=== PATIENT | male | born 1965 | race Caucasian/White ===

== ENCOUNTER 2023-09-17 09:13 | Outpatient (OUT) | payer OTHER, SELFPAY ==
--- NOTE | 2023-09-17 09:20 | XR_ITS ---
The [address] [address] Patient Name: DMITRI MANCILLA MRN: [id number] date: 1965 Sex: M Assigned Patient Location: RAD Current Patient Location: [facility] Accession/Order Number: [id number] Exam Date: 09/17/2023 09:25 Report Date: 09/17/2023 12:27 At the request of: MEENAKSHI GALLEGOS Procedure: XR shoulder LT min 2V PROCEDURE: XR shoulder LT min 2V COMPARISON: None. HISTORY: Internal Derangement Of Left Shoulder M24.812 FINDINGS: BONES:No acute fracture or dislocation. Mild acromioclavicular joint osteoarthritis. Moderate to severe glenohumeral joint osteoarthritis with marginal osteophyte formation and joint space narrowing and subchondral sclerosis SOFT TISSUES:Negative. No visible soft tissue swelling. EFFUSION:None visible. OTHER: Negative. XR/XR shoulder LT min 2V IMPRESSION: Moderate glenohumeral joint osteoarthritis Electronically authenticated by: KENNA PEACOCK Date: 09/17/2023 12:27
== END 2023-09-17 09:14 | disposition home or self-care (01) ==
LOC: RAD 09:15
PROVIDERS: PCP Family Medicine; Visit Provider Family Medicine
DX: M24.812 Other specific joint derangements of left shoulder, not elsewhere classified (principal); M19.012 Primary osteoarthritis, left shoulder
CPT/HCPCS: 73030

== ENCOUNTER 2024-03-15 07:12 | Outpatient (OUT) | payer OTHER, SELFPAY ==
--- OUTSIDE RECORDS SUMMARY | 2024-03-15 07:17 | XMS_ITS | CCD ---
Author Organization [facility] Care Team Providers Care Preassembler [employer] Name Role Phone REANNA, ADORE Unavailable Unavailable WILLOW, JESE S Unavailable Unavailable REANNA, ADORE Unavailable Unavailable WILLOW, JESE S Unavailable Unavailable VIRY ORELLANA Unavailable Unavailable WILLOW, JESE S Unavailable Unavailable Marc Whitaker Attending Provider Unavailable Sean Miranda Primary Care Provider UnavailJOHNATHON Adame Primary Care Physician MD Rishi Xie Attending Provider MD Johnathon Gallegos Primary Care Provider Rishi Xie Attending Unavailable NadererJohnathon Primary Care Unavailable Rishi Xie P Admitting Unavailable Paco, Rishi Herrera Admitting Unavailable NadererJohnathon Primary Care Unavailable Rishi Xie Attending Unavailable Rishi Xie Attending Unavailable NadereJohnathon mckeon Primary Care Unavailable Rishi Xie Admitting Unavailable Rishi Xie P Admitting Unavailable NadererJohnathon Primary Care Unavailable Rishi Xie Attending Unavailable NADEREDeonte, DR JOHNATHON Hunt Primary Care Unavailable NADERER, DR JOHNATHON Hunt Admitting Unavailable NADERER, DR JOHNATHON Hunt Attending Unavailable NADERER, DR JOHNATHON Hunt Consulting Unavailable NADERER, DR JOHNATHON Hunt Primary Care Unavailable LEA MARQUEZ Attending Unavailable ALMA, LEA Consulting Unavailable LEA MARQUEZ Admitting Unavailable NADERERJOHNATHON Primary Care Unavailable Jm Wilson Attending Unavailable NADERER, JOHNATHON Hunt Primary Care Unavailable WilsonJm murdock P Admitting Unavailable WilsonJm murdock P Consulting Unavailable Alex Ron Admitting Unavailable Alex Ron Attending Unavailable JOHNATHON GALLEGOS Primary Care Unavailable Rishi XIE Attending Unavailable COOK, Rishi P Attending Unavailable COOKRishi P Attending Unavailable COOK, Rishi P Attending Unavailable COOK, Rishi P Admitting Unavailable Rishi XIE Attending Unavailable MD Sean Miranda Attending Unavailable JOHNATHON GALLEGOS Attending Unavailable TRISTEN COLMENARES Attending Unavailable JOHNATHON GALLEGOS Referring Unavailable JR. GUERRERO GEORGE C Attending Unavaila TRISTEN Montoya Attending Unavailable Unavailable Unavailable Unavailable Allergies Allergy Classification Reported Allergen(s) Allergy Type Date of Onset Reaction(s) Facility (1 source) No Known Medication Allergies; Translations: [No Known Medication Allergies] Propensity to adverse reactions to drug (disorder) [facility] Repository Medications Current Medications Medication Drug Class(es) Dates Sig (Normalized) Sig (Original) cetirizine hydrochloride 10 mg oral tablet (4 sources) Histamine-1 Receptor Antagonist Start: 9 take 10 mg by mouth once daily Cetirizine Active 10 MG PO Daily September 14, 2019 1:00am hydroCHLOROthiazide 12.5 mg oral capsule (3 sources) Thiazide Diuretic Start: 2 take 1 mg by mouth once daily hydrochlorothiazide 12.5 mg Cap mg cap(s), Oral, Daily, Refills(s) 0 Start Date: 08/21/22 Status: Ordered Losartan (9 sources) Angiotensin 2 Receptor Ifeanyi Start: 2 losartan Oral, Daily Start Date: 02/25/22 Status: Ordered Start: 09-12-2019 take 50 mg by mouth once daily Losartan Active 50 MG PO Daily September 12, 2019 1:00am niacin 250 mg oral tablet (9 sources) Nicotinic Acid Start: 09-14-2019 tamsulosin hydrochloride 0.4 mg oral capsule (4 sources) alpha-Adrenergic Ifeanyi Start: 06-24-2023 take 1 capsule by mouth once daily tamsulosin 0.4 mg Cap 0.4 mg = 1 cap(s), Oral, Daily, # 30 cap(s), Refills(s) 11, [facility]: [id number], 178, cm, 02/23/23 8:34:00 EDT, Height/Length Dosing, 87, kg, 02/23/23 8:34:00 EDT, Weight Dosing Start Date: 06/24/23 Status: Ordered Start: 06-19-2022 take 1 capsule by [facility] once daily tamsulosin 0.4 mg Cap 0.4 mg = 1 cap(s), Oral, Daily, # 30 cap(s), Refills(s) 11, Pharmacy: [facility] #[id number], 178, cm, 06/19/22 10:33:00 EDT, Height/Length Dosing, 87, kg, 06/19/22 10:33:00 EDT, Weight Dosing Start Date: 06/19/22 Status: Ordered Verapamil (9 sources) Calcium Channel Ifeanyi Start: 02-25-2022 verapa mil 240 mg Start Date: 02/25/22 Status: Ordered Start: 09-12-2019 take 240 mg by mouth once amanda y Verapamil Active 240 MG PO Daily September 12, 2019 1:00am Vitamin B Complex oral capsu le (5 sources) Start: 02-25-2022 Vitamin B Comp bismark oral capsule Oral, Daily Start Date: 02/25/22 Status: Ordered Problems Active Problems Problem Classification Problem Date Documented Da te Episodic/Chronic Administrative/social admission (3 sources) Encounter for pre-employment examination; Translations: [Encounter for pre-employment examination] Onset: 02-25-2018 Episodic Essential hypertension (5 sources) Hypertensive disorder 02-25-2022 Chronic Genitourinary symptoms and ill-defined conditions (2 sources) Urge incontinence; Translations: [Urge incontinence of urine] Onset: 09-06-2023 Chronic Genitourinary symptoms and ill-defined conditions (4 sources) Dysuria 04-27-2022 Episodic Hyperplasia of prostate (9 sources) Benign prostatic hypertrophy with outflow obstruction; Translations: [Benign prostatic hyperplasia with lower urinary tract symptoms] Onset: 02-25-2022 Chronic Osteoarthritis (5 sources) Arthritis 02-25-2022 Chronic Other diseases of kidney and ureters (2 sources) Urinary tract obstruction; Translations: [Other obstructive and reflux uropathy] Onset: 02-25-2022 Episodic Other gastrointestinal disorders (4 sources) Dysphagia; Translations: [Dysphagia, unspecified] 09-14-2019 Episodic Other gastrointestinal disorders (1 source) Dysphagia, unspecified; Translations: [Swallowing painful] Episodic Other gastrointestinal disorders (5 sources) Pharyngeal dysphagia 02-25-2022 Episodic Other nutritional; endocrine; and metabolic disorders (1 source) Overweight in adulthood with body mass index of 25 or more but less than 30; Translations: [Body mass index (BMI) 27.0-27.9, adult] Onset: 02-25-2022 Episodic Other nutritional; endocrine; and metabolic disorders (5 sources) Body mass index 25-29 - overweight 02-25-2022 Episodic Other screening for suspected conditions (not mental disorders or infectious disease) (13 sources) Encounter for screening for malignant neoplasm of colon; Translations: [Raised prostate specific antigen] Onset: 02-25-2022 Episodic Paralysis (5 sources) Cerebral palsy 02-25-2022 Chronic Residual codes; unclassified (4 sources) Family history of cancer; Translations: [Family history of malignant neoplasm of prostate] Onset: 02-25-2022 Episodic Residual codes; unclassified (5 sources) Family history of prostate cancer 02-25-2022 Episodic Unclassified (1 source) Pure hypercholesterolemi a, unspecified; Translations: [Pure hypercholesterolemi a, unspecified] Onset: 04-27-2017 Unclassified (1 source) Patient encounter status; Translations: [Encounter for screening for malignant neoplasm of colon] Unclassified (1 source) Encounter for preprocedural laboratory examination; Translations: [Encounter for preprocedural laboratory examination] Onset: 05-26-2022 Unclassified (1 source) R97.20 - Elevated prostate specific antigen [PSA]; Translations: [R97.20 - Elevated prostate specific antigen [PSA]] Onset: 03-25-2022 Past or Other Problems Problem Classification Problem Date Documented Da te Episodic/Chronic Medical examination/evaluation (1 source) Encounter for general adult medical examination without abnormal findings; Translations: [Encounter for general adult medical examination without abnormal findings] Onset: 04-27-2017 Episodic Residual codes; unclassified (4 sources) Contact with and (suspected) exposure to potentially hazardous body fluids; Translations: [CONTACT AND EXPOS POTENTL HAZ BDY FLUID] Onset: 06-24-2022 Episodic Results Test Name Value Interpretation Reference Range Facility MR SHOULDER LEFT WO IV CONTR Porfirio 01-12-2024 MR SHOULDER LEFT WO IV CONTRAST EXAMINATION: MR SHOULDER LEFT WO IV CONTRAST HISTORY: Diffuse shoulder pain with limited range of motion for 1 year, worsening TECHNIQUE: Routine non-contrast MRI of the shoulder, left side COMPARISON: None RESULT: Rotator Cuff Tendons: Mild tendinosis involving supraspinatus, infraspinatus, and subscapularis, without evidence for tear. Teres minor appears intact. Long Head Biceps Tendon: Appears intact with appropriate location. Increased fluid in the tendon sheath likely relates to joint continuity, versus tenosynovitis. Muscle: Muscle bulk and signal intensity are within normal limits. Labrum: Diffuse tearing Bones and Marrow: No evidence of fracture or bone marrow replacing process. Extensive degenerative subchondral edema about the glenohumeral joint and to a lesser extent the acromioclavicular joint. Glenohumeral Joint: Diffuse full-thickness chondral loss with extensive subchondral edema and cystic change, bony remodeling, osteophytes, with multiple joint bodies including fluid extending into the subscapularis recess with multiple joint bodies in the subscapularis recess and also within the axillary pouch region. One of the larger joint bodies measures around 7 mm. Acromioclavicular Joint: Mild degenerative changes with undersurface osteophytes. Other: No other significant abnormality. IMPRESSION: Advanced glenohumeral osteoarthritis with multiple joint bodies as discussed. Rotator cuff tendinosis without tear. ELECTRONICALLY SIGNED BY: Peter Coates MD Normal Not Available Lab Reportson 09-08-2023 Lab Reports [id number] Normal [facility] Screenson 09-08-2023 Screens [id number] Normal [facility] Ambulatory Visit Summaryon 1 11-08-2022 Ambulatory Visit Summary DMITRI ARTHUR :1965 Visit Date:09/07/2023 Ambulatory Visit Instructions Your Diagnosis Elevated PSA BPH with urinary obstruction Urge incontinence Family history of prostate cancer in father Tests Performed Urnls Dip Stick Auto w/o Microscopy POC 81056 Your Care Team Attending Physician - PACO VARGAS, Rishi Herrera Primary Care Physician - JOHNATHON GALLEGOS MD This Is Your Medications List tamsulosin (tamsulosin 0.4 mg Cap) Contact prescribing physician if questions or concerns hydrochlorothiazide (hydrochlorothiazide 12.5 mg Cap) losartan multivitamin (Vitamin B Complex oral capsule) niacin (niacin 250 mg oral tablet) verapamil Procedures Performed MR/US fusion guided prostate biopsy (05/28/2022), Testicular torsion (1989), Tonsillectomy and adenoidectomy (1975). Discharge Vitals Heart Rate (Peripheral) 100 Blood Pressure 138/81 Height 178 cm Height 70 in Weight 87 kg Weight 191.4 lb BMI 27.46 What to do next Scheduled Follow-Up Appointments Wednesday 8:00 AM EDT With: Rishi XIE MD Where: [facility] Patient Educationon 09-07-20 Patient Education Urology Benign Prostatic Hyperplasia Benign prostatic hyperplasia (BPH) is an enlarged prostate gland that is caused by the normal aging process. The prostate may get bigger as a man gets older. The condition is not caused by cancer. The prostate is a walnut-sized gland that is involved in the production of semen. It is located in front of the rectum and below the bladder. The bladder stores urine. The urethra carries stored urine out of the body. An enlarged prostate can press on the urethra. This can make it harder to pass urine. The buildup of urine in the bladder can cause infection. Back pressure and infection may progress to bladder damage and kidney (renal) failure. What are the causes? This condition is part of the normal aging process. However, not all men develop problems from this condition. If the prostate enlarges away from the urethra, urine flow will not be blocked. If it enlarges toward the urethra and compresses it, there will be problems passing urine. What increases the risk? This condition is more likely to develop in men older than 50 years. What are the signs or symptoms? Symptoms of this condition include: ? Getting up often during the night to urinate. ? Needing to urinate frequently during the day. ? Difficulty starting urine flow. ? Decrease in size and strength of your urine stream. ? Leaking (dribbling) after urinating. ? Inability to pass urine. This needs immediate treatment. ? Inability to completely empty your bladder. ? Pain when you pass urine. This is more common if there is also an infection. ? Urinary tract infection (UTI). How is this diagnosed? This condition is diagnosed based on your medical history, a physical exam, and your symptoms. Tests will also be done, such as: ? A post-void bladder scan. This measures any amount of urine that may remain in your bladder after you finish urinating. ? A digital rectal exam. In a rectal exam, your health care provider checks your prostate by putting a lubricated, gloved finger into your rectum to feel the back of your prostate gland. This exam detects the size of your gland and any abnormal lumps or growths. ? An exam of your urine (urinalysis). ? A prostate specific antigen (PSA) screening. This is a blood test used to screen for prostate cancer. ? An ultrasound. This test uses sound waves to electronically produce a picture of your prostate gland. Your health care provider may refer you to a specialist in kidney and prostate diseases (urologist). How is this treated? Once symptoms begin, your health care provider will monitor your condition (active surveillance or watchful waiting). Treatment for this condition will depend on the severity of your condition. Treatment may include: ? Observation and yearly exams. This may be the only treatment needed if your condition and symptoms are mild. ? Medicines to relieve your symptoms, including: ? Medicines to shrink the prostate. ? Medicines to relax the muscle of the prostate. ? Surgery in severe cases. Surgery may include: ? Prostatectomy. In this procedure, the prostate tissue is removed completely through an open incision or with a laparoscope or robotics. ? Transurethral resection of the prostate (TURP). In this procedure, a tool is inserted through the opening at the tip of the penis (urethra). It is used to cut away tissue of the inner core of the prostate. The pieces are removed through the same opening of the penis. This removes the blockage. ? Transurethral incision (TUIP). In this procedure, small cuts are made in the prostate. This lessens the prostate's pressure on the urethra. ? Transurethral microwave thermotherapy (TUMT). This procedure uses microwaves to create heat. The heat destroys and removes a small amount of prostate tissue. ? Transurethral needle ablation (TUNA). This procedure uses radio frequencies to destroy and remove a small amount of prostate tissue. ? Interstitial laser coagulation (ILC). This procedure uses a laser to destroy and remove a small amount of prostate tissue. ? Transurethral electrovaporization (TUVP). This procedure uses electrodes to destroy and remove a small amount of prostate tissue. ? Prostatic urethral lift. This procedure inserts an implant to push the lobes of the prostate away from the urethra. Follow these instructions at home: ? Take oeuk-bzs-pukykzd and prescription medicines only as told by your health care provider. ? Monitor your symptoms for any changes. Contact your health care provider with any changes. ? Avoid drinking large amounts of liquid before going to bed or out in public. ? Avoid or reduce how much caffeine or alcohol you drink. ? Give yourself time when you urinate. ? Keep all follow-up visits. This is important. Contact a health care provider if: ? You have unexplained back pain. ? Your symptoms do not get better with treatment. ? You develop side effects from the medicine (more content not included)... Normal [facility] Reminderson 09-07-2023 Reminders - From: Dennise Swanson To: JEANETTE Xie; Sent: 09/07/2023 09:55:39 EST Show up: 01/07/2024 10:55:00 EDT Subject: PSA Due Date/Time: 03/08/2024 10:55:00 EDT Pt is to get PSA done prior to appt. Normal [facility] Urology Office/Clinic Noteon 09-07-2023 Urology Office/Clinic Note Chief Complaint 6 month follow up w/ PSA HPI Staff 6 month follow up w/PSA. Current PSA 1.95 done 07/28/23, previous PSA 2.49 done 02/15/23. Previous DX: BPH w/ urinary obstruction, dysuria, elevated PSA, family history of prostate cancer. S/P MRI fusion bx done 05/28/22. Pt needs refill of Fl[facility]. IPSS SCORE 19. PVR today 143ml. Dysuria: denies pain and burning Incomplete bladder emptying: denies Hematuria: denies visible blood Frequency: 6-7x a day due to coffee intake Urgency: sometimes Nocturia: once a night Stream: denies hesitancy, weak to moderate stream Leaking: yes Post void dripping: sometimes Wearing pads/ Depends: denies Urge incontinence: denies Stress incontinence: sometimes when going from seated position to standing Incontinence without Sensory Awareness: denies Abdominal pain: denies Flank pain: denies Sexual complaints: _ History of Present Illness Tests reviewed: reviewed UA and PSA. I have reviewed the previous health record information and history for this patient from . I have reviewed and verified the staff HPI to be accurate for this encounter. There have been no associated fever, chills, flank pain, or blood in the urine. Denies any urinary infections since last encounter. Review of Systems PHQ Score Initial Depression Screen Score: 0 SCORE ROS - Provider Constitutional: denies weight loss, denies hot flashes. Eyes: denies eye problems. Gastrointestinal: denies nausea, denies vomiting. Cardiovascular: denies chest pain or angina. Integumentary: no dryness Musculoskeletal: denies musculoskeletal symptoms. ENMT: denies otolaryngeal symptoms. Respiratory: no shortness of breath. Heme/Lymph: denies easy bleeding tendency, denies easy bruising tendency. Psychiatric: no confusion, no anxiety. Genitourinary: See HPI. Physical Exam Vitals & Measurements HR: 100(Peripheral) BP: 138/81 HT: 70 in HT: 178 cm WT: 87 kg WT: 191.4 lb BMI: 27.46 General Appearance: alert, no distress, well nourished, well developed male. Assessment/Plan 1. Elevated PSA (R97.20: Elevated prostate specific antigen [PSA]) PSA: 08/20/22 - 2.71 10/12/22 - 3.50 02/15/23 - 2.49 07/28/23 - 1.95 MRI of prostate 03/25/22 - A focal area of T2 hypointensity which is identified involving the posterolateral aspect of the left peripheral zone at the level of the mid gland measuring 6 x 5 mm with associated restricted diffusion and low ADC value. PI-RADS 4. Prostate volume 28 cc. MRI fusion bx 05/28/22 - Path neg. Chronic inflammation and atrophy. Discussed PSA level with pt, decreased from previous, trending down currently. Will continue to monitor. Advised pt that we do not need to have a bx done, but it would be recommended to continue with the close monitoring. Pt agrees with this plan. Follow up in 6 mos w/PSA. All questions/concerns were discussed. Pt to call the office if he encounters any issues prior. Pt acknowledges understanding. -Will order PSA. 2. BPH with urinary obstruction (N40.1: Benign prostatic hyperplasia with lower urinary tract symptoms) UA today negative for blood and infection. IPSS 19(12). Taking Flomax 0.4 mg qd. Pt states that he feels like there are not changes in his urinary sxs, still experiencing urge incontinence, still getting up 2x/night. Pt states that he had tried taking the Tamsulosin BID, had lightheadedness from the max dose of Tamsulosin. Denies any other SE's from Tamsulosin. Advised pt to continue with the Tamsulosin and the next step would to get a cysto done. Pt states that he does not feel this is needed at this time. -Continue Tamsulosin as above. -Continue sxs monitoring. 3. Urge incontinence (N39.41: Urge incontinence) -See #2. 4. Family history of prostate cancer in father (Z80.42: Family history of malignant neoplasm of prostate) PSA has decreased since last visit but seems to continue to fluctuate, consistent with a chronic prostatitis type picture noted on biopsy. Regarding his urinary symptoms, Flomax continues to help but he was unable to tolerate the twice daily dosing as noted above. Will stay on the current dosing at 0.4 mg daily and follow-up in 6 months with a repeat free and total PSA Follow-up With When Contact Information Rishi XIE MD, URL In 6 months [facility] [address] [place] [address]- Additional Instructions: w/PSA Patient Education Benign Prostatic Hyperplasia I, Dennise Swanson, personally scribed for Dr. Xie on 09/07/2023 09:44:50. . Documentation recorded by the scribe, Dennise Swanson, accurately reflects the services(s) I performed and decisions made by me. Authenticated by Dr. Xie on 09/07/2023 09:45:55. Portions of this record may have been created with voice recognition artificial intelligence software, specifically Fontself, iSSimple and or Issue (more content not included)... [facility] Comment on above: Result Comment: Elec tronically Signed By: Rishi XIE MD\.br\Date and Time Signed: 09/07/23 09:49 EST\.br\Electronically Co-Signed By: Dennise Swanson\.br\Date and Time Co-Signed: 09/07/23 09:45 EST Consent Formson 08-03-2023 Consent Forms [id number] Normal [facility] CMP Standardon 07-28-2023 eGFR Non AA >60 Invalid Interpretation Code [facility] Comment on above: Performed By: #### 2 [id number], [id number], 7859728, 0785050, [id number], 7627366, [id number], [id number] ####[facility] (DEFAULT)[address] [place] [address] 39278 eGFR AA >60 Invalid Interpretation Code [facility] Comment on above: Performed By: #### 2 [id number], 2256383, 5471129, 0345574, [id number], 7513634, [id number], 6991071 ####[facility] (DEFAULT)[address] [place] [address] 47810 Albumin [Mass/Vol] 4.2 g/dL Normal 3.5-5.0 [facility] Comment on above: Performed By: #### 2 585121, 4187026, 6835025, 6981655, [id number], 1634334, [id number], [id number] ####[facility] (DEFAULT)[address] [place] [address] 29009 Albumin/Globulin [Mass ratio] 1.3 {ratio} Low 1.4-2.6 [facility] Comment on above: Performed By: #### 2 790753, 8646001, 6810535, 3636734, [id number], 4664291, [id number], 4050539 ####[facility] (DEFAULT)[address] [place] [address] 04748 Alk Phos 56 IU/L Normal 32-91 [facility] Comment on above: Performed By: #### 2 948149, 6005199, 0173685, 1534238, [id number], 7267048, [id number], 5913984 ####[facility] (DEFAULT)[address] [place] [address] 81633 ALT [Catalytic activity/Vol] 18.0 U/L Normal 17.0-63.0 [facility] Comment on above: Performed By: #### 2 308334, 6112632, 1023453, 8906267, [id number], 9574609, [id number], 5904229 ####[facility] (DEFAULT)[address] [place] [address] 12580 Anion gap [Moles/Vol] 11.2 mmol/L Normal 5.0-19.0 [facility] Comment on above: Performed By: #### 2 897517, 7110932, 0231267, 7158047, [id number], 7668377, [id number], 3945008 ####[facility] (DEFAULT)[address] [place] [address] AST [Catalytic activity/Vol] 21 U/L Normal 15-41 [facility] Comment on above: Performed By: #### 2 517126, 9664915, 4564944, 3245418, [id number], 4147751, [id number], 1836569 ####[facility] (DEFAULT)[address] [place] [address] 25062 Bili Total 0.4 mg/dL Normal 0.3-1.2 [facility] Comment on above: Performed By: #### 2 356722, 3283701, 2725114, 2619540, [id number], 2327534, [id number], 6630894 ####[facility] (DEFAULT)[address] [place] [address] 88335 Calcium [Mass/Vol] 9.3 mg/dL Normal 8.9-10.3 [facility] Comment on above: Performed By: #### 2 865414, 2793323, 2684655, 5413279, [id number], 5382399, [id number], 0501654 ####[facility] (DEFAULT)[address] [place] [address] 59124 Chloride [Moles/Vol] 100 mmol/L Low 101-111 [facility] Comment on above: Performed By: #### 2 278738, 8658240, 0733469, 6198846, [id number], 3062719, [id number], [id number] ####[facility] (DEFAULT)[address] [place] [address] 01692 CO2 [Moles/Vol] 29 mmol/L Normal 21-32 [facility] Comment on above: Performed By: #### 2 199525, 2516270, 7572314, 7321346, [id number], 7125883, [id number], 1291021 ####[facility] (DEFAULT)[address] [place] [address] 70409 Creatinine [Mass/Vol] 0.82 mg/dL Low 0.90-1.30 [facility] Comment on above: Performed By: #### 2 121963, 2035124, 9865063, 4407223, 6388455611, 9781509, [id number], 3413017 ####[facility] (DEFAULT)[address] [place] [address] 87387 Globulin (S) [Mass/Vol] 3.1 g/dL Normal 1.5-4.3 [facility] Comment on above: Performed By: #### 2 093037, 7022285, 9392572, 2039175, [id number], 2132000, 3418303470, 8156654 ####[facility] (DEFAULT)[address] [place] [address] 62298 Glucose [Mass/Vol] 94.0 mg/dL Normal 74.0-118.0 [facility] Comment on above: Performed By: #### 2 062253, 2125237, 6154372, 1545324, [id number], 2766144, [id number], 8135717 ####[facility] (DEFAULT)[address] [place] [address] 22590 Osmolality 277 mOsm/L Invalid Interpretation Code [facility] Comment on above: Performed By: #### 2 952001, 6562132, 3557019, 9562128, [id number], 6452620, 4710034024, 5981366 ####[facility] (DEFAULT)[address] [place] [address] 76093 Potassium [Moles/Vol] 3.2 mmol/L Low 3.6-5.1 [facility] Comment on above: Performed By: #### 2 133704, 9739116, 8197693, 6411158, 8107295449, 5564215, 7342447750, 9183033 ####[facility] (DEFAULT)[address] [place] [address] 48213 Protein [Mass/Vol] 7.3 g/dL Normal 6.5-8.1 [facility] Comment on above: Performed By: #### 2 039362, 0162942, 2040776, 8868310, 5558152690, 0149127, 2856932818, 2420904 ####[facility] (DEFAULT)[address] [place] [address] 61878 Sodium [Moles/Vol] 137.0 mmol/L Normal 136.0-144.0 [facility] Comment on above: Performed By: #### 2 260560, 1113187, 9201901, 0371914, [id number], 2802196, 5945157540, 5655900 ####[facility] (DEFAULT)[address] [place] [address] 93699 Urea nitrogen [Mass/Vol] 22 mg/dL Normal 8-26 [facility] Comment on above: Performed By: #### 2 438557, 7175969, 6125183, 6558171, 7781023794, 4434081, 6116004097, 6642068 ####[facility] (DEFAULT)[address] [place] [address] 68875 Urea nitrogen/Creatinine [Mass ratio] 26.8 mg/mg High 4.6-16.2 [facility] Comment on above: Performed By: #### 2 606562, 4091361, 2114995, 4845546, 7270332900, 8161170, 9087506503, 2045714 ####[facility] (DEFAULT)[address] [place] [address] 32662 GGTon 07-28-2023 Gamma glutamyl transferase [Catalytic activity/Vol] 23.0 U/L Normal 7.0-50.0 [facility] Comment on above: Performed By: #### 2 936981, 8864713, 9524649, 3991704, 9771645426, 0654619, 2375071988, 6331883 ####[facility] (DEFAULT)[address] [place] [address] 34858 Iron Levelon 07-28-2023 Iron [Mass/Vol] 88.0 ug/dL Normal 45.0-182.0 [facility] Comment on above: Performed By: #### 2 728502, 0912417, 8826087, 3533515, 7636039888, 5320122, 2894915010, 3745184 ####[facility] (DEFAULT)[address] [place] [address] 97579 LDHon 07-28-2023 LDH 156.0 IU/L Normal 98.0-192.0 [facility] Comment on above: Performed By: #### 2 697073, 2332252, 6791696, 2503963, 7938004894, 9291062, 5185389571, 6875997 ####[facility] (DEFAULT)[address] [place] [address] 77969 Lipid Panel Standardon 07-28 Cholesterol [Mass/Vol] 247.0 mg/dL High 66.0-200.0 [facility] Comment on above: Performed By: #### 2 159479, 4536876, 9676873, 6878390, 3121019652, 1568662, 7454579200, 9170076 ####[facility] (DEFAULT)[address] [place] [address] 33791 Cholesterol in HDL [Mass/Vol] 53 mg/dL Normal 40-71 [facility] Comment on above: Performed By: #### 2 822723, 0641851, 9456030, 3139751, 7465173934, 5836633, 7331634227, 6942974 ####[facility] (DEFAULT)[address] [place] [address] 23524 Cholesterol in LDL [Mass/Vol] 162 mg/dL High 1-100 [facility] Comment on above: Performed By: #### 2 487166, 7896070, 6270460, 4793398, 8808130580, 6405782, 4578077895, 0849941 ####[facility] (DEFAULT)[address] [place] [address] 04416 Cholesterol.total/Cho lesterol in HDL [Mass ratio] 4.6 {ratio} High 0.0-4.5 [facility] Comment on above: Performed By: #### 2 012817, 7916993, 6305359, 7639841, 5663734579, 6121963, 4572742984, 0822263 ####[facility] (DEFAULT)[address] [place] [address] 47777 Triglyceride [Mass/Vol] 159.0 mg/dL High 0.0-150.0 [facility] Comment on above: Performed By: #### 2 535124, 2986746, 7237607, 0547706, 7165175664, 5931940, 5253345801, 1236182 ####[facility] (DEFAULT)[address] [place] [address] 94592 VLDL. 32 mg/dL Normal 5-40 [facility] Comment on above: Performed By: #### 2 706877, 0976794, 1552695, 4515635, 5600901049, 0036199, 4408243586, 8299501 ####[facility] (DEFAULT)[address] [place] [address] 10386 PSA Screenon 07-28-2023 PSA Screen 1.95 ng/mL Normal 0.00-4.00 [facility] Comment on above: Result Comment: [employer] Access Clinical System (Chemiluminescence) Values obtained with different assay methods or kits cannot be used interchangeably. Results cannot be interpreted as absolute evidence of the presence or absence of malignant disease. Performed By: #### 2 900531, 5465477, 7594301, 4366176, 7926753563, 5860569, 6043569291, 9222079 ####[facility] (DEFAULT)[address] [place] [address] 90177 Phoson 07-28-2023 Phosphate [Mass/Vol] 2.7 mg/dL Normal 2.5-4.6 [facility] Comment on above: Performed By: #### 2 112588, 7987881, 9477954, 8919565, 4795869425, 0712302, 7197776159, 1649722 ####[facility] (DEFAULT)[address] [place] [address] 97192 Uric Acidon 07-28-2023 Urate [Mass/Vol] 6.1 mg/dL Normal 4.8-8.7 [facility] Comment on above: Performed By: #### 2 775671, 6156108, 1812353, 3594111, 0698578095, 1197971, 0828738213, 5088668 ####[facility] (DEFAULT)[address] [place] [address] 78747 Triage Industrialon 05-21-20 Drug Screen Complete Collected Normal [facility] Comment on above: Performed By: #### 1 [id number] #### [facility] (DEFAULT) [address] [place] [address]1933 Lab Reportson 02-24-2023 Lab Reports [id number]:127 Normal [facility] Screenson 02-24-2023 Screens [id number]:127 Normal [facility] Patient Educationon 02-24-20 23 Patient Education Urology Transurethral Resection of the Prostate Transurethral resection of the prostate (TURP) is the removal, or resection, of part of the prostate tissue. This procedure is done to treat an enlarged prostate gland (benign prostatic hyperplasia). The goal of TURP is to remove enough prostate tissue to allow for a normal flow of urine. The procedure will allow you to empty your bladder more completely when you urinate so that you can urinate less often. In a transurethral resection, a thin telescope with a light, a camera, and an electric cutting edge (resectoscope) is passed through the urethra and into the prostate. The opening of the urethra is at the end of the penis. Tell a health care provider about: ? Any allergies you have. ? All medicines you are taking, including vitamins, herbs, eye drops, creams, and flvr-gku-cvgesjz medicines. ? Any problems you or family members have had with anesthetic medicines. ? Any bleeding problems you have. ? Any surgeries you have had. ? Any medical conditions you have. ? Any prostate infections you have had. What are the risks? Generally, this is a safe procedure. However, problems may occur, including: ? Infection. ? Bleeding. ? Allergic reactions to medicines. ? Blood in the urine (hematuria). ? Damage to nearby structures or organs. Other problems may occur, but they are rare. They include: ? Dry ejaculation, or having no semen come out during orgasm. ? Erectile dysfunction, or being unable to have or keep an erection. ? Scarring that leads to narrowing of the urethra. This narrowing may block the flow of urine. ? Inability to control when you urinate (incontinence). ? Deep vein thrombosis. This is a blood clot that can develop in your leg. ? TURP syndrome. This can happen when you lose too much sodium during or after the procedure. Some signs and symptoms of this condition include: ? Weakness. ? Headaches. ? Nausea or vomiting. ? Muscle cramping. What happens before the procedure? When to stop eating and drinking Follow instructions from your health care provider about what you may eat and drink before your procedure. These may include: ? 8 hours before your procedure ? Stop eating most foods. Do not eat meat, fried foods, or fatty foods. ? Eat only light foods, such as toast or crackers. ? All liquids are okay except energy drinks and alcohol. ? 6 hours before your procedure ? Stop eating. ? Drink only clear liquids, such as water, clear fruit juice, black coffee, plain tea, and sports drinks. ? Do not drink energy drinks or alcohol. ? 2 hours before your procedure ? Stop drinking all liquids. ? You may be allowed to take medicines with small sips of water. If you do not follow your health care provider's instructions, your procedure may be delayed or canceled. Medicines Ask your health care provider about: ? Changing or stopping your regular medicines. This is especially important if you are taking diabetes medicines or blood thinners. ? Taking medicines such as aspirin and ibuprofen. These medicines can thin your blood. Do not take these medicines unless your health care provider tells you to take them. ? Taking esji-wey-dowcjqm medicines, vitamins, herbs, and supplements. Surgery safety Ask your health care provider what steps will be taken to help prevent infection. These steps may include: ? Removing hair at the surgery site. ? Washing skin with a germ-killing soap. ? Taking antibiotic medicine. General instructions ? Do not use any products that contain nicotine or tobacco for at least 4 weeks before the procedure. These products include cigarettes, chewing tobacco, and vaping devices, such as e-cigarettes. If you need help quitting, ask your health care provider. ? If you will be going home right after the procedure, plan to have a responsible adult: ? Take you home from the hospital or clinic. You will not be allowed to drive. ? Care for you for the time you are told. What happens during the procedure? ? An IV will be inserted into one of your veins. ? You will be given one or more of the following: ? A medicine to help you relax (sedative). ? A medicine to make you fall asleep (general anesthetic). ? A medicine that is injected into your spine to numb the area below and slightly above the injection site (spinal anesthetic). ? Your legs will be placed in foot rests (stirrups) so that your legs are apart and your knees are bent. ? The resectoscope will be passed through your urethra to your prostate. ? Parts of your prostate will be resected using the cutting edge of the resectoscope. ? Fluid will be passed to rinse out the cut tissues (irrigation). ? The resectoscope will be removed. ? A small, thin tube (catheter) will be passed through your urethra and into your bladder. The catheter will drain urine into a bag outside of your body. The procedure may vary among health care (more content not included)... [facility] Urology Office/Clinic Noteon 02-23-2023 Urology Office/Clinic Note Chief Complaint pt here today for 4 month f/u with PSA f/t. [facility] Staff Dmitri is a 58 y/o male here for a 4 month f/u w/PSA. PSA done 10/12/2022 was 3.5 MRI fusion BX done 05/28/2022 was negative. Previous Dx: BPH w/ urinary obstruction, dysuria, elevated PSA, family history of prostate cancer. PSA 02/15/23 - 2.49 Dysuria: denies Incomplete bladder emptying: denies Hematuria: denies Frequency: denies Urgency: yes Nocturia: 1x Stream: stream varies but usually storng and steady Leaking: some with urge Post void dripping: denies Wearing pads/ Depends: denies Urge incontinence: yes, pt states this is getting a little worse Stress incontinence: denies Incontinence without Sensory Awareness: denies Abdominal pain: denies Flank pain: denies Sexual complaints: _ History of Present Illness Tests reviewed: reviewed UA, PSA. I have reviewed the previous health record information and history for this patient from Dr. Xie. I have reviewed and verified the staff HPI to be accurate for this encounter. There have been no associated fever, chills, flank pain, or blood in the urine. Denies any urinary infections since last encounter. Review of Systems PHQ Score Initial Depression Screen Score: 0 ROS - Provider Constitutional: denies weight loss, denies hot flashes. Eyes: denies eye problems. Gastrointestinal: denies nausea, denies vomiting. Cardiovascular: denies chest pain or angina. Integumentary: no dryness Musculoskeletal: denies musculoskeletal symptoms. ENMT: denies otolaryngeal symptoms. Respiratory: no shortness of breath. Heme/Lymph: denies easy bleeding tendency, denies easy bruising tendency. Psychiatric: no confusion, no anxiety. Genitourinary: See HPI. Physical Exam Vitals & Measurements HR: 82(Peripheral) BP: 140/92 HT: 70 in HT: 178 cm WT: 87 kg WT: 191.4 lb BMI: 27.46 General Appearance: alert, no distress, well nourished, well developed male. Genitourinary: normal scrotum, normal testes, normal urethra, normal epididymis, normal vas deferens/spermatic cord. Flank Pain: none. Bladder: nonpalpable. Prostate: normal prostate, estimated weight 40 gms, no hard nodule observed. Assessment/Plan 1. Elevated PSA (R97.20: Elevated prostate specific antigen [PSA]) PSA: 08/20/22 - 2.71 10/12/22 - 3.50 02/15/23 - 2.49 MRI of prostate 03/25/22 - A focal area of T2 hypointensity which is identified involving the posterolateral aspect of the left peripheral zone at the level of the mid gland measuring 6 x 5 mm with associated restricted diffusion and low ADC value. PI-RADS 4. Prostate volume 28 cc. MRI fusion bx 05/28/22 - Path neg. Chronic inflammation and atrophy. PSA decreased from prior. Will continue to monitor. Explained PSA fluctuation can be caused by chronic prostate inflammation but both inflammation and prostate ca can be present. MAGALY today 40 gm, no nodules. Follow up 6 mos with PSA FT or sooner if needed. Pt understands and agrees with plan. 2. BPH with urinary obstruction (N40.1: Benign prostatic hyperplasia with lower urinary tract symptoms) UA today negative for blood and infection. IPSS 12 (20). Taking Flomax 0.4 mg qd. No need for dosing changes. 3. Urge incontinence (N39.41: Urge incontinence) See #2. Occasional mild leakage with urge. Educated pt this is caused by BPH. Explained different treatment options for bladder outlet obstruction including oral medications, operative interventions such as TURP, versus less invasive options such as Rezum or Urolift, depending on prostate size and shape. Educational pamphlets provided. Cysto would be required prior to eval candidacy for outlet obstruction procedure. 4. Family history of prostate cancer in father (Z80.42: Family history of malignant neoplasm of prostate) Overall the patient is happy to hear about his drop in the PSA level. He had seen an online. Informed him that although there is no guarantee prostate cancer is not present, his PSA certainly has decreased nicely. He could have different entities ongoing including prostate cancer and an inflammatory etiology. He does favor however my recommendation for a 6-month follow-up with a repeat free and total PSA level. We then had extensive discussion about BPH treatments including medical management, more aggressive surgical management in the form of TURP versus minimally invasive prostate procedures. Literature given. He will think about all these and does not know that a cystoscopy will be the next step to see if he is a candidate for any or all of the above-noted options. We will see him in 6 months Follow-up With When Contact Information PACO VARGAS, Rishi Herrera, URL [address] [address]- Additional Instructions: 6 mos PSA FT Patient Education Transurethral Resection of the Prostate Benign Prostatic Hyperplasia I, Fanny Garcia, personally scribed for Dr. Xie on 02/23/2023 08:57:00. Electronically (more content not included)... [facility] Comment on above: Result Comment: Elec tronically Signed By: Rishi XIE MD\.br\Date and Time Signed: 02/23/23 09:01 EDT\.br\Electronically Co-Signed By: Fanny Garcia\.br\Date and Time Co-Signed: 02/23/23 08:57 EDT Lab Reportson 02-19-2023 Lab Reports [id number]:127 Normal [facility] Lab Reports [id number]:127 Normal [facility] CBC AUTO DIFFon 02-15-2023 BASO # 0.1 103/ul Normal 0.0-0.1 [facility] Comment on above: Performed By: #### P SASC #### [facility] [address] [address] [address] Davon Gutierrez Basophils/100 WBC (Bld) 1.1 % Normal 0.2-2.0 [facility] Comment on above: Performed By: #### P SASC #### [facility] [address] [place] [address] Dr. Davon Gutierrez EO # 0.5 103/ul Normal 0.0-0.7 [facility] Comment on above: Performed By: #### P SASC #### [facility] [address] [address] [address] Davon Gutierrez Eosinophils/100 WBC (Bld) 6.4 % Normal 0.9-7.0 [facility] Comment on above: Performed By: #### P SASC #### [facility] [address] [address] [address] Davon Gutierrez Erythrocyte distribution width (RBC) [Ratio] 12.2 % Normal 11.0-15.0 [facility] Comment on above: Performed By: #### P SASC #### [facility] [address] [address] [address] Davon Gutierrez Hematocrit (Bld) [Volume fraction] 42.2 % Normal 42.0-54.0 [facility] Comment on above: Performed By: #### P SASC #### [facility] [address] [place] [address] Dr. Davon Gutierrez Hemoglobin (Bld) [Mass/Vol] 14.4 g/dL Normal 14.0-18.0 [facility] Comment on above: Performed By: #### P SASC #### [facility] [address] [place] [address] Dr. Davon Gutierrez IG # 0.02 10e3/ul Normal 0.00-0.03 [facility] Comment on above: Performed By: #### P SASC #### [facility] [address] [place] [address] Dr. Davon Gutierrez IG % 0.3 % Normal 0.0-0.5 [facility] Comment on above: Performed By: #### P SASC #### [facility] [address] [place] [address] Dr. Davon Gutierrez LYMPH # 2.7 103/ul Normal 1.2-3.8 [facility] Comment on above: Performed By: #### P SASC #### [facility] [address] [place] [address] Dr. Davon Gutierrez Lymphocytes/100 WBC (Bld) 35.6 % Normal 20.5-60.0 [facility] Comment on above: Performed By: #### P SASC #### [facility] [address] [place] [address] Dr. Davon Gutierrez MANUAL DIFF REQ NO Normal [facility] Comment on above: Performed By: #### P SASC #### [facility] [address] [place] [address] Dr. Davon Gutierrez MCH (RBC) [Entitic mass] 31.3 pg Normal 25.9-34.0 [facility] Comment on above: Performed By: #### P SASC #### [facility] [address] [place] [address] Dr. Davon Gutierrez MCHC (RBC) [Mass/Vol] 34.1 g/dL Normal 29.9-35.2 [facility] Comment on above: Performed By: #### P SASC #### [facility] [address] [address] [address] Davon Gutierrez MCV (RBC) [Entitic vol] 91.7 fL Normal 80.0-94.0 [facility] Comment on above: Performed By: #### P SASC #### [facility] [address] [address] [address] Davon Gutierrez MONO # 0.7 103/ul Normal 0.3-0.8 [facility] Comment on above: Performed By: #### P SASC #### [facility] [address] [place] [address] Dr. Davon Gutierrez Monocytes/100 WBC (Bld) 8.9 % Normal 1.7-12.0 [facility] Comment on above: Performed By: #### P SASC #### [facility] [address] [place] [address] Dr. Davon Gutierrez NEUT # 3.6 103/ul Normal 1.4-6.5 [facility] Comment on above: Performed By: #### P SASC #### [facility] [address] [place] [address] Dr. Davon Gutierrez Neutrophils/100 WBC (Bld) 47.7 % Normal 43.0-75.0 [facility] Comment on above: Performed By: #### P SASC #### [facility] [address] [place] [address] Dr. Davon Gutierrez Platelet mean volume (Bld) [Entitic vol] 9.4 fL Critically low 9.5-13.5 [facility] Comment on above: Performed By: #### P SASC #### [facility] [address] [place] [address] Dr. Davon Gutierrez PLT 246 103/ul Normal 150-450 [facility] Comment on above: Performed By: #### P SASC #### [facility] [address] [place] [address] Dr. Davon Gutierrez RBC 4.60 106/ul Critically low 4.70-6.10 [facility] Comment on above: Performed By: #### P SASC #### [facility] [address] [place] [address] Dr. Davon Gutierrez WBC 7.5 103/ul Normal 4.0-11.0 [facility] Comment on above: Performed By: #### P SASC #### [facility] [address] [place] [address] Dr. Davon Gutierrez GLYCOHEMOGLOBIN A1Con 2022 ADA RECOMMENDATION SEE BELOW Normal [facility] Comment on above: Result Comment: ADA RECOMMENDED LIMIT 4.0 - 6.0 ADA THERAPEUTIC TARGET < 7.0 ACTION SUGGESTED > 7.0 Performed By: #### A 1C #### [facility] [address] [place] [address] Dr. Davon Gutierrez Glucose [Mass/Vol] 105 mg/dL Normal [facility] Comment on above: Performed By: #### A 1C #### [facility] [address] [place] [address] Dr. Davon Gutierrez HbA1c (Bld) [Mass fraction] 5.3 % Normal 4.5-6.2 [facility] Comment on above: Performed By: #### A 1C #### [facility] [address] [place] [address] Dr. Davon Gutierrez LIPID PROFILEon 02-15-2023 CHOL-HDL RATIO NORM SEE BELOW Normal [facility] Comment on above: Result Comment: 3.3 - 4.4 LOW RISK 4.4 - 7.1 AVERAGE RISK 7.1 - 11.0 MODERATE RISK >11.0 HIGH RISK Performed By: #### L IPID, LIVER, TSH, BMP #### [facility] [address] [place] [address] Dr. Davon Gutierrez Cholesterol [Mass/Vol] 227 mg/dL Critically high <=200 [facility] Comment on above: Performed By: #### L IPID, LIVER, TSH, BMP #### [facility] [address] [place] [address] Dr. Davon Gutierrez Cholesterol in HDL [Mass/Vol] 59 mg/dL Normal 40-60 [facility] Comment on above: Performed By: #### L IPID, LIVER, TSH, BMP #### [facility] [address] [address] [address] Davon Gutierrez Cholesterol in LDL [Mass/Vol] 152.4 mg/dL Normal [facility] Comment on above: Performed By: #### L IPID, LIVER, TSH, BMP #### [facility] [address] [address] [address] Davon Gutierrez Cholesterol.total/Cho lesterol in HDL [Mass ratio] 3.8 {ratio} Normal [facility] Comment on above: Performed By: #### L IPID, LIVER, TSH, BMP #### [facility] [address] [place] [address] Dr. Davon Gutierrez HDL NORMAL > or = 60 mg/dl - LO W CARDIOVASCULAR RISK <40 mg/dl - HIGH CARDIOVASCULAR RISK Normal [facility] Comment on above: Performed By: #### L IPID, LIVER, TSH, BMP #### [facility] [address] [place] [address] Dr. Davon Gutierrez LDL CALC NORMAL SEE BELOW Normal [facility] Comment on above: Result Comment: <100 mg/dl OPTIMAL 100 - 129 mg/dl NEAR OR ABOVE OPTIMAL 130 - 159 mg/dl BORDERLINE HIGH 160 - 189 mg/dl HIGH >190 mg/dl VERY HIGH Performed By: #### L IPID, LIVER, TSH, BMP #### [facility] [address] [address] [address] Davon Gutierrez Triglyceride [Mass/Vol] 78 mg/dL Normal <=150 [facility] Comment on above: Performed By: #### L IPID, LIVER, TSH, BMP #### [facility] [address] [place] [address] Dr. Davon Gutierrez VLDL CALC 15.6 mg/dL Normal [facility] Comment on above: Performed By: #### L IPID, LIVER, TSH, BMP #### [facility] [address] [address] [address] Davon Gutierrez LIVER PROFILEon 02-15-2023 Albumin [Mass/Vol] 3.5 g/dL Normal 3.4-5.0 [facility] Comment on above: Performed By: #### L IPID, LIVER, TSH, BMP #### [facility] [address] [place] [address] Dr. Davon Gutierrez Albumin/Globulin [Mass ratio] 0.9 {ratio} Normal [facility] Comment on above: Performed By: #### L IPID, LIVER, TSH, BMP #### [facility] [address] [place] [address] Dr. Davon Gutierrez ALP [Catalytic activity/Vol] 64 U/L Normal 46-116 [facility] Comment on above: Performed By: #### L IPID, LIVER, TSH, BMP #### [facility] [address] [place] [address] Dr. Davon Gutierrez ALT [Catalytic activity/Vol] 30 U/L Normal 16-63 [facility] Comment on above: Performed By: #### L IPID, LIVER, TSH, BMP #### [facility] [address] [place] [address] Dr. Davon Gutierrez AST [Catalytic activity/Vol] 21 U/L Normal 15-37 [facility] Comment on above: Performed By: #### L IPID, LIVER, TSH, BMP #### [facility] [address] [place] [address] Dr. Davon Gutierrez BILI, CONJUGATED 0.1 mg/dL Normal 0.0-0.2 [facility] Comment on above: Performed By: #### L IPID, LIVER, TSH, BMP #### [facility] [address] [place] [address] Dr. Davon Gutierrez Bilirubin [Mass/Vol] 0.4 mg/dL Normal 0.2-1.0 [facility] Comment on above: Performed By: #### L IPID, LIVER, TSH, BMP #### [facility] [address] [place] [address] Dr. Davon Gutierrez Globulin (S) [Mass/Vol] 3.7 g/dL Normal [facility] Comment on above: Performed By: #### L IPID, LIVER, TSH, BMP #### [facility] [address] [place] [address] Dr. Davon Gutierrez Protein [Mass/Vol] 7.2 g/dL Normal 6.4-8.2 [facility] Comment on above: Performed By: #### L IPID, LIVER, TSH, BMP #### [facility] [address] [place] [address] Dr. Davon Gutierrez PROF CHEM 8 (BAS METB)on Anion gap [Moles/Vol] 11.4 mmol/L Normal Th [facility] Comment on above: Performed By: #### L IPID, LIVER, TSH, BMP #### [facility] [address] [place] [address] Dr. Davon Gutierrez Calcium [Mass/Vol] 9.2 mg/dL Normal 8.5-10.1 [facility] Comment on above: Performed By: #### L IPID, LIVER, TSH, BMP #### [facility] [address] [place] [address] Dr. Davon Gutierrez Chloride [Moles/Vol] 102 mmol/L Normal 98-107 [facility] Comment on above: Performed By: #### L IPID, LIVER, TSH, BMP #### [facility] [address] [place] [address] Dr. Davon Gutierrez CO2 [Moles/Vol] 31.0 mmol/L Normal 21.0-32.0 [facility] Comment on above: Performed By: #### L IPID, LIVER, TSH, BMP #### [facility] [address] [place] [address] Dr. Davon Gutierrez Creatinine [Mass/Vol] 0.90 mg/dL Normal 0.70-1.30 [facility] Comment on above: Performed By: #### L IPID, LIVER, TSH, BMP #### [facility] [address] [place] [address] Dr. Davon Gutierrez EGFR-AF BARBADIAN >60 Normal >=60 [facility] Comment on above: Performed By: #### L IPID, LIVER, TSH, BMP #### [facility] [address] [address] [address] Davon Gutierrez EGFR-NON AF [place]IAN >60 Normal >=60 [facility] Comment on above: Performed By: #### L IPID, LIVER, TSH, BMP #### [facility] [address] [address] [address] Davon Gutierrez Glucose [Mass/Vol] 104 mg/dL Normal 74-106 [facility] Comment on above: Performed By: #### L IPID, LIVER, TSH, BMP #### [facility] [address] [address] [address] Davon Gutierrez Potassium [Moles/Vol] 3.4 mmol/L Critically low 3.5-5.1 [facility] Comment on above: Performed By: #### L IPID, LIVER, TSH, BMP #### [facility] [address] [place] [address] Dr. Davon Gutierrez Sodium [Moles/Vol] 141 mmol/L Normal 136-145 [facility] Comment on above: Performed By: #### L IPID, LIVER, TSH, BMP #### [facility] [address] [address] [address] Davon Gutierrez Urea nitrogen [Mass/Vol] 23.0 mg/dL Critically high 7.0-18.0 [facility] Comment on above: Performed By: #### L IPID, LIVER, TSH, BMP #### [facility] [address] [address] [address] Davon Gutierrez Urea nitrogen/Creatinine [Mass ratio] 25.6 mg/mg Normal [facility] Comment on above: Performed By: #### L IPID, LIVER, TSH, BMP #### [facility] [address] [address] [address] Davon Gutierrez TSHon 02-15-2023 TSH 1.208 uIU/mL Normal 0.358-3.740 [facility] Comment on above: Performed By: #### L IPID, LIVER, TSH, BMP #### [facility] [address] [address] [address] Davon Gutierrez Provider Orderson 02-01-2023 Provider Orders [id number] XR Chest 2 Views EXAMINATION: XR Ches t 2 Views, 01/29/2023 4:56 PM EDT HISTORY: NONSPECIFIC REACTION TO TUBERCULIN SKIN TEST WITHOUT ACTIVE TUBERCULOSIS COMPARISON: None. TECHNIQUE: Chest x-ray: Two views. FINDINGS: No focal consolidations or pleural effusions. Cardiomediastinal silhouette is unremarkable. Visualized osseous structures are unremarkable. IMPRESSION: No acute disease. Final Dictated by: Navid Maloney MD Dictated DT/TM: 01/29/23 6:39 Signed (Electronic Signature): Navid Maloney MD 01/29/23 6:40 pm Technologist: KEILY [facility] Consent Formson 12-09-2022 Consent Forms [id number] Resultson 0 12-09-2022 Lab - Toxicology Results [id number]#1.[facility] Clinical Summaryon 2022 ED Clinical Summary [facility] ? Urgent Care [address] [place], [place] [id number] Clinical Summary PERSON INFORMATION Name: DMITRI ARTHUR Age: 57 Years Sex: MALE : 1965 MRN: Acct#: Visit Reason: Medical screening exam; [place] [facility] Arrival: 12/08/2022 14:38:42 Discharge: 12/08/2022 15:28:00 LOS: 000 00:50 Check In: 12/08/2022 14:38:42 Checkout: 12/08/2022 15:28:00 Address: [address] [place] [id number] PCP: JOHNATHON GALLEGOS PROVIDER INFORMATION Provider Role Assigned Unassigned Alex Ron PA-C ED PA 12/08/2022 14:43:03 Genesis Valladares INSULATION WORKER Nurse 12/08/2022 14:44:23 VITALS INFORMATION Vital Sign Triage Latest Temperature Tympanic Temperature Temporal Artery Pulse Rate O2 Sat 95 % 95 % Respiratory Rate Blood Pressure /78 mmHg /78 mmHg MEDICAL INFORMATION Medications Given: Allergy Information: No Known Medication Allergies PHYSICIAN DOCUMENTATION DISCHARGE INFORMATION: Discharge Disposition: Home Discharge Location: Home PATIENT EDUCATION INFORMATION Instructions: Follow-Up: DIAGNOSIS: Patient Understands: Yes - Patient/family/caregiver verbalizes understanding of instructions given Comment: Normal [facility] ED Patient Summaryon 023 ED Patient Summary [facility] ? Urgent Care [address] [place] [address] PATIENT DISCHARGE INSTRUCTIONS Patient Information Name: DMITRI ARTHUR Age: 57 Years Date of : 1965 Reason For Visit: Medical screening exam; [place] [facility] Arrival Time: 12/08/2022 14:38:42 Primary Care Physician: JOHNATHON GALLEGOS Attending Physician: Alex Ron PA-C Comment: Patient Education Medication Information: The exam and treatment you received today in the [facility] Emergency Department were for an urgent problem and are not intended as complete care. It is important for you to follow up with a doctor, nurse practitioner, or physician?s head start assistant teacher for ongoing care. If your symptoms become worse or you do not improve as expected and you are unable to reach your usual health care provider, you should return to the Emergency Department, we are available 24 hours a day. For those patients who have received Radiology results, the interpretation of your X-ray as given to you by our Emergency Department physician is only a preliminary report. The Radiologist will review your films and if there is a change in the diagnosis you will be notified by phone. Please make sure you have provided a working phone number so we can reach you if necessary. In the event that you had a lab culture while you were a patient in the Emergency Department, you will be notified by phone if there is a need to change your antibiotic. Please make sure you have provided a working phone number so we can reach you if necessary. [facility] Emergency Department has provided you with a complete list of medications post discharge. Please inform your roll line operator/provider of your visit and for further instruction on these medications. Any specific questions regarding your chronic medications and dosages should be discussed with your primary care physician(s) and/or pharmacist. Medications to Continue That Have Not Changed Other Medications hydrochlorothiazide-losart an (hydrochlorothiazide-losar [place] 12.5 mg-50 mg oral tablet) 1 tab(s) Oral every day. take 1 tablet by mouth once daily. tamsulosin (tamsulosin 0.4 mg oral capsule) 1 cap(s) Oral every day. take 1 capsule by mouth once daily. verapamil (verapamil 240 mg/24 hours oral capsule, extended release) 1 cap(s) Oral every day. take 1 capsule by mouth once daily. Visit Information Visit Diagnosis: Diagnoses This Visit Medical screening exam ([id number]) If you received any narcotics, sedation, or any other medication that causes drowsiness for the next 24 hours, unless otherwise directed: ? Do not drive a car. ? Do not operate machinery such as power tools, lawn mowers, drills, sewing machines, or stoves ? Avoid alcoholic beverages and drugs for allergies, nerves, or sleep ? Do not make important personal or business decisions or sign any legal documents Reason for Visit: Al[facility] ramon [facility] physical Allergies: Substance Reaction Symptoms Type Comments No Known Medication Allergies Drug Vital Signs: Vitals and Measurements this Visit (last charted value for your 12/08/2022 visit) Vital Signs This Visit Peripheral Pulse Rate: 103 bpm Respiratory Rate: 16 br/min Systolic Blood Pressure: 110 mmHg Diastolic Blood Pressure: 78 mmHg SpO2: 95 % Oxygen Therapy: Room air Blood Pressure Method: Manual Measurements This Visit Height/Length Measured: 179.07 cm Weight Measured: 83.91 kg Body Mass Index: 26.17 kg/m2 BSA Measured: 2.04 m2 Problems List: Problem Onset Comments Hypertension Major Tests and Procedures: The following procedures and tests were performed during your ED visit. Laboratory Radiology Cardiology Viruses or Bacteria What?s got you sick? Antibiotics only treat bacterial infections. Viral illnesses cannot be treated with antibiotics. When an antibiotic is not prescribed, ask your healthcare professional for tips on how to relieve symptoms and feel better. Usual Cause Illness Viruses Bacteria Antibiotic Needed Cold/Runny Nose NO Bronchitis/Chest Cold (in otherwise healthy children and adults) NO Whooping Cough Yes Flu NO Strep Throat Yes Sore Throat (except strep) NO Fluid in the middle ear (otitis media with effusion) NO Urinary Tract Infection Yes Antibiotics Aren?t Always the Answer www.cdc.gov/getsmart GET SMART Know When Antibiotics Work U.S. Department of Health and Human Services Centers for Disease Control and Prevention June 2014 Normal [facility] Urgent Care Note- Provideron 12-08-2022 Urgent Care Note- Provider Patient: DMITRI ARTHUR Age: 57 years Sex: MALE : 1965 Associated Diagnoses: None Author: Alex Ron PA-C History of Present Illness Patient presents for a pre-employment physical. He is cleared for work. Exam is normal. See scanned document. GENERAL: Awake, alert and oriented to person, place and situation. Well nourished, well developed, non toxic, NAD. Moves around the department freely. EYES: Pupils equal, round and react to light. EOMI. ENMT: Ears: TM's and external canals with normal inspection bilaterally. Nose: normal inspection. Mouth: oral mucosa is pink and still moist. Throat: normal inspection. NECK: No bony TTP, normal range of motion, no meningismus, trachea is midline. No anterior or posterior lymphadenopathy. CARDIOVASCULAR: Regular rate and rhythm. +S1 +S2. No murmurs or rubs. RESPIRATORY: Clear to auscultation bilaterally without rales, rhonchi or wheeze. ABDOMEN: Soft, completely non tender, abdomen is non distended, without rebound tenderness, guarding or peritoneal signs. Bowel sounds present times 4 quadrants and normoactive. No bruits. No masses. No CVA TTP. BACK: There is no bony TTP, no scoliosis, full ROM without difficulty. EXTREMITIES: No cyanosis, clubbing or edema. Good muscle tone, moves all extremities fully. Squat normal. SKIN: Normal inspection, no visualized rash. NEUROLOGIC: Light touch sensation in tact, strength 5/5 in bilateral upper and lower extremities. Normal reflexes. Steady gait. Normal mentation. No focal neurological deficits appreciated. PSYCHIATRIC: Mood and affect appropriate. Health Status Allergies: Allergic Reactions (Selected) No Known Medication Allergies. Medications: (Selected) Prescriptions Prescribed PriLOSEC 40 mg oral delayed release capsule: 40 mg, 1 cap(s), PO, Daily, 30 cap(s), 0 Refill(s) Documented Medications Documented hydroCHLOROthiazide: PO, Daily, 0 Refill(s) verapamil: 0 Refill(s). Past Medical/ Family/ Social History Medical history: No active or resolved past medical history items have been selected or recorded.. Surgical history: No active procedure history items have been selected or recorded.. Family history: No family history items have been selected or recorded.. Social history: Social & Psychosocial Habits No Data Available . Problem list: Active Problems (1) Hypertension . [Electronically Signed on: 12/08/2022 15:19 EST] Alex Ron PA-C [Verified on: 12/08/2022 15:19 EST] Alex Ron PA-C Normal [facility] [place] 023 Urgent Care Record [facility] ? Urgent Care [address] [place] [address] PATIENT DISCHARGE INSTRUCTIONS Patient Information Name: DMITRI ARTHUR Age: 57 Years Date of : 1965 Reason For Visit: Medical screening exam; [place] [facility] Arrival Time: 12/08/2022 14:38:42 Primary Care Physician: JOHNATHON GALLEGOS Attending Physician: Alex Ron PA-C Comment: Visit Diagnosis: Diagnoses This Visit Medical screening exam ([id number]) If you received any narcotics, sedation, or any other medication that causes drowsiness for the next 24 hours, unless otherwise directed: ? Do not drive a car. ? Do not operate machinery such as power tools, lawn mowers, drills, sewing machines, or stoves ? Avoid alcoholic beverages and drugs for allergies, nerves, or sleep ? Do not make important personal or business decisions or sign any legal documents Medication Information: The exam and treatment you received today in the [facility] were for an urgent problem and are not intended as complete care. It is important for you to follow up with a doctor, nurse practitioner, or physician?s head start assistant teacher for ongoing care. If your symptoms become worse or you do not improve as expected and you are unable to reach your usual health care provider, you should return to the Emergency Department, we are available 24 hours a day. For those patients who have received Radiology results, the interpretation of your X-ray as given to you by our Urgent Care physician is only a preliminary report. The Radiologist will review your films and if there is a change in the diagnosis you will be notified by phone. Please make sure you have provided a working phone number so we can reach you if necessary. In the event that you had a lab culture while you were a patient in the Urgent Care, you will be notified by phone if there is a need to change your antibiotic. Please make sure you have provided a working phone number so we can reach you if necessary. [facility] has provided you with a complete list of medications post discharge. Please inform your roll line operator/provider of your visit and for further instruction on these medications. Any specific questions regarding your chronic medications and dosages should be discussed with your primary care physician(s) and/or pharmacist. Medications to Continue That Have Not Changed Other Medications hydrochlorothiazide-losart an (hydrochlorothiazide-losar [place] 12.5 mg-50 mg oral tablet) 1 tab(s) Oral every day. take 1 tablet by mouth once daily. tamsulosin (tamsulosin 0.4 mg oral capsule) 1 cap(s) Oral every day. take 1 capsule by mouth once daily. verapamil (verapamil 240 mg/24 hours oral capsule, extended release) 1 cap(s) Oral every day. take 1 capsule by mouth once daily. Visit Information Allergies: Substance Reaction Symptoms Type Comments No Known Medication Allergies Drug Vital Signs: Vitals and Measurements this Visit (last charted value for your 12/08/2022 visit) Vital Signs This Visit Peripheral Pulse Rate: 103 bpm Respiratory Rate: 16 br/min Systolic Blood Pressure: 110 mmHg Diastolic Blood Pressure: 78 mmHg SpO2: 95 % Oxygen Therapy: Room air Blood Pressure Method: Manual Measurements This Visit Height/Length Measured: 179.07 cm Weight Measured: 83.91 kg Body Mass Index: 26.17 kg/m2 BSA Measured: 2.04 m2 Problems List: Problem Onset Comments Hypertension Patient Education Viruses or Bacteria What?s got you sick? Antibiotics only treat bacterial infections. Viral illnesses cannot be treated with antibiotics. When an antibiotic is not prescribed, ask your healthcare professional for tips on how to relieve symptoms and feel better. Usual Cause Illness Viruses Bacteria Antibiotic Needed Cold/Runny Nose NO Bronchitis/Chest Cold (in otherwise healthy children and adults) NO Whooping Cough Yes Flu NO Strep Throat Yes Sore Throat (except strep) NO Fluid in the middle ear (otitis media with effusion) NO Urinary Tract Infection Yes Antibiotics Aren?t Always the Answer www.cdc.gov/getsmart GET SMART Know When Antibiotics Work U.S. Department of Health and Human Services Centers for Disease Control and Prevention June 2014 [facility] Screenson 10-21-2022 Screens [id number]:127 [facility] Ambulatory Visit Summaryon 0 10-20-2022 Ambulatory Visit Summary DMITRI ARTHUR :1965 Visit Date:10/20/2022 Ambulatory Visit Instructions Your Diagnosis Elevated PSA BPH with urinary obstruction Family history of prostate cancer Tests Performed Urnls Dip Stick Auto w/o Microscopy POC [id number] Your Care Team Attending Physician - Rishi XIE MD Primary Care Physician - JOHNATHON GALLEGOS MD This Is Your Medications List tamsulosin (tamsulosin 0.4 mg Cap) Contact prescribing physician if questions or concerns hydrochlorothiazide (hydrochlorothiazide 12.5 mg Cap) losartan multivitamin (Vitamin B Complex oral capsule) niacin (niacin 250 mg oral tablet) verapamil Procedures Performed MR/US fusion guided prostate biopsy (05/28/2022), Testicular torsion (1989), Tonsillectomy and adenoidectomy (1975). Discharge Vitals Heart Rate (Peripheral) 92 Blood Pressure 135/87 Height 178 cm Height 70 in Weight 87 kg Weight 191.4 lb BMI 27.46 What to do next Scheduled Follow-Up Appointments Wednesday 8:30 AM EDT With: Rishi XIE MD Where: [facility] Patient Educationon 01-17-20 23 Patient Education Oncology Prostate Cancer Screening The prostate is a walnut-sized gland that is located below the bladder and in front of the rectum in males. The function of the prostate (prostate gland) is to add fluid to semen during ejaculation. Prostate cancer is the second most common type of cancer in men. A screening test for cancer is a test that is done before cancer symptoms start. Screening can help to identify cancer at an early stage, when the cancer can be treated more easily. The recommended prostate cancer screening test is a blood test called the prostate-specific antigen (PSA) test. PSA is a protein that is made in the prostate. As you age, your prostate naturally produces more PSA. Abnormally high PSA levels may be caused by: ? Prostate cancer. ? An enlarged prostate that is not caused by cancer (benign prostatic hyperplasia, BPH). This condition is very common in older men. ? A prostate gland infection (prostatitis). ? Medicines to assist with hair growth, such as finasteride. Depending on the PSA results, you may need more tests, such as: ? A physical exam to check the size of your prostate gland. ? Blood and imaging tests. ? A procedure to remove tissue samples from your prostate gland for testing (biopsy). Who should have screening? Screening recommendations vary based on age. ? If you are younger than age 40, screening is not recommended. ? If you are age 40?54 and you have no risk factors, screening is not recommended. ? If you are younger than age 55, ask your health care provider if you need screening if you have one of these risk factors: ? Being of -[place] descent. ? Having a family history of prostate cancer. ? If you are age 55?69, talk with your health care provider about your need for screening and how often screening should be done. ? If you are older than age 70, screening is not recommended. This is because the risks that screening can cause are greater than the benefits that it may provide (risks outweigh the benefits). If you are at high risk for prostate cancer, your health care provider may recommend that you have screenings more often or start screening at a younger age. You may be at high risk if you: ? Are older than age 55. ? Are -[place]ong[place]ian. ? Have a father, brother, or uncle who has been diagnosed with prostate cancer. The risk may be higher if your family member's cancer occurred at an early age. What are the benefits of screening? There is a small chance that screening may lower your risk of dying from prostate cancer. The chance is small because prostate cancer is typically a slow-growing cancer, and most men with prostate cancer from a different cause. What are the risks of screening? The main risk of prostate cancer screening is diagnosing and treating prostate cancer that would never have caused any symptoms or problems (overdiagnosis and overtreatment). PSA screening cannot tell you if your PSA is high due to cancer or a different cause. A prostate biopsy is the only procedure to diagnose prostate cancer. Even the results of a biopsy may not tell you if your cancer needs to be treated. Slow-growing prostate cancer may not need any treatment other than monitoring, so diagnosing and treating it may cause unnecessary stress or other side effects. A prostate biopsy may also cause: ? Infection or fever. ? A false negative. This is a result that shows that you do not have prostate cancer when you actually do have prostate cancer. Questions to ask your health care provider ? When should I start prostate cancer screening? ? What is my risk for prostate cancer? ? How often do I need screening? ? What type of screening tests do I need? ? How do I get my test results? ? What do my results mean? ? Do I need treatment? Contact a health care provider if: ? You have difficulty urinating. ? You have pain when you urinate or ejaculate. ? You have blood in your urine or semen. ? You have pain in your back or in the area of your prostate. ? You have trouble getting or maintaining an erection (erectile dysfunction, ED). Summary ? Prostate cancer is a common type of cancer in men. The prostate (prostate gland) is located below the bladder and in front of the rectum. This gland adds fluid to semen during ejaculation. ? Prostate cancer screening may identify cancer at an early stage, when the cancer can be treated more easily. ? The prostate-specific antigen (PSA) test is the recommended screening test for prostate cancer. ? Discuss the risks and benefits of prostate cancer screening with your health care provider. If you are age 70 or older, screening is likely to lead to more risks than benefits (risks outweigh the benefits). This information is not intended to replace advice given to you by your health care provider. Make sure you discuss any questions you have with your health care provider. Document Released: 07/01/2018 Document R (more content not included)... Normal [facility] Urology Office/Clinic Noteon 10-20-2022 Urology Office/Clinic Note Chief Complaint 4 month f/u w/PSA HPI Staff Dmitri is a 57 y/o male here for a 4 month f/u w/PSA. PSA done 10/12/2022 was 3.5. Pt had PSA done 08/20/2022 was 2.71. MRI fusion BX done 05/28/2022 was negative. Dysuria: _denies Incomplete bladder emptying: _denies Hematuria: _denies Frequency: _denies Urgency: _rare Nocturia: _1x Stream: _weak-moderate Leaking: _denies Post void dripping: _rare Wearing pads/ Depends: denies_ Urge incontinence: _denies Stress incontinence: _denies Incontinence without Sensory Awareness: _denies Abdominal pain: _denies Flank pain: _denies Sexual complaints: _ History of Present Illness Tests Reviewed: Reviewed UA. I have reviewed and verified the staff HPI to be accurate for this encounter. I have reviewed the previous health record information and history for this patient from Dr. Xie There have been no associated fever, chills, flank pain, or blood in the urine. Denies any urinary infections since last encounter. Review of Systems ROS - Provider Constitutional: denies weight loss, denies hot flashes. Eyes: denies eye problems. Gastrointestinal: denies nausea, denies vomiting. Cardiovascular: denies chest pain or angina. Integumentary: no dryness Musculoskeletal: denies musculoskeletal symptoms. ENMT: denies otolaryngeal symptoms. Respiratory: no shortness of breath. Heme/Lymph: denies easy bleeding tendency, denies easy bruising tendency. Psychiatric: no confusion, no anxiety. Genitourinary: denies dysuria, denies hematuria, denies discharge, denies urinary frequency, denies urinary hesitancy, denies nocturia, denies incontinence, denies genital sores, denies decreased libido, and denies erectile dysfunction. Physical Exam Vitals & Measurements HR: 92(Peripheral) BP: 135/87 HT: 70 in HT: 178 cm WT: 87 kg WT: 191.4 lb BMI: 27.46 General Appearance: alert, no distress, well nourished, well developed male. Assessment/Plan 1. Elevated PSA (R97.20: Elevated prostate specific antigen [PSA]) MRI of prostate done 03/25/22 shows a 28cc prostate volume. A focal area of T2 hypointensity which is identified involving the posterolateral aspect of the left peripheral zone at the level of the mid gland measuring 6 x 5 mm with associated restricted diffusion and low ADC value. PI-RADS 4 S/p MRI fusion BX done 05/28/2022 was negative and showed chronic inflammation and atrophy PSA 10/12/22- 3.5 08/20/22- 2.71 PT PSA has a hx of fluctuating. PT PSA however did increase within 2 months. PT had a high PSA of 5.46. Pt had a negative bx 05/08/22 and a MRI that showed suspicion which prompted the bx. PT is aware that there may be a need of another bx done in the future if his PSA continues to rise. At this time we will continue to closely monitor his PSA every four months. PT agrees with this plan. 2. BPH with urinary obstruction (N40.1: Benign prostatic hyperplasia with lower urinary tract symptoms) IPSS(20) QoL(2) UA today is clear/neg for any blood or infections. PT is currently taking Flomax 0.4mg qd therapy. This therapy is working well for him. At this time pt is doing well and have no bothersome urinary sx. 3. Family history of prostate cancer (Z80.42: Family history of malignant neoplasm of prostate) Father Overall the patient has the PSA which is increased a bit from 2.7-3.5. Discussed that we have to take into account his prior PSA of over 5 with a low percent free which prompted the fusion biopsy once the MRI came back abnormal with a 6 mm area. This region of interest was also negative for cancer. I do not feel the current PSA increase to 3.5 warrants additional biopsies currently but I do recommend continued strong follow-up every 4 months. He agrees with that plan, given his strong family history of prostate cancer. He will stay on the current tamsulosin dosage even though we had previously offered increasing to twice daily secondary to ongoing symptoms. Persistent elevation of his IPSS score does exist as noted being 20 currently. We will see him back in 4 months Follow-up With When Contact Information PACO VARGAS, Rishi Herrera, URL Within [address] [address]- Additional Instructions: PSA F/T Patient Education Prostate Cancer Screening I, Tania Ocampo, personally scribed for Dr. Xie on 10/20/2022 09:05:50. . Documentation recorded by the scribe, Tania Ocampo, accurately reflects the services(s) I performed and decisions made by me. Authenticated by Dr. Xie on 10/20/2022 09:06:18. Problem List/Past Medical History Ongoing Arthritis BMI 27.0-27.9,adult BPH with urinary obstruction Cerebral palsy Dysphagia, pharyngeal Dysuria Elevated PSA Family history of prostate cancer Hypertension Historical No qualifying data Procedure/Surgical History MR/US fusion guided prostate biopsy (05/28/2022), Testic (more content not included)... Normal [facility] Comment on above: Result Comment: Elec tronically Signed By: Rishi XIE MD\.br\Date and Time Signed: 10/20/22 09:07 EST\.br\Electronically Co-Signed By: Tania Ocampo\.br\Date and Time Co-Signed: 10/20/22 09:06 EST Coding Summary.on 10-14-2022 Coding Summary. [id number] Gh0bWw +PGhlYWQ+QX5DRVToF92zlCTrb I3IJ6hVLZ8WZXBIPBAUJF3TQW9 vpIX1HGygA3CezoZs EuifdNJjWH07EMq1NXX6aTwcTP ebbK8aqSEmL3k7TkSpPR95lJ75 EBzzPWPjNhY9UtRkwauubGWs T1noYlOsaHPaKqp+PHRhYmxlIH gtYEZoHOnsINCjIuVumOqtMJ9u Yy2zINSvAKFfoNlbjAXrFpUk v8sqZRSkLJzlKC4sxBrgV6JfeR S5YQJvr8g2Xt43sIR+PHRkIHN0 nGjwTKohs139CfRkq9kiIBP3 iATqCIpdMEH3J12dh1R1LBVdLA VsVXP9fDO7hX1enEyjzkmeV5Hm pEPeEdX4CHX2qFBnlE7zgIhr mtoarO7kSlc+W32YXM6EQWTHUL 5CDwv4Z0YpDvnhgYS+YN89ADOb IB66kQOjqOZqv2nfbKd1XoVk NGGzZOY1vToqQXjxb2ZbEFHrM1 2ziUIpg1X3TCXsuSlmoSJkLzPr vHT7uE6oICuqshcdl3yrfkct Idzco7bojp90gV81K81eKOutDP HfBWP7OEMnLNTqlQflfu4ukY0i Ii8+YFlhz9lut5zreQy1YqCg PPSltsFivMttQPW7k0KeYf48K6 GaqLqdy5KgBuh8rt82sEOcb7H4 hAI6HPghGQVfnB2pVEpzOsL9 NESpLpYyeI04oJGwRGhpQa8lnU nhtYnbMI9dVXBccbswOSZzzZ7n BVPvvAFsnVmcEB6hXRZewghs k940IyOaSMY3MQAjqWRnX4UwbW 0uHcIwKNKaWUFnL5NmdVIfYGah D774OUydOxF7EBMaqbTcR2Qd PXKryRycAgQ6k0V6Ot1Ri4Wauy ipWML6PFckOHSoJvIdGtGtYeL2 E5VdFpz4AJErjGarIG0qT1Ss SIJocbdlbatxeZN0BWYhJPNxiF 14oFTjTLlvGj2lp7L1z702QDVa WMDrtY06Tt2koMniAGQnyEQQ xM4algrup4wovvrtQwZjRYFmFB z3KCu5DIXdlUpfBrIkHDX8WvT4 CRJ9mDGftX7gyUbbculvjC1w Oyc+H98bwQ3hKXZ1TSC0obbiDT CgluGbIP73FM84O7YqHmnrvZQt bGU+BHWjogYwoKjxXW2zIkVj o9els7DjRSvpS1VoUARjAMghRn s6VZXePGX1yCP4qG7bJWTtLQte o7D0iLJ2B9RshxDgid7yq3lo NSGjXMylS04rwZFag9C7EDAyrX S3UYWimRvnKsWxhA41Wof+PGNv vKntg8JkYuwsi2yom3bnfGg3 NsLaISJfnsDjnZtvGKI9s8FuSw 00X14vROhfODJlFELkSQVnYRQw nTilga9ypS8mBk0+PGNvbCB3 dTT0wI0jUZUcWxT6RDzvR281Dc PypXDfIozxv8lxd6xsfAt1QlUj BWXbxwWtnKddADN9x1JrUm49 R23pDNroXAFnNKGlECHhWCOcmG kclb1rrT2gCe0+BU2mh3djbj77 kN55yAP+MSPgIEO4cHbqKZey RSVbeB8lTDzwIvQ1NVEpBkZovM 32hKQeRCqoWl5yqRcpiYlvWM3w ZUXgxjpfz646FhUlm4inBXMi zLAyKXtxTML2T70ln2R8WJKqMT XhLVX1lRB7cH0tvKdzsyhlsKOy sKwalxMuvZueLDgtQIabY079 IHRvcDsnPlBhdGllbnQgTmFtZT h3J0IfOpb8ZKXwhCmbBF1zoWOo ATjsUv4qxZhtvWjiVH7uUKQa horga726JxPqw1efNPKuhKGxCG npSRU4Z19dk2G4HGOuSUSuOYZ9 cNH0xW4szTgkydlbpLGbwGbw zhElpQxnBWapOXhzP216TWIabV xgIpUblkItAUNuzJK3QK11IY56 xEQji3A9uRQ9C2IrCXUcwsuf efrdfZE1KDRwKGFstT36Cc7xaM zrTn1zYBClUXB6OSYluJKvV9Mp cD1jQbYjIXGhKFTvV0FnuKGj BEreS087EEkxNtK4SFUrnwQiV0 IpAZJtrIitBqU1q7T1Us6FX7L2 JD11XZ55yBUow6T4rBV8Z9Bm ISXssygvewnueQT6CQCvYGWvlD 59Yo8pvKaqBz6kZQQgLDC7UYEw gLJxE6LhuE6iAsGkBJNcNMKx P1GzvYWhBIetC881ADneEfD4QF FrqqXmN1PgPBRvoIwkJsS7q7M4 Kq7PPJv1RO95CO25lVMat9F2 mCC3S2MyGHQvthfclpukfPK1WY FqCMNrkV90Dl7llWwjPd0nACRr YYM0VKQclZMgR1RorF8aWjAq QXEvNEGmJ1PszKVfIWdcO191AV bcRlD0NVRgehPeJ8JdYMSjcHkf WfV6c3F0Hk8ZSRXjOF65TPZ8 vQV4NP29JA01B0CyFownqVVtjU U+PHRhYmxlIHdpZHRoPScxMDAl GqQfcMmsVD9oNn8cDJVfFJQy zJbxjSFmMaCeb4ajLXNrXIikRU 9knBpkN6FxrOZ9RDSce0o6Cq22 Q18eS1TwqHO+GQVkhTS7lBN9 wM3aLgFeKuZ7NJfnS322LxQkvX QgDwqql0pjt2pcqSr0CaR9CHDp ifBzzVubMDR3e0MtUo78K75w IHdpZHRoPSIxNSUiIHZhbGlnbj 3lyV2hJy7+NQTlnPG3xMT5eV8l JpBnNdL6MLmtP791DaIamOYy Vluaj7ekq4uzePt0ItJdENDeip GdtMntVIU6g6NyXs42K0YzlHjf a9OdOdm6ou18bJHjc0O3bPF1 I7NcSRRhzbgyrVSsmIqvTE0iBV YnhkteLLIxeY8oAOXcL8v2VsMi QjI6NLwdY4DxhsE1BZJpgKAk DVveWXW1R58bn1X0EWEqGRKbBE J3yEM3yL6hnDzwzpwwpKIztPeb eoMpvVqcJIalGXxdT268AJEu aPlfWHNbyY0rJOBubGTfwPxeHF 5nCSEwkwlbJgAFUSAODY8iRG1O C3hUKHwhWUbbjYH+PHRkIHN0 cSstVZfzXMQtqX0jESXpP9g0Zs SwYpD9RGktD3FwRZLjfquuJf79 wK6bSrMhBqV8NZfrH6JhtpW6 GCAmcAOcNRxfNJQ4P77zf9X3LI DgHFNhSDX0mKT5yE6qxDghxefj bGVmdDsgdmVydGljYWwtYWxp C473ZCVhlUcmEsS6WcNuGtK9Nn K7S9JtPii2VGGzhGhxJS4myIZr QOcfQj7qcBkokLevCU7iVISo kelpKQBqgT9bAVBpoUTnkIdhIH 0iEZYdphdnk380GdUyLEW7IIKe sCSgB4XqwK6dCfUlPMDkRUVe H0NxbLAlOHpbL201TOdiKvK5ID FeczCuA6OnHRKjhVfbNmQ5v0R6 Bf12UvXNLAUpwlrhsXK+PHRk LDQ9rQkvNWguSYDtlO8bGXFfX2 f0QoReFiZ5FIisG7XmEVXuzfhv Aq21pH6gDdExPwM1CNdhT6Ux ceK1XMQhqMZpJUksNLX6Y46vq3 C8QLWhDDEyQVG1uZH1bJ4ijUhe bjogbGVmdDsgdmVydGljYWwt HRwlK369RHUqkYhbNw6mbNB8S5 XlReq0IAUpvWheSY4fhWIpJYqp Uc8zhGerrFplZK7qUYWmlddu PEEknY5xBLLslEQpmTckDR3kAY Sctgjpq027XaWkSBL3JAPmmNGc T4VuuS8zJaMiUMTuSOTaS0Bq eWLvPXslA921GJqnJoS1KWVwno TkO4OjQMMwkVarNvN9l3G2Hr3E kWGkKMDmCM34LD71JH98J3Ng PjwvdGFibGU+PHRhYmxlIHdpZH LzXWmmIXAbNvUbfLgcCA8jIx5r OYEoGMSixMurrGTzKdOal1hm ZGNgLGegRZ1tnLtyK9PeeBP2QB Cfa2j7Yd74X76rK6WjuUI+PGNv sZF8sGD7kD5sPvScPlL7LBta Z284HlFvxLBcOnncw7azy2lrpL n7WpRsPKPcnzVfpFomEJL9u0Eo Bq72F57oBCtyHTYkOFIsFJDy VFMoqWhddo1baR5tPl7+PGNvbC I7tLZ0zN0qDmGoZaO1SCwfL043 AxDyhQMyMfaeF71kP6JlfYE+ QKWhRqh1FSVhySdtHX4pnZVhTZ ybWo5oISH0MwSaEgLfTTqeL5Jb LCEotgtymjwecWS2TWZtKOKm kP80Xi0guXxpKk5mQWCkTTA7FF YnoEKiF9SonM6pNuPdWHVgOPIa P1ForBSgPDqqI566UKrkWtI7 UQSrebHqO9GzOPDubHghHqT8z5 B7Lq0MnJfcjUOmPJ4jEwJsVCm9 E3WlAof3MKPxvBxdKG4wyNGu JJqtBx1csPgacZlvSO6mKVIwld wgi792YxKnt9lwPDCbcRYqOIxy GXN8S26ru2W3HRVyROIzLBX6 uWX2sF3wgJncvszfnUTzlPekbc PvwDolLEcdLAwiO490ZYIoiTpy EjXFQfd4K8HaNiq8GPLqqKnk KV8xkVCvAStiQq8eeBefiOzbOI 5oHGVognvzi365FiNhs9riRAEe fZAbKMthIPB7Y34il8R9SHNy LGWyVMG6lYT5aT9knDpmlbjcpF FzbItrcbEcsVpvSNgbJBqnS101 FKCbbNdeOk7HFaa5T9BbQvk1 IESnhCfvLF8vhGVdVRgaYl2vbW howMgtGL8lWVLfwahqs539RiJb t1ylCHEkyQBjUSnnFFZ6V83o l9H1QSCgFTPaHYK5tWQ4wU5zbL lnbjogbGVmdDsgdmVydGljYWwt IOgpY833MUPalBvkNgMywTHg OjwvdGQ+WV15fv60B5SmUtsnPy y3VAIeOYJ3yEL4wY2nNYOsDJml a5Y1xAV3B1MdtkWkvs4np4so YXBz (more content not included)... Normal [facility] CHEMISTRYOrdered By: SYSTEM SYSTEM on 10-12-2022 Free PSA [Mass/Vol] 0.6 ng/mL Invalid Interpretation Code [facility] Remisol Free PSA/Total PSA [Mass fraction] 16.0 % Low >=25.0% [facility]isol Prostate specific Ag [Mass/Vol] 3.5 ng/mL Normal 0.1 - 3.5 ng/mL [facility] Remisol Consent for Treatmenton Consent for Treatment [id number]:127 Normal [facility] PSA Free & Totalon 3 Free PSA [Mass/Vol] 0.6 ng/mL Invalid Interpretation Code [facility] Comment on above: Result Comment: The concentration of free PSA and total PSA determined with assays from different manufacturers can vary due to differences in assay methods and specificity. Values obtained with different risk investigator's assays cannot be used interchangeably. The methodology used to obtain this result was chemiluminescence using [employer]'s Access Hybritech PSA reagent and Access PayPlugbritech free PSA reagent. Performed By: #### 1 [id number] ####[id number] [place] [address] Free PSA/Total PSA [Mass fraction] 16.0 % Low >=25.0 [facility] Comment on above: Result Comment: The percentage of free PSA is lower in serum samples from patients with prostate cancer than in serum samples from patients with normal prostate or benign disease. Low percentages of free PSA are established as indicators of prostate cancer. The 25% free PSA cutoff detected 95% of cancers while avoiding 20% of Unnecessary biopsies. AYDE, 1998; 279:1542-7 Performed By: #### 1 [id number] ####[facility] [address] [place] [address] Prostate specific Ag [Mass/Vol] 3.5 ng/mL Normal 0.1-3.5 [facility] Comment on above: Result Comment: The concentration of PSA determined by different manufacturers can vary due to differences in assay methods and reagent specificity. Values obtained from different assay methods cannot be used interchangeably. The methodology used for this result was chemiluminescence using [employer]'s Access Hybritech PSA reagent. Performed By: #### 1 [id number] ####[facility] [address] [place] [address] Physician Orderon 10-12-2022 Physician Order [id number]:127 Normal [facility] HEP B SURFACE ANTIGEN SCREEN on 06-27-2022 HBsAg Screen Negative Normal Negative [facility] Comment on above: Performed By: #### H BSANS #### [facility] [address] [address] [address] Davon Gutierrez HEPATITIS C ANTIBODYon 06-27 Hep C Virus Ab <0.1 Normal 0.0-0.9 [facility] Comment on above: Result Comment: Nega tive: < 0.8 Indeterminate: 0.8 - 0.9 Positive: > 0.9 . HCV antibody alone does not differentiate between previous resolved infection and active infection. The CDC and current clinical guidelines recommend that a positive HCV antibody result be followed up with an HCV RNA test to support the diagnosis of acute HCV infection. [facility] offers Hepatitis C Virus (HCV) RNA, Diagnosis, JUAN CARLOS (157410) and Hepatitis C Virus (HCV) Antibody with reflex to Quantitative Real-time PCR ([id number]). Performed By: #### H CV #### [facility] [address] [place] [address] Dr. Davon Gutierrez RPR QUANTon 06-27-2022 Rapid Plasma Reagin, Quant Non-Reactive Normal NonRea<1:1 [facility] Comment on above: Result Comment: Plea se Note: This test does not meet current guidelines for screening and diagnosis of syphilis. This test is intended for following treatment response in patients being treated for syphilis infection. To screen for syphilis infection, a reflex cascade that includes both RPR and a treponema-specific assay should be utilized, such as Treponema pallidum (Syphilis) Screening Silva (515364) or Rapid Plasma Reagin (RPR) Test With Reflex to Quantitative RPR and Confirmatory Treponema pallidum Antibodies (486072). Performed By: #### R PRQ #### [facility] [address] [place] [address] Dr. Davon Gutierrez HIV 1/2 RAPID (EXPOSURE ONLY )on 06-25-2022 HIV AB Non-Reactive Normal NON-REACTIV E [facility] Comment on above: Performed By: #### R PDHIV #### [facility] [address] [address] [address] Davon Gutierrez HIV AG Non-Reactive Normal NON-REACTIV E [facility] Comment on above: Performed By: #### R PDHIV #### [facility] [address] [address] [address] Davon Gutierrez INTERNAL CONTROLS Within Normal Limits Normal Wi thin Normal Limits [facility] Comment on above: Performed By: #### R PDHIV #### [facility] [address] [address] [address] Davon Gutierrez RAPID HIV INFO SEE BELOW Normal [facility] Comment on above: Result Comment: This test is used for the initial screening of the exposure source. Confirmation of all reactive results will be obtained through reference lab testing. Performed By: #### R PDHIV #### [facility] [address] [address] [address] Davon Huggins 05-28-2022 L ------ Specimen: [id number] Received: 05/28/22 Status: RYANN Mathew Num: [id number] Spec Type: Surgical Subm Dr: Rishi Xie MD Tissues: A Prostate - Needle Biopsy (LT BASE LATERAL) B Prostate - Needle Biopsy (LT BASE MEDIAL) C Prostate - Needle Biopsy (LT MID LATERAL/HARI) D Prostate - Needle Biopsy (LT MID MEDIAL) E Prostate - Needle Biopsy (LT APEX LATERAL) F Prostate - Needle Biopsy (LT APEX MEDIAL) G Prostate - Needle Biopsy (RT BASE LATERAL) H Prostate - Needle Biopsy (RT BASE MEDIAL) I Prostate - Needle Biopsy (RT MID LATERAL) J Prostate - Needle Biopsy (RT MID MEDIAL) K Prostate - Needle Biopsy (RT APEX LATERAL) L Prostate - Needle Biopsy (RT APEX MEDIAL) Procedures: HE Stain/24, Gross/Micro Age/ Patient Sex Location Account Attending Physician Dmitri Arthur 57/M [place] [id number] Rishi Xie MD SPEC NUM: [id number] RECD: 05/28/22 STATUS: RYANN MATHEW NUM: [id number] GRACE: 05/28/22- [facility] DR: Rishi Xie MD ENTERED: 05/28/[address]: YUAN TYPE: Surgical DEPT: S ORDERED: HE Stain/24, Gross/Micro L4/12 ORDERED: HE Stain/, Gross/Micro L4/12, Unstained Slide Pathological Diagnosis A. Prostate, left base lateral, core biopsy: -Benign prostatic tissue. B. Prostate, left base medial, core biopsy: - Benign prostatic tissue with focal chronic inflammation. C. Prostate, left mid lateral, region of interest, core biopsy: - Benign prostatic tissue with focal atrophy. - See Note. D. Prostate, left mid medial, core biopsy: - Benign prostatic tissue with focal atrophy, chronic inflammation and basal cell hyperplasia. - See Note. Specimen: [id number] Received: 05/28/22 Status: RYANN Mathew Num: [id number] Spec Type: Surgical Subm Dr: Rishi Xie MD Tissues: A Prostate - Needle Biopsy (LT BASE LATERAL) B Prostate - Needle Biopsy (LT BASE MEDIAL) C Prostate - Needle Biopsy (LT MID LATERAL/HARI) D Prostate - Needle Biopsy (LT MID MEDIAL) E Prostate - Needle Biopsy (LT APEX LATERAL) F Prostate - Needle Biopsy (LT APEX MEDIAL) G Prostate - Needle Biopsy (RT BASE LATERAL) H Prostate - Needle Biopsy (RT BASE MEDIAL) I Prostate - Needle Biopsy (RT MID LATERAL) J Prostate - Needle Biopsy (RT MID MEDIAL) K Prostate - Needle Biopsy (RT APEX LATERAL) L Prostate - Needle Biopsy (RT APEX MEDIAL) Procedures: HE Stain/, Gross/Micro /12 Patient: Dmitri Arthur [id number] (Continued) Specimen: [id number] Received: 05/28/22 (Continued) Pathological Diagnosis (Continued) Signed (signature on file) Glenn Ovalles MD 06/01/22 1414 Specimen: [id number] Received: 05/28/22 Status: RYANN Mathew Num: [id number] Spec Type: Surgical Subm Dr: Rishi Xie MD Tissues: A Prostate - Needle Biopsy (LT BASE LATERAL) B Prostate - Needle Biopsy (LT BASE MEDIAL) C Prostate - Needle Biopsy (LT MID LATERAL/HARI) D Prostate - Needle Biopsy (LT MID MEDIAL) E Prostate - Needle Biopsy (LT APEX LATERAL) F Prostate - Needle Biopsy (LT APEX MEDIAL) G Prostate - Needle Biopsy (RT BASE LATERAL) H Prostate - Needle Biopsy (RT BASE MEDIAL) I Prostate - Needle Biopsy (RT MID LATERAL) J Prostate - Needle Biopsy (RT MID MEDIAL) K Prostate - Needle Biopsy (RT APEX LATERAL) L Prostate - Needle Biopsy (RT APEX MEDIAL) Procedures: HE Stain/24, Gross/Micro L4/12 Patient: Dmitri Arthur [id number] (Continued) Specimen: [id number] Received: 05/28/22 (Continued) Pathological Diagnosis (Continued) E. Prostate, left apex lateral, core biopsy: - Benign prostatic tissue with chronic inflammation and atrophy. F. Prostate, left apex medial, core biopsy: - Benign prostatic tissue with chronic inflammation and atrophy. G. Prostate, right base lateral, core biopsy: - Benign prostatic tissue with atrophy. H. Prostate, right base medial, core biopsy: - Benign prostatic tissue with atrophy. - Portion of seminal vesicle. I. Prostate, right mid la (more content not included)... Normal [facility] SARS-CoV-2 (COVID-19) RNA JUAN CARLOS+probe Ql (Unsp spec) Negative Normal Negative [facility] Comment on above: Order Comment: Healt hcare Worker?: N Result Comment: Testing for SARS-CoV-2 by RT-PCR This test was developed and its performance characteristics determined by [facility] and validated at the [facility]. This test has not been FDA cleared or approved. This test has been authorized by FDA under an Emergency Use Authorization (EUA). This test has been validated in accordance with the FDA's Guidance Document (Policy for Diagnostics Testing in Laboratories Certified to Perform High Complexity Testing under CLIA prior to Emergency Use Authorization for Coronavirus Disease-2019 during the Public Health Emergency) issued on January 04, 2020. This test is only authorized for the duration of time the declaration that circumstances exist justifying the authorization of the emergency use of in vitro diagnostic tests for detection of SARS-CoV-2 virus and/or diagnosis of COVID-19 infection under section 564(b)(1) of the Act, 21 U.S.C. 360bbb-3(b)(1), unless the authorization is terminated or revoked sooner. PERFORMED BY: [place] [address] PATHOLOGIST [employer] ANNIE MASCORRO M.D. Performed By: #### C [facility]ID [facility] [place] #### [address] COVID-19 Positive/NegativeOr dered By: Rishi Xie on 05-26-2022 SARS-CoV-2 (COVID-19) N gene JUAN CARLOS+probe Ql (Resp) Negative Negative [facility] Comment on above: Testing for SARS-CoV -2 by RT-PCR This test was developed and its performance characteristics determined by [employer] ([place] and validated at the [facility]. This test has not been FDA cleared or approved. This test has been authorized by FDA under an Emergency Use Authorization (EUA). This test has been validated in accordance with the FDA's Guidance Document (Policy for Diagnostics Testing in Laboratories Certified to Perform High Complexity Testing under CLIA prior to Emergency Use Authorization for Coronavirus Disease-2019 during the Public Health Emergency) issued on January 04, 2020. This test is only authorized for the duration of time the declaration that circumstances exist justifying the authorization of the emergency use of in vitro diagnostic tests for detection of SARS-CoV-2 virus and/or diagnosis of COVID-19 infection under section 564(b)(1) of the Act, 21 U.S.C. 360bbb-3(b)(1), unless the authorization is terminated or revoked sooner. Activated partial thrombopla stin time (aPTT) in platelet poor plasma by coagulation aOrdered By: Rishi Xie on 05-14-2022 aPTT Coag (PPP) [Time] 32.0 s 25.1-36.5 [facility] Basic Metabolic Panelon 05-04 Calcium [Mass/Vol] 10.0 mg/dL Normal 8.2-10.2 [facility] Comment on above: Result Comment: PERF ORMED BY: [place] [address] PATHOLOGIST FASHION BUYER ANNIE MASCORRO M.D. Performed By: #### C BC, PT, PTT, BMP #### [facility] [address] [place] [id number] [place] Chloride [Moles/Vol] 96 mmol/L Normal 95-114 [facility] Comment on above: Performed By: #### C BC, PT, PTT, BMP #### [facility] [address] [id number] [place] CO2 [Moles/Vol] 29.4 mmol/L Normal 22.0-30.0 [facility] Comment on above: Performed By: #### C BC, PT, PTT, BMP #### [facility] [address] [place] [address] [place] Creatinine [Mass/Vol] 0.85 mg/dL Normal 0.64-1.27 [facility] Comment on above: Performed By: #### C BC, PT, PTT, BMP #### [facility] [address] [place] [address] [place] Estimated GFR ( Gita > 60 Normal [facility] Comment on above: Result Comment: GFR estimated reference range: According to KDOQI guidelines, <60 ml/min/1.73m2 is sufficient to diagnose a patient with chronic kidney disease. Performed By: #### C BC, PT, PTT, BMP #### [facility] [address] [place] [address] [place] Estimated GFR (Non- Am > 60 Normal [facility] Comment on above: Performed By: #### C BC, PT, PTT, BMP #### [facility] [address] Glucose [Mass/Vol] 81 mg/dL Normal 70-100 [facility] Comment on above: Result Comment: Williams Glucose Reference Range is dependent on time and content of last meal. Glucose of more than 200 mg/dL in a nonstressed, ambulatory subject supports the diagnosis of Diabetes Mellitus. ADA recommended reference range Performed By: #### C BC, PT, PTT, BMP #### [facility] [address] Potassium [Moles/Vol] 3.7 mmol/L Normal 3.5-5.1 [facility] Comment on above: Performed By: #### C BC, PT, PTT, BMP #### [facility] [address] [place] [address] [place] Sodium [Moles/Vol] 138 mmol/L Normal 136-146 [facility] Comment on above: Performed By: #### C BC, PT, PTT, BMP #### [facility] [address] [place] [address] [place] Urea nitrogen [Mass/Vol] 21 mg/dL Normal 9-23 [facility] Comment on above: Performed By: #### C BC, PT, PTT, BMP #### [facility] [address] [place] [address] [place] Basophils Auto (Bld) [#/Vol] Ordered By: Rishi Xie on 05-14-2022 Basophils (Bld) [#/Vol] 0.1 10*3/uL 0.0-0.2 [facility] Basophils/100 WBC Auto (Bld) Ordered By: Rishi Xie on 05-14-2022 Basophils/100 WBC (Bld) 0.9 % . [facility] Blood hemoglobin measurement (mass/volume)Ordered By: Rishi Xie on 05-14-2022 Hemoglobin (Bld) [Mass/Vol] 14.3 g/dL 13.0-17.0 [facility] Blood leukocytes automated c ount (number/volume)Ordered By: Rishi Xie on 05-14-2022 WBC (Bld) [#/Vol] 6.8 10*3/uL 4.5-11.0 [facility] Complete Blood Count Auto Di ffon 05-14-2022 Basophils (Bld) [#/Vol] 0.1 10*3/uL Normal 0.0-0.2 [facility] Comment on above: Result Comment: PERF ORMED BY: [facility] [address] [place] [address] PATHOLOGIST FASHION BUYER ANNIE MASCORRO M.D. Performed By: #### C BC, PT, PTT, BMP #### [facility] [address] [place] [address] [place] Basophils/100 WBC (Bld) 0.9 % Normal . [facility] Comment on above: Performed By: #### C BC, PT, PTT, BMP #### [facility] [address] [place] [address] [place] Eosinophils (Bld) [#/Vol] 0.1 10*3/uL Normal 0.0-0.45 [facility] Comment on above: Performed By: #### C BC, PT, PTT, BMP #### [facility] [address] [place] [address] [place] Eosinophils/100 WBC (Bld) 1.7 % Normal . [facility] Comment on above: Performed By: #### C BC, PT, PTT, BMP #### [address] Erythrocyte distribution width (RBC) [Ratio] 13.0 % Normal 12.0-14.8 [facility] Comment on above: Performed By: #### C BC, PT, PTT, BMP #### [address] Hematocrit (Bld) [Volume fraction] 42.9 % Normal 38.8-50.0 [facility] Comment on above: Performed By: #### C BC, PT, PTT, BMP #### [address] Hemoglobin (Bld) [Mass/Vol] 14.3 g/dL Normal 13.0-17.0 [facility] Comment on above: Performed By: #### C BC, PT, PTT, BMP #### [address] Lymphocytes (Bld) [#/Vol] 2.1 10*3/uL Normal 1.00-4.8 [facility] Comment on above: Performed By: #### C BC, PT, PTT, BMP #### [address] Lymphocytes/100 WBC (Bld) 31.6 % Normal . [facility] Comment on above: Performed By: #### C BC, PT, PTT, BMP #### [address] MCH (RBC) [Entitic mass] 31.3 pg Normal 27.5-35.2 [facility] Comment on above: Performed By: #### C BC, PT, PTT, BMP #### [address] MCV (RBC) [Entitic vol] 94.0 fL Normal 83.5-101 [facility] Comment on above: Performed By: #### C BC, PT, PTT, BMP #### [address] Mean Corpuscular HGB Conc 33.3 g/dL Normal 32.5-35.6 [facility] Comment on above: Performed By: #### C BC, PT, PTT, BMP #### [facility] [address] Monocytes (Bld) [#/Vol] 0.5 10*3/uL Normal 0.0-0.8 [facility] Comment on above: Performed By: #### C BC, PT, PTT, BMP #### [address] Monocytes/100 WBC (Bld) 8.1 % Normal . [facility] Comment on above: Performed By: #### C BC, PT, PTT, BMP #### [address] Neutrophils (Bld) [#/Vol] 3.9 10*3/uL Normal 1.8-7.7 [facility] Comment on above: Performed By: #### C BC, PT, PTT, BMP #### [address] Neutrophils/100 WBC (Bld) 57.7 % Normal . [facility] Comment on above: Performed By: #### C BC, PT, PTT, BMP #### [place] [address] [place] Nucleated RBC/100 WBC (Bld) [Ratio] 0.1 % Normal 0-0.5 [facility] Comment on above: Performed By: #### C BC, PT, PTT, BMP #### [facility] [address] [place] [address] [place] Platelet mean volume (Bld) [Entitic vol] 7.7 fL Normal 6.6-10.1 [facility] Comment on above: Performed By: #### C BC, PT, PTT, BMP #### [facility] [address] [place] [address] [place] Platelets (Bld) [#/Vol] 303 10*3/uL Normal 150-450 [facility] Comment on above: Performed By: #### C BC, PT, PTT, BMP #### [facility] [address] RBC (Bld) [#/Vol] 4.56 10*6/uL Normal 3.90-5.60 [facility] Comment on above: Performed By: #### C BC, PT, PTT, BMP #### [facility] [address] WBC (Bld) [#/Vol] 6.8 10*3/uL Normal 4.5-11.0 [facility] Comment on above: Performed By: #### C BC, PT, PTT, BMP #### [facility] [address] Creatinine and Glomerular fi ltration rate.predicted panel (S/P/Bld)Ordered By: Rishi Xie on 05-14-2022 Creatinine [Mass/Vol] 0.85 mg/dL 0.64-1.27 [facility] ECG 12 lead ECGon 05-14-2022 ECG 12 lead ECG [facility] [address] [place] [address] [place] [address] Electrocardiograph Report Signed Patient: Dmitri Arthur MR#: [id number] : 1965 Acct:[id number] Age/Sex: 57 / M ADM Date: 05/14/22 Loc: Room: Type: [facility] Attending Dr: Rishi Xie MD Ordering Provider: Rishi Xie MD Date of Service: 05/14/2208/25/1336 ECG/ECG 12 lead ECG: pst Copies to: Test Reason : Blood Pressure : / mmHG Vent. Rate : 084 BPM Atrial Rate : 084 BPM P-R Int : 190 ms QRS Dur : 112 ms QT Int : 366 ms P-R-T Axes : 060 038 052 degrees QTc Int : 432 ms Normal sinus rhythm Normal ECG No previous ECGs available Confirmed by LYNDON VARGAS FACC, SURYA ([id number]) on 05/14/2022 4:47:03 PM Referred By: PACO Electronically Signed By:SURYA LUIS MD FACC Transcribed By: DOROTHY Signed By Surya Luis MD, FACC 05/14/22 1647 Normal [facility] Eosinophils Auto (Bld) [#/Vo l]Ordered By: Rishi Xie on 05-14-2022 Eosinophils (Bld) [#/Vol] 0.1 10*3/uL 0.0-0.45 [facility] Eosinophils/100 WBC Auto (Bl d)Ordered By: Rishi Xie on 05-14-2022 Eosinophils/100 WBC (Bld) 1.7 % . [facility] Erythrocyte distribution wid th Auto (RBC) [Ratio]Ordered By: Rishi Xie on 05-14-2022 Erythrocyte distribution width (RBC) [Ratio] 13.0 % 12.0-14.8 [facility] Estimated glomerular filtrat ion rate (GFR) non- AmericanOrdered By: Rishi Xie on 05-14-2022 GFR/1.73 sq M.predicted among non-blacks MDRD (S/P/Bld) [Vol rate/Area] > 60 mL/Min [facility] Hematocrit Auto (Bld) [Volum e fraction]Ordered By: Rishi Xie on 05-14-2022 Hematocrit (Bld) [Volume fraction] 42.9 % 38.8-50.0 [facility] Laboratory - CoagulationOrde red By: Rishi Xie on 05-14-2022 PT Coag (PPP) [Time] 12.2 s 9.0-12.9 [facility] - Hematology and Cell countsOrdered By: Rishi Xie on 05-14-2022 Nucleated RBC/100 WBC (Bld) [Ratio] 0.1 % 0-0.5 [facility] Lymphocytes Auto (Bld) [#/Vo l]Ordered By: Rishi Xie on 05-14-2022 Lymphocytes (Bld) [#/Vol] 2.1 10*3/uL 1.00-4.8 [facility] Lymphocytes/100 WBC Auto (Bl d)Ordered By: Rishi Xie on 05-14-2022 Lymphocytes/100 WBC (Bld) 31.6 % . [facility] MCH Auto (RBC) [Entitic mass ]Ordered By: Rishi Xie on 05-14-2022 MCH (RBC) [Entitic mass] 31.3 pg 27.5-35.2 [facility] MCHC Auto (RBC) [Mass/Vol]Or dered By: Rishi Xie on 05-14-2022 MCHC (RBC) [Mass/Vol] 33.3 g/dL 32.5-35.6 [facility] MCV Auto (RBC) [Entitic vol] Ordered By: Rishi Xie on 05-14-2022 MCV (RBC) [Entitic vol] 94.0 fL 83.5-101 [facility] Monocytes Auto (Bld) [#/Vol] Ordered By: Rishi Xie on 05-14-2022 Monocytes (Bld) [#/Vol] 0.5 10*3/uL 0.0-0.8 [facility] Monocytes/100 WBC Auto (Bld) Ordered By: Rishi Xie on 05-14-2022 Monocytes/100 WBC (Bld) 8.1 % . [facility] Neutrophils Auto (Bld) [#/Vo l]Ordered By: Rishi Xie on 05-14-2022 Neutrophils (Bld) [#/Vol] 3.9 10*3/uL 1.8-7.7 [facility] Neutrophils/100 WBC Auto (Bl d)Ordered By: Rishi Xie on 05-14-2022 Neutrophils/100 WBC (Bld) 57.7 % . [facility] No Panel InformationOrdered By: Rishi Xei on 05-14-2022 Estimated GFR () > 60 mL/Min [facility] Comment on above: GFR estimated refere nce range: According to KDOQI guidelines, <60 ml/min/1.73m2 is sufficient to diagnose a patient with chronic kidney disease. Pharmacy Creatinine Clearance (Chem N/A [facility] Partial Thromboplastin Timeo n 05-14-2022 aPTT Coag (Bld) [Time] 32.0 s Normal 25.1-36.5 [facility] Comment on above: Result Comment: PERF ORMED BY: [facility] [address] [facility] [place] [address] PATHOLOGIST FASHION BUYER ANNIE MASCORRO M.D. Performed By: #### C BC, PT, PTT, BMP #### [facility] [address] Platelet mean volume Auto (B ld) [Entitic vol]Ordered By: Rishi Xie on 05-14-2022 Platelet mean volume (Bld) [Entitic vol] 7.7 fL 6.6-10.1 [facility] Platelet poor plasma interna tional normalized ratio (INR) by coagulation assay (relatOrdered By: Rishi Xie on 05-14-2022 INR Coag (PPP) [Relative time] 1.1 {INR} [facility] Comment on above: INR Therapeutic Rang e A) Pre- and Peroperative OAT started two weeks before surgery. NOT HIP SURGERY: 1.5 - 2.5 HIP SURGERY: 2 - 3 B) Primary and secondary prevention of venous THROMBOSIS: 2 - 3 C) Active venous thrombosis, pulmonary embolism and prevention of recurrent venous thrombosis: 2 - 3 D) Prevention of arterial thromboembolism including patients with mechanical heart valves: 3 - 4.5 Platelets Auto (Bld) [#/Vol] Ordered By: Rishi Xie on 05-14-2022 Platelets (Bld) [#/Vol] 303 10*3/uL 150-450 [facility] Prothrombin Time INRon 05-14 INR Coag (PPP) [Relative time] 1.1 {INR} Normal [facility] Comment on above: Result Comment: INR Therapeutic Range A) Pre- and Peroperative OAT started two weeks before surgery. NOT HIP SURGERY: 1.5 - 2.5 HIP SURGERY: 2 - 3 B) Primary and secondary prevention of venous THROMBOSIS: 2 - 3 C) Active venous thrombosis, pulmonary embolism and prevention of recurrent venous thrombosis: 2 - 3 D) Prevention of arterial thromboembolism including patients with mechanical heart valves: 3 - 4.5 Performed By: #### C BC, PT, PTT, BMP #### [facility] [address] PT Coag (PPP) [Time] 12.2 s Normal 9.0-12.9 [facility] Comment on above: Performed By: #### C BC, PT, PTT, BMP #### [facility] [address] RBC Auto (Bld) [#/Vol]Ordere d By: Rishi Xie on 05-14-2022 RBC (Bld) [#/Vol] 4.56 10*6/uL 3.90-5.60 [facility] Serum or plasma calcium neville urement (mass/volume)Ordered By: Rishi Xie on 05-14-2022 Calcium [Mass/Vol] 10.0 mg/dL 8.2-10.2 [facility] Serum or plasma chloride anand surement (moles/volume)Ordered By: Rishi Xie on 05-14-2022 Chloride [Moles/Vol] 96 mmol/L 95-114 [facility] Serum or plasma glucose neville urement (mass/volume)Ordered By: Rishi Xie on 05-14-2022 Glucose [Mass/Vol] 81 mg/dL 70-100 [facility] Comment on above: ADA recommended refe rence range Random Glucose Reference Range is dependent on time and content of last meal. Glucose of more than 200 mg/dL in a nonstressed, ambulatory subject supports the diagnosis of Diabetes Mellitus. Serum or plasma potassium me asurement (moles/volume)Ordered By: Rishi Xie on 05-14-2022 Potassium [Moles/Vol] 3.7 mmol/L 3.5-5.1 [facility] Serum or plasma sodium measu rement (moles/volume)Ordered By: Rishi Xie on 05-14-2022 Sodium [Moles/Vol] 138 mmol/L 136-146 [facility] Serum or plasma total carbon dioxide measurement (moles/volume)Ordered By: Rishi Xie on 05-14-2022 CO2 [Moles/Vol] 29.4 mmol/L 22.0-30.0 [facility] Serum or plasma urea nitroge n measurement (mass/volume)Ordered By: Rishi Xie on 05-14-2022 Urea nitrogen [Mass/Vol] 21 mg/dL - [facility] XR chest 2V*on 05-14-2022 XR chest 2V* [facility] Main [address] [address] XRay Report Signed Patient: Dmitri Arthur MR#: [id number] : 1965 Acct:[id number] Age/Sex: 57 / M ADM Date: 05/14/22 Loc: [facility]: Rishi Xie MD Copies to: Rishi Xie MD Ordering Provider: Rishi Xie MD Date of Service: 05/14/22 XR/XR chest 2V*: pst XR chest 2V* 05/14/2022 1:37 PM SIGNS AND SYMPTOMS: pst , elevated PSA PROTOCOL: Frontal and lateral radiograph of the chest COMPARISON: None FINDINGS: The trachea is midline. The heart and mediastinal structures are within normal limits. The lung parenchyma is clear. The bony thorax is intact. With degenerative changes are noted in the shoulders. XR/XR chest 2V* IMPRESSION: No acute cardiopulmonary pathology. Impression dictated by: Donald Ordonez M.D.05/14/2022 4:42 PM Dictation Location: [place] [address] Transcribed By: [facility] 05/14/221641 Dictated By: Donald Ordonez II, MD 05/14/221640 Signed By: 05/14/221641 [facility] MR prostate wo/w conon 03-26 MR prostate wo/w con [facility] [address] [place] [address] [place] [address] MRI Report Signed Patient: Dmitri Arthur MR#: [id number] : 1965 Acct:[id number] Age/Sex: 57 / M ADM Date: 03/25/22 Loc: Room: Type: [facility] Attending Dr: Rishi Xie MD Copies to: Rishi Xie MD Ordering Provider: Rishi Xie MD Date of Service: 03/25/22 MR/MR prostate wo/w con: R97.20 EXAMINATION: MR prostate wo/w con HISTORY: Elevated PSA. COMPARISON: NONE TECHNIQUE: Multiparametric imaging of the prostate gland was performed with IV contrast. FINDINGS: Prostate Dimensions: 4.3 x 3.4 x 3.7 cm. Prostate Volume: 28mL Peripheral Zone: Heterogenous inT2 signal suggestive of prior prostatitis. A focal area of T2 hypointensity is identified involving the posterolateral aspect the left peripheral zone at the level of the mid gland measuring 6 x 5 mm with associated restricted diffusion and low ADC value. Please see series 9 image 20, series 850 image 20 and series 800 image 20. There is also abnormal enhancement of this area. Central/Transitional Zone: BPH changes. Seminal Vesicles: Unremarkable Neurovascular bundles: Unremarkable. Lymphadenopathy: No evidence of lymphadenopathy. Bladder: No focal lesion. Bowel: The visualized bowel is without acute abnormality. Peritoneal Cavity: No free fluid. Bones: No suspicious bony lesion. MR/MR prostate wo/w con IMPRESSION: A focal area of T2 hypointensity is identified involving the posterolateral aspect the left peripheral zone at the level of the mid gland measuring 6 x 5 mm with associated restricted diffusion and low ADC value. Please see series 9 image 20, series 850 image 20 and series 800 image 20. PI-RADS 4. Targeting on biopsy is recommended. Impression dictated by: Josr Bobo Jr., D.ODat03/26/2022 8:35 AM Dictation Location: [place] [address] Transcribed By: [facility] 03/26/22 0835 Dictated By: Josr Bobo Jr, DO 03/26/22 0826 Signed By: 03/26/22 0835 [facility] XR CHEST (2 VW)on 02-25-2018 XR CHEST (2 VW) EXAMINATION:TWO VIEW S OF THE CHEST02/25/2018 7:58 amCOMPARISON:August 2015HISTORY:ORDERING SYSTEM PROVIDED HISTORY: Pre-employment examinationTECHNOLOGIST PROVIDED HISTORY:Ordering Physician Provided Reason for Exam: positive skin test for TBAcuity: AcuteType of Exam: InitialAdditional signs and symptoms: possible exposre 2014FINDINGS:Heart size is stable. Hilar shadows are stable there is no lungconsolidation. Ill definition of the left hemidiaphragm is noted there is noeffusion or pneumothoraxIMPRESSION: Ill definition of the left hemidiaphragm on the frontal view. This is likelytechnical. Developing basilar airspace disease not excludedNo acute abnormality otherwiseInterpreted by:JADE Toscanoigned by:Josias Voss MD02/25/18inal result Normal [facility] Progress Noteon 02-10-2018 HIM IP Note OR Fisher Trammel Net Normal [facility] CBCon 04-27-2017 Erythrocyte distribution width Auto Ratio (RBC) 13.5 % Normal 12.5-15.4 [facility] Comment on above: Performed By: #### C BC, CP, LIPR ####[address] [address] Erythrocytes (RBC) 5.03 10*6/uL Normal 4.5-5.9 [facility] Comment on above: Performed By: #### C BC, CP, LIPR ####[address] [address] Hematocrit (HCT) 46.5 % Normal 41-53 [facility] Comment on above: Performed By: #### C BC, CP, LIPR ####[address] [address] Hemoglobin mass conc (Bld) 15.7 g/dL Normal 13.5-17.5 [facility] Comment on above: Performed By: #### C BC, CP, LIPR ####[address] [address] MCH 31.1 pg Normal 26-34 [facility] Comment on above: Performed By: #### C BC, CP, LIPR ####[address] [address] MCHC mass conc (RBC) 33.7 g/dL Normal 31-37 [facility] Comment on above: Performed By: #### C BC, CP, LIPR ####[address] [address] MCV 92.4 fL Normal 80-100 [facility] Comment on above: Performed By: #### C BC, CP, LIPR ####[address] [address] Platelet mean volume (PMV) 8.5 fL Normal 6.0-12.0 [facility] Comment on above: Result Comment: [facility] [employer] [address] [place] [address] Performed By: #### C ALYCIA CHERRY, LIPR ####[facility] [place] [address] Platelets 284 10*3/uL Normal 140-450 [facility] Comment on above: Performed By: #### Bogdan CHERRY CP, LIPR ####[facility] [address] [place] [address] WBC (Leukocytes) 8.5 10*3/uL Normal 3.5-11.0 [facility] Comment on above: Performed By: #### Bogdan CHERRY CP, LIPR ####[facility] [address] [place] [address] Comp Metabolic Profon 2016 (cont.) Normal [facility] Comment on above: Result Comment: Aver age GFR for 50-59 years old: 93 mL/min/1.73sq mChronic Kidney Disease: <60 mL/min/1.73sq mKidney failure: <15 mL/min/1.73sq meGFR calculated using average adult body mass. Additional eGFR calculator available at:http://www.[employer]/multiple_crcl_2012.htmK[address] [place] [address] Performed By: #### C ALYCIA CHERRY, LIPR ####[facility] [address] [place] [address] Alanine aminotransferase (ALT) 22 U/L Normal 5-41 [facility] Comment on above: Performed By: #### Bogdan CHERRY CP, LIPR ####[facility] [address] [place] [address] Albumin 4.4 g/dL Normal 3.5-5.2 [facility] Comment on above: Performed By: #### Bogdan CHERRY CP, LIPR ####[facility] [address] [place] [address] Albumin/Globulin Ratio 1.5 {ratio} Normal 1.0-2.5 [facility] Comment on above: Performed By: #### C BC, CP, LIPR ####[facility] [address] [place] [address] Alkaline Phos 70 U/L Normal 40-129 [facility] Comment on above: Performed By: #### C BC, CP, LIPR ####[facility] [address] [place] [address] Anion gap 15 mmol/L Normal 9-17 [facility] Comment on above: Performed By: #### C BC, CP, LIPR ####[facility] [address] [place] [address] Aspartate aminotransferase (AST) 33 U/L Normal <40 [facility] Comment on above: Performed By: #### C BC, CP, LIPR ####[facility] [address] [place] [address] Bilirubin Ql (U) 0.50 mg/dL Normal 0.3-1.2 [facility] Comment on above: Performed By: #### C BC, CP, LIPR ####[facility] [address] [place] [address] Calcium 9.5 mg/dL Normal 8.6-10.4 [facility] Comment on above: Performed By: #### C BC, CP, LIPR ####[facility] [address] [place] [address] Chloride 97 mmol/L Low 98-107 [facility] Comment on above: Performed By: #### C BC, CP, LIPR ####[facility] [address] [place] [address] CO2 27 mmol/L Normal 20-31 [facility] Comment on above: Performed By: #### C BC, CP, LIPR ####[facility] [address] [place] [address] Creatinine 0.75 mg/dL Normal 0.70-1.20 [facility] Comment on above: Performed By: #### C BC, CP, LIPR ####[facility] [address] [place] [address] eGFR (non-black) mL/min/{1.73_m2} Normal >60 [facility] Comment on above: Performed By: #### C BC, CP, LIPR ####[address] [address] Glucose mass conc 89 mg/dL Normal 70-99 [facility] Comment on above: Performed By: #### C BC, CP, LIPR ####[facility] [place] [address] Potassium molar conc 3.8 mmol/L Normal 3.7-5.3 [facility] Comment on above: Performed By: #### C BC, CP, LIPR ####[place] [address] [place] [address] Protein 7.4 g/dL Normal 6.4-8.3 [facility] Comment on above: Performed By: #### C BC, CP, LIPR ####[facility] [address] [place] [address] Sodium 139 mmol/L Normal 135-144 [facility] Comment on above: Performed By: #### C BC, CP, LIPR ####[facility] [address] [place] [address] Urea nitrogen 21 mg/dL High 6-20 [facility] Comment on above: Performed By: #### C BC, CP, LIPR ####[place] [address] [place] [address] BUN/CRE Ratio NOT REPORTED Normal 9-20 [facility] Comment on above: Performed By: #### C BC, CP, LIPR ####[id number] [place] [address] Staging: NOT REPORTED Normal [facility] Comment on above: Performed By: #### C BC, CP, LIPR ####[address] [address] Lipid Profileon 04-27-2017 Cholesterol 247 mg/dL High <200 [facility] Comment on above: Result Comment: Chol esterol Guidelines: <200 Desirable 200-240 Borderline >240 Undesirable Performed By: #### C BC, CP, LIPR ####[address] [address] Cholesterol to HDL Ratio 4.1 {ratio} Normal <5 [facility] Comment on above: Performed By: #### C BC, CP, LIPR ####[address] [address] HDL Cholesterol 60 mg/dL Normal >40 [facility] Comment on above: Result Comment: HDL Guidelines: <40 Undesirable 40-59 Borderline >59 Desirable Performed By: #### C BC, CP, LIPR ####[address] [address] LDL Cholesterol 158 mg/dL High 0-130 [facility] Comment on above: Result Comment: LDL Guidelines: <100 Desirable 100-129 Near to/above Desirable 130-159 Borderline >159 UndesirableDirect (measured) LDL and calculated LDL are not interchangeable tests. Performed By: #### C BC, CP, LIPR ####[facility] [place] [address] Triglyceride 145 mg/dL Normal <150 [facility] Comment on above: Result Comment: Trig lyceride Guidelines: <150 Desirable 150- 199 Borderline 200-499 High >499 Very high Based on AHA Guidelines for fasting triglyceride, July 2012.[employer] [address] [place] [address] Performed By: #### C BC, CP, LIPR ####[id number] [place] [address] Cholesterol in VLDL mass conc NOT REPORTED Normal 11-02 [facility] Comment on above: Performed By: #### C BC, CP, LIPR ####[employer] [place] [address] Vital Signs Date Time Vital Sign Value Performing Clinician Roger gee 09-07-2023 09:11-0500 Blood Pressure Location [facility] 09-07-2023 09:11-0500 Diastolic blood pressure 81 mm[Hg] [facility] 09-07-2023 09:11-0500 Heart rate 100 /min [facility] 09-07-2023 09:11-0500 Systolic blood pressure 138 mm[Hg] [facility] 08-21-2022 08:18-0500 Blood Pressure Location [facility] 08-21-2022 08:18-0500 Diastolic blood pressure 92 mm[Hg] [facility] 08-21-2022 08:18-0500 Heart rate 75 /min [facility] 08-21-2022 08:18-0500 Systolic blood pressure 139 mm[Hg] Rishi XIE [facility] [place] 05-28-2022 09:25-0400 Diastolic blood pressure 62 mm[Hg] MD Rishi Xie Work Phone: [facility] 05-28-2022 09:25-0400 Heart rate 70 /min MD Rishi Xie Work Phone: [facility] 05-28-2022 09:25-0400 Respiratory rate 16 /min MD Rishi Xie Work Phone: [facility] 05-28-2022 09:25-0400 SaO2% (BldA) [Mass fraction] 95 % MD Rishi Xie Work Phone: [facility] 05-28-2022 09:25-0400 Systolic blood pressure 128 mm[Hg] MD Rishi Xie Work Phone: [facility] 05-28-2022 08:55-0400 Inhaled oxygen flow rate 6 L/min MD Rishi Xie Work Phone: [facility] 05-28-2022 07:59-0400 Body height 179.07 cm MD Rishi Xie Work Phone: [facility] 05-28-2022 07:59-0400 Body mass index (BMI) [Ratio] 27 kg/m2 MD Rishi Xie Work Phone: [facility] 05-28-2022 07:59-0400 Body weight 86.63 kg MD Rishi Xie Work Phone: [facility] 05-28-2022 06:23-0400 Body temperature 97.8 [degF] MD Rishi Xie Work Phone: [facility] 02-25-2022 10:08-0400 Blood Pressure Kelvin XIE [facility] [place] 02-25-2022 10:08-0400 Diastolic blood pressure 89 mm[Hg] Rishi XIE [facility] 02-25-2022 10:08-0400 Heart rate 84 /min Rishi XIE [facility] 02-25-2022 10:08-0400 Respiratory rate 16 /min Rishi XIE [facility] 02-25-2022 10:08-0400 Systolic blood pressure 149 mm[Hg] Rishi XIE [facility] 09-14-2019 11:05-0500 BP Diastolic 80 mm[Hg] [facility] 09-14-2019 11:05-0500 BP Systolic 114 mm[Hg] [facility] 09-14-2019 11:05-0500 Pulse (Heart Rate) 74 /min [facility] 09-14-2019 11:05-0500 Pulse Oximetry 99 % [facility] 09-14-2019 11:05-0500 Respiratory Rate 18 /min [facility] 09-14-2019 08:15-0500 BMI (Body Mass Index) 27.1 kg/m2 [facility] 09-14-2019 08:15-0500 Body Temperature 97.9 [degF] [facility] 09-14-2019 08:15-0500 Body weight 87.08 kg [facility] 09-14-2019 08:15-0500 Height 179.07 cm [facility] Encounters Encounter Date Encounter Type Care Provider Facility Start: 03-21-2024 ambulatory Rishi XIE Facility :[facility] Start: 03-07-2024 End: 03-07-2024 ambulatory TRISTEN COLMENARES Not Available Start: 02-14-2024 End: 02-14-2024 ambulatory JR. THADDEUS Bogdan GUERRERO Not Available Start: 01-12-2024 End: 01-12-2024 ambulatory JOHNATHON GALLEGOS Not Available Start: 01-06-2024 End: 01-06-2024 ambulatory TRISTEN Ranjit COLMENARES Not Available Start: 12-29-2023 End: 12-29-2023 ambulatory JOHNATHON GALLEGOS Not Available Start: 09-23-2023 ambulatory MD Sean Thomas ity:[facility] [place] Start: 09-08-2023 ambulatory Rishi XIE Facility:[facility] Start: 09-07-2023 End: 09-08-2023 ambulatory Rishi XIE Facility:[facility] Start: 09-07-2023 End: 09-07-2023 Patient encounter procedure Rishi XIE [facility] Start: 07-28-2023 End: 07-29-2023 ambulatory JOHNATHON GALLEGOS Facility:[facility] Start: 02-23-2023 End: 02-24-2023 ambulatory Rishi XIE Facility:[facility] Start: 02-15-2023 End: 02-16-[address] JOHNATHON GALLEGOS Facility: Start: 01-29-2023 End: 01-30-2023 ambulatory Jm Wilson Facility:[facility] Start: 12-08-2022 End: 12-08-2022 ambulatory Alex Ron Facility:[facility] Start: 10-20-2022 End: 10-21-2022 ambulatory Rishi XIE Facility:[facility] Start: 10-12-2022 End: 10-13-2022 ambulatory Rishi XIE Facility:[facility] Start: 10-12-2022 End: 10-12-2022 Patient encounter procedure Rishi XIE [facility] Start: 08-21-2022 End: 08-21-2022 Patient encounter procedure Rishi XIE [facility] Start: 06-24-2022 End: 06-25-[address] JOHNATHON GALLEGOS Facility: Start: 06-19-2022 End: 06-19-2022 Patient encounter procedure Rishi XIE [facility] Start: 05-28-2022 End: 05-28-2022 ambulatory Rishi Xie Facility:[facility] Start: 05-28-2022 End: 05-28-2022 Admission to same day surgery center MD Rishi Xie Work Phone: [facility] [place] Start: 05-26-2022 End: 05-26-2022 ambulatory Rishi Xie Facility:[facility] Start: 05-26-2022 End: 05-26-2022 Patient encounter procedure MD Rishi Xie Work Phone: [facility] Start: 05-14-2022 End: 05-14-2022 ambulatory Rishi Xie Facility:[facility] Start: 05-14-2022 End: 05-14-2022 Patient encounter procedure MD Rishi Xie Work Phone: [facility] Gdt-Pcl-Zcujbdvz Testing Start: 03-25-2022 End: 03-25-2022 ambulatory Rishi Xie Facility:[facility] Start: 03-25-2022 End: 03-25-2022 Patient encounter procedure MD Rishi Xie Work Phone: [facility] [place] Start: 02-25-2022 End: 02-25-2022 Patient encounter procedure Rishi XIE [facility] [place] Start: 09-14-2019 End: 09-14-2019 Admission to day surgery [facility] Start: 02-25-2018 End: 02-28-2018 Ambulatory ADORE FORTE [facility] Start: 04-27-2017 End: 04-28-2017 Ambulatory VIRY ORELLANA [facility] Procedures Date Procedure Procedure Detail Performing Clinician Start: 02-15-[address] JOHNATHON GALLEGOS Comment on above: Performed By: #### PSASC #### [facility] [address] [place] [address] Dr. Davon Gutierrez Start: 05-28-2022 US scan and biopsy of prostate MD Sarbjit Xie Work Phone: Start: 05-28-2022 MRI-US fusion guided prostate biopsy Rishi XIE Start: 05-14-2022 Plain chest X-ray MD Rishi Xie Work Phone: Start: 03-25-2022 MR prostate wo/w con MD Rishi Xie Work Phone: Start: 09-14-2019 Esophagogastroduodenoscopy Marc hernandez Start: 02-25-2018 Radiologic exam chest 2 views ADORE CHO PRA Start: 04-27-2017 CBC VIRY ORELLANA Start: 04-27-2017 COMPREHENSIVE METABOLIC PANEL VIRY ROBERTS Start: 04-27-2017 Lipid panel VIRY ORELLANA Start: 10-04-1989 Torsion of testis (disorder) Rishi Landrum Start: 10-04-1975 Tonsillectomy and adenoidectomy Rishi XIE Plan of Treatment Date Care Activity Detail Author Start: 05-28-2022 US scan and biopsy o f prostate OR (TRUS) Prostate Biopsy w/Ultrasound (Not Applicable) [facility] Start: 05-28-2022 End: 05-28-2022 [facility] Work Phone: Start: 05-28-2022 End: 05-28-2022 Admission to same day surgery center Departed Surgical Day Care [facility] [place] Start: 05-26-2022 End: 05-26-2022 Patient encounter procedure Departed Clinical [facility] Zmx-Vga-Qdthuble Testing Patient Education [facility] C[facility] Patient referral [facility] Work Phone: Immunizations Immunization Date Immunization Notes Care Provider Braden strattonkimberly 12-18-2021 COVID-19 mRNAJeredirnatsin (Pfizer) MD Rishi Xie Work Phone: [facility] 12-18-2021 SARS-CoV-2 mRNA (sfmiefmvlcf-bsau-dmfrs se) vaccine Rishi XIE [facility] 03-19-2021 COVID-19 mRNALowell (Pfizer) MD Rishi Xie Work Phone: [facility] 12-02-2020 influenza virus vaccine, unspecified formulation Rishi XIE [facility] 10-07-2020 COVID-19 mRNA Comselena (Pfizer) MD Rishi Xie Work Phone: [facility] Comment on above: Result Comment: 2021: [id number] Payers Date Payer Category Payer Unknown [id number] 2023 Private Health Insurance [id number] 2023 Unknown [id number] 2022 Unknown [id number] 2017 Private Health Insurance [id number] 2016 Private Health Insurance [id number] 1966 Unknown [id number] 2.16.84 [id number] 1966 Unknown [id number] 2.16.8 40.1.045915.3.579.2.727 1966 Unknown [id number] 2.16.8 40.1.851052.3.579.2.727 1966 Unknown [id number] 2.16.8 40.1.138146.3.579.2.727 1966 Unknown [id number] 2.16.8 40.1.247923.3.579.2.727 1966 Unknown [id number] .16.8 40.1.269210.3.579.2.727 1966 Unknown [id number] 2.16.8 40.1.873288.3.579.2.727 1966 Unknown [id number] 2.16.84 0.1.539865.3.579.2.125 1966 Unknown [id number] 2.16.84 0.1.555807.3.579.2.1258 1966 Unknown [id number] 2.16.84 0.1.135101.3.579.2.1258 1966 Unknown [id number] 2.16.84 0.1.831610.3.579.2.1258 1966 Unknown [id number] 2.16.84 0.1.201163.3.579.2.1259 1959 Private Health Insurance [id number] 1959 Self-pay [id number] Unknown [id number] Unknown [id number] 2.16.8 40.1.211303.3.579.2.531 Unknown [id number] 2.16.8 40.1.612477.3.579.2.531 Unknown [id number] 2.16.8 40.1.643176.3.579.2.531 Unknown [id number] 2.16.8 40.1.223979.3.579.2.531 Unknown [id number] 2.16.84 0.1.309443.3.579.2.593 Social History Date Type Detail Facility Tobacco smoking stat [facility] Unknown if ever smoked [facility] Start: 1965 Sex Assigned At Male [facility] Start: 02-25-2022 End: 09-07-2023 Tobacco smoking status Never smoked tobacco (finding) [facility] Sex Assigned At Male [facility] Tobacco smoking status Never [facility] Goals Date Patient Goal Desired Activity /State Functional Status Date Assessment Result Facility 09-07-2023 Functional Status N/A [facility] 08-21-2022 Functional Status N/A [facility] 06-19-2022 Functional Status N/A [facility] Clinical Notes 02-25-2022 to 09-07-2023 Note Date & Type Note Facility 09-07-2023 Hospital Discharge instructions Patient Education 09/07/2023 09:43:38 Benign Prostatic Hyperplasia Benign Prostatic Hyperplasia Benign prostatic hyperplasia (BPH) is an enlarged prostate gland that is caused by the normal aging process. The prostate may get bigger as a man gets older. The condition is not caused by cancer. The prostate is a walnut-sized gland that is involved in the production of semen. It is located in front of the rectum and below the bladder. The bladder stores urine. The urethra carries stored urine out of the body. An enlarged prostate can press on the urethra. This can make it harder to pass urine. The buildup of urine in the bladder can cause infection. Back pressure and infection may progress to bladder damage and kidney (renal) failure. What are the causes? This condition is part of the normal aging process. However, not all men develop problems from this condition. If the prostate enlarges away from the urethra, urine flow will not be blocked. If it enlarges toward the urethra and compresses it, there will be problems passing urine. What increases the risk? This condition is more likely to develop in men older than 50 years. What are the signs or symptoms? Symptoms of this condition include: Getting up often during the night to urinate. Needing to urinate frequently during the day. Difficulty starting urine flow. Decrease in size and strength of your urine stream. Leaking (dribbling) after urinating. Inability to pass urine. This needs immediate treatment. Inability to completely empty your bladder. Pain when you pass urine. This is more common if there is also an infection. Urinary tract infection (UTI). How is this diagnosed? This condition is diagnosed based on your medical history, a physical exam, and your symptoms. Tests will also be done, such as: A post-void bladder scan. This measures any amount of urine that may remain in your bladder after you finish urinating. A digital rectal exam. In a rectal exam, your health care provider checks your prostate by putting a lubricated, gloved finger into your rectum to feel the back of your prostate gland. This exam detects the size of your gland and any abnormal lumps or growths. An exam of your urine (urinalysis). A prostate specific antigen (PSA) screening. This is a blood test used to screen for prostate cancer. An ultrasound. This test uses sound waves to electronically produce a picture of your prostate gland. Your health care provider may refer you to a specialist in kidney and prostate diseases (urologist). How is this treated? Once symptoms begin, your health care provider will monitor your condition (active surveillance or watchful waiting). Treatment for this condition will depend on the severity of your condition. Treatment may include: Observation and yearly exams. This may be the only treatment needed if your condition and symptoms are mild. Medicines to relieve your symptoms, including: ?Medicines to shrink the prostate. ?Medicines to relax the muscle of the prostate. Surgery in severe cases. Surgery may include: ?Prostatectomy. In this procedure, the prostate tissue is removed completely through an open incision or with a laparoscope or robotics. ?Transurethral resection of the prostate (TURP). In this procedure, a tool is inserted through the opening at the tip of the penis (urethra). It is used to cut away tissue of the inner core of the prostate. The pieces are removed through the same opening of the penis. This removes the blockage. ?Transurethral incision (TUIP). In this procedure, small cuts are made in the prostate. This lessens the prostate's pressure on the urethra. ?Transurethral microwave thermotherapy (TUMT). This procedure uses microwaves to create heat. The heat destroys and removes a small amount of prostate tissue. ?Transurethral needle ablation (TUNA). This procedure uses radio frequencies to destroy and remove a small amount of prostate tissue. ?Interstitial laser coagulation (ILC). This procedure uses a laser to destroy and remove a small amount of prostate tissue. ?Transurethral electrovaporization (TUVP). This procedure uses electrodes to destroy and remove a small amount of prostate tissue. ?Prostatic urethral lift. This procedure inserts an implant to push the lobes of the prostate away from the urethra. Follow these instructions at home: Take sjbj-mfl-hqhbrzw and prescription medicines only as told by your health care provider. Monitor your symptoms for any changes. Contact your health care provider with any changes. Avoid drinking large amounts of liquid before going to bed or out in public. Avoid or reduce how much caffeine or alcohol you drink. Give yourself time when you urinate. Keep all follow-up visits. This is important. Contact a health care provider if: You have unexplained back pain. Your symptoms do not get better with treatment. You develop side effects from the medicine you are taking. Your urine becomes very dark or has a bad smell. Your lower abdomen becomes distended and you have trouble passing urine. Get help right away if: You have a fever or chills. You suddenly cannot urinate. You feel light-headed or very dizzy, or you faint. There are large amounts of blood or clots in your urine. Your urinary problems become hard to manage. You develop moderate to severe low back or flank pain. The flank is the side of your body between the ribs and the hip. These symptoms may be an emergency. Get help right away. Call 911. Do not wait to see if the symptoms will go away. Do not drive yourself to the hospital. Summary Benign prostatic hyperplasia (BPH) is an enlarged prostate that is caused by the normal aging process. It is not caused by cancer. An enlarged prostate can press on the urethra. This can make it hard to pass urine. This condition is more likely to develop in men older than 50 years. Get help right away if you suddenly cannot urinate. This information is not intended to replace advice given to you by your health care provider. Make sure you discuss any questions you have with your health care provider. Document Revised: 04/08/2022 Document Reviewed: 04/08/2022 Elsevier Patient Education 2022 [employer]. Follow Up Care 02/23/2023 08:58:30 With:PACO VARGAS, Rishi Herrera, URL Address: Andreas [address] [place] [address]- When:Within 6 Month(s) Comments:w/PSA [facility] 12-09-2022 Note [phone] [id number] [facility] 12-08-2022 Note Patient Education Ma terials Follows: [facility] 08-21-2022 Hospital Discharge instructions Patient Education 08/21/2022 08:32:07 Prostate Cancer Screening Prostate Cancer Screening The prostate is a walnut-sized gland that is located below the bladder and in front of the rectum in males. The function of the prostate (prostate gland) is to add fluid to semen during ejaculation. Prostate cancer is the second most common type of cancer in men. A screening test for cancer is a test that is done before cancer symptoms start. Screening can help to identify cancer at an early stage, when the cancer can be treated more easily. The recommended prostate cancer screening test is a blood test called the prostate-specific antigen (PSA) test. PSA is a protein that is made in the prostate. As you age, your prostate naturally produces more PSA. Abnormally high PSA levels may be caused by: Prostate cancer. An enlarged prostate that is not caused by cancer (benign prostatic hyperplasia, BPH). This condition is very common in older men. A prostate gland infection (prostatitis). Medicines to assist with hair growth, such as finasteride. Depending on the PSA results, you may need more tests, such as: A physical exam to check the size of your prostate gland. Blood and imaging tests. A procedure to remove tissue samples from your prostate gland for testing (biopsy). Who should have screening? Screening recommendations vary based on age. If you are younger than age 40, screening is not recommended. If you are age 40 54 and you have no risk factors, screening is not recommended. If you are younger than age 55, ask your health care provider if you need screening if you have one of these risk factors: ?Being of -[place] descent. ?Having a family history of prostate cancer. If you are age 55 69, talk with your health care provider about your need for screening and how often screening should be done. If you are older than age 70, screening is not recommended. This is because the risks that screening can cause are greater than the benefits that it may provide (risks outweigh the benefits). If you are at high risk for prostate cancer, your health care provider may recommend that you have screenings more often or start screening at a younger age. You may be at high risk if you: Are older than age 55. Are -Mongolian. Have a father, brother, or uncle who has been diagnosed with prostate cancer. The risk may be higher if your family member's cancer occurred at an early age. What are the benefits of screening? There is a small chance that screening may lower your risk of dying from prostate cancer. The chance is small because prostate cancer is typically a slow-growing cancer, and most men with prostate cancer from a different cause. What are the risks of screening? The main risk of prostate cancer screening is diagnosing and treating prostate cancer that would never have caused any symptoms or problems (overdiagnosis and overtreatment). PSA screening cannot tell you if your PSA is high due to cancer or a different cause. A prostate biopsy is the only procedure to diagnose prostate cancer. Even the results of a biopsy may not tell you if your cancer needs to be treated. Slow-growing prostate cancer may not need any treatment other than monitoring, so diagnosing and treating it may cause unnecessary stress or other side effects. A prostate biopsy may also cause: Infection or fever. A false negative. This is a result that shows that you do not have prostate cancer when you actually do have prostate cancer. Questions to ask your health care provider When should I start prostate cancer screening? What is my risk for prostate cancer? How often do I need screening? What type of screening tests do I need? How do I get my test results? What do my results mean? Do I need treatment? Contact a health care provider if: You have difficulty urinating. You have pain when you urinate or ejaculate. You have blood in your urine or semen. You have pain in your back or in the area of your prostate. You have trouble getting or maintaining an erection (erectile dysfunction, ED). Summary Prostate cancer is a common type of cancer in men. The prostate (prostate gland) is located below the bladder and in front of the rectum. This gland adds fluid to semen during ejaculation. Prostate cancer screening may identify cancer at an early stage, when the cancer can be treated more easily. The prostate-specific antigen (PSA) test is the recommended screening test for prostate cancer. Discuss the risks and benefits of prostate cancer screening with your health care provider. If you are age 70 or older, screening is likely to lead to more risks than benefits (risks outweigh the benefits). This information is not intended to replace advice given to you by your health care provider. Make sure you discuss any questions you have with your health care provider. Document Released: 07/01/2018 Document Revised: 09/02/2018 Document Reviewed: 07/01/2018 [employer] Patient Education [employer]. Follow Up Care 06/19/2022 11:23:29 With:Rishi XIE MD, URL Address: [facility] [address] [place] [id number]- When: Unknown [facility] 05-28-2022 Hospital Discharge instructions Follow Up Care 05/28/2022 13:08:39 With:Rishi XIE MD, URL Address: [id number] [place] [id number]- When:1 month [facility] 02-25-2022 Hospital Discharge instructions Patient Education 02/25/2022 10:56:24 Prostate-Specific Antigen Test Prostate-Specific Antigen Test Why am I having this test? The prostate-specific antigen (PSA) test is a screening test for prostate cancer. It can identify early signs of prostate cancer, which may allow for more effective treatment. Your health care provider may recommend that you have a PSA test starting at age 40 or that you have one earlier or later, depending on your risk factors for prostate cancer. You may also have a PSA test: To monitor treatment of prostate cancer. To check whether prostate cancer has returned after treatment. If you have signs of other conditions that can affect PSA levels, such as: ?An enlarged prostate that is not caused by cancer (benign prostatic hyperplasia, BPH). This condition is very common in older men. ?A prostate infection. What is being tested? This test measures the amount of PSA in your blood. PSA is a protein that is made in the prostate. The prostate naturally produces more PSA as you age, but very high levels may be a sign of a medical condition. What kind of sample is taken? A blood sample is required for this test. It is usually collected by inserting a needle into a blood vessel or by sticking a finger with a small needle. Blood for this test should be drawn before having an exam of the prostate. How do I prepare for this test? Do not ejaculate starting 24 hours before your test, or as long as told by your health care provider. Tell a health care provider about: Any allergies you have. All medicines you are taking, including vitamins, herbs, eye drops, creams, and gbns-yvy-uvlqzag medicines. This also includes: ?Medicines to assist with hair growth, such as finasteride. ?Any recent exposure to a medicine called diethylstilbestrol. Any blood disorders you have. Any recent procedures you have had, especially any procedures involving the prostate or rectum. Any medical conditions you have. Any recent urinary tract infections (UTIs) you have had. How are the results reported? Your test results will be reported as a value that indicates how much PSA is in your blood. This will be given as nanograms of PSA per milliliter of blood (ng/mL). Your health care provider will compare your results to normal ranges that were established after testing a large group of people (reference ranges). Reference ranges may vary among labs and hospitals. PSA levels vary from person to person and generally increase with age. Because of this variation, there is no single PSA value that is considered normal for everyone. Instead, PSA reference ranges are used to describe whether your PSA levels are considered low or high (elevated). Common reference ranges are: Low: 0 2.5 ng/mL. Slightly to moderately elevated: 2.6 10.0 ng/mL. Moderately elevated: 10.0 19.9 ng/mL. Significantly elevated: 20 ng/mL or greater. Sometimes, the test results may report that a condition is present when it is not present (false-positive result). What do the results mean? A test result that is higher than 4 ng/mL may mean that you are at an increased risk for prostate cancer. However, a PSA test by itself is not enough to diagnose prostate cancer. High PSA levels may also be caused by the natural aging process, prostate infection, or BPH. PSA screening cannot tell you if your PSA is high due to cancer or a different cause. A prostate biopsy is the only way to diagnose prostate cancer. A risk of having the PSA test is diagnosing and treating prostate cancer that would never have caused any symptoms or problems (overdiagnosis and overtreatment). Talk with your health care provider about what your results mean. Questions to ask your health care provider Ask your health care provider, or the department that is doing the test: When will my results be ready? How will I get my results? What are my treatment options? What other tests do I need? What are my next steps? Summary The prostate-specific antigen (PSA) test is a screening test for prostate cancer. Your health care provider may recommend that you have a PSA test starting at age 40 or that you have one earlier or later, depending on your risk factors for prostate cancer. A test result that is higher than 4 ng/mL may mean that you are at an increased risk for prostate cancer. However, elevated levels can be caused by a number of conditions other than prostate cancer. Talk with your health care provider about what your results mean. This information is not intended to replace advice given to you by your health care provider. Make sure you discuss any questions you have with your health care provider. Document Released: 10/23/2005 Document Revised: 09/02/2018 Document Reviewed: 06/27/2018 [employer] Patient Education 2020 [employer]. 02/25/2022 10:56:19 Calorie Counting for Weight Loss Calorie Counting for Weight Loss Calories are units of energy. Your body needs a certain amount of calories from food to keep you going throughout the day. When you eat more calories than your body needs, your body stores the extra calories as fat. When you eat fewer calories than your body needs, your body candelario fat to get the energy it needs. Calorie counting means keeping track of how many calories you eat and drink each day. Calorie counting can be helpful if you need to lose weight. If you make sure to eat fewer calories than your body needs, you should lose weight. Ask your health care provider what a healthy weight is for you. For calorie counting to work, you will need to eat the right number of calories in a day in order to lose a healthy amount of weight per week. A dietitian can help you determine how many calories you need in a day and will give you suggestions on how to reach your calorie goal. A healthy amount of weight to lose per week is usually 1 2 lb (0.5 0.9 kg). This usually means that your daily calorie intake should be reduced by 500 750 calories. Eating 1,200 1,500 calories per day can help most women lose weight. Eating 1,500 1,800 calories per day can help most men lose weight. What is my plan? My goal is to have calories per day. If I have this many calories per day, I should lose around pounds per week. What do I need to know about calorie counting? In order to meet your daily calorie goal, you will need to: Find out how many calories are in each food you would like to eat. Try to do this before you eat. Decide how much of the food you plan to eat. Write down what you ate and how many calories it had. Doing this is called keeping a food log. To successfully lose weight, it is important to balance calorie counting with a healthy lifestyle that includes regular activity. Aim for 150 minutes of moderate exercise (such as walking) or 75 minutes of vigorous exercise (such as running) each week. Where do I find calorie information? The number of calories in a food can be found on a Nutrition Facts label. If a food does not have a Nutrition Facts label, try to look up the calories online or ask your dietitian for help. Remember that calories are listed per serving. If you choose to have more than one serving of a food, you will have to multiply the calories per serving by the amount of servings you plan to eat. For example, the label on a package of bread might say that a serving size is 1 slice and that there are 90 calories in a serving. If you eat 1 slice, you will have eaten 90 calories. If you eat 2 slices, you will have eaten 180 calories. How do I keep a food log? Immediately after each meal, record the following information in your food log: What you ate. Don't forget to include toppings, sauces, and other extras on the food. How much you ate. This can be measured in cups, ounces, or number of items. How many calories each food and drink had. The total number of calories in the meal. Keep your food log near you, such as in a small notebook in your pocket, or use a mobile oanh or website. Some programs will calculate calories for you and show you how many calories you have left for the day to meet your goal. What are some calorie counting tips? Use your calories on foods and drinks that will fill you up and not leave you hungry: ?Some examples of foods that fill you up are nuts and nut butters, vegetables, lean proteins, and high-fiber foods like whole grains. High-fiber foods are foods with more than 5 g fiber per serving. ?Drinks such as sodas, specialty coffee drinks, alcohol, and juices have a lot of calories, yet do not fill you up. Eat nutritious foods and avoid empty calories. Empty calories are calories you get from foods or beverages that do not have many vitamins or protein, such as candy, sweets, and soda. It is better to have a nutritious high-calorie food (such as an avocado) than a food with few nutrients (such as a bag of chips). Know how many calories are in the foods you eat most often. This will help you calculate calorie counts faster. Pay attention to calories in drinks. Low-calorie drinks include water and unsweetened drinks. Pay attention to nutrition labels for low fat or fat free foods. These foods sometimes have the same amount of calories or more calories than the full fat versions. They also often have added sugar, starch, or salt, to make up for flavor that was removed with the fat. Find a way of tracking calories that works for you. Get creative. Try different apps or programs if writing down calories does not work for you. What are some portion control tips? Know how many calories are in a serving. This will help you know how many servings of a certain food you can have. Use a measuring cup to measure serving sizes. You could also try weighing out portions on a kitchen scale. With time, you will be able to estimate serving sizes for some foods. Take some time to put servings of different foods on your favorite plates, bowls, and cups so you know what a serving looks like. Try not to eat straight from a bag or box. Doing this can lead to overeating. Put the amount you would like to eat in a cup or on a plate to make sure you are eating the right portion. Use smaller plates, glasses, and bowls to prevent overeating. Try not to multitask (for example, watch TV or use your computer) while eating. If it is time to eat, sit down at a table and enjoy your food. This will help you to know when you are full. It will also help you to be aware of what you are eating and how much you are eating. What are tips for following this plan? Reading food labels Check the calorie count compared to the serving size. The serving size may be smaller than what you are used to eating. Check the source of the calories. Make sure the food you are eating is high in vitamins and protein and low in saturated and trans fats. Shopping Read nutrition labels while you shop. This will help you make healthy decisions before you decide to purchase your food. Make a grocery list and stick to it. Cooking Try to cook your favorite foods in a healthier way. For example, try baking instead of frying. Use low-fat dairy products. Meal planning Use more fruits and vegetables. Half of your plate should be fruits and vegetables. Include lean proteins like poultry and fish. How do I count calories when eating out? Ask for smaller portion sizes. Consider sharing an entree and sides instead of getting your own entree. If you get your own entree, eat only half. Ask for a box at the beginning of your meal and put the rest of your entree in it so you are not tempted to eat it. If calories are listed on the menu, choose the lower calorie options. Choose dishes that include vegetables, fruits, whole grains, low-fat dairy products, and lean protein. Choose items that are boiled, broiled, grilled, or steamed. Stay away from items that are buttered, battered, fried, or served with cream sauce. Items labeled crispy are usually fried, unless stated otherwise. Choose water, low-fat milk, unsweetened iced tea, or other drinks without added sugar. If you want an alcoholic beverage, choose a lower calorie option such as a glass of wine or light beer. Ask for dressings, sauces, and syrups on the side. These are usually high in calories, so you should limit the amount you eat. If you want a salad, choose a garden salad and ask for grilled meats. Avoid extra toppings like cedeno, cheese, or fried items. Ask for the dressing on the side, or ask for olive oil and vinegar or lemon to use as dressing. Estimate how many servings of a food you are given. For example, a serving of cooked rice is cup or about the size of half a baseball. Knowing serving sizes will help you be aware of how much food you are eating at restaurants. The list below tells you how big or small some common portion sizes are based on everyday objects: ?1 oz 4 stacked dice. ?3 oz 1 deck of cards. ?1 tsp 1 . ?1 Tbsp a ping-pong ball. ?2 Tbsp 1 ping-pong ball. ? cup baseball. ?1 cup 1 baseball. Summary Calorie counting means keeping track of how many calories you eat and drink each day. If you eat fewer calories than your body needs, you should lose weight. A healthy amount of weight to lose per week is usually 1 2 lb (0.5 0.9 kg). This usually means reducing your daily calorie intake by 500 750 calories. The number of calories in a food can be found on a Nutrition Facts label. If a food does not have a Nutrition Facts label, try to look up the calories online or ask your dietitian for help. Use your calories on foods and drinks that will fill you up, and not on foods and drinks that will leave you hungry. Use smaller plates, glasses, and bowls to prevent overeating. This information is not intended to replace advice given to you by your health care provider. Make sure you discuss any questions you have with your health care provider. Document Released: 09/20/2006 Document Revised: 06/09/2019 Document Reviewed: 08/20/2017 [employer] Patient Education 2020 [employer] Follow Up Care 01/15/2022 09:35:57 With:PACO VARGAS, Rishi Herrera, URL Address: When: Unknown [facility] Evaluation + Plan note No data available for this section [facility] Evaluation + Plan note Future Appointments Appointment Date:08/21/2022 08:15:00 AM Scheduled Provider:Rishi XIE MD Location:[facility] [place] Appointment Type:URO Office Visit Appointment Date:10/20/2022 08:30:00 AM Scheduled Provider:Rishi XIE MD Location:[facility] [place] Appointment Type:URO Office Visit Diagnostic Tests PendingPSA Free & Total 06/19/22 [facility] Evaluation + Plan note Future Appointments Appointment Date:10/20/2022 08:30:00 AM Scheduled Provider:Rishi XIE MD [facility] Appointment Type:URO Office Visit Diagnostic Tests PendingPSA Free & Total 08/21/22 [facility] Evaluation + Plan note Future Appointments Appointment Date:10/20/2022 08:30:00 AM Scheduled Provider:Rishi XIE MD [facility] Appointment Type:URO Office Visit [facility] Evaluation + Plan note Future Appointments Appointment Date:03/21/2024 08:00:00 AM Scheduled Provider:Rishi XIE MD Location:[facility] Appointment Type:URO Office Visit Diagnostic Tests PendingPSA Total 09/07/23 [facility] Evaluation note No assessment inform ation available [facility] Work Phone: Hospital Discharge instructions No data available for this section [facility] Progress note No data available for this section [facility] Summary Purpose Family History No Family History Records Found Relationship Condition Age at Onset Recorded Date/T doris father Malignant neoplasm of prostate Unknown Relationship Condition Age at Onset Recorded Date/T doris father Malignant neoplasm of prostate Unknown Hypertension Unknown Not Specified Fibromyalgia Unknown Advance Directives No Advanced Directives Records Found Advance Directive Response Recorded Date/ Time Advance Directives No September 9:39am Advance Directive Response Recorded Date/ Time Advance Directives No September 10:39am Chief Complaint and Reason for Visit Chief Complaint Dysphagia, Screening Reason for Visit Dysphagia Screen for colon cancer Chief Complaint R97.20 Elevated PSA Elevated PSA Elevated PSA Assessments Diagnosis Onset Date Resolution Status Dysphagia acute Screen for colon cancer acut e Discharge Instructions Additional Instructions DISCHARGE INSTRUCTIONS FOR ENDOSCOPY FOR COLONOSCOPY: -Expect a gassy or full feeling after a colonoscopy. Report any NEW abdominal pain or vomiting. -Watch for rectal bleeding. You may have oozing, but notify the doctor if you pass clots. FOR HART/EGD/ERCP/PEG: -Your throat may feel sore today from the scope that the doctor passed through your throat to visualize your stomach. Take a throat lozenge or suck on ice to ease the discomfort. -Do NOT smoke. -You may notice some streaks of blood in your sputum if the doctor has taken a biopsy. Notify the doctor if you cough up large amounts of blood. -Expect a gassy or full feeling after esophagoscopy. Report any persistent pain or vomiting. -Take it easy today. You need not stay in bed, but avoid strenuous activities such as jogging. FOR SEDATION FOR 24 HOURS: -NO driving -Do NOT operate machinery such as power tools, lawn mowers, snow blowers, sewing machines, etc. -Avoid alcoholic beverages and drugs for allergies, nerves, or sleep. -Do NOT stay alone. Do NOT leave your child unattended. -Do NOT make important personal or business decisions or sign any legal documents. -Eat solid foods and drink liquids in smaller amounts than usual until normal appetite returns. If you should experience an upset stomach, liquids high in sugar content (soda, Guille-aid, non-acid juices) are recommended. -You can resume normal activities tomorrow. FOLLOW UP Please call the office and make a follow up appointment to see me in [2] weeks. -Notify the doctor if you have any problems. -Office number [phone] Additional Source Comments (unrecognized sect ion and content) No Status Records FoundNo Status Records FoundNo Status Records FoundNo Status Records FoundNo Status Records FoundNo Status Records FoundNo Status Records Found INFORMATION SOURCE (unrecogn ized section and content) DATE CREATED AUTHOR 03/23/[address] [facility] DATE CREATED AUTHOR SPIKE ATKINSON 03/23/2018 [facility] DATE CREATED AUTHOR AUTHOR'S ORGANIZ ATION 11/07/2022 [facility] DATE CREATED AUTHOR AUTHOR'S ORGANIZ ATION 02/16/2023 [facility] DATE CREATED AUTHOR AUTHOR'S ORGANIZ ATION 08/04/2023 [facility] DATE CREATED AUTHOR AUTHOR'S ORGANIZ ATION 09/09/2023 [facility] DATE CREATED AUTHOR AUTHOR'S ORGANIZ ATION 03/08/2024 [facility] Care Teams (unrecognized sec tion and content) Team Status: Inactive Member Role Status Dates Johnathon Gallegos MD Primary Care Provider Active Rishi Xie MD Attending Provider Active Team Status: Inactive Member Role Status Dates Rishi Xie MD Attending Provider Active Johnathon Gallegos MD Primary Care Provider Active Team Status: Active Member Role Status Dates Johnathon Gallegos MD Primary Care Provider Active FOR RECORDS PERTAINING TO PATIENTS WHO ARE OR HAVE BEEN ENROLLED IN A CHEMICAL DEPENDENCY/SUBSTANCEABUSE PROGRAM, SOME INFORMATION MAY BE OMITTED. This clinical summary was aggregated from multiple sources. Caution should be exercised in using it in the provision of clinical care. This summary normalizes information from multiple sources, and as a consequence, information in this document may materially change the coding, format and clinical context of patient data. In addition, data may be omitted in some cases. CLINICAL DECISIONS SHOULD BE BASED ON THE PRIMARY CLINICAL RECORDS. [employer] provides no warranty or guarantee of the accuracy or completeness of information in this document.
[2024-03-15 09:06] LABS: Prostate Specific Antigen Dx 8.97 ng/mL (<=4.00)
== END 2024-03-15 07:13 | disposition home or self-care (01) ==
LOC: LAB 07:14
PROVIDERS: PCP Family Medicine; Visit Provider Urology
DX: R97.20 Elevated prostate specific antigen [PSA] (principal)
CPT/HCPCS: 36415; 84153

== ENCOUNTER 2024-06-01 06:45 | Outpatient (OUT) | payer OTHER, SELFPAY ==
--- OUTSIDE RECORDS SUMMARY | 2024-06-01 06:49 | XMS_ITS | CCD ---
Author Organization [facility] Inform ion Partnership [facility] Care Team Providers Care Manager Global Communications Name Role Phone REANNA, ADORE Unavailable Unavailable WILLOW, JESE S Unavailable Unavailable REANNA, ADORE Unavailable Unavailable WILLOW, JESE S Unavailable Unavailable VIRY ORELLANA Unavailable Unavailable WILLOW, JESE S Unavailable Unavailable Marc Whitaker Attending Provider Unavailable Sean Miranda Primary Care Provider UnavailJOHNATHON Adame Primary Care Physician [phone] MD Rishi Xie Attending Provider [phone] MD Johnathon Gallegos Primary Care Provider [phone] Rishi Xie Attending Unavailable Johnathon Gallegos Primary Care Unavailable Rishi Xie Admitting Unavailable Rishi Xie Admitting Unavailable Johnathon Gallegos Primary Care Unavailable Rishi Xie Attending Unavailable Rishi Xie Attending Unavailable Johnathon Gallegos Primary Care Unavailable Rishi Xie Admitting Unavailable Rishi Xie Admitting Unavailable Johnathon Gallegos Primary Care Unavailable Rishi Xie Attending Unavailable EL, DR JOHNATHON Hunt Primary Care Unavailable NADEREDeonte, DR JOHNATHON Hunt Admitting Unavailable NADEREDeonte, DR JOHNATHON Hunt Attending Unavailable CLAUDIAEREDeonte, DR JOHNATHON Hunt Consulting Unavailable EL, DR JOHNATHON Hunt Primary Care Unavailable LEA MARQUEZ Attending Unavailable LEA MARQUEZ Consulting Unavailable LEA MARQUEZ Admitting Unavailable JOHNATHON GALLEGOS Primary Care Unavailable Jm Wilson Attending Unavailable JOHNATHON GALLEGOS Primary Care Unavailable WilsonJm murdock Admitting Unavailable WilsonJm murdock P Consulting Unavailable Alex Ron Admitting Unavailable Alex Ron Attending Unavailable JOHNATHON GALLEGOS Primary Care Unavailable JOHNATHON GALLEGOS Attending Unavailable TRISTEN COLMENARES Attending Unavailable NADSOLIS, JOHNATHON Referring Unavailable JR. GUERRERO GEORGE C Attending UnavailTRISTEN Mirza Attending Unavailable JOHNATHON GALLEGOS Attending Unavailable Rishi XIE Attending Unavailable Rishi XIE Attending Unavailable Sean Miranda Attending Unavailable Rishi XIE Attending Unavailable Unavailable Unavailable Unavailable Allergies Allergy Classification Reported Allergen(s) Allergy Type Date of Onset Reaction(s) Facility (1 source) No Known Medication Allergies; Translations: [No Known Medication Allergies] Propensity to adverse reactions to drug (disorder) [facility] Repository Medications Current Medications Medication Drug Class(es) Dates Sig (Normalized) Sig (Original) cetirizine hydrochloride 10 mg oral tablet (4 sources) Histamine-1 Receptor Antagonist Start: 9 take 10 mg by mouth once daily Cetirizine Active 10 MG PO Daily September 14, 2019 1:00am hydroCHLOROthiazide 12.5 mg oral capsule (4 sources) Thiazide Diuretic Start: 2 take 1 mg by mouth once daily hydrochlorothiazide 12.5 mg Cap mg cap(s), Oral, Daily, Refills(s) 0 Start Date: 08/21/22 Status: Ordered Losartan (10 sources) Angiotensin 2 Receptor Ifeanyi Start: 2 losartan Oral, Daily Start Date: 02/25/22 Status: Ordered Start: 09-12-2019 take 50 mg by mouth once daily Losartan Active 50 MG PO Daily September 12, 2019 1:00am niacin 250 mg oral tablet (10 sources) Nicotinic Acid Start: 09-14-2019 tamsulosin hydrochloride 0.4 mg oral capsule (5 sources) alpha-Adrenergic Ifeanyi Start: 06-24-2023 take 1 capsule by mouth once daily tamsulosin 0.4 mg Cap 0.4 mg = 1 cap(s), Oral, Daily, # 30 cap(s), Refills(s) 11, Pharmacy: [id number], 178, cm, 02/23/23 8:34:00 EDT, Height/Length Dosing, 87, kg, 02/23/23 8:34:00 EDT, Weight Dosing Start Date: 06/24/23 Status: Ordered Start: 06-19-2022 take 1 capsule by [facility] once daily tamsulosin 0.4 mg Cap 0.4 mg = 1 cap(s), Oral, Daily, # 30 cap(s), Refills(s) 11, Pharmacy: [facility] #[id number], 178, cm, 06/19/22 10:33:00 EDT, Height/Length Dosing, 87, kg, 06/19/22 10:33:00 EDT, Weight Dosing Start Date: 06/19/22 Status: Ordered Verapamil (10 sources) Calcium Channel Ifeanyi Start: 02-25-2022 verapa mil 240 mg Start Date: 02/25/22 Status: Ordered Start: 09-12-2019 take 240 mg by mouth once amanda y Verapamil Active 240 MG PO Daily September 12, 2019 1:00am Vitamin B Complex oral capsu le (6 sources) Start: 02-25-2022 Vitamin B Comp bismark oral capsule Oral, Daily Start Date: 02/25/22 Status: Ordered Problems Active Problems Problem Classification Problem Date Documented Da te Episodic/Chronic Administrative/social admission (3 sources) Encounter for pre-employment examination; Translations: [Encounter for pre-employment examination] Onset: 02-25-2018 Episodic Essential hypertension (6 sources) Hypertensive disorder 02-25-2022 Chronic Genitourinary symptoms and ill-defined conditions (4 sources) Urge incontinence; Translations: [Urge incontinence of urine] Onset: 09-06-2023 Chronic Genitourinary symptoms and ill-defined conditions (5 sources) Dysuria 04-27-2022 Episodic Hyperplasia of prostate (11 sources) Benign prostatic hypertrophy with outflow obstruction; Translations: [Benign prostatic hyperplasia with lower urinary tract symptoms] Onset: 02-25-2022 Chronic Osteoarthritis (6 sources) Arthritis 02-25-2022 Chronic Other diseases of kidney and ureters (2 sources) Urinary tract obstruction; Translations: [Other obstructive and reflux uropathy] Onset: 02-25-2022 Episodic Other gastrointestinal disorders (4 sources) Dysphagia; Translations: [Dysphagia, unspecified] 09-14-2019 Episodic Other gastrointestinal disorders (1 source) Dysphagia, unspecified; Translations: [Swallowing painful] Episodic Other gastrointestinal disorders (6 sources) Pharyngeal dysphagia 02-25-2022 Episodic Other nutritional; endocrine; and metabolic disorders (1 source) Overweight in adulthood with body mass index of 25 or more but less than 30; Translations: [Body mass index (BMI) 27.0-27.9, adult] Onset: 02-25-2022 Episodic Other nutritional; endocrine; and metabolic disorders (6 sources) Body mass index 25-29 - overweight 02-25-2022 Episodic Other screening for suspected conditions (not mental disorders or infectious disease) (15 sources) Encounter for screening for malignant neoplasm of colon; Translations: [Raised prostate specific antigen] Onset: 02-25-2022 Episodic Paralysis (6 sources) Cerebral palsy 02-25-2022 Chronic Residual codes; unclassified (5 sources) Family history of cancer; Translations: [Family history of malignant neoplasm of prostate] Onset: 02-25-2022 Episodic Residual codes; unclassified (6 sources) Family history of prostate cancer 02-25-2022 [...] Test Name Value Interpretation Reference Range Facility [facility] 03-22-2024 Screens [id number] Normal [facility] Ambulatory Visit Summaryon 0 03-21-2024 Ambulatory Visit Summary DMITRI ARTHUR :1965 Visit Date:03/21/2024 Ambulatory Visit Instructions Your Diagnosis Elevated PSA BPH with urinary obstruction Urge incontinence Family history of prostate cancer in father Your Care Team Attending Physician - Rishi [...] adenoidectomy (1975). Discharge Vitals Heart Rate (Peripheral) 78 Respiratory Rate 16 Blood Pressure 134/90 Height 70 in Height 178 cm Weight 202.4 lb Weight 92.0 kg BMI 29.04 What to do next Scheduled Follow-Up Appointments Wednesday 10:45 AM EDT With: Rishi XIE MD Where: [facility] Patient Educationon 03-21-20 Patient Education Oncology Prostate Cancer Screening Prostate cancer screening is testing that is done to check for the presence of prostate cancer in men. The prostate gland is a walnut-sized gland that is located below the bladder and in front of the rectum in males. The function of the prostate is to add fluid to semen during ejaculation. Prostate cancer is one of the most common types of cancer in men. Who should have prostate cancer screening? Screening recommendations vary based on age and other risk factors, as well as between the professional organizations who make the recommendations. In general, screening is recommended if: ? You are age 50 to 70 and have an average risk for prostate cancer. You should talk with your health care provider about your need for screening and how often screening should be done. Because most prostate cancers are slow growing and will not cause , screening in this age group is generally reserved for men who have a 10- to 15-year life expectancy. ? You are younger than age 50, and you have these risk factors: ? Having a father, brother, or uncle who has been diagnosed with prostate cancer. The risk is higher if your family member's cancer occurred at an early age or if you have multiple family members with prostate cancer at an early age. ? Being a male who is Black or is of [place] or sub-Saharan descent. In general, screening is not recommended if: ? You are younger than age 40. ? You are between the ages of 40 and 49 and you have no risk factors. ? You are 70 years of age or older. At this age, the risks that screening can cause are greater than the benefits that it may provide. If you are at high risk for prostate cancer, your health care provider may recommend that you have screenings more often or that you start screening at a younger age. How is screening for prostate cancer done? The recommended prostate cancer screening test is a blood test called the prostate-specific antigen (PSA) test. PSA is a protein that is made in the prostate. As you age, your prostate naturally produces more PSA. Abnormally high PSA levels may be caused by: ? Prostate cancer. ? An enlarged prostate that is not caused by cancer (benign prostatic hyperplasia, or BPH). This condition is very common in older men. ? A prostate gland infection (prostatitis) or urinary tract infection. ? Certain medicines such as male hormones (like testosterone) or other medicines that raise testosterone levels. A rectal exam may be done as part of prostate cancer screening to help provide information about the size of your prostate gland. When a rectal exam is performed, it should be done after the PSA level is drawn to avoid any effect on the results. Depending on the PSA results, you may need more tests, such as: ? A physical exam to check the size of your prostate gland, if not done as part of screening. ? Blood and imaging tests. ? A procedure to remove tissue samples from your prostate gland for testing (biopsy). This is the only way to know for certain if you have prostate cancer. What are the benefits of prostate cancer screening? ? Screening can help to identify cancer at an early stage, before symptoms start and when the cancer can be treated more easily. ? There is a small chance that screening may lower your risk of dying from prostate cancer. The chance is small because prostate cancer is a slow-growing cancer, and most men with prostate cancer from a different cause. What are the risks of prostate cancer screening? The main risk of prostate cancer screening is diagnosing and treating prostate cancer that would never have caused any symptoms or problems. This is called overdiagnosisand overtreatment. PSA screening cannot tell you if your [...] cause unnecessary stress or other side effects. Questions to ask your health care provider ? When should I start prostate cancer screening? ? What is my risk for prostate cancer? ? How often do I need screening? ? What type of screening tests do I need? ? How do I get my test results? ? What do my results mean? ? Do I need treatment? Where to find more information ? The [place] [employer]: www.cancer.org ? [employer]: www.auanet.org Contact a health care provider if: ? You have difficulty urinating. ? You have pain when you urinate or ejaculate. ? You have blood in your urine or semen. ? You have pain in your back or in the area of your prostate. Summary ? Prostate cancer is a common type of cancer in men. The prostate gland is located below the bladder and in front of the rectum. This gland adds flu (more content not included)... Normal [facility] Urology Office/Clinic Noteon 03-21-2024 Urology Office/Clinic Note Chief Complaint 6 month follow up HPI Staff 6 month follow up w/PSA. IPPS 21. PVR 0ml Previous DX: BPH w/ urinary obstruction, dysuria, elevated PSA, family history of prostate cancer. S/P MRI fusion bx done 05/28/22 *Flomax 0.4 mg qd. PVR 143ml 09/07/23 PSA: 08/20/22 - 2.71 10/12/22 - 3.50 02/15/23 - 2.49 07/28/23 - 1.95 03/15/24 - 8.97 Dysuria: denies pain or burning Incomplete bladder emptying: denies Hematuria: denies visible blood Frequency: sometimes Urgency: sometimes Nocturia: 1x a night Stream: yes hesitancy, yes weak stream Leaking: yes Post void dripping: yes Wearing pads/ Depends: denies Urge incontinence: yes Stress incontinence: denies Incontinence without Sensory Awareness: denies Abdominal pain: denies Flank pain: denies Sexual complaints: denies History of Present Illness Tests reviewed: reviewed UA, PSA I have reviewed the previous health record [...] HPI. Physical Exam Vitals & Measurements HR: 78(Peripheral) RR: 16 BP: 134/90 HT: 70 in HT: 178 cm WT: 92.0 kg WT: 202.4 lb BMI: 29.04 General Appearance: alert, no distress, well nourished, well developed male. Genitourinary: normal scrotum, normal testes, normal urethra, normal epididymis, normal vas deferens/spermatic cord. Flank Pain: none. Bladder: nonpalpable. Assessment/Plan 1. Elevated PSA (R97.20: Elevated prostate specific antigen [PSA]) PSA: 08/20/22 - 2.71 10/12/22 - 3.50 02/15/23 - 2.49 07/28/23 - 1.95 03/15/24 - 8.97 MRI of prostate 03/25/22 - A focal area involving the posterolateral aspect of the left peripheral zone at the level of the mid gland measuring 6 x 5 mm. PI-RADS 4. Prostate volume 28 cc. MRI fusion bx 05/28/22 - Path neg. Chronic inflammation and atrophy. MAGALY 02/23/23 40 gm, no nodules. PSA has increased, discussed repeating level before going straight to a bx to confirm if it is a true rise. Shares he has had two steroid shots in his shoulder. Educated pt this likely would not affect PSA, if anything it could lower it. Explained that it would be unusual for his PSA level to rise this quickly even if he had prostate ca. He did have inflammation noted on his bx which could be causing the elevation. Follow up 2 mos with PSA F&T or sooner if needed. Pt understands and agrees with plan. -Avoid any prostate manipulation/irritation prior to next draw. 2. BPH with urinary obstruction (N40.1: Benign prostatic hyperplasia with lower urinary tract symptoms) UA today negative for blood and infection. Taking Flomax 0.4 mg qd. IPSS 21 (19). Discussed if sx cont/worsen, a cysto would be warranted to help with urination. 3. Urge incontinence (N39.41: Urge incontinence) PVR (cc): 09/07/23 - 143 03/21/24 - 0 Ongoing UUI. 4. Family history of prostate cancer in father (Z80.42: Family history of malignant neoplasm of prostate) Increased risk, cont screening above (see #1). Overall the patient is quite surprised to see his a sudden increase in the PSA level. We did look back in his prior pathology demonstrating some chronic inflammation and this certainly is in the differential diagnosis. Adenocarcinoma prostate is also in that differential diagnosis as well. At this point I favor very close follow-up with a repeat free and total PSA. Will see him back in a couple months. He is scoring a 21 on his IPSS score sheet having failed the increase of Flomax to twice daily. May consider cystoscopic evaluation at some point. At this point we will stay on the same dosing and follow his symptoms. He agrees with the plan Follow-up With When Contact Information Rishi XIE MD, URL [address] [place] [address] [place], [place] [id number]- Additional Instructions: 2 mos with PSA F&T Patient Education Prostate Cancer Screening IFanny, personally scribed for Dr. Xie on 03/21/2024 08:26:53. . Documentation recorded by the scribeFanny, accurately reflects the services(s) I performed and decisions made by me. Authenticated by Dr. Xie on 03/21/2024 08:31:23. Portions of this record m (more content not included)... Normal [facility] Comment on above: Result Comment: Elec tronically Signed By: Rishi XIE MD\.br\Date and Time Signed: 03/21/24 08:32 EDT\.br\Electronically Co-Signed By: Fanny Garcia\.br\Date and Time Co-Signed: 03/21/24 08:27 EDT [facility] Report[facility] 03-16-2024 Lab Reports [id number] Normal [facility] MR SHOULDER LEFT WO IV CONTR Porfirio [...] Not Available [facility] 09-08-2023 Lab Reports [id number] Normal [facility] Screenson 09-08-2023 Screens [id number] Normal [facility] Ambulatory Visit Summaryon 1 11-08-2022 Ambulatory Visit Summary DMITRI ARTHUR :1965 Visit Date:09/07/2023 Ambulatory Visit Instructions Your Diagnosis Elevated PSA BPH with urinary obstruction Urge incontinence Family history of prostate cancer in father Tests Performed Urnls Dip Stick Auto w/o Microscopy POC 10530 Your Care Team Attending Physician - Rishi [...] What to do next Scheduled Follow-Up Appointments Wednesday. 2023 8:00 AM EDT With: Rishi XIE MD Where: [facility] Patient Educationon 09-07-20 Patient Education Urology Benign [...] Follow these instructions at home: ? Take lsdu-vws-zyneyer and prescription medicines only as told by [...] the medicine (more content not included)... Normal [facility] Reminderson 09-07-2023 Reminders - From: eDnnise Swanson To: JEANETTE Xie; Sent: 09/07/2023 09:55:39 EST Show up: 01/07/2024 10:55:00 EDT Subject: PSA Due Date/Time: 03/08/2024 10:55:00 EDT Pt is to get PSA done prior to appt. Normal [facility] Urology Office/Clinic Noteon 09-07-2023 Urology Office/Clinic [...] total PSA Follow-up With When Contact Information ANNE-MARIE VARGAS, Rishi Herrera, URL In [address] [address]- Additional Instructions: w/PSA Patient Education Benign Prostatic Hyperplasia I, Dennise Swanson, personally scribed for Dr. Xie on 09/07/2023 09:44:50. . Documentation recorded by the elizabethibciera, Dennise Swanson, accurately reflects the services(s) I performed and decisions made by me. Authenticated by Dr. Xie on 09/07/2023 09:45:55. Portions of this record may have been created with voice recognition artificial intelligence software, specifically [employer], [employer] and or [employer] (more content not included)... Normal [facility] Comment on above: Result Comment: Elec tronically Signed By: ANNE-MARIE VARGAS, Rishi Herrera\.br\Date and Time Signed: 09/07/23 09:49 EST\.br\Electronically Co-Signed By: Dennise Swanson\.br\Date and Time Co-Signed: 09/07/23 09:45 EST Consent Formson 08-03-2023 Consent Forms [id number] Normal [facility] CMP Standardon 07-28-2023 eGFR Non AA >60 Invalid Interpretation Code [facility] Comment on above: Performed By: #### 2 [id number], 2926184, 8362244, 5626298, [id number], 9834520, [id number], 8386945 ####[facility] (DEFAULT)[address] [place] [address] eGFR AA >60 Invalid Interpretation Code [facility] Comment on above: Performed By: #### 2 760240, 1636342, 0181808, 7757971, [id number], 7067162, [id number], 4580920 ####[facility] (DEFAULT)[address] [place] [address] Albumin [Mass/Vol] 4.2 g/dL Normal 3.5-5.0 [facility] Comment on above: Performed By: #### 2 106427, 0747487, 2734511, 6949892, [id number], 9258987, [id number], 9904985 ####[facility] (DEFAULT)[address] [place] [address] Albumin/Globulin [Mass ratio] 1.3 {ratio} Low 1.4-2.6 [facility] Comment on above: Performed By: #### 2 663433, 9065477, 9663904, 8638611, 1951949130, 0995791, 6075709469, 3852274 ####[facility] (DEFAULT)[address] [place] [address] Alk Phos 56 IU/L Normal 32-91 [facility] Comment on above: Performed By: #### 2 963639, 6519175, 7679372, 4219376, 6773724115, 0627259, 9060570112, 1725428 ####[facility] (DEFAULT)[address] [place] [address] ALT [Catalytic activity/Vol] 18.0 U/L Normal 17.0-63.0 [facility] Comment on above: Performed By: #### 2 346481, 9881272, 9752881, 2951245, [id number], 7653222, 1536267519, 3670776 ####[facility] (DEFAULT)[address] [place] [address] Anion gap [Moles/Vol] 11.2 mmol/L Normal 5.0-19.0 [facility] Comment on above: Performed By: #### 2 355463, 6769769, 0549767, 7668284, [id number], 5337759, 8074320148, 5062288 ####[facility] (DEFAULT)[address] [place] [address] AST [Catalytic activity/Vol] 21 U/L Normal 15-41 [facility] Comment on above: Performed By: #### 2 417741, 9356994, 8073085, 3273251, 2106253070, 3768019, 5910309686, 4257525 ####[facility] (DEFAULT)[address] [place] [address] Bili Total 0.4 mg/dL Normal 0.3-1.2 [facility] Comment on above: Performed By: #### 2 921944, 4211455, 5503223, 0346315, 4275882739, 1995072, 7117332824, 9788505 ####[facility] (DEFAULT)[address] [place] [address] Calcium [Mass/Vol] 9.3 mg/dL Normal 8.9-10.3 [facility] Comment on above: Performed By: #### 2 649067, 0260523, 3870435, 8476519, 5669850597, 7191000, 9595632186, 2728101 ####[facility] (DEFAULT)[address] [place] [address] Chloride [Moles/Vol] 100 mmol/L Low 101-[address] [facility] Comment on above: Performed By: #### 2 665549, 0998972, 7281242, 4798692, 2589360789, 6453205, 4458060154, 7660789 ####[facility] (DEFAULT)[address] [place] [address] CO2 [Moles/Vol] 29 mmol/L Normal 21-32 [facility] Comment on above: Performed By: #### 2 775919, 5954001, 2553752, 2798143, 8499001449, 2911746, 1602037705, 0766619 ####[facility] (DEFAULT)[address] [place] [address]185 Creatinine [Mass/Vol] 0.82 mg/dL Low 0.90-1.30 [facility] Comment on above: Performed By: #### 2 670635, 3661805, 1186912, 2605134, 4147132581, 8791536, 2371805107, 1946637 ####[facility] (DEFAULT)[address] [place] [address] Globulin (S) [Mass/Vol] 3.1 g/dL Normal 1.5-4.3 [facility] Comment on above: Performed By: #### 2 885807, 1219913, 9180336, 1510055, 7808812321, 3524347, 1886188655, 2289848 ####[facility] (DEFAULT)[address] [place] [address] Glucose [Mass/Vol] 94.0 mg/dL Normal 74.0-118.0 [facility] Comment on above: Performed By: #### 2 652967, 9847840, 8577328, 1585240, 2942019688, 0637886, 5819913733, 8734770 ####[facility] (DEFAULT)[address] [place] [address] Osmolality 277 mOsm/L Invalid Interpretation Code [facility] Comment on above: Performed By: #### 2 270008, 7138249, 9521034, 4330424, 5538716450, 7086649, 2994376795, 0298643 ####[facility] (DEFAULT)[address] [place] [address] 11398 Potassium [Moles/Vol] 3.2 mmol/L Low 3.6-5.1 [facility] Comment on above: Performed By: #### 2 049651, 6513818, 8321223, 9189791, 9069015214, 7504556, 0115334950, 4277845 ####[facility] (DEFAULT)[address] [place] [address] Protein [Mass/Vol] 7.3 g/dL Normal 6.5-8.1 [facility] Comment on above: Performed By: #### 2 533532, 9647902, 8227579, 6770962, 0990756601, 6804727, 5265815280, 2316419 ####[facility] (DEFAULT)[address] [place] [address] Sodium [Moles/Vol] 137.0 mmol/L Normal 136.0-144.0 [facility] Comment on above: Performed By: #### 2 000225, 9452185, 6740957, 0086760, [id number], 8031113, [id number], [id number] ####[facility] (DEFAULT)[address] [place] [address] 21895 Urea nitrogen [Mass/Vol] 22 mg/dL Normal 8-26 [facility] Comment on above: Performed By: #### 2 062927, 6565887, 4753289, 7320647, [id number], 4988667, [id number], 6594845 ####[facility] (DEFAULT)[address] [place] [address] 21650 Urea nitrogen/Creatinine [Mass ratio] 26.8 mg/mg High 4.6-16.2 [facility] Comment on above: Performed By: #### 2 153570, 6258690, 9560541, 0874740, 1517535367, 4112767, [id number], 6117941 ####[facility] (DEFAULT)[address] [place] [address] 26426 GGTon 07-28-2023 Gamma glutamyl transferase [Catalytic activity/Vol] 23.0 U/L Normal 7.0-50.0 [facility] Comment on above: Performed By: #### 2 675635, 0681312, 5128980, 0903000, [id number], 8076876, [id number], 5861615 ####[facility] (DEFAULT)[address] [place] [address] 79620 Iron Levelon 07-28-2023 Iron [Mass/Vol] 88.0 ug/dL Normal 45.0-182.0 [facility] Comment on above: Performed By: #### 2 289804, 8435681, 9818961, 1132507, 6077875230, 7132779, 0526613556, 3157665 ####[facility] (DEFAULT)[address] [place] [address] 52987 LDHon 07-28-2023 LDH 156.0 IU/L Normal 98.0-192.0 [facility] Comment on above: Performed By: #### 2 226797, 4245437, 4650123, 6196706, [id number], 5165776, [id number], 4636010 ####[facility] (DEFAULT)[address] [place] [address] 97713 Lipid Panel Standardon 07-28 Cholesterol [Mass/Vol] 247.0 mg/dL High 66.0-200.0 [facility] Comment on above: Performed By: #### 2 466287, 9792528, 0615735, 1695275, [id number], 7346709, 8218029250, 4160629 ####[facility] (DEFAULT)[address] [place] [address] 48245 Cholesterol in HDL [Mass/Vol] 53 mg/dL Normal 40-71 [facility] Comment on above: Performed By: #### 2 036930, 7963451, 9729226, 3094427, [id number], 1256490, 0295141487, 8015016 ####[facility] (DEFAULT)[address] [place] [address] 12825 Cholesterol in LDL [Mass/Vol] 162 mg/dL High 1-100 [facility] Comment on above: Performed By: #### 2 290022, 8018448, 3584979, 2186744, 1140469076, 8172382, 1832818971, 4963399 ####[facility] (DEFAULT)[address] [place] [address] 83538 Cholesterol.total/Cho lesterol in HDL [Mass ratio] 4.6 {ratio} High 0.0-4.5 [facility] Comment on above: Performed By: #### 2 262696, 0469524, 8851282, 8692695, 2573874661, 2206866, 7481158432, 6148385 ####[facility] (DEFAULT)[address] [place] [address] 24230 Triglyceride [Mass/Vol] 159.0 mg/dL High 0.0-150.0 [facility] Comment on above: Performed By: #### 2 982837, 5138850, 5271970, 3828770, 3908705016, 9379341, 0432473293, 7984137 ####[facility] (DEFAULT)[address] [place] [address] 74416 VLDL. 32 mg/dL Normal 5-40 [facility] Comment on above: Performed By: #### 2 622978, 9585331, 7515262, 7711227, 1510810156, 4598529, [id number], 1778624 ####[facility] (DEFAULT)[address] [place] [address] 54005 PSA Screenon 07-28-2023 PSA Screen 1.95 ng/mL Normal 0.00-4.00 [facility] Comment on above: Result Comment: [facility] DxI Chideo Clinical System (Chemiluminescence) Values obtained with different assay methods or kits cannot be used interchangeably. Results cannot be interpreted as absolute evidence of the presence or absence of malignant disease. Performed By: #### 2 053819, 1076983, 7024517, 6482458, 0162576139, 9770211, 4279119395, 4567420 ####[facility] (DEFAULT)[address] [place] [address] Phoson 07-28-2023 Phosphate [Mass/Vol] 2.7 mg/dL Normal 2.5-4.[address] [facility] Comment on above: Performed By: #### 2 042309, 1300279, 7926007, 7250789, [id number], 8794380, 2467056560, 5532655 ####[facility] (DEFAULT)[address] [place] [address] 49005 Uric Acidon 07-28-2023 Urate [Mass/Vol] 6.1 mg/dL Normal 4.8-8.7 [facility] Comment on above: Performed By: #### 2 992979, 8513871, 9887550, 3296470, 3930792773, 6404701, 9011194080, 7621951 ####[facility] (DEFAULT)[address] [place] [address] 97611 Triage Industrialon 05-21-20 23 Drug Screen Complete Collected Normal [facility] Comment on above: Performed By: #### 1 [id number] #### [facility] (DEFAULT) [address] [place], [place] [id number] CBC AUTO DIFFon 02-15-2023 BASO # 0.1 103/ul Normal 0.0-0.1 [facility] Comment on above: Performed By: #### P SAS #### [facility] [address] [place] [address] Dr. Davon Gutierrez Basophils/100 WBC (Bld) 1.1 % Normal 0.2-2.0 [facility] Comment on above: Performed By: #### P SASC #### [facility] [address] [place] [address] Dr. Davon Gutierrez EO # 0.5 103/ul Normal 0.0-0.7 [facility] Comment on above: Performed By: #### P SASC #### [facility] [address] [place] [address] Dr. Davon Gutierrez Eosinophils/100 WBC (Bld) 6.4 % Normal 0.9-7.0 [facility] Comment on above: Performed By: #### P SASC #### [facility] [address] [place] [address] Dr. Davon Gutierrez Erythrocyte distribution width (RBC) [Ratio] 12.2 % Normal 11.0-15.0 [facility] Comment on above: Performed By: #### P SASC #### [facility] [address] [place] [address] Dr. aDvon Gutierrez Hematocrit (Bld) [Volume fraction] 42.2 % Normal 42.0-54.0 [facility] Comment on above: Performed By: #### P SASC #### [facility] [address] [place] [address] Dr. Davon Gutierrez Hemoglobin (Bld) [Mass/Vol] 14.4 g/dL Normal 14.0-18.0 [facility] Comment on above: Performed By: #### P SASC #### [facility] [address] [place] [address] Dr. Davon Gutierrez IG # 0.02 10e3/ul Normal 0.00-0.03 [facility] Comment on above: Performed By: #### P SASC #### [facility] [address] [place] [address] Dr. Davon Gutierrez IG % 0.3 % Normal 0.0-0.5 [facility] Comment on above: Performed By: #### P SASC #### [facility] [address] [address] [address] Davon Gutierrez LYMPH # 2.7 103/ul Normal 1.2-3.8 [facility] Comment on above: Performed By: #### P SASC #### [facility] [address] [place] [address] Dr. Davon Gutierrez Lymphocytes/100 WBC (Bld) 35.6 % Normal 20.5-60.0 [facility] Comment on above: Performed By: #### P SASC #### [facility] [address] [place] [address] Dr. Davon Gutierrez MANUAL DIFF REQ NO Normal [facility] Comment on above: Performed By: #### P SASC #### [facility] [address] [place] [address] Dr. Davon Gutierrez MCH (RBC) [Entitic mass] 31.3 pg Normal 25.9-34.0 [facility] Comment on above: Performed By: #### P SASC #### [facility] [address] [place] [address] Dr. Davon Gutierrez MCHC (RBC) [Mass/Vol] 34.1 g/dL Normal 29.9-35.2 [facility] Comment on above: Performed By: #### P SASC #### [facility] [address] [place] [address] Dr. Davon Gutierrez MCV (RBC) [Entitic vol] 91.7 fL Normal 80.0-94.0 [facility] Comment on above: Performed By: #### P SASC #### [facility] [address] [place] [address] Dr. Davon Gutierrez MONO # 0.7 103/ul Normal 0.3-0.8 [facility] Comment on above: Performed By: #### P SASC #### [facility] [address] [place] [address] Dr. Davon Gutierrez Monocytes/100 WBC (Bld) 8.9 % Normal 1.7-12.0 [facility] Comment on above: Performed By: #### P SASC #### [facility] [address] [address] [address] Davon Gutierrez NEUT # 3.6 103/ul Normal 1.4-6.5 [facility] Comment on above: Performed By: #### P SASC #### [facility] [address] [address] [address] Davon Gutierrez Neutrophils/100 WBC (Bld) 47.7 % Normal 43.0-75.0 [facility] Comment on above: Performed By: #### P SASC #### [facility] [address] [place] [address] Dr. Davon Gutierrez Platelet mean volume (Bld) [Entitic vol] 9.4 fL Critically low 9.5-13.5 [facility] Comment on above: Performed By: #### P SASC #### [facility] [address] [address] [address] Davon Gutierrez PLT 246 103/ul Normal 150-450 [facility] Comment on above: Performed By: #### P SASC #### [facility] [address] [place] [address] Dr. Davon Gutierrez RBC 4.60 106/ul Critically low 4.70-6.10 [facility] Comment on above: Performed By: #### P SASC #### [facility] [address] [place] [address] Dr. Davon Gutierrez WBC 7.5 103/ul Normal 4.0-11.0 [facility] Comment on above: Performed By: #### P SASC #### [facility] [address] [place] [address] Dr. Davon Gutierrez GLYCOHEMOGLOBIN A1Con 2022 ADA RECOMMENDATION SEE BELOW Normal [facility] Comment on above: Result Comment: ADA RECOMMENDED LIMIT 4.0 - 6.0 ADA THERAPEUTIC TARGET < 7.0 ACTION SUGGESTED > 7.0 Performed By: #### A 1C #### [facility] [address] [place] [address] Dr. Davon Gutierrez Glucose [Mass/Vol] 105 mg/dL Normal [facility] Comment on above: Performed By: #### A 1C #### [facility] [address] [address] [address] Davon Gutierrez HbA1c (Bld) [Mass fraction] 5.3 % Normal 4.5-6.2 [facility] Comment on above: Performed By: #### A 1C #### [facility] [address] [address] [address] Davon Gutierrez LIPID PROFILEon 02-15-2023 CHOL-HDL RATIO NORM SEE BELOW Normal [facility] Comment on above: Result Comment: 3.3 - 4.4 LOW RISK 4.4 - 7.1 AVERAGE RISK 7.1 - 11.0 MODERATE RISK >11.0 HIGH RISK Performed By: #### L IPID, LIVER, TSH, BMP #### [facility] [address] [place] [address] Dr. Davon Gutierrez Cholesterol [Mass/Vol] 227 mg/dL Critically high <=200 [facility] Comment on above: Performed By: #### L IPID, LIVER, TSH, BMP #### [facility] [address] [address] [address] Davon Gutierrez Cholesterol in HDL [Mass/Vol] 59 mg/dL Normal 40-60 [facility] Comment on above: Performed By: #### L IPID, LIVER, TSH, BMP #### [facility] [address] [place] [address] Dr. Davon Gutierrez Cholesterol in LDL [Mass/Vol] 152.4 mg/dL Normal [facility] Comment on above: Performed By: #### L IPID, LIVER, TSH, BMP #### [facility] [address] [place] [address] Dr. Davon Gutierrez Cholesterol.total/Cho lesterol in HDL [Mass ratio] 3.8 {ratio} Normal [facility] Comment on above: Performed By: #### L IPID, LIVER, TSH, BMP #### [facility] [address] [place] [address] Dr. Davon Gutierrez HDL NORMAL > or = 60 mg/dl - LO W CARDIOVASCULAR RISK <40 mg/dl - HIGH CARDIOVASCULAR RISK Normal [facility] Comment on above: Performed By: #### L IPID, LIVER, TSH, BMP #### [facility] [address] [place] [address] Dr. Davon Gutierrez LDL CALC NORMAL SEE BELOW Normal [facility] Comment on above: Result Comment: <100 mg/dl OPTIMAL 100 - 129 mg/dl NEAR OR ABOVE OPTIMAL 130 - 159 mg/dl BORDERLINE HIGH 160 - 189 mg/dl HIGH >190 mg/dl VERY HIGH Performed By: #### L IPID, LIVER, TSH, BMP #### [facility] [address] [place] [address] Dr. Davon Gutierrez Triglyceride [Mass/Vol] 78 mg/dL Normal <=150 [facility] Comment on above: Performed By: #### L IPID, LIVER, TSH, BMP #### [facility] [address] [place] [address] Dr. Davon Gutierrez VLDL CALC 15.6 mg/dL Normal [facility] Comment on above: Performed By: #### L IPID, LIVER, TSH, BMP #### [facility] [address] [place] [address] Dr. Davon Gutierrez LIVER PROFILEon 02-15-2023 Albumin [Mass/Vol] 3.5 g/dL Normal 3.4-5.0 [facility] Comment on above: Performed By: #### L IPID, LIVER, TSH, BMP #### [facility] [address] [place] [address] Dr. Davon Gutierrez Albumin/Globulin [Mass ratio] 0.9 {ratio} Normal [facility] Comment on above: Performed By: #### L IPID, LIVER, TSH, BMP #### [facility] [address] [place] [address] Dr. Davon Gutierrez ALP [Catalytic activity/Vol] 64 U/L Normal 46-116 [facility] Comment on above: Performed By: #### L IPID, LIVER, TSH, BMP #### [facility] [address] [place] [address] Dr. Davon Gutierrez ALT [Catalytic activity/Vol] 30 U/L Normal 16-63 [facility] Comment on above: Performed By: #### L IPID, LIVER, TSH, BMP #### [facility] [address] [place] [address] Dr. Davon Gutierrez AST [Catalytic activity/Vol] 21 U/L Normal 15-37 [facility] Comment on above: Performed By: #### L IPID, LIVER, TSH, BMP #### [facility] [address] [place] [address] Dr. Davon Gutierrez BILI, CONJUGATED 0.1 mg/dL Normal 0.0-0.2 [facility] Comment on above: Performed By: #### L IPID, LIVER, TSH, BMP #### [facility] [address] [place] [address] Dr. Davon Gutierrez Bilirubin [Mass/Vol] 0.4 mg/dL Normal 0.2-1.0 [facility] Comment on above: Performed By: #### L IPID, LIVER, TSH, BMP #### [facility] [address] [place] [address] Dr. Davon Gutierrez Globulin (S) [Mass/Vol] 3.7 g/dL Normal [facility] Comment on above: Performed By: #### L IPID, LIVER, TSH, BMP #### [facility] [address] [place] [address] Dr. Davon Gutierrez Protein [Mass/Vol] 7.2 g/dL Normal 6.4-8.2 [facility] Comment on above: Performed By: #### L IPID, LIVER, TSH, BMP #### [facility] [address] [place] [address] Dr. Davon Gutierrez PROF CHEM 8 (BAS METB)on Anion gap [Moles/Vol] 11.4 mmol/L Normal [facility] Comment on above: Performed By: #### L IPID, LIVER, TSH, BMP #### [facility] [address] [place] [address] Dr. Davon Gutierrez Calcium [Mass/Vol] 9.2 mg/dL Normal 8.5-10.1 [facility] Comment on above: Performed By: #### L IPID, LIVER, TSH, BMP #### [facility] [address] [place] [address] Dr. Davon Gutierrez Chloride [Moles/Vol] 102 mmol/L Normal 98-107 [facility] Comment on above: Performed By: #### L IPID, LIVER, TSH, BMP #### [facility] [address] [address] [address] Davon Gutierrez CO2 [Moles/Vol] 31.0 mmol/L Normal 21.0-32.0 [facility] Comment on above: Performed By: #### L IPID, LIVER, TSH, BMP #### [facility] [address] [address] [address] Davon Gutierrez Creatinine [Mass/Vol] 0.90 mg/dL Normal 0.70-1.30 [facility] Comment on above: Performed By: #### L IPID, LIVER, TSH, BMP #### [facility] [address] [address] [address] Davon Gutierrez EGFR-AF CUBAN >60 Normal >=60 [facility] Comment on above: Performed By: #### L IPID, LIVER, TSH, BMP #### [facility] [address] [address] [address] Davon Gutierrez EGFR-NON AF CUBAN >60 Normal >=60 [facility] Comment on above: Performed By: #### L IPID, LIVER, TSH, BMP #### [facility] [address] [address] [address] Davon Gutierrez Glucose [Mass/Vol] 104 mg/dL Normal 74-106 [facility] Comment on above: Performed By: #### L IPID, LIVER, TSH, BMP #### [facility] [address] [address] [address] Davon Gutierrez Potassium [Moles/Vol] 3.4 mmol/L Critically low 3.5-5.1 [facility] Comment on above: Performed By: #### L IPID, LIVER, TSH, BMP #### [facility] [address] [address] [address] Davon Gutierrez Sodium [Moles/Vol] 141 mmol/L Normal 136-145 [facility] Comment on above: Performed By: #### L IPID, LIVER, TSH, BMP #### [facility] [address] [address] [address] Davon Gutierrez Urea nitrogen [Mass/Vol] 23.0 mg/dL Critically high 7.0-18.0 [facility] Comment on above: Performed By: #### L IPID, LIVER, TSH, BMP #### [facility] [address] [address] [address] Davon Gutierrez Urea nitrogen/Creatinine [Mass ratio] 25.6 mg/mg Normal [facility] Comment on above: Performed By: #### L IPID, LIVER, TSH, BMP #### [facility] [address] [address] [address] Davon Gutierrez TSHon 02-15-2023 TSH 1.208 uIU/mL Normal 0.358-3.740 [facility] Comment on above: Performed By: #### L IPID, LIVER, TSH, BMP #### [facility] [address] [address] [address] Davon Gutierrez Provider Orderson 02-01-2023 Provider Orders [id number] [facility] XR Chest 2 Viewson XR Chest [...] Maloney MD 01/29/23 6:40 pm Technologist: KEILY [facility] Consent Formson 12-09-2022 Consent Forms [id number]#1.00OTGTIFF [facility] Lab - Toxicology Resultson 0 12-09-2022 Lab - Toxicology Results [id number]#1.00OTGTIFF [facility] ED Clinical Summaryon 2022 ED Clinical Summary [facility] ? Urgent Care [address] [place] [address] Clinical Summary PERSON INFORMATION Name: DMITRI ARTHUR Age: 57 Years Sex: MALE : 1965 MRN: Acct#: Visit Reason: Medical screening exam; [facility] Arrival: 12/08/2022 14:38:42 Discharge: 12/08/2022 15:28:00 LOS: 000 00:50 Check In: 12/08/2022 14:38:42 Checkout: 12/08/2022 15:28:00 Address: [address] [place] [address] PCP: JOHNATHON GALLEGOS PROVIDER INFORMATION Provider Role Assigned Unassigned Alex Ron PA-C ED PA 12/08/2022 14:43:03 Genesis Valladares BLOOD TESTER FOWL Nurse 12/08/2022 14:44:23 VITALS INFORMATION Vital Sign [...] Patient/family/caregiver verbalizes understanding of instructions given Comment: [facility] ED Patient Summaryon 023 ED Patient Summary [facility] ? Urgent Care [address] [place] [address] PATIENT DISCHARGE INSTRUCTIONS Patient Information Name: DMITRI ARTHUR Age: 57 Years Date of : 1965 Reason For Visit: Medical screening exam; [facility] Arrival Time: 12/08/2022 14:38:42 Primary Care Physician: JOHNATHON GALLEGOS Attending Physician: Alex Ron PA-C Comment: Patient Education Medication Information: The exam and treatment you received today in the [facility] Emergency Department were for an urgent problem and are not intended as complete care. It is important for you to follow up with a doctor, nurse practitioner, or physician?s physician office assistant for ongoing care. If your symptoms become [...] so we can reach you if necessary. [facility] Emergency Department has provided you with a complete list of medications post discharge. Please inform your primary care sales representative/provider of your visit and for further instruction [...] Diagnosis: Diagnoses This Visit Medical screening exam ([id number]) If you received any narcotics, sedation, or [...] any legal documents Reason for Visit: Alcon meek physical Allergies: Substance Reaction Symptoms Type Comments [...] for Disease Control and Prevention June 2014 [facility] Note- Provideron 12-08-2022 Urgent [...] 12/08/2022 15:19 EST] Alex Ron PA-C Normal [facility] Recordon 023 Urgent Care Record [facility] ? Urgent Care [address] [place] [address] PATIENT DISCHARGE INSTRUCTIONS Patient Information Name: DMITRI ARTHUR Age: 57 Years Date of : 1965 [facility]: [id number] Reason For Visit: Medical screening exam; [facility] Arrival Time: 12/08/2022 14:38:42 Primary Care Physician: JOHNATHON GALLEGOS Attending Physician: Alex Ron PA-C Comment: Visit Diagnosis: Diagnoses This Visit Medical screening exam ([id number]) If you received any narcotics, sedation, or [...] and treatment you received today in the [facility] Urgent Care were for an urgent problem and are not intended as complete care. It is important for you to follow up with a doctor, nurse practitioner, or physician?s physician office assistant for ongoing care. If your symptoms become [...] so we can reach you if necessary. [facility] has provided you with a complete list of medications post discharge. Please inform your primary care sales representative/provider of your visit and for further instruction [...] Disease Control and Prevention June 2014 Normal [facility] CHEMISTRYOrdered By: SYSTEM SYSTEM on 10-12-2022 Free PSA [Mass/Vol] 0.6 ng/mL Invalid Interpretation Code [facility] Remisol Free PSA/Total PSA [Mass fraction] 16.0 % Low >=25.0% [facility] Remisol Prostate specific Ag [Mass/Vol] 3.5 ng/mL Normal 0.1 - 3.5 ng/mL [facility] [place] HEP B SURFACE ANTIGEN SCREEN on 06-27-2022 HBsAg Screen Negative Normal Negative [facility] Comment on above: Performed By: #### H BSANS #### [facility] [address] [place] [address] Dr. Davon Gutierrez HEPATITIS C ANTIBODYon 06-27 Hep C Virus Ab <0.1 Normal 0.0-0.9 [facility] Comment on above: Result Comment: Nega tive: [...] C Virus (HCV) RNA, Diagnosis, JUAN CARLOS ([id number]) and Hepatitis C Virus (HCV) Antibody with reflex to Quantitative Real-time PCR ([id number]). Performed By: #### H CV #### [facility] [facility] [address] [place] [address] Dr. Davon Gutierrez RPR QUANTon 06-27-2022 Rapid Plasma Reagin, Quant Non-Reactive Normal NonRea<1:1 [facility] Comment on above: Result Comment: Plea se Note: This test does not meet current guidelines for screening and diagnosis of syphilis. This test is intended for following treatment response in patients being treated for syphilis infection. To screen for syphilis infection, a reflex cascade that includes both RPR and a treponema-specific assay should be utilized, such as Treponema pallidum (Syphilis) Screening [place] (604468) or Rapid Plasma Reagin (RPR) Test With Reflex to Quantitative RPR and Confirmatory Treponema pallidum Antibodies (850807). Performed By: #### R PRQ #### [facility] [address] [place] [address] Dr. Davon Gutierrez HIV 1/2 RAPID (EXPOSURE ONLY )on 06-25-2022 HIV AB Non-Reactive Normal NON-REACTIV E [facility] Comment on above: Performed By: #### R PDHIV #### [facility] [address] [place] [address] Dr. Davon Gutierrez HIV AG Non-Reactive Normal NON-REACTIV E [facility] Comment on above: Performed By: #### R PDHIV #### [facility] [address] [place] [address] Dr. Davon Gutierrez INTERNAL CONTROLS Within Normal Limits Normal Wi thin Normal Limits [facility] Comment on above: Performed By: #### R PDHIV #### [facility] [address] [address] [address] Davon Gutierrez RAPID HIV INFO SEE BELOW Normal [facility] Comment on above: Result Comment: This test is used for the initial screening of the exposure source. Confirmation of all reactive results will be obtained through reference lab testing. Performed By: #### R PDHIV #### [facility] [address] [place] [address] Dr. Davon Huggins 05-28-2022 L ------ Specimen: [id number] Received: 05/28/22 Status: RYANN Mathew Num: [id number] Spec Type: Surgical Subm Dr: Rishi Xie [...] [facility]) Procedures: HE Stain/24, Gross/Micro L4/12 Age/ Patient Sex Location Account Attending Physician Dmitri Arthur 57/M [place] [id number] Rishi Xie MD SPEC NUM: [id number] RECD: 05/28/22 STATUS: RYANN MATHEW NUM: [id number] GRACE: 05/28/22- SUBM DR: Rishi Xie MD ENTERED: 05/28/22 [facility] DR: YUNA TYPE: Surgical DEPT: S ORDERED: HE Stain/24, Gross/Micro L4/12 ORDERED: HE Stain/, Gross/Micro L4/12, Unstained Slide/ Pathological Diagnosis A. Prostate, left base lateral, [...] basal cell hyperplasia. - See Note. Specimen: [id number] Received: 05/28/22 Status: RYANN Mathew Num: [id number] Spec Type: Surgical Subm Dr: Rishi Xie [...] (RT [facility]) Procedures: HE Stain/, Gross/Micro L4/12 Patient: Dmitri Arthur [id number] (Continued) Specimen: [id number] Received: 05/28/22 (Continued) Pathological Diagnosis (Continued) Signed (signature on file) Glenn Ovalles MD 06/01/22 1414 Specimen: [id number] Received: 05/28/22 Status: RYANN Mathew Num: [id number] Spec Type: Surgical Subm Dr: Rishi Xie [...] (RT [facility]) Procedures: HE Stain/, Gross/Micro Patient: Dmitri Arthur [id number] (Continued) Specimen: [id number] Received: 05/28/22-1040 (Continued) Pathological Diagnosis (Continued) E. Prostate, left [...] mid la (more content not included)... Normal [facility] SARS-CoV-2 (COVID-19) RNA JUAN CARLOS+probe Ql (Unsp spec) Negative Normal Negative [facility] Comment on above: Order Comment: Healt hcare Worker?: N Result Comment: Testing for SARS-CoV-2 by RT-PCR This test was developed and its performance characteristics determined by [employer] ([employer]) and validated at the [facility]. This test has not been FDA [...] is terminated or revoked sooner. PERFORMED BY: [place] [address] PATHOLOG[facility] ANNIE MASCORRO M.D. Performed By: #### C OVID 19 [facility] #### [address] COVID-19 Positive/NegativeOr dered By: Rishi Xie on 05-26-2022 SARS-CoV-2 (COVID-19) N gene JUAN CARLOS+probe Ql (Resp) Negative Negative [facility] Comment on above: Testing for SARS-CoV -2 by RT-PCR This test was developed and its performance characteristics determined by [employer] ([employer]) and validated at the [facility]. This test has not been FDA [...] aPTT Coag (PPP) [Time] 32.0 s 25.1-36.5 [facility] Basic Metabolic Panelon 05-04 Calcium [Mass/Vol] 10.0 mg/dL Normal 8.2-10.2 [facility] Comment on above: Result Comment: PERF ORMED BY: [facility] [address] [facility] [place] [id number] [facility] ANNIE MASCORRO M.D. Performed By: #### C BC, PT, PTT, BMP #### [facility] [address] [id number] [place] Chloride [Moles/Vol] 96 mmol/L Normal 95-114 [facility] Comment on above: Performed By: #### C BC, PT, PTT, BMP #### [facility] [address] [place] [address] [place] CO2 [Moles/Vol] 29.4 mmol/L Normal 22.0-30.0 [facility] Comment on above: Performed By: #### C BC, PT, PTT, BMP #### [facility] [address] [place] [address] [place] Creatinine [Mass/Vol] 0.85 mg/dL Normal 0.64-1.27 [facility] Comment on above: Performed By: #### C BC, PT, PTT, BMP #### [facility] [address] [place] [address] [place] Estimated GFR ( Gita > 60 Normal [facility] Comment on above: Result Comment: GFR estimated reference range: According to KDOQI guidelines, <60 ml/min/1.73m2 is sufficient to diagnose a patient with chronic kidney disease. Performed By: #### C BC, PT, PTT, BMP #### [facility] [address] Estimated GFR (Non- Am > 60 Normal [facility] Comment on above: Performed By: #### C BC, PT, PTT, BMP #### [place] [address] [place] Glucose [Mass/Vol] 81 mg/dL Normal 70-100 [facility] Comment on above: Result Comment: [place] om Glucose Reference Range is dependent on time and content of last meal. Glucose of more than 200 mg/dL in a nonstressed, ambulatory subject supports the diagnosis of Diabetes Mellitus. ADA recommended reference range Performed By: #### C BC, PT, PTT, BMP #### [facility] [address] [place] [address] [place] Potassium [Moles/Vol] 3.7 mmol/L Normal 3.5-5.1 [facility] Comment on above: Performed By: #### C BC, PT, PTT, BMP #### [facility] [address] [place] [address] [place] Sodium [Moles/Vol] 138 mmol/L Normal 136-146 [facility] Comment on above: Performed By: #### C BC, PT, PTT, BMP #### [place] [address] [place] Urea nitrogen [Mass/Vol] 21 mg/dL Normal 9-23 [facility] Comment on above: Performed By: #### C BC, PT, PTT, BMP #### [facility] [address] [place] [address] [place] Basophils Auto (Bld) [#/Vol] Ordered By: Rishi Xie on 05-14-2022 Basophils (Bld) [#/Vol] 0.1 10*3/uL 0.0-0.2 [facility] Basophils/100 WBC Auto (Bld) Ordered By: Rishi Xie on 05-14-2022 Basophils/100 WBC (Bld) 0.9 % . [facility] Blood hemoglobin measurement (mass/volume)Ordered By: Rishi Xie on 05-14-2022 Hemoglobin (Bld) [Mass/Vol] 14.3 g/dL 13.0-17.0 [facility] Blood leukocytes automated c ount (number/volume)Ordered By: Rishi Xie on 05-14-2022 WBC (Bld) [#/Vol] 6.8 10*3/uL 4.5-11.0 [facility] Complete Blood Count Auto Di ffon 05-14-2022 Basophils (Bld) [#/Vol] 0.1 10*3/uL Normal 0.0-0.2 [facility] Comment on above: Result Comment: PERF ORMED BY: [place] [address] PATH[facility] ANNIE MASCORRO M.D. Performed By: #### C BC, PT, PTT, BMP #### [place] [address] [place] Basophils/100 WBC (Bld) 0.9 % Normal . [facility] Comment on above: Performed By: #### C BC, PT, PTT, BMP #### [facility] [address] [place] [address] [place] Eosinophils (Bld) [#/Vol] 0.1 10*3/uL Normal 0.0-0.45 [facility] Comment on above: Performed By: #### C BC, PT, PTT, BMP #### [address] Eosinophils/100 WBC (Bld) 1.7 % Normal . [facility] Comment on above: Performed By: #### C BC, PT, PTT, BMP #### [address] Erythrocyte distribution width (RBC) [Ratio] 13.0 % Normal 12.0-14.8 [facility] Comment on above: Performed By: #### C BC, PT, PTT, BMP #### [address] Hematocrit (Bld) [Volume fraction] 42.9 % Normal 38.8-50.0 [facility] Comment on above: Performed By: #### C BC, PT, PTT, BMP #### [address] Hemoglobin (Bld) [Mass/Vol] 14.3 g/dL Normal 13.0-17.0 [facility] Comment on above: Performed By: #### C BC, PT, PTT, BMP #### [address] Lymphocytes (Bld) [#/Vol] 2.1 10*3/uL Normal 1.00-4.8 [facility] Comment on above: Performed By: #### C BC, PT, PTT, BMP #### [address] Lymphocytes/100 WBC (Bld) 31.6 % Normal . [facility] Comment on above: Performed By: #### C BC, PT, PTT, BMP #### [address] MCH (RBC) [Entitic mass] 31.3 pg Normal 27.5-35.2 [facility] Comment on above: Performed By: #### C BC, PT, PTT, BMP #### [address] MCV (RBC) [Entitic vol] 94.0 fL Normal 83.5-101 [facility] Comment on above: Performed By: #### C BC, PT, PTT, BMP #### [facility] [address] Mean Corpuscular HGB Conc 33.3 g/dL Normal 32.5-35.6 [facility] Comment on above: Performed By: #### C BC, PT, PTT, BMP #### [facility] [address] Monocytes (Bld) [#/Vol] 0.5 10*3/uL Normal 0.0-0.8 [facility] Comment on above: Performed By: #### C BC, PT, PTT, BMP #### [facility] [address] [place] [address] [place] Monocytes/100 WBC (Bld) 8.1 % Normal . [facility] Comment on above: Performed By: #### C BC, PT, PTT, BMP #### [address] Neutrophils (Bld) [#/Vol] 3.9 10*3/uL Normal 1.8-7.7 [facility] Comment on above: Performed By: #### C BC, PT, PTT, BMP #### [address] Neutrophils/100 WBC (Bld) 57.7 % Normal . [facility] Comment on above: Performed By: #### C BC, PT, PTT, BMP #### [facility] [address] [place] [address] [place] Nucleated RBC/100 WBC (Bld) [Ratio] 0.1 % Normal 0-0.5 [facility] Comment on above: Performed By: #### C BC, PT, PTT, BMP #### [facility] [address] [place] [address] [place] Platelet mean volume (Bld) [Entitic vol] 7.7 fL Normal 6.6-10.1 [facility] Comment on above: Performed By: #### C BC, PT, PTT, BMP #### [facility] [address] [place] [address] [place] Platelets (Bld) [#/Vol] 303 10*3/uL Normal 150-450 [facility] Comment on above: Performed By: #### C BC, PT, PTT, BMP #### [facility] [address] RBC (Bld) [#/Vol] 4.56 10*6/uL Normal 3.90-5.60 [facility] Comment on above: Performed By: #### C BC, PT, PTT, BMP #### [facility] [address] WBC (Bld) [#/Vol] 6.8 10*3/uL Normal 4.5-11.0 [facility] Comment on above: Performed By: #### C BC, PT, PTT, BMP #### [facility] [address] Creatinine and Glomerular fi ltration rate.predicted panel (S/P/Bld)Ordered By: Rishi Xie on 05-14-2022 Creatinine [Mass/Vol] 0.85 mg/dL 0.64-1.27 [facility] ECG 12 lead ECGon 05-14-2022 ECG 12 lead ECG [facility] [place] [address] [place] [address] Electrocardiograph Report Signed Patient: Dmitri Arthur MR#: [id number] : 1965 Acct:[id number] Age/Sex: 57 / M ADM Date: 05/14/22 Loc: Room: Type: [facility] Attending Dr: Rishi Xie MD Ordering Provider: [...] previous ECGs available Confirmed by LYNDON VARGAS [id number] on 05/14/2022 4:47:03 PM Referred By: ANNE-MARIE Electronically Signed By:SURYA LUIS MD [facility] Transcribed By: DOROTHY Signed By Surya Luis MD, [facility] 05/14/22 1647 Normal [facility] Eosinophils Auto (Bld) [#/Vo l]Ordered By: Rishi Xie on 05-14-2022 Eosinophils (Bld) [#/Vol] 0.1 10*3/uL 0.0-0.45 [facility] Eosinophils/100 WBC Auto (Bl d)Ordered By: Rsihi Xie on 05-14-2022 Eosinophils/100 WBC (Bld) 1.7 % . [facility] Erythrocyte distribution wid th Auto (RBC) [Ratio]Ordered By: Rishi Xie on 05-14-2022 Erythrocyte distribution width (RBC) [Ratio] 13.0 % 12.0-14.8 [facility] Estimated glomerular filtrat ion rate (GFR) non- AmericanOrdered By: Rishi Xie on 05-14-2022 GFR/1.73 sq M.predicted among non-blacks MDRD (S/P/Bld) [Vol rate/Area] > 60 mL/Min [facility] Hematocrit Auto (Bld) [Volum e fraction]Ordered By: Rishi Xie on 05-14-2022 Hematocrit (Bld) [Volume fraction] 42.9 % 38.8-50.0 [facility] Laboratory - CoagulationOrde red By: Rishi Xie on 05-14-2022 PT Coag (PPP) [Time] 12.2 s 9.0-12.9 [facility] - Hematology and Cell countsOrdered By: Rishi Xie on 05-14-2022 Nucleated RBC/100 WBC (Bld) [Ratio] 0.1 % 0-0.5 [facility] Lymphocytes Auto (Bld) [#/Vo l]Ordered By: Rishi Xie on 05-14-2022 Lymphocytes (Bld) [#/Vol] 2.1 10*3/uL 1.00-4.8 [facility] Lymphocytes/100 WBC Auto (Bl d)Ordered By: Rishi Xie on 05-14-2022 Lymphocytes/100 WBC (Bld) 31.6 % . [facility] MCH Auto (RBC) [Entitic mass ]Ordered By: Rishi Xie on 05-14-2022 MCH (RBC) [Entitic mass] 31.3 pg 27.5-35.2 [facility] MCHC Auto (RBC) [Mass/Vol]Or dered By: Rishi Xie on 05-14-2022 MCHC (RBC) [Mass/Vol] 33.3 g/dL 32.5-35.6 [facility] MCV Auto (RBC) [Entitic vol] Ordered By: Rishi Xie on 05-14-2022 MCV (RBC) [Entitic vol] 94.0 fL 83.5-101 [facility] Monocytes Auto (Bld) [#/Vol] Ordered By: Rishi Xie on 05-14-2022 Monocytes (Bld) [#/Vol] 0.5 10*3/uL 0.0-0.8 [facility] Monocytes/100 WBC Auto (Bld) Ordered By: Rishi Xie on 05-14-2022 Monocytes/100 WBC (Bld) 8.1 % . [facility] Neutrophils Auto (Bld) [#/Vo l]Ordered By: Rishi Xie on 05-14-2022 Neutrophils (Bld) [#/Vol] 3.9 10*3/uL 1.8-7.7 [facility] Neutrophils/100 WBC Auto (Bl d)Ordered By: Rishi Xie on 05-14-2022 Neutrophils/100 WBC (Bld) 57.7 % . [facility] No Panel InformationOrdered By: Rishi Xie on 05-14-2022 Estimated GFR () > 60 mL/Min [facility] Comment on above: GFR estimated refere nce range: According to KDOQI guidelines, <60 ml/min/1.73m2 is sufficient to diagnose a patient with chronic kidney disease. Pharmacy Creatinine Clearance (Chem N/A [facility] Partial Thromboplastin Timeo n 05-14-2022 aPTT Coag (Bld) [Time] 32.0 s Normal 25.1-36.5 [facility] Comment on above: Result Comment: PERF ORMED BY: [facility] [address] [address] PATHOLOGIST PHARM[facility]IST [facility] ANNIE MASCORRO M.D. Performed By: #### C BC, PT, PTT, BMP #### [facility] [address] Platelet mean volume Auto (B ld) [Entitic vol]Ordered By: Rishi Xie on 05-14-2022 Platelet mean volume (Bld) [Entitic vol] 7.7 fL 6.6-10.1 [facility] Platelet poor plasma interna tional normalized ratio (INR) by coagulation assay (relatOrdered By: Rishi Xie on 05-14-2022 INR Coag (PPP) [Relative time] 1.1 {INR} [facility] Comment on above: INR Therapeutic Rang [...] 05-14-2022 Platelets (Bld) [#/Vol] 303 10*3/uL 150-450 [facility] Prothrombin Time INRon 05-14 INR Coag (PPP) [Relative time] 1.1 {INR} Normal [facility] Comment on above: Result Comment: INR [...] #### C BC, PT, PTT, BMP #### [facility] [address] PT Coag (PPP) [Time] 12.2 s Normal 9.0-12.9 [facility] Comment on above: Performed By: #### C BC, PT, PTT, BMP #### [facility] [address] [place] [id number] [place] RBC Auto (Bld) [#/Vol]Ordere d By: Rishi Xie on 05-14-2022 RBC (Bld) [#/Vol] 4.56 10*6/uL 3.90-5.60 [facility] Serum or plasma calcium neville urement (mass/volume)Ordered By: Rishi Xie on 05-14-2022 Calcium [Mass/Vol] 10.0 mg/dL 8.2-10.2 [facility] Serum or plasma chloride anand surement (moles/volume)Ordered By: Rishi Xie on 05-14-2022 Chloride [Moles/Vol] 96 mmol/L 95-114 [facility] Serum or plasma glucose [place] urement (mass/volume)Ordered By: Rishi Xie on 05-14-2022 Glucose [Mass/Vol] 81 mg/dL 70-100 [facility] Comment on above: ADA recommended refe rence range Random Glucose Reference Range is dependent on time and content of last meal. Glucose of more than 200 mg/dL in a nonstressed, ambulatory subject supports the diagnosis of Diabetes Mellitus. Serum or plasma potassium me asurement (moles/volume)Ordered By: Rishi Xie on 05-14-2022 Potassium [Moles/Vol] 3.7 mmol/L 3.5-5.1 [facility] Serum or plasma sodium measu rement (moles/volume)Ordered By: Rishi Xie on 05-14-2022 Sodium [Moles/Vol] 138 mmol/L 136-146 [facility] Serum or plasma total carbon dioxide measurement (moles/volume)Ordered By: Rishi Xie on 05-14-2022 CO2 [Moles/Vol] 29.4 mmol/L 22.0-30.0 [facility] Serum or plasma urea nitroge n measurement (mass/volume)Ordered By: Rishi Xie on 05-14-2022 Urea nitrogen [Mass/Vol] 21 mg/dL 9-23 [facility] XR chest 2V*on 05-14-2022 XR chest 2V* [facility] [place] [address] [place] [address] XRay Report Signed Patient: Dmitri Arthur MR#: [id number] : 1965 Acct:[id number] Age/Sex: 57 / M ADM Date: 05/14/22 Loc: PS Room: Type: [facility] Attending Dr: Rishi Xie MD Copies to: [...] Donald Ordonez M.D.05/14/2022 4:42 PM Dictation Location: [facility]--11 Transcribed By: [facility] 05/14/221641 Dictated By: Donald Ordonez II, MD 05/14/22 164 Signed By: 05/14/22 164 Normal [facility] MR prostate wo/w conon 03-26 MR prostate wo/w con [facility] Main [address] [address] MRI Report Signed Patient: Dmitri Arthur MR#: [id number] : 1965 Acct:[id number] Age/Sex: 57 / M ADM Date: 03/25/22 Loc: MR Room: Type: [facility] Attending Dr: Rishi Xie MD Copies to: [...] Bobo Jr., D.ODat03/26/2022 8:35 AM Dictation Location: [place] [address] Transcribed By: [facility] 03/26/22 0835 Dictated By: Josr Bobo Jr, DO 03/26/22 0826 Signed By: 03/26/22 0835 [facility] XR CHEST (2 VW)on 02-25-2018 XR CHEST (2 VW) EXAMINATION:TWO VIEW S OF THE CHEST02/25/2018 7:58 amCOMPARISON:August 2015HISTORY:ORDERING SYSTEM PROVIDED HISTORY: Pre-employment examinationTECHNOLOGIST PROVIDED HISTORY:Ordering Physician Provided Reason for Exam: positive skin test for TBAcuity: AcuteType of Exam: InitialAdditional signs and symptoms: possible exposre 2015FINDINGS:Heart size is stable. Hilar shadows are stable there is no lungconsolidation. Ill definition of the left hemidiaphragm is noted there is noeffusion or pneumothoraxIMPRESSION: Ill definition of the left hemidiaphragm on the frontal view. This is likelytechnical. Developing basilar airspace disease not excludedNo acute abnormality otherwiseInterpreted by:JADE Toscanoigned by:Josias Voss MD02/25/18inal result Normal [facility] Progress Noteon 02-10-2018 HIM IP Note OR [place] [employer] Normal [facility] CBCon 04-27-2017 Erythrocyte distribution width Auto Ratio (RBC) 13.5 % Normal 12.5-15.4 [facility] Comment on above: Performed By: #### C BC, CP, LIPR ####[address] [address] Erythrocytes (RBC) 5.03 10*6/uL Normal 4.5-5.9 [facility] Comment on above: Performed By: #### C BC, CP, LIPR ####[address] [address] Hematocrit (HCT) 46.5 % Normal 41-53 [facility] Comment on above: Performed By: #### C BC, CP, LIPR ####[address] [address] Hemoglobin mass conc (Bld) 15.7 g/dL Normal 13.5-17.5 [facility] Comment on above: Performed By: #### C BC, CP, LIPR ####[address] [address] MCH 31.1 pg Normal 26-34 [facility] Comment on above: Performed By: #### C BC, CP, LIPR ####[facility] [place] [address] MCHC mass conc (RBC) 33.7 g/dL Normal 31-37 [facility] Comment on above: Performed By: #### C BC, CP, LIPR ####[address] [address] MCV 92.4 fL Normal 80-100 [facility] Comment on above: Performed By: #### C BC, CP, LIPR ####[facility] [place] [address] Platelet mean volume (PMV) 8.5 fL Normal 6.0-12.0 [facility] Comment on above: Result Comment: [facility] [address] [place] [address] Performed By: #### C BC, CP, LIPR ####[address] [place] [address] Platelets 284 10*3/uL Normal 140-450 [facility] Comment on above: Performed By: #### C BC, CP, LIPR ####[address] [address] WBC (Leukocytes) 8.5 10*3/uL Normal 3.5-11.0 [facility] Comment on above: Performed By: #### C BC, CP, LIPR ####[address] [address] Comp Metabolic Profon 2016 (cont.) Normal [facility] Comment on above: Result Comment: Aver age GFR for 50-59 years old: 93 mL/min/1.73sq mChronic Kidney Disease: <60 mL/min/1.73sq mKidney failure: <15 mL/min/1.73sq meGFR calculated using average adult body mass. Additional eGFR calculator available at:http://[email or web address].Animoca/multiple_crcl_2011.htmJeff[address] [place] [address] Performed By: #### C BC, CP, LIPR ####[address] [address] Alanine aminotransferase (ALT) 22 U/L Normal 5-41 [facility] Comment on above: Performed By: #### C BC, CP, LIPR ####[address] [address] Albumin 4.4 g/dL Normal 3.5-5.2 [facility] Comment on above: Performed By: #### C BC CP, LIPR ####[facility] [address] [place] [address] Albumin/Globulin Ratio 1.5 {ratio} Normal 1.0-2.5 [facility] Comment on above: Performed By: #### C BC CP, LIPR ####[facility] [address] [place] [address] Alkaline Phos 70 U/L Normal 40-129 [facility] Comment on above: Performed By: #### C JO ANN CP, LIPR ####[facility] [address] [place] [address] Anion gap 15 mmol/L Normal 9-17 [facility] Comment on above: Performed By: #### C JO ANN CP, LIPR ####[facility] [address] [place] [address] Aspartate aminotransferase (AST) 33 U/L Normal <40 [facility] Comment on above: Performed By: #### C JO ANN CP, LIPR ####[facility] [address] [place] [address] Bilirubin Ql (U) 0.50 mg/dL Normal 0.3-1.2 [facility] Comment on above: Performed By: #### C BC, CP, LIPR ####[facility] [address] [place] [address] Calcium 9.5 mg/dL Normal 8.6-10.4 [facility] Comment on above: Performed By: #### C BC CP, LIPR ####[facility] [address] [place] [address] Chloride 97 mmol/L Low 98-107 [facility] Comment on above: Performed By: #### C BC, CP, LIPR ####[facility] [address] [place] [address] CO2 27 mmol/L Normal 20-31 [facility] Comment on above: Performed By: #### C BC, CP, LIPR ####[facility] [address] [place] [address] Creatinine 0.75 mg/dL Normal 0.70-1.20 [facility] Comment on above: Performed By: #### C BC, CP, LIPR ####[facility] [address] [place] [address] eGFR (non-black) mL/min/{1.73_m2} Normal >60 [facility] Comment on above: Performed By: #### C BC, CP, LIPR ####[facility] [place] [address] Glucose mass conc 89 mg/dL Normal 70-99 [facility] Comment on above: Performed By: #### C BC, CP, LIPR ####[facility] [place] [address] Potassium molar conc 3.8 mmol/L Normal 3.7-5.3 [facility] Comment on above: Performed By: #### C BC, CP, LIPR ####[facility] [place] [address] Protein 7.4 g/dL Normal 6.4-8.3 [facility] Comment on above: Performed By: #### C BC, CP, LIPR ####[facility] [id number] [place] [address] Sodium 139 mmol/L Normal 135-144 [facility] Comment on above: Performed By: #### C BC, CP, LIPR ####[facility] [address] [place] [address] Urea nitrogen 21 mg/dL High 6-20 [facility] Comment on above: Performed By: #### C BC, CP, LIPR ####[facility] [place] [address] BUN/CRE Ratio NOT REPORTED Normal 9-20 [facility] Comment on above: Performed By: #### C BC, CP, LIPR ####[facility] [place] [address] Staging: NOT REPORTED Normal [facility] Comment on above: Performed By: #### C BC, CP, LIPR ####[address] [address] Lipid Profileon 04-27-2017 Cholesterol 247 mg/dL High <200 [facility] Comment on above: Result Comment: Chol esterol Guidelines: <200 Desirable 200-240 Borderline >240 Undesirable Performed By: #### C BC, CP, LIPR ####[address] [address] Cholesterol to HDL Ratio 4.1 {ratio} Normal <5 [facility] Comment on above: Performed By: #### C BC, CP, LIPR ####[address] [address] HDL Cholesterol 60 mg/dL Normal >40 [facility] Comment on above: Result Comment: HDL Guidelines: <40 Undesirable 40-59 Borderline >59 Desirable Performed By: #### C BC, CP, LIPR ####[id number] [place] [address] LDL Cholesterol 158 mg/dL High 0-130 [facility] Comment on above: Result Comment: LDL Guidelines: <100 Desirable 100-129 Near to/above Desirable 130-159 Borderline >159 UndesirableDirect (measured) LDL and calculated LDL are not interchangeable tests. Performed By: #### C BC, CP, LIPR ####[facility] [address] [place] [address] [id number] Triglyceride 145 mg/dL Normal <150 [facility] Comment on above: Result Comment: Trig lyceride Guidelines: <150 Desirable 150- 199 Borderline 200-499 High >499 Very high Based on AHA Guidelines for fasting triglyceride, July 2012.[facility] [address] [place] [address] Performed By: #### C BC, CP, LIPR ####[facility] [place] [address] Cholesterol in VLDL mass conc NOT REPORTED Normal 11-02 [facility] Comment on above: Performed By: #### C BC, CP, LIPR ####[facility] TechnologiesFf[address]obfzncxf[address] [place] [address] Vital Signs Date Time Vital Sign Value Performing Clinician Roger gee 03-21-2024 08:06-0400 Diastolic blood pressure 90 mm[Hg] [employer] [facility] 03-21-2024 08:06-0400 Mean blood pressure 105 mm[Hg] Inveni [facility] 03-21-2024 08:06-0400 Systolic blood pressure 134 mm[Hg] In[facility]i [facility] 03-21-2024 08:01-0400 Blood Pressure Location Inveni [facility] 03-21-2024 08:01-0400 Diastolic blood pressure 100 mm[Hg] [facility] 03-21-2024 08:01-0400 Heart rate 78 /min In[facility] 03-21-2024 08:01-0400 Respiratory rate 16 /min Rishi COOK [facility] 03-21-2024 08:01-0400 Systolic blood pressure 150 mm[Hg] Rishi COOK [facility] 09-07-2023 09:11-0500 Blood Pressure Location Rishi COOK [facility] 09-07-2023 09:11-0500 Diastolic blood pressure 81 mm[Hg] Rishi COOK [facility] 09-07-2023 09:11-0500 Heart rate 100 /min Rishi COOK [facility] 09-07-2023 09:11-0500 Systolic blood pressure 138 mm[Hg] Rishi COOK [facility] 08-21-2022 08:18-0500 Blood Pressure Location Rishi COOK [facility] 08-21-2022 08:18-0500 Diastolic blood pressure 92 mm[Hg] Rishi COOK [facility] 08-21-2022 08:18-0500 Heart rate 75 /min Rishi COOK [facility] 08-21-2022 08:18-0500 Systolic blood pressure 139 mm[Hg] Rishi COOK [facility] 05-28-2022 09:25-0400 Diastolic blood pressure 62 mm[Hg] MD Rishi Xie Work Phone: [facility] 05-28-2022 09:25-0400 Heart rate 70 /min MD Rishi Xie Work Phone: [facility] 05-28-2022 09:25-0400 Respiratory rate 16 /min MD Rishi Xie Work Phone: [facility] 05-28-2022 09:25-0400 SaO2% (BldA) [Mass fraction] 95 % MD Rishi Xie Work Phone: [facility] 05-28-2022 09:25-0400 Systolic blood pressure 128 mm[Hg] MD Rishi Xie Work Phone: [facility] 05-28-2022 08:55-0400 Inhaled oxygen flow rate 6 L/min MD Rishi Xie Work Phone: [facility] 05-28-2022 07:59-0400 Body height 179.07 cm MD Rishi Xie Work Phone: [facility] 05-28-2022 07:59-0400 Body mass index (BMI) [Ratio] 27 kg/m2 MD Rishi Xie Work Phone: [facility] 05-28-2022 07:59-0400 Body weight 86.63 kg MD Rishi Xie Work Phone: [facility] 05-28-2022 06:23-0400 Body temperature 97.8 [degF] MD Rishi Xie Work Phone: [facility] 02-25-2022 10:08-0400 Blood Pressure Location Rishi XIE [facility] 02-25-2022 10:08-0400 Diastolic blood pressure 89 mm[Hg] Rishi XIE [facility] 02-25-2022 10:08-0400 Heart rate 84 /min Rishi XIE [facility] 02-25-2022 10:08-0400 Respiratory rate 16 /min Rishi XIE [facility] [place] 02-25-2022 10:08-0400 Systolic blood pressure 149 mm[Hg] Rishi XIE [facility] 09-14-2019 11:05-0500 BP Diastolic 80 mm[Hg] [facility] 09-14-2019 11:05-0500 BP Systolic 114 mm[Hg] [facility] 09-14-2019 11:05-0500 Pulse (Heart Rate) 74 /min [facility] 09-14-2019 11:05-0500 Pulse Oximetry 99 % [facility] 09-14-2019 11:05-0500 Respiratory Rate 18 /min [facility] 09-14-2019 08:15-0500 BMI (Body Mass Index) 27.1 kg/m2 [facility] 09-14-2019 08:15-0500 Body Temperature 97.9 [degF] [facility] 09-14-2019 08:15-0500 Body weight 87.08 kg [facility] 09-14-2019 08:15-0500 Height 179.07 cm [facility] Encounters Encounter Date Encounter Type Care Provider Facility Start: 06-06-2024 ambulatory Rishi XIE Facility :[facility] Start: 03-29-2024 End: 03-29-2024 ambulatory JOHNATHON GALLEGOS Not Available Start: 03-21-2024 End: 03-21-2024 ambulatory Rishi XIE Facility:[facility] Start: 03-21-2024 End: 03-21-2024 Patient encounter procedure Rishi XIE [facility] Start: 03-07-2024 End: 03-07-2024 ambulatory TRISTEN Ranjit DARRIAN Not Available Start: 02-14-2024 End: 02-14-2024 ambulatory THADDEUS Bogdan GUERRERO Not Available Start: 01-12-2024 End: 01-12-2024 ambulatory JOHNATHON GALLEGOS Not Available Start: 01-06-2024 End: 01-06-2024 ambulatory TRISTEN Ranjit DARRIAN Not Available Start: 12-29-2023 End: 12-29-2023 ambulatory JOHNATHON GALLEGOS Not Available Start: 09-23-2023 ambulatory Sean Miranda Facility :[facility] Start: 09-08-2023 ambulatory Rishi XIE Facility:[facility] Start: 09-07-2023 End: 09-07-2023 ambulatory Rishi XIE Facility:[facility] Start: 09-07-2023 End: 09-07-2023 Patient encounter procedure Rishi XIE [facility] Start: 07-28-2023 End: 07-29-2023 ambulatory JOHNATHON GALLEGOS Facility:[facility] Start: 02-15-2023 End: 02-16-[address] JOHNATHON GALLEGOS Facility:[facility] Start: 01-29-2023 End: 01-30-2023 ambulatory Jm Wilson Facility:[facility] Start: 12-08-2022 End: 12-08-2022 ambulatory Alex Ron Facility:[facility] Start: 10-12-2022 End: 10-12-2022 Patient encounter procedure Rishi XIE [facility] Start: 08-21-2022 End: 08-21-2022 Patient encounter procedure Rishi XIE [facility] Start: 06-24-2022 End: 06-25-[address] JOHNATHON GALLEGOS Facility:[facility] Start: 06-19-2022 End: 06-19-2022 Patient encounter procedure Rishi XIE [facility] Start: 05-28-2022 End: 05-28-2022 ambulatory Rishi Xie Facility:[facility] Start: 05-28-2022 End: 05-28-2022 Admission to same day surgery center MD Rishi Xie Work Phone: [facility] [place] Start: 05-26-2022 End: 05-26-2022 ambulatory Rishi Xie Facility:[facility] Start: 05-26-2022 End: 05-26-2022 Patient encounter procedure MD Rishi Xie Work Phone: [facility] Start: 05-14-2022 End: 05-14-2022 ambulatory Rishi Xie Facility:[facility] Start: 05-14-2022 End: 05-14-2022 Patient encounter procedure MD Rishi Xie Work Phone: [facility] Wjk-Zdc-Npladeoo Testing Start: 03-25-2022 End: 03-25-2022 ambulatory Rishi Xie Facility:[facility] Start: 03-25-2022 End: 03-25-2022 Patient encounter procedure MD Rishi Xie Work Phone: [facility] [place] Start: 02-25-2022 End: 02-25-2022 Patient encounter procedure Rishi XIE [facility] Start: 09-14-2019 End: 09-14-2019 Admission to day surgery Marc Whitaker [facility] Start: 02-25-2018 End: 02-28-2018 Ambulatory ADORE FORTE [facility] Start: 04-27-2017 End: 04-28-2017 Ambulatory VIRY ORELLANA [facility] Procedures Date Procedure Procedure Detail Performing Clinician Start: 02-15-[address] JOHNATHON GALLEGOS Comment on above: Performed By: #### PSASC #### [facility] [address] [address] [address] Davon Gutierrez Start: 05-28-2022 US scan and biopsy of prostate MD Sarbjit Xie Work Phone: Start: 05-28-2022 MRI-US fusion guided prostate biopsy Rishi XIE Start: 05-14-2022 Plain chest X-ray MD Rishi Xei Work Phone: Start: 03-25-2022 MR prostate wo/w [...] OR (TRUS) Prostate Biopsy w/Ultrasound (Not Applicable) [facility] Start: 05-28-2022 End: 05-28-2022 [facility] Work Phone: Start: 05-28-2022 End: 05-28-2022 Admission to same day surgery center Departed Surgical Day Care [facility] [place] Start: 05-26-2022 End: 05-26-2022 Patient encounter procedure Departed Clinical [facility] Njt-Ztb-Rmjdldyh Testing Patient Education [facility] Patient referral [facility] Work Phone: Immunizations Immunization Date Immunization Notes Care Provider Braden valedz 12-18-2021 COVID-19 mRNA, Comirnaty (Pfizer) MD Rishi Xie Work Phone: [facility] 12-18-2021 SARS-CoV-2 mRNA (daodbkusuvr-pxzp-oalud se) vaccine Rishi XIE [facility] 03-19-2021 COVID-19 mRNA Comirshannan (Pfizer) MD Rishi Xie Work Phone: [facility] 12-02-2020 influenza virus vaccine, unspecified formulation Rishi XIE [facility] 10-07-2020 COVID-19 mRNA Comirshannan (Pfizer) MD Rishi Xie Work Phone: [facility] Comment on above: Result Comment: 2021: [id number] Payers Date Payer Category Payer Private Health Insurance [id number] 2023 Unknown [id number] 2023 Private Health Insurance [id number] 2022 Unknown [id number] 2017 Private Health Insurance [id number] 2016 Private Health Insurance [id number] 1966 Unknown [id number] .16.84 [id number] 1966 Unknown [id number] .16.84 0.1.615422.3.579.2.9 1966 Unknown [id number] 2.16.84 0.1.045860.3.579.2.1258 1966 Unknown [id number] .16.84 0.1.090394.3.579.2.1259 1966 Unknown [id number] .16.84 0.1.011299.3.579.2.1258 1966 Unknown [id number] 2.16.84 0.1.243298.3.579.2.1259 1966 Unknown [id number] 2.16.84 0.1.377947.3.579.2.1259 1966 Unknown [id number] 2.16.8 40.1.912497.3.579.2.727 1966 Unknown [id number] 2.16.8 40.1.441020.3.579.2.727 1966 Unknown [id number] 2.16.8 40.1.463638.3.579.2.727 1966 Unknown [id number] 2.16.8 40.1.474599.3.579.2.727 1959 Private Health Insurance [id number] Self-pay [id number] Unknown [id number] Unknown [id number] 2.16.8 40.1.252758.3.579.2.531 Unknown [id number] 2.16.8 40.1.420485.3.579.2.531 Unknown [id number] 2.16.8 40.1.879633.3.579.2.531 Unknown [id number] 2.16.8 40.1.116757.3.579.2.531 Unknown [id number] 2.16.84 0.1.502488.3.579.2.593 Social History Date Type Detail [facility] Start: 1965 Sex Assigned At Male [facility] Start: 02-25-2022 End: 03-21-2024 Tobacco smoking status Never smoked tobacco (finding) [facility] Sex Assigned At Male [facility] Tobacco smoking status Never [facility] Goals Date Patient Goal Desired Activity /State Functional Status Date Assessment Result Facility 03-21-2024 Functional Status N/A [facility] 09-07-2023 Functional Status N/A [facility] 08-21-2022 Functional Status N/A [facility] 06-19-2022 Functional Status N/A [facility] Clinical Notes 02-25-2022 to 03-21-2024 Note Date & Type Note Facility 03-21-2024 Hospital Discharge instructions Patient Education 03/21/2024 07:53:34 Prostate Cancer Screening Prostate Cancer Screening Prostate cancer screening is testing that is done to check for the presence of prostate cancer in men. The prostate gland is a walnut-sized gland that is located below the bladder and in front of the rectum in males. The function of the prostate is to add fluid to semen during ejaculation. Prostate cancer is one of the most common types of cancer in men. Who should have prostate cancer screening? Screening recommendations vary based on age and other risk factors, as well as between the professional organizations who make the recommendations. In general, screening is recommended if: You are age 50 to 70 and have an average risk for prostate cancer. You should talk with your health care provider about your need for screening and how often screening should be done. Because most prostate cancers are slow growing and will not cause , screening in this age group is generally reserved for men who have a 10- to 15-year life expectancy. You are younger than age 50, and you have these risk factors: ?Having a father, brother, or uncle who has been diagnosed with prostate cancer. The risk is higher if your family member's cancer occurred at an early age or if you have multiple family members with prostate cancer at an early age. ?Being a male who is Black or is of [place] or sub-Saharan descent. In general, screening is not recommended if: You are younger than age 40. You are between the ages of 40 and 49 and you have no risk factors. You are 70 years of age or older. At this age, the risks that screening can cause are greater than the benefits that it may provide. If you are at high risk for prostate cancer, your health care provider may recommend that you have screenings more often or that you start screening at a younger age. How is screening for prostate cancer done? The recommended prostate cancer screening test is a blood test called the prostate-specific antigen (PSA) test. PSA is a protein that is made in the prostate. As you age, your prostate naturally produces more PSA. Abnormally high PSA levels may be caused by: Prostate cancer. An enlarged prostate that is not caused by cancer (benign prostatic hyperplasia, or BPH). This condition is very common in older men. A prostate gland infection (prostatitis) or urinary tract infection. Certain medicines such as male hormones (like testosterone) or other medicines that raise testosterone levels. A rectal exam may be done as part of prostate cancer screening to help provide information about the size of your prostate gland. When a rectal exam is performed, it should be done after the PSA level is drawn to avoid any effect on the results. Depending on the PSA results, you may need more tests, such as: A physical exam to check the size of your prostate gland, if not done as part of screening. Blood and imaging tests. A procedure to remove tissue samples from your prostate gland for testing (biopsy). This is the only way to know for certain if you have prostate cancer. What are the benefits of prostate cancer screening? Screening can help to identify cancer at an early stage, before symptoms start and when the cancer can be treated more easily. There is a small chance that screening may lower your risk of dying from prostate cancer. The chance is small because prostate cancer is a slow-growing cancer, and most men with prostate cancer from a different cause. What are the risks of prostate cancer screening? The main risk of prostate cancer screening is diagnosing and treating prostate cancer that would never have caused any symptoms or problems. This is called overdiagnosisand overtreatment. PSA screening cannot tell you if your [...] cause unnecessary stress or other side effects. Questions to ask your health care provider When should I start prostate cancer screening? What is my risk for prostate cancer? How often do I need screening? What type of screening tests do I need? How do I get my test results? What do my results mean? Do I need treatment? Where to find more information The [employer]: www.cancer.org [employer]: www.auanet.org Contact a health care provider if: You have difficulty urinating. You have pain when you urinate or ejaculate. You have blood in your urine or semen. You have pain in your back or in the area of your prostate. Summary Prostate cancer is a common type of cancer in men. The prostate gland is located below the bladder and in front of the rectum. This gland adds fluid to semen during ejaculation. Prostate cancer screening may identify cancer at an early stage, when the cancer can be treated more easily and is less likely to have spread to other areas of the body. The prostate-specific antigen (PSA) test is the recommended screening test for prostate cancer, but it has associated risks. Discuss the risks and benefits of prostate cancer screening with your health care provider. If you are age 70 or older, the risks that screening can cause are greater than the benefits that it may provide. This information is not intended to replace advice given to you by your health care provider. Make sure you discuss any questions you have with your health care provider. Document Revised: 03/16/2022 Document Reviewed: 03/16/2022 [employer] Patient Education 2022 [employer]. Follow Up Care 09/07/2023 09:45:21 With:ANNE-MARIE VARGAS, Rishi Herrera, URL Address: [address] [place] [address]- When: Unknown [facility] 09-07-2023 Hospital Discharge instructions Patient Education 09/07/2023 [...] urethra. Follow these instructions at home: Take xgni-tkp-iapatag and prescription medicines only as told by [...] provider. Document Revised: 04/08/2022 Document Reviewed: 04/08/2022 [employer] Patient Education 2022 [employer]. Follow Up Care 02/23/2023 08:58:30 With:ANNE-MARIE VARGAS, Rishi Herrera, URL Address: [facility] [employer] [address]- When:Within 6 Month(s) Comments:w/CHINA [facility] 12-09-2022 Note [phone] [id number] [facility] 12-08-2022 Note Patient Education Ma terials Follows: [facility] 08-21-2022 Hospital Discharge instructions Patient Education [...] one of these risk factors: ?Being of -Filipino descent. ?Having a family history of prostate [...] you: Are older than age 55. Are -Filipino. Have a father, brother, or uncle who [...] 07/01/2018 Document Revised: 09/02/2018 Document Reviewed: 07/01/2018 [employer] Patient Education 2020 [employer]. Follow Up Care 06/19/2022 11:23:29 With:Rishi XIE MD, URL Address: [address] [address] [address]- When: Unknown [facility] 05-28-2022 Hospital Discharge instructions Follow Up Care 05/28/2022 13:08:39 With:Rishi XIE MD, URL Address: [address] [address]- When:1 month [facility] 02-25-2022 Hospital Discharge instructions Patient Education [...] including vitamins, herbs, eye drops, creams, and ewbe-sli-jpjcdxi medicines. This also includes: ?Medicines to assist [...] 10/23/2005 Document Revised: 09/02/2018 Document Reviewed: 06/27/2018 [employer] Patient Education 2020 [employer] 02/25/2022 10:56:19 Calorie Counting for Weight Loss [...] 09/20/2006 Document Revised: 06/09/2019 Document Reviewed: 08/20/2017 [employer] Patient Education 2020 [employer]. Follow Up Care 01/15/2022 09:35:57 With:Rishi XIE MD, URL Address: When: Unknown [facility] Evaluation + Plan note No data available for this section [facility] Evaluation + Plan note Future Appointments Appointment Date:08/21/2022 08:15:00 AM Scheduled Provider:Rishi XIE MD Location:[facility] Appointment Type:URO Office Visit Appointment Date:10/20/2022 08:30:00 AM Scheduled Provider:Rishi XIE [facility] App[facility] Type:URO Office Visit Diagnostic Tests PendingPSA Free & Total 06/19/22 [facility] Evaluation + Plan note Future Appointments Appointment Date:10/20/2022 08:30:00 AM Scheduled Provider:Rishi XIE MD Location:[facility] Appointment Type:URO Office Visit Diagnostic Tests PendingPSA Free & Total 08/21/22 [facility] Evaluation + Plan note Future Appointments Appointment Date:10/20/2022 08:30:00 AM Scheduled Provider:Rishi XIE MD Location:[facility] Appointment Type:URO Office Visit [facility] Evaluation + Plan note Future Appointments Appointment Date:03/21/2024 08:00:00 AM Scheduled Provider:Rishi XIE MD Location:[facility] Appointment Type:URO Office Visit Diagnostic Tests PendingPSA Total 09/07/23 [facility] Evaluation + Plan note Future Appointments Appointment Date:06/12/2024 10:45:00 AM Scheduled Provider:Rishi XIE MD Location:[facility] Appointment Type:URO Office Visit Diagnostic Tests PendingPSA Free & Total 03/21/24 [facility] Evaluation note No assessment inform ation available [facility] Work Phone: Hospital Discharge instructions No data available for this section [facility] Progress note No data available for this section [facility] Summary Purpose Family History No Family History [...] if you have any problems. -Office number [phone] Additional Source Comments (unrecognized sect ion and content) No Status Records FoundNo Status Records FoundNo Status Records FoundNo Status Records FoundNo Status Records FoundNo Status Records FoundNo Status Records Found INFORMATION SOURCE (unrecogn ized section and content) DATE CREATED AUTHOR 03/23/2018 [facility] DATE CREATED AUTHOR AUTHOR'S ORGANIZ ATION 03/23/2018 [facility] DATE CREATED AUTHOR AUTHOR'S ORGANIZ ATION 11/07/2022 [facility] DATE CREATED AUTHOR AUTHOR'S ORGANIZ ATION 02/16/[address] [facility] DATE CREATED AUTHOR AUTHOR'S ORGANIZ ATION 08/04/2023 [facility] DATE CREATED AUTHOR AUTHOR'S ORGANIZ ATION 03/30/2024 [facility] EPIC DATE CREATED AUTHOR AUTHOR'S ORGANIZ ATION 04/11/2024 [facility] Care Teams (unrecognized sec tion and content) [...] BE BASED ON THE PRIMARY CLINICAL RECORDS. [facility] [employer] [facility] provides no warranty or guarantee of the accuracy or completeness of information in this document.
[2024-06-02 10:09] LABS: PSA, Free 0.45 ng/mL
== END 2024-06-01 06:46 | disposition home or self-care (01) ==
LOC: LAB 06:46
PROVIDERS: PCP Family Medicine; Visit Provider Urology
DX: N40.1 Benign prostatic hyperplasia with lower urinary tract symptoms (principal); R97.20 Elevated prostate specific antigen [PSA]; Z80.42 Family history of malignant neoplasm of prostate
CPT/HCPCS: 36415; 84153; 84154

== ENCOUNTER 2024-10-12 07:22 | Outpatient (OUT) | payer OTHER, SELFPAY ==
[2024-10-13 04:08] LABS: PSA, Free 0.48 ng/mL; Prostate Specific Ag 6.2 ng/mL (0.0-4.0)
== END 2024-10-12 07:23 | disposition home or self-care (01) ==
LOC: LAB 07:24
PROVIDERS: PCP Family Medicine; Visit Provider Urology
DX: N40.1 Benign prostatic hyperplasia with lower urinary tract symptoms (principal); R97.20 Elevated prostate specific antigen [PSA]; Z80.42 Family history of malignant neoplasm of prostate
CPT/HCPCS: 36415; 84153; 84154

== ENCOUNTER 2025-05-04 07:24 | Outpatient (OUT) | payer OTHER, SELFPAY ==
--- OUTSIDE RECORDS SUMMARY | 2025-05-04 07:28 | XMS_ITS | CCD ---
Author Organization [facility] Inform ion Partnership [facility] Care Team Providers Care Client Solutions Director Name Role Phone REANNA, ADORE Unavailable Unavailable WILLOW, JESE S Unavailable Unavailable REANNA, ADORE Unavailable Unavailable WILLOW, JESE S Unavailable Unavailable VIRY ORELLANA Unavailable Unavailable WILLOW, JESE S Unavailable Unavailable Marc Whitaker Attending Provider Unavailable Sean Miranda Primary Care Provider UnavailJOHNATHON Adame Primary Care Physician [phone] MD Rishi Xie Attending Provider MD Johnathon Gallegos Primary Care Provider [phone] Rishi Xie Attending Unavailable NadereJohnathon clemons Primary Care Unavailable Rishi Xie Admitting Unavailable Rishi Xie Admitting Unavailable NadereJohnathon clemons Primary Care Unavailable Rishi Xie Attending Unavailable Rishi Xie Attending Unavailable Johnathon Gallegos Primary Care Unavailable Rishi Xie Admitting Unavailable Rishi Xie Admitting Unavailable NadereJohnathon clemons Primary Care Unavailable Rishi Xie Attending Unavailable NADEREDeonte, DR JOHNATHON Hunt Primary Care Unavailable NADERER, DR JOHNATHON Hunt Admitting Unavailable NADERER, DR JOHNATHON Hunt Attending Unavailable NADERER, DR JOHNATHON Hunt Consulting Unavailable NADEREDeonte, DR JOHNATHON Hunt Primary Care Unavailable LEA MARQUEZ Attending Unavailable LEA MARQUEZ Consulting Unavailable LEA MARQUEZ Admitting Unavailable Johnathon Gallegos MD Primary Care Provider CAMILLE ANTONIO Attending Unavailable JOHNATHON GALLEGOS Primary Care Unavailable CAMILLE ANTONIO Admitting Unavailable NADJOHNATHON ELY Primary Care Unavailable JOHNATHON GALLEGOS Primary Care Unavailable JOHNATHON GALLEGOS Attending Unavailable JR. GUERRERO GEORGE C Attending UnavailTRISTEN Mirza Attending Unavailable JOHNATHON GALLEGOS Attending Unavailable JOHNATHON GALLEGOS Attending Unavailable Rishi XIE Attending Unavailable Rishi XIE Attending Unavailable Rishi XIE Attending Unavailable Rishi XIE Attending Unavailable Unavailable Unavailable Unavailable Allergies Allergy Classification Reported Allergen(s) Allergy Type Date of Onset Reaction(s) Facility (1 source) No Known Medication Allergies; Translations: [No Known Medication Allergies] Propensity to adverse reactions to drug (disorder) [facility] Repository Medications Current Medications Medication Drug Class(es) Dates Sig (Normalized) Sig (Original) cetirizine hydrochloride 10 mg oral tablet (4 sources) Histamine-1 Receptor Antagonist Start: take 10 mg by mouth once daily Cetirizine Active 10 MG PO Daily September 14, 2019 1:00am hydroCHLOROthiazide 25 mg oral tablet (14 sources) Thiazide Diuretic Start: take 1 tablet by mouth once daily hydroCHLOROthiazide (HYDRODiuril) 25 MG tablet Indications: Essential hypertension, benign (CMS/HCC) Take 1 tablet (25 mg) by mouth Daily 90 tablet 3 01/03/2025 Active Start: 01-03-2024 take 1 tablet by rogelio th once daily hydroCHLOROthiazide (HYDRODiuril) 25 MG tablet Indications: Essential hypertension, benign (CMS/HCC) Take 1 tablet (25 mg) by mouth Daily 90 tablet 3 01/03/2024 Active Start: 08-21-2022 take 1 mg by mouth o nce daily hydrochlorothiazide 12.5 mg Cap mg cap(s), Oral, Daily, Refills(s) 0 Start Date: 08/21/22 Status: Ordered losartan potassium 100 mg oral tablet (20 sources) Angiotensin 2 Receptor Ifeanyi Start: 01-03-2025 take 1 tablet by mouth once daily losartan (Cozaar) 100 MG tablet Indications: Essential hypertension, benign (CMS/HCC) Take 1 tablet (100 mg) by mouth Daily 90 tablet 3 01/03/2025 Active Start: 01-03-2024 take 1 tablet by rogelio th once daily losartan (Cozaar) 100 MG tablet Indications: Essential hypertension, benign (CMS/HCC) Take 1 tablet (100 mg) by mouth Daily 90 tablet 3 01/03/2024 Active Start: 05-25-2022 losartan Oral, Daily Start Date: 02/25/22 Status: Ordered Start: 09-12-2019 take 50 mg by mouth once daily Losartan Active 50 MG PO Daily September 12, 2019 1:00am niacin 250 mg oral tablet (12 sources) Nicotinic Acid Start: 09-14-2019 tamsulosin hydrochloride 0.4 mg oral capsule (15 sources) alpha-Adrenergic Ifeanyi Start: 06-24-2023 take 1 capsule by mouth once daily tamsulosin (Flomax) 0.4 MG 24 hr capsule Indications: BPH without urinary obstruction Take 1 capsule (0.4 mg) by mouth Daily 90 capsule 3 12/29/2023 Active Start: 06-19-2022 take 1 capsule by mo uth once daily tamsulosin 0.4 mg Cap 0.4 mg = 1 cap(s), Oral, Daily, # 30 cap(s), Refills(s) 11, [id number], 178, cm, 06/19/22 10:33:00 EDT, Height/Length Dosing, 87, kg, 06/19/22 10:33:00 EDT, Weight Dosing Start Date: 06/19/22 Status: Ordered 24 hr verapamil hydrochloride 240 mg extended release oral capsule (20 sources) Calcium Channel Ifeanyi Start: 01-03-2025 take 1 capsule by mouth every twenty-four hours at bedtime verapamil ER (Verelan) 240 MG 24 hr capsule Indications: Essential hypertension, benign (CMS/HCC) Take 1 capsule (240 mg) by mouth at bedtime 90 capsule 3 01/03/2025 Active Start: 01-03-2024 take 1 capsule by [facility] every twenty-four hours at bedtime verapamil ER (Verelan) 240 MG 24 hr capsule Indications: Essential hypertension, benign (CMS/HCC) Take 1 capsule (240 mg) by mouth at bedtime 90 capsule 3 01/03/2024 Active Start: 02-25-2022 verapamil 240 mg Start Date: 02/25/22 Status: Ordered Start: 09-12-2019 take 240 mg by mouth once amanda y Verapamil Active 240 MG PO Daily September 12, 2019 1:00am Vitamin B Complex oral capsu le (8 sources) Start: 02-25-2022 Vitamin B Comp bismark oral capsule Oral, Daily Start Date: 02/25/22 Status: Ordered Problems Active Problems Problem Classification Problem Date Documented Da te Episodic/Chronic Administrative/social admission (3 sources) Encounter for pre-employment examination; Translations: [Encounter for pre-employment examination] Onset: 02-25-2018 Episodic Disorders of lipid metabolism (8 sources) Dyslipidemia; Translations: [Hyperlipidemia, unspecified] Onset: 12-29-2023 12-29-2023 Chronic Essential hypertension (20 sources) Hypertensive disorder; Translations: [Benign essential hypertension] Onset: 12-29-2023 02-25-2022 Chronic Genitourinary symptoms and ill-defined conditions (6 sources) Urge incontinence; Translations: [Urge incontinence of urine] Onset: 09-06-2023 Chronic Genitourinary symptoms and ill-defined conditions (10 sources) Dysuria; Translations: [Retention of urine] Onset: 06-06-2024 04-27-2022 Episodic Hyperplasia of prostate (15 sources) Benign prostatic hypertrophy with outflow obstruction; Translations: [Benign prostatic hyperplasia with lower urinary tract symptoms] Onset: 02-25-2022 Chronic Osteoarthritis (20 sources) Arthritis; Translations: [Osteoarthritis of joint of left shoulder region] Onset: 12-29-2023 02-25-2022 Chronic Other diseases of kidney and ureters (2 sources) Urinary tract obstruction; Translations: [Other obstructive and reflux uropathy] Onset: 02-25-2022 Episodic Other gastrointestinal disorders (4 sources) Dysphagia; Translations: [Dysphagia, unspecified] 09-14-2019 Episodic Other gastrointestinal disorders (1 source) Dysphagia, unspecified; Translations: [Swallowing painful] Episodic Other gastrointestinal disorders (8 sources) Pharyngeal dysphagia 02-25-2022 Episodic Other non-traumatic joint disorders (8 sources) Derangement of left shoulder joint; Translations: [Other specific joint derangements of left shoulder, not elsewhere classified] Onset: 09-14-2023 09-14-2023 Chronic Other nutritional; endocrine; and metabolic disorders (1 source) Overweight in adulthood with body mass index of 25 or more but less than 30; Translations: [Body mass index (BMI) 27.0-27.9, adult] Onset: 02-25-2022 Episodic Other nutritional; endocrine; and metabolic disorders (8 sources) Body mass index 25-29 - overweight 02-25-2022 Episodic Other screening for suspected conditions (not mental disorders or infectious disease) (20 sources) Encounter for screening for malignant neoplasm of colon; Translations: [Raised prostate specific antigen] Onset: 02-25-2022 Episodic Paralysis (16 sources) Cerebral palsy; Translations: [Cerebral palsy, unspecified] Onset: 12-29-2023 02-25-2022 Chronic Residual codes; unclassified (7 sources) Family history of cancer; Translations: [Family history of malignant neoplasm of prostate] Onset: 02-25-2022 Episodic Residual codes; unclassified (8 sources) Family history of prostate cancer 02-25-2022 [...] Test Name Value Interpretation Reference Range Facility Provider Letteron 02-15-2025 Provider Letter Provider Letter February 15, 2025 DMITRI ARTHUR [id number] [place] [address] : 1965 Dear Dmitri , We have been trying to reach you with no success. You have an appointment with on 03/20/25 which will need to be rescheduled since he/she will be out of the office that day. Please contact the office at the number listed below to get this appointment rescheduled at your earliest convenience. Thank you for your prompt attention to this matter. Sincerely, [facility] [address] [place], [place] [address] [facility] Coding Summaryon 10-19-2024 Coding Summary HTMLBase 64 QqlirjntFEi4hGk+PGhlYWQ+P G5WIZTaB69ohYTykA8bV1CGJS lOSywgQVBQTElOSyIgbmFtZT1 kaXNjZXJu IC8+ZE4tPRBoThgysJEdi0Q7t PG3P85gye1uMZasxHK8ZHWwTb Cujwwmy1vgpEr8PPtxDkkyOiC t ZMXsyT71RGB7oG73Ms62rWDff BIfk9veeTu4BzDqCJZmIUX0rB zeWPdqb2TtAYYhK73zhFZck1H 6 XPZjkFvzkPUrRzPdgLC9oS7lD Vygjbpcq1vqsjssCae3rp78rR Zzk6V6aIO4A0BvosQ9YVReiHM g KnovbXZRdW8taffwr9kytbwvW hGwYNBbGVi5HFi8PSIqxBcnQr PuJB65IYT4OKTrvaOfE0SeIDL s wNaoNyW0y5W8Kc2MT6ELLhdmF 1VNTUFSWTwvdGQ+CE69zu12E2 KiNybvUnd6MZWlFFU3dOL6lG6 n OOUvYEyjr7G6pIE0B8UntaChz q0rn8qiTVKiTAjmN40xqIZns4 B4BXRmrWJ4OYJvyZvjFxBdsP1 3 Oyc+RXDkzNigm1OmTynmg9rdw 3cqfIo3LlzvUXEmxnPjhCazCH D5d4IeVk5qMVQgjKG8tDB9tP9 i AoEcXnR3DPbwS300BwPxtYFgM axtW45aL3PnrDM+NTXwBhi6VJ TzcRrpKX3tR0PwNGImrccgwSV m bGtrVR2cAQBxtmaiCVKokD8xW EVaL0n8NoEsMqF2GZrbY8MeTM FtyhjdKw37gK2hEbBfSdU7GJh u Q7FcacG8IHDaoFQnXUofRDR8R 50wb0U3LSCgPYXxVKT5aFW8fZ 1hbGlnbjogbGVmdDsgdmVydGl j QIjiECamD046CCFebBvlDfSfW GluZyBEYXRlOiAgMDEvMTYvMj AyNTwvdGQ+GHHzITZ0pJptLKZ n vIQxVDqeCd4kqHqcyXfsEC0wX WJynzveFXYomR0kFAVgnTUfqD xwVU5zFZPjccxfm490DpAsDDQ 0 DXLuhSIqW1MgzJ3sYpJdAZIoH HAaL1FmpJAuUNlpH587BOjvKt Z4WZBcnmXeU7OhXVYgbCaqPbH 0 n2O1Hp9Uc3XjdbnsA0QdsRLxO ySjTsflAVh2T9KiGvsywPI+PC 42TKSjLV46UVt1CZG2aGcmUVm i YBBeP1SkmC1cVnNuCOZzFIMkU yc+PHRhYmxlIHdpZHRoPScxMD AoIzBnjWhxFY8hOw5nERXdORF v jLqrqJQgRfTmn4cjYGSvVPfmD Q0kdWjmL8SaqHQ7TZLad2h4Rr 31S87hZ6IrlIL+IGOjoEC4gBA 0 sF5qMrHlShY3YBlfT713CrAso WIkNfofc5cby0vowSp0XhI3GC CnkvJqfVeuJMT0p8PqMj07K44 s IHdpZHRoPSIxNSUiIHZhbGlnb h5pdN9sEc5+POGclUU3jJT1tY 3vUvAtQaM0WMogT044WrRyfDJ v Ltkxq8mpv1qicHt3PgCfLOWzi pCyoCfjZZX0t1TzHw47J2VfmY yor3OwTqr8tr55hFFiu7U8tBV 9 Z3XlAPSxxbpikXQzkCrfIB4oW ZYghuosGEHzcB8uLMIjB3t0Ot DbHhZ1VAixD1AzrgD9SRVdaOF g DTLuvQARyV7ybpplh9qtcwikS dTlPNCeHIy7VQj1NOHpiNgvGv SaGZX5OdI1XWM3kBPphR2ulAc n qhsloE7sHfd+EAS0iKEllFQPH M1iHktmiIR+TFCgNOI9rIpoOO xtSNTvoP1kEEZvF4y0TiFbDvQ 1 ZGahW9VxksS6VUQswDSuIOTvl MJThR5ytqqnc5krvysrHkUeSS MiTFx1GIo1NVYwkNltGkOgGZW 0 BqV4QAE8pEMvsX4uxWdzuozex G9wOyc+CgjwdChqYJP7XPi2X0 BoOdx0CCNapGybEG2bpIFzMFe u Ew4hdJzfmJlpKI6wLGFqpehed 473VoFbf4qqUZJxeFEkMInbJY Z7G85qf7C4FGMmNURiRDH8bSL 4 pS3yxCisuubdhWTgqRkqzcRcw IdtUHvwIFesP175LGSlyIvsQx FsZVo3M7HkYdd9OXCadZvkXO0 n kVMaOUvbQq4ldJnfzBgrGI1dY AKmboick194HpZla6tnXFBhrK IgKQpaIIN3I79ah8Z2VQZiTBC w FXW8nRT2hB0rkJxiecibyOCrn KlzqeBrbYbgRIigNDdnX825FP CizQtzMbFyrVj8C8KuGnn0ZSC z yRbdKJ9guURnHYnaEm2bxKsts BvrWA3wJFYtoytlx759FtVjc6 ouMUSxcHOrODeiSOI7F04nj5O 6 YEEpEJWmCNG9bLU1gY0rjWqqk jogbGVmdDsgdmVydGljYWwtYW fcN109VXVkpUygAuJkbDyytmF g GMqrLTw4A1XlAxwggIB+PC90Y ZJrNP09pKUsdWHxp9gvmEg9Mh LyHQGePYZ5uTwiBMfuv7OtPQT t U95mwLEmz3I8FAHkzTsihRUzG jFqfLT2nM8uYTlgyqful1vpmm rjSnoil6yizs73aK47D91xOWd p IGHdLHOyVAPnNSSvrErofv3xq G9wIi8+AWUpiRO7nKH4hB7aKN MyFaD8KAilN807UnHqlFGxMsa j y6amh4dhjLy8AiE5CIPtyfPoe GvnYFH4z6RmVu59U17cVXlbXQ XjFZDgGPWvLOScoTiixc7anG3 w Ii8+WRAmeUL8yIA7xG6gOoRdB iO7MCxzK734BiFbjIFsFsjkF6 8cE7OkfAL+SBFrSpj1DWIwtFw s WY1vyCRtRVeuWg6uEOB6JpFwP lZrSHncW0CmGMCfiemoxrssxU W5PLFoYNWwhX51Ng7xyPrtHCP w cNVGlY6enkqtg6kiygcpKwHtQ XNdVUt9OTq1ZUGpqGunQdZlQT K3KoI5FDI4vSQrjZ2msRykxpz g qC3fZ6QbVOAfnqdhVr61lR6yT oWvTqQ8MQtfNst+IxGIDU0EOw wgTUlDSEFFTCBEQVJJTjwvdGQ + ZFGoEFK2tNjyIIfiFASimN4gE JGtN2h9CuHxEbO1LLqwE5ZcPK XywfakOy81fW3ePvXfSqJ4RHx u U4OvfjD3PQXrxNQpHEyfLGF1W 29nx1B7GELoJOTxVSO5uCC1wX 1hbGlnbjogbGVmdDsgdmVydGl j NVndEWibR628BKAajKqvOuQ9S iIgWqG9XcX4A4OfYuu3NMHnuX urIP4buVFrNXugQp4ojWyapLk g VS7eWMDviddjOTKckG6sSXZhk XMolBnqYO7mSXDwiygyl337Gc RjLYF1IKMacZTsA2ShxR1hMcC j KAJbDUGrO5UrwUHlQTeqX958V EnhEpA5CBXkohHuC8UiJAScuI dtEyA6n0H1Jo37WGDYEIQyluk v dGQ+OAHlGGR7rKzuIEyeAMNzx A7oBQNhN1y7GqQgPhO2LVusU2 UgAKTtfdmxHu83hR2oNiUgCzS 1 WWfxJ0YplzG1JZJqiHSiCEgfU DQ9H57ia7L9GBUdHVGnPUT6pU F9pQ4avZhcuduukMPidRhwppY y qYmnYMgiAJqtM727ICQdhLtjX u4KXMT3B9FcAyt0HRIbsDfzDN 2mdVEsBPtbBc7ofBzqfLteSU7 w BIGjrdqlBMVccD2dUEFibVIrt VfuZZ0fSGYcjzxnk621ZtQvBK G9RJNjfIEkB5FmmT1xWdNbEFB w XZFwG8ZfnEUgPGdkV694AAlaP zO7FZDakiRzR8EtSIIelNwqMi Q9f2P8Be6TnGSbK7PeN6q3C7P k PjwvdHI+MO66XYYvGM58rFYml IMez9ijdLe4VaEqALPxNRA6xJ oaOAvou5QbCLShW03feMIml6K 6 DWObsQfsdGYvUcLzsSJ2hE1mC Cxtzmppz2juafngWxfda9xjhr 62wC23B38oVOmhZJUxLLIzPFN i AFOtpEoohl1xvJ7uDw4+PGNvb MW0qAI6hZ0nSqPxLbT5OUetS1 49FdOhmVZzBibai7jlm1pkyNa 9 DjBmYJZzjtGubJdqKZH8d6MaW o83O92oPHmwXOMeJAUrIDLdBQ QdyNwwmv0qgN7iGs2+MH8ff6s n zt62lI44fCH+MOUiLUV4tHhmS XceLXEubD0nXEicYnY8HTAqFy ObeV48uRWnFBblXo1fuJzegZc g AI6iMRGdphwzp698FkXvn5ecX PDugKYxPVrkRJA1B27ah9Z6VR XjPEInGPR3qNG9jH9qbKofhlu g bGVmdDsgdmVydGljYWwtYWxpZ 409XGAaxFbyRaApzADqA4blsu EAKP7pSxlknUU+SHXvBVM9bEd l VDkaECGuuG3yLEDuD3f2GyFhL lO6VCtaF1VemuR8DXFzvHOgDW EqxOEDeS5cvdckf2lmzqpyNzG w NVAoXTc7WSa8EUDwgWiwRbIfZ NF5DcH7OYF9iPCveN1eyOfxcu siwF6dZed+RklOOjwvdGQ+PHR k PEW0lZmjDUtkISVxcD0oBXTaT 7o2RlJjFnL4FAisQ9UvneX2AZ BpeAEwSYUqiILQxO0pzseyy0m v ktjmDsThASNkDUo4RBt1HPTwq MhyRqEmTJR6UmC0DEN2uHHhgX 2hxXetjnjigR1nAdz+TVJOOjw v dGQ+NMCbXDW2pIapVYczIXNhl Z4yBLTxV5k2YqZyBnJ8DGgnB3 FsvhR5MRTlmLBkYTUtaKDNmB2 l lzfuc8qycbhnOpNwGPCoOWp6T Pg7QKHdbBbjCeGeAFH3CrT5BC U2eSEkfS7wgHswrmbgvZ5fIxt + NOD9XJR3KS09GH88J6WjOehxm GFibGU+PHRhYmxlIHdpZHRoPS vdRSHyDfSvoRudWK0wZw0wSNV y LWN (more content not included)... [facility] Coding Summary HTMLBase 64 KfzxmazoLZv7dSi+PGhlYWQ+P V7HFBScT23jiCOkrK9tK4QOWV lOSywgQVBQTElOSyIgbmFtZT1 kaXNjZXJu IC8+YJ9lWNCxKzsevRFwd5A1r IB8H68hyi3qTWsksUA8DKKlPp Acvlmkq2tfkSn7XIcbFhtdBiT t CZFudX86FYE2jB42Mr83rZNqv UWwe8atcGh7JqLgJQFrYVQ6aU ocTYstk1HwHBDgJ64jyICtr6O 6 PKUuaUwagQEfGoQzgIL0kD6cK Mxywkrim5chvluaCrc7uw02bI Iph4M5iVD4N2MepaE3BZRvpKS g AcypdZOQsO7ktvfdu4vifhxbS sZwBCDrTZr7LKq9LWOhwJpqSd UnOK53DXR2VIPmefBcW5KpOWV s tXjiRuY0v1V8Ca6SH3EXSnttF 1VNTUFSWTwvdGQ+XB18xe82S8 LxNmhiVjy3NIWxGEC9lIC4lO4 n TMTzNQrqc0Y8pVI3G5IffmXfz k5be2tpXEPsBVjgP91lrFUus8 H2VNWkpJQ3DPAqmJagOyPjuA6 3 Oyc+BEAslXokz4FjHglzx9rrr 6wzlEr9SrkjGMVkwiVgpJkbVX N3x6WfUk6aGALleBY5iFP9vP9 i AxMxTjA8ENnwG078XuIjeYTwY yjnA63jT5EgtWC+TRKjFpm5XY EuvXvpEP8zZ4DuIXZwsnkngLN m uMtdLH0kHIZnrouxRQRruO7cS MZnC4k4ZrGfXnM3SWzsR1LbJS NnoqarPt71sV2kLvGvAeZ3ZZn u A2KkmnE0LIPkwTKgZKglWWG4T 06tl0F6DXGeGPOfPHN7nLT0cX 1hbGlnbjogbGVmdDsgdmVydGl j NSrhMOuaV374QEBlhBizAjXeL GluZyBEYXRlOiAgMDEvMTYvMj AyNTwvdGQ+SEOsQWZ1zZuaFLX n tGIwFFhyQc5ekBtzjMurQZ3rA IPgnbnmYOGmlL2nGSNmvEMlyR wxFA4rKWKopahro133NsXeWIQ 0 NKVxtFJkO6HanR4xBlOrXONvY WSxF3SfwSQwUYojH942EGofVw X5WPLtycVyD1IkLQCdhUcqWrA 0 q0B9Fw6Qb6VqtdhgA8XnhRQuZ mLlHezbWLq6Q7YkYeeunHZ+PC 75WKJkKO05GRu6DKR9xVkfGUb i KFLqP8FuzA1tOhYzITYnOGMbO yc+PHRhYmxlIHdpZHRoPScxMD IsVuPvpTyeDP0vYa5kSHHyASI v cWevkKIpWhFdq9mpGWTqQCeiJ F2enEkgD3TxtUA9KAMze5l8Lk 54G86jG5NzeSF+HCOkiPP4aXK 0 oR7iMxDcNsO1LJlnW229KySkw PUxPrdqk0wve5chdNq8SbH2LP UjboZtiMhyTYG6y9WxHa11B82 s IHdpZHRoPSIxNSUiIHZhbGlnb y7hqN3sTr7+FXJmkHS8gYB5sW 2iDzZgHcU3OWsjA687WlSwlPS v Qubic1ulz2idaAy6LaKsPPMws zCpxGkaDEW7u6VxUv15H5YdqR keb3ClPjc2tc50bLTjc7C1wSQ 9 Z0PdFWWwvwsttPUyqYafYS1fD VMaywpvVUWnhC6fEXLjF8c2Bv NuOhV1JZdkQ0LxutO6TZUihZF g MYCzaMRGfN3cxgahd5ckpkwfY xFqCNYtSDw1LKk4WWOzcCwsQj LsZYX5BfL0ZSA0gESrzX3hhEw n zplwoF0hPff+QUR8sRCjsOUFT L3gZkiynJO+SVHkKOO0mGowAS axLIPbkN5uWCRjS0w4ZtYqZyD 1 IPdmB5UtpkH1BPGypXLfQKSnn BTOzN8dxbkgt6kmqcogThNgLY RnMAz3PJc8TMGcxZynHhLmEZK 0 GaD3QVT9gGDcoQ4zdIjlowmpi G9wOyc+PgwwiCmcLQZ3UHu7N4 BeVte9ARRwzCjfIR8tqPLhCUy u Td4baQopxEudGR9hBTYrbncle 996WxSth7pzOSHadWGbTUzvVH M1N71yg5F2TOTxSEWcWGM1oHQ 4 nN3ljPiosptlkZDqpHgucbXnh KwaBOccWIivT248OJJncDxqOa DpKQs8B1JlIyn6AXNiwRefHN5 n hVTiJSfyAs4esEbijWkqBW3tB UFykuvvc194KbVwi4byUQJvfO GzFEsrZAM1C89od0Z0YUUyHJS w DFJ5kYH1nC9boBpolstfwAHsn BmegbGwxYeqTOexKUpeY330YW FxqWktTsWxxSm3E3RrMxq1YYC z vHjmUU0wkYNgJCvqZv5jvGzgf FqqKA6sCSXfgukne935ToBmg2 mrHAQgdPPwAVsfZZW4E45ab8C 6 DRDiDEVyEQM2sBP7eE3bfRrcv jogbGVmdDsgdmVydGljYWwtYW poN675DANbwDmsFuGukKibfiL g NVuxTYy1K7PdJlaorGV+PC90Y IEfXS74pZIwcWOax2ylpAe0Dn PfMYClTLZ2kTrgNOuol0DfWYW t Z34dxJRcc6U6UHTmzToxtMXtX hEjnLE3vW8rRIcvyqfhs9pcaf djUgtks8edni83wG02B90uYXq p GDPvBWEfAEUuFYLssZeokq8wz G9wIi8+MCTtzMV8sDK5oG4cJY HrJjS1VMeqG777ZjSdjOTdUof j s4nih1twnFp1NgR8KFCduzUwu SekQTK0z0EsTr41D60sFFygPE AlDYVvFWLgFZBnxLsiwf0ezI8 w Ii8+ZHZzbOB2eAB4zF1sKuBuC rJ4MRnuY660PfGqvDSjFzapA1 5pU8PchGQ+ELLvUac1WVLbyKx s DS4qhJHuODbtSq0bKOW1NcIaO mEaPTuiV5SlDPAqlnbqjekaoA Q6QOHpGOZklL21Ga1pcHmwCKI w lQLImL8mptfkv4dnqztjCfSoG AOiQWj5LQs4UBBgfVzhTaBbUS A3QkB6JTM2hCAsmQ9swWzgiud g rC4kO6XoPQGbfadqRw28qV4hV yOvXmR9IEruFes+YxMRMK4WQs wgTUlDSEFFTCBEQVJJTjwvdGQ + XOBzOED1lXmqNVctHTApeR0eJ VWgL0o5DwZwNyH0GJipP0QvQM JgigxeSq66wI6zViYlZrY4KGi u A2GnhiR8BERzcCTdBGzkOTZ0L 70pk3E1LHGvEBBgBTV9gEG7xV 1hbGlnbjogbGVmdDsgdmVydGl j JKieIYhpJ047RGLtiQbzJhB8U hUpRjZ9XfJ0M4TiCen3DTYjxT dqTR4rtABmBHfhXe1drTlogCy g KT9cHMQlkjlyGZQkgW1uTIOtk SIeaOzlNO6qZQKlapzzp640Tf LlOVH2LBKgyVEeB5BkgH6aGmF j ZTWfLJRxK7MqxRJhBCjfF209W PmoClN2GCIgpoIiX6FwHBDlvL eaCgE7m9R9Ke76ZOCQICQktzu v dGQ+JTKzOHF3xYpvEEokCQDci P8uPXHrT5n9YwVdItJ8KHzuW0 GuBDDnaigrNr02bS9yAjLvGzD 1 YQtlC0MdnpF0PNMhzDMsCDxlL BU8U38gt6F0VWAuYQXkCES9dM K3rB3alUclgdtlzTFmrQngrjT y wNkbXAiuGZvbB238YVQugDviI h8SZCN7X9FwKic7ZKOjnByjWY 0taWFdJGtbNj8zyYygfOoeFK6 w VPInixruEXUijV4uQJSzuLMii NhaLP9zGDZdfwuwp439QnLyKK J4PPSfvJVcK8FklE2bJyJrIZT w VYMpD6WmjNTlSJpdG623VQgqW kI3YKGbevIeM7BzIMSgbSyxDd L2d2K8Rm4ZuRApM6HlY3g3F7Z k PjwvdHI+DF51AOWkGB59mIGqn VLwj8vffQn4IhVfWAExHZB9xE mfNAdwi9AeGBVnM78dkXKoc5R 6 IZQctEczuQWxArFtiNK2gD8iF Xcoyohbr7owlanuOiduy4ohpe 70rN86N49iDWqdFENuZQNuXXZ i QVHfkIhrss9tyU2eTk8+PGNvb LY6iAR7uL4hMeLfJaV0RDmdF8 45WwAjrPHvQumyl8qtk5jmlNu 9 UmUwPWHybeFkpZodIQJ1z4ZiG n37M13tOOlyFNOoZDDnSIHpWH IbsFdjes9rxO6fIp0+LI4mz0k n ze44oG15fPE+VFZsGOD0kTmqG BbtQSLhuS7qOXesSvW5TTRnYe JhhF13aYRsWXdqVh2xzBqvjNw g SB6yOLAehhohy607OyLqj8pmS SXyjLCxJUwzMOY8X57cr8F5AK HmOFXsYOU8kKW5aC8aeOtiqvd g bGVmdDsgdmVydGljYWwtYWxpZ 153NVAyvYmlCgFpcBStU7kmue WMND7tZsfocJU+JTDzFYP6eZe l VHjgBCHcnW6tHIVhR1f9KdZwA gU9PHvvT9NtcfH3IXZeiKVsSJ XtoQXLdU0xhrlxd0bimxikClC w ZFAkLNg1TDw8JICfoYygKvTjT WU1PfE6GDG2wTDfcX3gdBkjmm zgeT1iFyf+RklOOjwvdGQ+PHR k DIR0yHopXJenGRLwuU5hHQKuP 3k4GdCnFtE6KQktI3UgmvG2HM WfwGOjASYcsMYZmD5hsnlvs5f v jomuSpFgDERtLKi1UVa5DYQaj UcsUiBpLBU4KjT0MIV7zAKdiE 2fxDnuaauvnY3xFsz+TVJOOjw v dGQ+IUHxQGT4xQroEJmkLWGge K5fQSWeE5i1NoGmZuX7HQeeH5 NfmpN6CYEwwBGzDMZviLOLvQ2 l ewuxe0trkflhFqNnLGDgLZh3H Sk4YUIhjXweNnPaJDO0WuF0BZ A3rZBylC9ddWrduapleM6gZrq + BBE6MEL9NN02CQ82L4GiLdopc GFibGU+PHRhYmxlIHdpZHRoPS fiDQInSoOhaZhaTL7uRr8sQTZ y LWN (more content not included)... [facility] Coding Summaryon 10-18-2024 Coding Summary HTMLBase 64 UzxywuwcHTc8xZh+PGhlYWQ+P J1UGYJmV43vhOZluD8iY3CXWS lOSywgQVBQTElOSyIgbmFtZT1 kaXNjZXJu IC8+GV9uHDYsQsaxrKYrx6I9v HV1Q51wgh8vUApsrVW2DUJqQm Eqikaiz3rpuFl4PMzsVubgYuF t XOEqbO89TBJ2bY09Fp07tMIid LAoo4obxRo0XtQsKPCsUKS0lI ruVKhkc9OkSNKiG82fkLTjf0O 6 XVPohMnbiCFlGeNdaZV9eH7tG Dovtocnu6uhnoizKng6vp85sI Nmc7K6hWW9G2PodpI6NNOvgAB g LlivtYBDaN4judmko9hrusjuX qBqAQGzLFp9QIv9DQSwtJpuCy PuRI82VSZ6FPNwuaJpN1ScRXX s rWclWuQ9j4Q6Po5BG7ESGgqvD 1VNTUFSWTwvdGQ+IN84wc29M3 WuYfymCqi0COXcPXP2qES2qB3 n GZJpWAvcl9X9tCP8W6VxabEfw n1kj1chHIUrRBdrS98thQEkp5 V3CQEabEL0OARorKwfJyJrzK3 3 Oyc+SHGioUput9VrButtg5fbg 9cktUg4KgsnEJObtqFttWovSR A9j8QkVn6pILKraCH3tGJ6fV5 i StYlAdQ4KHlfN652WtQufJRxJ tgyX31xY5VmqNG+RNJjUpg3XL LzcLezGR8uO2RfXBNzzrmftDK m eWcaIH6qUPCishkxUCZxlZ8kE CIiR9n2UeUcPgF5CBpyJ3JkMD PsgabkUa38mH9gRrIhJqT2JDi u V3GlkuW7CZJalDMoKTamNKH3C 81nb5G1NYJrMFHwBXM1gFR7oR 1hbGlnbjogbGVmdDsgdmVydGl j ULnoTQckY163EIFybEjwHyMfS GluZyBEYXRlOiAgMDEvMTUvMj AyNTwvdGQ+CUWnJNR2aWiqJSI n pFLkQTxvTo6eeCfffKymWP0yN WWlsvgrYCSdvQ3eENVzjEOhsW iwUP8qEPEpnazdj151PkGvRCN 0 XGVpkOKdF7HehV9cCmFaRHEdV QTeO9ZwvANiLGuoO797HMabHf Q8ZRWiomPoJ6EhDVNztNstUvD 0 f3A3Sk3Ot6YvafuwH4HqlYZdV bDcUbuiXKm5H3PgAbadvXQ+PC 23NNToVV25OFo7UGU3uHgbKKn i XQOcH8ScgN4vRnGhZCSdLVDhR yc+PHRhYmxlIHdpZHRoPScxMD IjJxUstEubTP6mSq2hUGPqLXN v eNldkGEeDqKqp6qxTDScRYmkH W6ceQotU1SokMX8UKFgd9s8Ky 98U71kL5DgkWG+ZQUyvCV2xJG 0 sJ4kIaLbSjY5GNfsJ255JfOty SQvGcweh3lkq1vteDh7OzX7BS QjxdQkqZxtACE2h3UxHe86J63 s IHdpZHRoPSIxNSUiIHZhbGlnb v3llD9cFl4+MNVzoXI3cMB9sN 4qTuUrOxY4GDvoZ967UsHhaEQ v Kajiu7xua2gjlAq8ItJsFGZfv iRcgFiwNYE7t2TkJd10H2DkhG fai4LpDhy5uw07oIIdh1P0bNL 9 P0GyYTAqclvriQPunCmlLV5iE PFcjotaSPDusB4iLRHoL7u9Rl EoXjT5LRyrF7GuwjU4XUUbxMK g CHDauJYUuS9myohky5uqlaxoP lIkPNHqSYe6KOs4FFYfpOkvId FpNWX7ZwK9LXK5wOErrO7inGz n hzjbmG2cTmy+NMW5ySAtsMUJK Y4oLirbpLI+CXRmMXA6qBguAX ptHCWriQ9pDMOgI0s7UtGfVaG 1 RUuaJ2EmkrF7AEDmlIKgVOExz RERhG2hvyxkc6hovcsxExNrOB AmCPu6YZl0WJLzsHvbOvYuDGE 0 VtF1SCY3xXLtpA8iaMqsekbgj G9wOyc+RqnpuJniXUB3WMi4Z9 EiIma8EIWgaIbrDN3yaDVpVWq u Ya6ynNcnvAonCU9nNDOszzpia 449YcXmy9ymVVThtLWzLGzsQN S0Y38vi1O2ISBnZPVfHSQ6yAZ 4 vO4hbNuwdyxbvYKklHexykKny GkvQFggCZltB282DYWrrVygSh LzAZr6E0VgTna4AGCrxWhtAZ8 n fTYgLDjlGg5fuQyndZrnVP3rL NNhigjyc607WiQdz0mdADRobQ EvVNkaXAC3E53pw9U6CJOxBAP w IUP1xGB5xY1rsQajoxxbhTPwb OfjwaYaeFkvHFjqQDsmJ408BX MjgYjgDcNguFa1L7LuJun3LLO z rTqhCQ4goPAxXWieZz8fbJbbj HgvPN7kYXGsyzpcu350KfDth4 crBKAauKVnDGceIVY6N80ql0N 6 DIIsTLYpQHE0kBC4wT3qdOiti jogbGVmdDsgdmVydGljYWwtYW qgK450AYSluRegPwJckXxflgJ g SZctLWz9Y9CzBlbgrTJ+PC90Y FStUM21kKCrmJBwe1rqgTq6Vd ZoBONjQTK9tIhhNGwkk7ZfSTS t K85unOUvl7W1QQCkfQucbEWcO xBbnMQ0rF0sWCpduoygi1fbsz vvVmqrd0spsj95lN62P38vZSe p SHErTQIuEUMxNATgbWpawp3us G9wIi8+ZULddVE0tES4pA3rYV GzWvI3QPthF049BlFbxPMeIgh j o6fez0wfoZb5WrR7TXPddbWhh CufOWV8v5HwJq40P74xRKixQZ MtZLMvDNOcGKOhzCqdij1kaC5 w Ii8+DEPshTY5fNX8sH7vOiQtD lV9IEyrL814QjByjGHoSqxgM1 4rD3VzeKD+ZULdZmu8MJLctHc s AE2ggQMnJYlfWi6lSJS4KxBaA aDvSTusQ5AzCUJpmbcwgqyiiT L3NDXyTEVcyL71Yi1dpBbdMJJ w gTLTdQ0apffav3qmtnqgUtQiP SGuXOk7KDt0NSPppHgiFtPjZW U9YsM2XLS8gLZrgX2jsOestjp g pM4gV6CjFZIjjqncMy90sK8uR tBzBeU3OOidOvu+QfSACB1HAs wgTUlDSEFFTCBEQVJJTjwvdGQ + SHPmEBT5qFwmZUlaUDEkoJ6hP PQvP1v2KyEsMqF4WCvbY7SyYD PuxqpaUl00dR6zVrCcYpL1QWz u S9TkamF1MQPjwCYuJFfhJUX1J 74ci4R8IEImGFHaZFV0vMD6tM 1hbGlnbjogbGVmdDsgdmVydGl j ANalEDlaJ638XNJrmThrXmZ6W zEaRrW5VyB7A2NlNxf2GNMtnQ mvHA4dbDKiZZakIl9lzMxkvIz g PZ1lNYXovkglGGNhlN0xEPPkj LQxeMjdAR7vTFSusxxfy014Ak ZtOZY8HDSncEKlJ1VngI5iQbH j JWKyXQKnI9EdvQCoPBjtB881O ObvNmC1CGYqbsZiT5PzZPIrsP bjOkK9v4B4Tq16WVYRIEOwswl v dGQ+EUFzPJU4hVeuSPpnOFBjm U8bKGYrV6p7JoLuYaD8CThzH6 GlBFLjtfckHl07eO9aXmNwUmL 1 CBfdU5EqhwL5JTScrQWySRhqQ HJ2M05xz3W2YVFgMCYnYVY7dJ T0tV6kbHwgjkhgbHIzgWxjrgD y kKnsTDohBJsvD799VYOglBppP v6BUJP8F2GgPyj4YFZcyFdbBY 9snJBeJMvlJz2jhJrowLiyDT7 w DHXdfmhsTTUzuD8aZGZsaODcu QfnBY5oSDHtzxypb710FjLyKB A8SIOtaLEcX2JqzN0vTrCaPIT w QMZyA2VvbOLhTLotQ551AVfeH uO0SYYbweNaA1LmPNGycAwyCj R7p4S9Da4UKCkzdLO+DA02kh0 8 Z3RxLjonVjl8FUZgTXP3wJN7l C3qGYFpDFybh3E6zVW2W5Dhfq Upfh9su7uwPQJpAKooK67xmLK w u2J7YYJqkLI9QVEjdUjqCgWsc G93Oyc+WUWneBcqt1RpWwxur5 goh7zqjMn9AzGtWKFvchSkzYb u NJP6u0YgVn64N28fGYelJVTzD YYlHKToEBApbRtaoo7lkM8pGi 8+THKgmHQ5rOM1aH2hDpUrVbJ 2 JHozG241HtIujLAkLbsmh9tjy 4ilpMn7QbGvQGCmmrLqdXimWL N9k5YnBd10E8TquRmkp6BtDwl 0 mk81eUQel7R2nBA7M9WfPSOpy ozubLOiwPmzOQ0mJYYonrzbDT RvaG0lELJkR4c7QdXgEnY1PMh u A5AehoP8OVCnaNXkDCTlqRSGj W5tajrla7tpoftpKvEnNEZfPC q5RYa4IMJwoFdiAzQqRVQ9QvH 2 QBF0dWElzD0yxGixbqgwmU2yX yc+BUb2l9utoMGqNN6osRB8RF 19LK26eUGcn9R2iBK0T0XpYIL p vcfgvnkvxQL0NEVhADChdC92T v2lpPtxGq2nKTMrYFM9LFRasR JwS2PrmR9iHjAgECMaTPLrA5Y l eSAlHWljF525ZBnhBqS5QDXmv aVvO4WeVLLfeGahXzU2a2Z1Xh 2HSD72NF94IP29iQCzk0C2sZN 9 L8KuUDYwsxorgwbhpHX7YLXcX RXnnZ63Il6vrNpaVs4jMFWrIY O9FXLseAIiI0OjzE7pHsYaRAC w BUHxT6EmfHOrXHawK141HXtrH mG1TPCuvuOgX5TbMOWlxRjcNv J4w5A6Fd1WGm60UG20PA72mHL g r2I2iTY6S0AvWJEzmefnoqtom LS7LADbJCVewY06Tf3baQoaTy 4mUTAjESC0ZTMttOOpS8PsmP9 y PeDbFBFfQUWqV9UykBZkYCgpX 752SMugKlN1LPQjkuFdL5HgPX JfeNzaYyB0c1L7Ap5FWMxptfs 8 L2YjZtbubLN+OO87QGUjHB27b BLauBZtt6pxkTl7BnYmYGHhQL Q1fVqwUAkjj5GrLNHzC58dyXM w c2U (more content not included)... [facility] Ambulatory Visit Summaryon 0 10-16-2024 Ambulatory Visit Summary Ambulatory Visit Summary DMITRI ARTHUR :1965 Visit Date:10/16/2024 Ambulatory Visit Instructions Your Diagnosis Elevated PSA BPH with urinary obstruction Family history of prostate cancer in father Your Care Team Attending Physician - PACO [...] adenoidectomy (1975). Discharge Vitals Heart Rate (Peripheral) 86 Blood Pressure 124/84 Height 178 cm Height 70 in Weight 96.0 kg Weight 211.644 lb BMI 30.3 What to do next Scheduled Follow-Up Appointments Wednesday 3:00 PM EDT With: Rishi XIE MD Where: [facility] [address] [place] [address]- You Need to Schedule the Following Appointments Follow Up with Rishi XIE MD, URL When: Where: [address] [address]- Medications What How Much When Instructions Unchanged tamsulosin (tamsulosin 0.4 mg Cap) 1 Capsules By Mouth Every day Unchanged hydrochlorothiazide (hydrochlorothiazide 12.5 mg Cap) By Mouth Every day Contact prescribing physician if questions or concerns Unchanged losartan By Mouth Every day Contact prescribing physician if questions or concerns Unchanged multivitamin (Vitamin B Complex oral capsule) By Mouth Every day Contact prescribing physician if questions or concerns Unchanged niacin (niacin 250 mg oral tablet) 250 Unknown, Oral Contact prescribing physician if questions or concerns Unchanged verapamil 240 Milligram Contact prescribing physician if questions or concerns Allergies No Known Allergies Problems Ongoing - Any problem that you are currently receiving treatment for. Arthritis BMI 27.0-27.9,adult BPH with urinary obstruction Cerebral palsy Dysphagia, pharyngeal Elevated PSA Family history of prostate cancer in father Hypertension Incomplete bladder emptying Urge incontinence Historical - Any problem that you are no longer receiving treatment for. Dysuria Patient Survey You may receive a survey via text or e-mail asking about your office visit. Please share your experience with us by completing your survey. We appreciate your feedback and thank you for choosing us for your care. Education Materials Prostate Cancer Screening Prostate cancer screening is [...] recommendations. In general, screening is recommended if: ??? You are age 50 to 70 and [...] have a 10- to 15-year life expectancy. ??? You are younger than age 50, and [...] In general, screening is not recommended if: ??? You are younger than age 40. ??? You are between the ages of 40 and 49 and you have no risk factors. ??? You are 70 years of age or [...] high PSA levels may be caused by: ??? Prostate cancer. ??? An enlarge (more content not included)... Normal [facility] Urology Office/Clinic Noteon 10-16-2024 Urology Office/Clinic Note Urology Office/Clinic Note Chief Complaint 4 mo f/u with PSA HPI Staff 4 mo with PSA due to elevated PSA. Other Dx: BPH w/obstruction, fam hx of prostate ca in father, incomplete bladder emptying. *Flomax 0.4 mg qd PSA: 06/01/24: 6.0 & 7.5% 10/12/24: 6.2 * 7.7% IPSS: 20 Dysuria: no Incomplete bladder emptying: somtimes Hematuria: no Frequency: 2-3 hours Urgency: no Nocturia: 1 Stream: weak Leaking: sometimes Post void dripping: yes, very stop and go Wearing pads/ Depends: no Urge incontinence: sometimes Stress incontinence: no Incontinence without Sensory Awareness: no Abdominal pain: no Flank pain: no Sexual complaints: _ History of Present Illness Tests reviewed: UA, PSA I have reviewed the previous health record information and history for this patient from Dr. Xie. I have reviewed and verified the staff HPI to be accurate for this encounter. Review of Systems PHQ Score Initial [...] HPI. Physical Exam Vitals & Measurements HR: 86(Peripheral) BP: 124/84 HT: 70 in HT: 178 cm WT: 96.0 kg WT: 211.644 lb BMI: 30.3 General Appearance: alert, no distress, well nourished, well developed male. Assessment/Plan 1. Elevated PSA (R97.20: Elevated prostate specific antigen [PSA]) PSA: 08/20/22 - 2.71 10/12/22 - 3.50 02/15/23 - 2.49 07/28/23 - 1.95 03/15/24 - 8.97 06/01/24 - 6.00 & 7.5% 10/12/24 - 6.20 & 7.7% MRI of prostate 03/25/22 - A focal area involving the posterolateral aspect of the left peripheral zone at the level of the mid gland measuring 6 x 5 mm. PI-RADS 4. Prostate volume 28 cc. MRI fusion bx 05/28/22 - Neg. Chronic inflammation and atrophy. PSA stable. Will cont to monitor closely. However, it has never returned to baseline around 2. Some PSA elevation may also be due to benign prostate growth. Follow up 4-5 mos with PSA F&T or sooner if needed. Pt understands and agrees with plan. 2. BPH with urinary obstruction (N40.1: Benign prostatic hyperplasia with lower urinary tract symptoms) UA neg. IPSS 20 (19). Taking Flomax 0.4 mg qd. Flomax makes a big difference. No change in dosing pattern. Call for refills. 3. Family history of prostate cancer in father (Z80.42: Family history of malignant neoplasm of prostate) Father dx at 77 yo. Increased risk given direct fam hx. Cont screening above. Follow-up With When Contact Information PACO VARGAS, Rishi Herrera, URL [address] [facility] [address] [address]- Additional Instructions: 4-5 mos with PSA F&T Patient Education Prostate Cancer Screening I, Fanny Garcia, personally scribed for Dr. Xie on 10/16/2024 10:11:39. . Documentation recorded by the scribe, Fanny Garcia, accurately reflects the services(s) I performed and decisions made by me. Authenticated by Dr. Xie on 10/16/2024 18:37:44. Portions of this record may have been created with voice recognition artificial intelligence software, specifically [employer], [employer] and or [employer]. Substitutions may have occurred due to the inherent limitations of voice recognition and artificial intelligence software. Problem List/Past Medical History Ongoing Arthritis BMI 27.0-27.9,adult BPH with urinary obstruction Cerebral palsy Dysphagia, pharyngeal Elevated PSA Family history of prostate cancer in father Hypertension Incomplete bladder emptying Urge incontinence Historical Dysuria Procedure/Surgical History MR/US fusion guided prostate biopsy (05/28/2022), Testicular torsion (1989), Tonsillectomy and adenoidectomy (1975). Medications hydrochlorothiazide 12.5 mg Cap, Oral, Daily losartan, Oral, Daily niacin 250 mg oral tablet tamsulosin 0.4 mg Cap, 0.4 mg= 1 cap(s), Oral, Daily, 11 refills verapamil, 240 mg Vitamin B Complex oral capsule, Oral, Daily Allergies No Known Allergies Social History Alcohol - Denies Alcohol Use, 02/25/2022 Tobacco Never (less than 100 in lifetime) Tobacco Use:. Never Smokeless Tobacco Use:., 10/16/2024 Family History Arthritis: Mother. Hyperlipidemia: Father. Hypertension: Mother and Father. Primary malignant neoplasm of prostate: Father. Immunizations Vaccine Date Status Comments SARSCoV2 mRNA(htollkzrr-duvj-lvkdf s) vac 12/18/2021 Recorded SARS-CoV-2 (COVID-19) mRNA BNT-162b2 vax 03/19/2021 Recorded influenza virus vaccine, inactivated 12/02 (more content not included)... Normal [facility] Comment on above: Result Comment: Elec tronically Signed By: Rishi XIE MD P\.br\Date and Time Signed: 10/16/24 18:38 EST\.br\Electronically Co-Signed By: Fanny Garcia\.br\Date and Time Co-Signed: 10/16/24 10:12 EST PSA TOTAL+% FREEon 5 % FREE PSA 7.7 % . [facility] Comment on above: The table below list s the probability of prostate cancer for men with non-suspicious MAGALY results and total PSA between 4 and 10 ng/mL, by patient age (Catalona et al, AYDE 1998, 279:1542). % Free PSA 50-64 yr 65-75 yr 0.00-10.00% 56% 55% 10.01-15.00% 24% 35% 15.01-20.00% 17% 23% 20.01-25.00% 10% 20% >25.00% 5% 9% Please note: Yenni et al did not make specific recommendations regarding the use of percent free PSA for any other population of men. Performed at: [facility] [address] [place] [id number] School Commissioner: José Guerrier PhD, Phone: [phone] Interpretation and review of laboratory results Abnormal [facility] Prostate specific Ag [Mass/Vol] 6.2 ng/mL Abnormal 0.0 - 4.0 ng/mL [facility] Comment on above: Tameka ECLIA methodol ogy. According to the [employer] [employer], Serum PSA should decrease and remain at undetectable levels after radical prostatectomy. The AUA defines biochemical recurrence as an initial PSA value 0.2 ng/mL or greater followed by a subsequent confirmatory PSA value 0.2 ng/mL or greater. Values obtained with different assay methods or kits cannot be used interchangeably. Results cannot be interpreted as absolute evidence of the presence or absence of malignant disease. PSA, FREE 0.48 ng/mL N/A [facility] Comment on above: [employer]ka ECLIA methodol ogy. [facility] [place] .Auto Diff 1on 10-05-2024 Auto Wy[place] % 6 % Normal -12 [facility] Comment on above: Performed By: #### 1 [id number], 0436052, [id number], 6667681, 6477347, 2732330, 3220285301, 2305581557, 88620176 ####[facility] (DEFAULT)[address] [place] [address]34 Baso Abs# 0.1 x10 Normal 0.0-0.2 [facility] Comment on above: Performed By: #### 1 [id number], 0758200, 8180949628, 5925791, 1647674, 1810359, 8837433884, 9243691656, 66376622 ####[facility] (DEFAULT)[address] [place] [address] 04601 Basophils/100 WBC (Bld) 0.7 % Normal 0.2-2.0 [facility] Comment on above: Performed By: #### 1 [id number], 9620220, 1897251256, 4585560, 6930876, 3563096, 7732467545, 3474413441, 45604313 ####[facility] (DEFAULT)[address] [place] [address] 55821 Eos Abs# 0.2 x10 Normal 0.0-0.4 [facility] Comment on above: Performed By: #### 1 [id number], 1021272, 0184014596, 4326485, 8518503, 0548989, 1808716957, 5759021262, 61901248 ####[facility] (DEFAULT)[address] [place] [address]646 Eosinophils/100 WBC (Bld) 2.1 % Normal 0.9-4.0 [facility] Comment on above: Performed By: #### 1 536382085, 8094503, 5338119030, 2524423, 7225657, 1682724, 6903325201, 8889130596, 86439607 ####[facility] (DEFAULT)[address] [place] [address] 47241 Lymph Abs# 2.2 x10 Normal 1.3-2.9 [facility] Comment on above: Performed By: #### 1 [id number], 1046717, 1006951960, 8556635, 9319012, 8729809, 3813876421, 6080785357, 85355908 ####[facility] (DEFAULT)[address] [place] [address] Lymphocytes/100 WBC (Bld) 29 % Normal 14-48 [facility] Comment on above: Performed By: #### 1 [id number], 4243440, 6372054700, 7760110, 3792155, 5732808, 7960687918, 0415977738, 64154109 ####[facility] (DEFAULT)[address] [place] [address] Wythe Abs# 0.5 x10 Normal 0.0-0.8 [facility] Comment on above: Performed By: #### 1 [id number], 8005816, 1679102181, 9023784, 4352215, 2155602, 3743753899, 5286674776, 03142054 ####[facility] (DEFAULT)[address] [place] [address] 56035 Neut Abs# 4.7 x10 Normal 1.5-9.2 [facility] Comment on above: Performed By: #### 1 [id number], 9732003, 7469297416, 1923976, 9690213, 3962873, 6755567597, 4250027418, 03163484 ####[facility] (DEFAULT)[address] [place] [address] Neutrophils/100 WBC (Bld) 62 % Normal 44-88 [facility] Comment on above: Performed By: #### 1 [id number], 4040169, 1242725650, 1473529, 1143568, 8626887, 7622551523, 6397092762, 85419549 ####[facility] (DEFAULT)[address] [place] [address] BNP.on 10-05-2024 Natriuretic peptide B (Bld) [Mass/Vol] 8.2 pg/mL Normal 0.0-100.0 [facility] Comment on above: Result Comment: BNP results greater than 100 pg/mL are considered abnormal and suggestive of patients with CHF. Higher BNP concentrations measured in the first 72 hours after an acute coronary syndorme are associated with an increased risk of , myocardial infarction, and CHF. Performed By: #### 1 157049346, 0986277, 1595848446, 0539381, 2421673, 4301497, 1553107339, 0959102988, 96240799 ####[facility] (DEFAULT)[address] [place] [address] CBC w/ Auto Diffon Man Diff? Auto Invalid Interpretation Code [facility] Comment on above: Performed By: #### 1 [id number], 6168903, 7516378512, 5984572, 1679243, 7119732, 7534820407, 8099437474, 52433083 ####[facility] (DEFAULT)[address] [place] [address] Erythrocyte distribution width (RBC) [Ratio] 13.6 % Normal 11.5-15.0 [facility] Comment on above: Performed By: #### 1 [id number], 1872269, 6003870832, 6979633, 6902820, 2465066, 7748545436, 0725714145, 82976258 ####[facility] (DEFAULT)[address] [place] [address] Hematocrit (Bld) [Volume fraction] 42.0 % Normal 34.8-51.9 [facility] Comment on above: Performed By: #### 1 [id number], 0472075, 0044816626, 2283062, 8837325, 2139098, 5876336086, 9184274106, 83483077 ####[facility] (DEFAULT)[address] [place] [address] 21350 Hemoglobin (Bld) [Mass/Vol] 14.4 g/dL Normal 11.8-17.7 [facility] Comment on above: Performed By: #### 1 232017221, 2123660, 9136325929, 8001325, 0295125, 0337932, 3313833284, 3247001095, 95588769 ####[facility] (DEFAULT)[address] [place] [address] 76540 MCH (RBC) [Entitic mass] 32 pg Normal 24-34 [facility] Comment on above: Performed By: #### 1 066744058, 9079636, 5264113522, 9560207, 4492890, 1415538, 1937683538, 3084727728, 82633715 ####[facility] (DEFAULT)[address] [place] [address] 28735 MCHC (RBC) [Mass/Vol] 34 g/dL Normal 26-37 [facility] Comment on above: Performed By: #### 1 827296785, 7710763, 0197092169, 6076839, 2502878, 2755007, 4168957450, 2427479553, 14437325 ####[facility] (DEFAULT)[address] [place] [address] 09472 MCV (RBC) [Entitic vol] 93 fL Normal 81-100 [facility] Comment on above: Performed By: #### 1 024150298, 6912936, 5521414543, 3045391, 6314180, 0371478, 6903108050, 0893588771, 68795746 ####[facility] (DEFAULT)[address] [place] [address] 38268 Platelet 286 x10 Normal 138-427 [facility] Comment on above: Performed By: #### 1 261940320, 9621568, 1339629781, 2361413, 3702012, 5895422, 5837051603, 4537035268, 84372821 ####[facility] (DEFAULT)[address] [place] [address] Platelet mean volume (Bld) [Entitic vol] 7.5 fL Normal 6.3-10.2 [facility] Comment on above: Performed By: #### 1 862692361, 7155793, 0899079727, 1666136, 3614918, 2407449, 8408488405, 7507531961, 96115751 ####[facility] (DEFAULT)[address] [place] [address] RBC 4.54 x10 Normal 3.70-5.30 [facility] Comment on above: Performed By: #### 1 092705828, 0531608, 2115743801, 3606916, 2923899, 7978081, 9325219710, 7843164012, 76727096 ####[facility] (DEFAULT)[address] [place] [address] WBC 7.6 x10 Normal 3.5-10.5 [facility] Comment on above: Performed By: #### 1 925228151, 8330765, 3181435143, 0976997, 8272637, 1993806, 5429472969, 2391472275, 44076986 ####[facility] (DEFAULT)[address] [place] [address] CMP Standardon 10-05-2024 eGFR Non AA >60 Invalid Interpretation Code [facility] Comment on above: Performed By: #### 1 784636352, 3777697, 4301602951, 0491616, 3614664, 3028916, 8764865943, 3364965617, 01101334 ####[facility] (DEFAULT)[address] [place] [address] eGFR AA >60 Invalid Interpretation Code [facility] Comment on above: Performed By: #### 1 507011782, 5899004, 9826767527, 6658896, 4696595, 1686702, 3065046055, 0381583333, 59657053 ####[facility] (DEFAULT)[address] [place] [address] Albumin [Mass/Vol] 4.1 g/dL Normal 3.5-5.0 [facility] Comment on above: Performed By: #### 1 770140677, 9476667, 6753836464, 4038354, 7860930, 1487655, 3187699067, 9094802122, 86093240 ####[facility] (DEFAULT)[address] [place] [address] 44567 Albumin/Globulin [Mass ratio] 1.4 {ratio} Normal 1.4-2.6 [facility] Comment on above: Performed By: #### 1 371697250, 1774959, 1180392113, 7941887, 2388044, 6270121, 6571588123, 0734767530, 76413202 ####[facility] (DEFAULT)[address] [place] [address] Alk Phos 55 IU/L Normal 32-91 [facility] Comment on above: Performed By: #### 1 442082689, 4558086, 0906772054, 2260674, 2268375, 9719821, 0148358000, 2621634071, 18136995 ####[facility] (DEFAULT)[address] [place] [address] ALT [Catalytic activity/Vol] 30.0 U/L Normal 17.0-63.0 [facility] Comment on above: Performed By: #### 1 124592210, 7932398, 0533236487, 8563463, 2098386, 4698741, 5820463146, 2733627075, 73063194 ####[facility] (DEFAULT)[address] [place] [address] 57334 Anion gap [Moles/Vol] 13.2 mmol/L Normal 5.0-19.0 [facility] Comment on above: Performed By: #### 1 980356310, 2522762, 2137320030, 4603733, 9067569, 8528806, 0336465912, 2608926749, 75053323 ####[facility] (DEFAULT)[address] [place] [address] 57992 AST [Catalytic activity/Vol] 29 U/L Normal 15-41 [facility] Comment on above: Performed By: #### 1 084902807, 2007630, 6314864371, 5187232, 1492243, 3237576, 6148729347, 4524431443, 95229394 ####[facility] (DEFAULT)[address] [place] [address] 70402 Bili Total 0.5 mg/dL Normal 0.3-1.2 [facility] Comment on above: Performed By: #### 1 171223523, 1668454, 1092340154, 5063234, 7996481, 9298340, 8141450464, 9849385080, 40288486 ####[facility] (DEFAULT)[address] [place] [address] 59937 Calcium [Mass/Vol] 9.1 mg/dL Normal 8.9-10.3 [facility] Comment on above: Performed By: #### 1 434504052, 8215377, 8468471994, 4039262, 0468383, 1205720, 6857208904, 1818322953, 63516192 ####[facility] (DEFAULT)[address] [place] [address] 61251 Chloride [Moles/Vol] 98 mmol/L Low 101-111 [facility] Comment on above: Performed By: #### 1 332266531, 8183690, 2312223108, 8109547, 1012804, 1504150, 7534942500, 7632913881, 45581723 ####[facility] (DEFAULT)[address] [place] [address] 50192 CO2 [Moles/Vol] 28 mmol/L Normal 21-32 [facility] Comment on above: Performed By: #### 1 259913778, 3037124, 3219230346, 9441480, 9314132, 4547427, 9523277362, 5671621472, 45561097 ####[facility] (DEFAULT)[address] [place] [address] 70683 Creatinine [Mass/Vol] 0.89 mg/dL Low 0.90-1.30 [facility] Comment on above: Performed By: #### 1 682844375, 5451865, 9706315333, 6164962, 7865954, 4794754, 6217874350, 7273814430, 54472553 ####[facility] (DEFAULT)[address] [place] [address] 68236 Globulin (S) [Mass/Vol] 2.8 g/dL Normal 1.5-4.3 [facility] Comment on above: Performed By: #### 1 081376497, 1076138, 7967525511, 9596837, 3103085, 7764001, 2215828774, 1197216261, 28946761 ####[facility] (DEFAULT)[address] [place] [address] 51509 Glucose [Mass/Vol] 113.0 mg/dL Normal 74.0-118.0 [facility] Comment on above: Performed By: #### 1 176023771, 8512808, 8081677789, 4986701, 0156536, 9356273, 6894044000, 2734680251, 29905798 ####[facility] (DEFAULT)[address] [place] [address] 89128 Osmolality 276 mOsm/L Invalid Interpretation Code [facility] Comment on above: Performed By: #### 1 196582691, 5546015, 1003663658, 1386224, 1587432, 0600075, 1503832799, 0453871151, 78135497 ####[facility] (DEFAULT)[address] [place] [address] 67429 Potassium [Moles/Vol] 3.2 mmol/L Low 3.6-5.1 [facility] Comment on above: Performed By: #### 1 621758607, 8603153, 7699947709, 3895935, 5701963, 2969855, 9669620413, 2958075983, 90259172 ####[facility] (DEFAULT)[address] [place] [address] 23231 Protein [Mass/Vol] 6.9 g/dL Normal 6.5-8.1 [facility] Comment on above: Performed By: #### 1 742741656, 2410816, 2751078975, 0689814, 8815836, 8452794, 2123841510, 6956796525, 31250793 ####[facility] (DEFAULT)[address] [place] [address] 14115 Sodium [Moles/Vol] 136.0 mmol/L Normal 136.0-144.0 [facility] Comment on above: Performed By: #### 1 827300807, 1195010, 8054302089, 4464473, 9936404, 1815955, 3835428649, 0273651692, 97925795 ####[facility] (DEFAULT)[address] [place] [address] 21300 Urea nitrogen [Mass/Vol] 23 mg/dL Normal 8-26 [facility] Comment on above: Performed By: #### 1 212265533, 1145206, 1794839845, 4793714, 2887544, 5113664, 6982737481, 6322115949, 81552024 ####[facility] (DEFAULT)[address] [place] [address] 00895 Urea nitrogen/Creatinine [Mass ratio] 25.8 mg/mg High 4.6-16.2 [facility] Comment on above: Performed By: #### 1 870218356, 3356809, 9697038725, 4602676, 2022074, 2474061, 8284396602, 5611275314, 44691024 ####[facility] (DEFAULT)[address] [place] [address] 22307 Breakpoint Chem Normal [facility] Comment on above: Performed By: #### 1 048582456, 8808613, 1404717052, 0920483, 4956413, 6166512, 5543411230, 3315509642, 88395811 ####[facility] (DEFAULT)[address] [place] [address] 70838 D-Dimeron 10-05-2024 D-Dimer 0.44 mg/L FEU Normal 0.19-0.50 [facility] Comment on above: Result Comment: The INNOVANCE D-Dimer assay (Cutoff Value of > 0.50) is intended for the use as an aid in the diagnosis of venous thromboembolism (VTE) deep vein thrombosis (DVT) or pulmonary embolism (PE). The measurement of D-Dimer should not be used as an aid in the diagnosis of VTE in patients with: ? Therapeutic dose anticoagulant therapy for >24 hours ? Fibrinolytic therapy within previous 7 days ? Trauma or surgery within previous 4 weeks ? Disseminated malignancies ? Aortic aneurysm ? Sepsis, sever infections, pneumonia, severe skin infections ? Liver cirrhosis ? Performed By: #### 1 [id number], 6180700, 3331135461, 9019055, 1164664, 3717887, 0661758565, 7798877824, 19684709 ####[facility] (DEFAULT)[address] [place] [address] ED Clinical Summaryon 2024 ED Clinical Summary [facility] - Emergency Department [address] [place], [place] [id number] ED Clinical Summary PERSON INFORMATION Name: DMITRI ARTHUR Age: 59 Years Sex: MALE : 1965 MRN: Acct#: Visit Reason: Shortness of breath; SOB, HEADACHE Arrival: 10/05/2024 12:49:43 Discharge: 10/05/2024 15:40:00 LOS: 000 02:51 Check In: 10/05/2024 12:49:43 Checkout:10/05/2024 15:40:00 Address: [address] [place] [address] PCP: JONHATHON GALLEGOS PROVIDER INFORMATION Provider Role Assigned Unassigned Theresa Gleason RN ED Nurse 10/05/2024 12:58:27 Darrel Hammer MD ED Provider 10/05/2024 13:27:33 VITALS INFORMATION Vital Sign Triage Latest Temperature Tympanic Temperature Temporal Artery Pulse Rate 95 bpm 97 bpm O2 Sat 95 % 97 % Respiratory Rate 20 br/min 20 br/min Blood Pressure /81 mmHg /81 mmHg MEDICAL INFORMATION Medications Given: Allergy Information: No Known Medication Allergies PHYSICIAN DOCUMENTATION DISCHARGE INFORMATION: Discharge Disposition: Home Discharge Location: Home PATIENT EDUCATION INFORMATION Instructions: Shortness of Breath, Adult, Oplh-ok-Nvys Follow-Up: With: Address: When: JOHNATHON GALLEGOS [address] [place] [phone] Within 3 to 5 days DIAGNOSIS: 1:Shortness of breath Patient Understands: Yes - Patient/family/caregiver verbalizes understanding of instructions given Comment: [facility] ED Clinical Summary [facility] ? Urgent Care [address] [place] [id number] Clinical Summary PERSON INFORMATION Name: DMITRI ARTHUR Age: 59 Years Sex: MALE : 1965 MRN: Acct#: Visit Reason: SOB, HEADACHE Arrival: 10/05/2024 12:46:06 Discharge: 10/05/2024 12:51:00 LOS: 000 00:05 Check In: 10/05/2024 12:46:06 Checkout: 10/05/2024 12:51:00 Address: [address] [place] [id number] PCP: JOHNATHON GALLEGOS PROVIDER INFORMATION Provider Role Assigned Unassigned CAMILLE ANTONIO ED PA 10/05/2024 12:46:46 Lucero Gooden MA ED Nurse 10/05/2024 12:48:08 VITALS INFORMATION Vital Sign Triage Latest Temperature Tympanic Temperature Temporal Artery Pulse Rate O2 Sat Respiratory Rate Blood Pressure / / MEDICAL INFORMATION Medications Given: Allergy Information: No Known Medication Allergies PHYSICIAN DOCUMENTATION DISCHARGE INFORMATION: Discharge Disposition: Home Discharge Location: [facility]) PATIENT EDUCATION INFORMATION Instructions: Follow-Up: DIAGNOSIS: Patient Understands: Comment: [facility] ED Patient Summaryon 025 ED Patient Summary [facility] - Emergency Department [address] [place] [address] PATIENT DISCHARGE INSTRUCTIONS Patient Information Name: DMITRI ARTHUR Age: 59 Years Date of : 1965 Reason For Visit: Shortness of breath; SOB, HEADACHE Arrival Time: 10/05/2024 12:49:43 Primary Care Physician: JOHNATHON GALLEGOS Attending Physician: Darrel Hammer MD Comment: Visit Diagnosis: Diagnoses This Visit Shortness of breath (R06.02) Shortness of breath ([id number]) The Pharmacy at [facility] is open Wednesday through Wednesday from 9A to 6P and Wednesday and Wednesday from 9A to 5P Prescription Information: If you have been given a prescription for narcotics, seek immediate medical attention if you have any difficulty breathing or any sudden status changes such as confusion and sleepiness. If you or anyone you know is experiencing suicidal thoughts, mental health, alcohol and/or drug addiction problems; contact the [facility] 26/04 Crisis Hotline -Text 9MCSZ to 775294. If you received any narcotics, sedation, or [...] business decisions or sign any legal documents With: Address: When: JOHNATHON GALLEGOS [facility] [place], [place] [id number] Within 3 to 5 days Medication Information: The exam and treatment you received today in the [facility] Emergency Department were for an urgent problem and are not intended as complete care. It is important for you to follow up with a doctor, nurse practitioner, or physician?s hospital nursing assistant for ongoing care. If your symptoms [...] so we can reach you if necessary. [facility] Emergency Department has provided you with a complete list of medications post discharge. Please inform your can operator/provider of your visit and for further instruction on these medications. Any specific questions regarding your chronic medications and dosages should be discussed with your primary care physician(s) and/or pharmacist. Additional medications on your home medication list not specifically addressed. Please contact the ordering physician if you have questions about these medications. hydrochlorothiazide-losar [place] (hydrochlorothiazide-losa rtan 12.5 mg-50 mg oral tablet) 1 tab(s) Oral (given by mouth) every day. take 1 tablet by mouth once daily. losartan (losartan 100 mg oral tablet) tamsulosin (tamsulosin 0.4 mg oral capsule) 1 cap(s) Oral (given by mouth) every day. take 1 capsule by mouth once daily. verapamil (verapamil 240 mg/24 hours oral capsule, extended release) 1 cap(s) Oral (given by mouth) every day. take 1 capsule by mouth once daily. Visit Information Allergies: Substance Reaction Symptoms Type Comments No Known Medication Allergies Drug Vital Signs: Vitals and Measurements this Visit (last charted value for your 10/05/2024 visit) Vital Signs This Visit Temperature Oral: 36.2 DegC Peripheral Pulse Rate: 97 bpm Respiratory Rate: 20 br/min Systolic Blood Pressure: 148 mmHg Diastolic Blood Pressure: 88 mmHg SpO2: 97 % Oxygen Therapy: Room air Measurements This Visit Height/Length Measured: 177.8 cm Weight Measured: 88.45 kg Weight Dosin.450 kg Body Mass Index: 27.98 kg/m2 Problems List: Problem Onset Comments Hypertension Patient Education Shortness of Breath, Adult Follow-up with your primary care physician to review this emergency department visit. Return to the emerged part for any worsening symptoms. Shortness of breath means you have trouble breathing. Shortness of breath could be a sign of a medical problem. Follow these instructions at home: Pollution ? Do not smoke or use any products that contain nicotine or tobacco. If you need help quitting, ask your doctor. ? (more content not included)... Normal [facility] ED Patient Summary [facility] ? Urgent Care [address] [place] [address] PATIENT DISCHARGE INSTRUCTIONS Patient Information Name: DMITRI ARTHUR Age: 59 Years Date of : 1965 [facility]: [id number] Reason For Visit: SOB, HEADACHE Arrival Time: 10/05/2024 12:46:06 Primary Care Physician: JOHNATHON GALLEGOS Attending Physician: CAMILLE ANTONIO Comment: Patient Education Medication Information: The exam and treatment you received today in the [facility] Emergency Department were for an urgent problem and are not intended as complete care. It is important for you to follow up with a doctor, nurse practitioner, or physician?s hospital nursing assistant for ongoing care. If your symptoms [...] so we can reach you if necessary. [facility] Emergency Department has provided you with a complete list of medications post discharge. Please inform your can operator/provider of your visit and for further instruction on these medications. Any specific questions regarding your chronic medications and dosages should be discussed with your primary care physician(s) and/or pharmacist. Medications to Continue That Have Not Changed Other Medications hydrochlorothiazide-losar [place] (hydrochlorothiazide-losa rtan 12.5 mg-50 mg oral tablet) 1 tab(s) Oral (given by mouth) every day. take 1 tablet by mouth once daily. tamsulosin (tamsulosin 0.4 mg oral capsule) 1 cap(s) Oral (given by mouth) every day. take 1 capsule by mouth once daily. verapamil (verapamil 240 mg/24 hours oral capsule, extended release) 1 cap(s) Oral (given by mouth) every day. take 1 capsule by mouth once daily. Visit Information Visit Diagnosis: Diagnoses This Visit No Visit Diagnoses Documented If you received any narcotics, sedation, or [...] sign any legal documents Reason for Visit: Allergies: Substance Reaction Symptoms Type Comments No Known Medication Allergies Drug Vital Signs: Vitals and Measurements this Visit (last charted value for your 10/05/2024 visit) No vitals and measurements documented Problems List: Problem Onset Comments Hypertension Major [...] for Disease Control and Prevention June 2014 [facility] Magnesiumon 10-05-2024 Magnesium [Mass/Vol] 1.99 mg/dL Normal 1.80-2.50 [facility] Comment on above: Performed By: #### 1 [id number], 7922550, [id number], 6395636, 3998300, 4902066, 9778423890, [id number], [id number] ####[facility] (DEFAULT)[address] [id number] Mycoplasma pneumoniae IgMon 10-05-2024 Internal Control Pass [facility] Comment on above: Performed By: #### 1 [id number], 9451275, [id number], 0723592, 4603306, 3761218, [id number], [id number], [id number] ####[facility] (DEFAULT)[address] [place] [address] Mycoplasma IgM Negative Normal Negative [facility] Comment on above: Performed By: #### 1 [id number], 8520393, [id number], 9145764, 9793543, 9001912, 0181260636, 1079033325, 51825657 ####[facility] (DEFAULT)[address] [place] [address] PTon 10-05-2024 INR Coag (PPP) [Relative time] 1.05 {INR} Normal 0.91-1.11 [facility] Comment on above: Performed By: #### 1 [id number], 3344361, 7465299059, 7980721, 8005216, 3806664, 4172936405, 2849059419, 60525143 ####[facility] (DEFAULT)[address] [place] [address] PT 10.9 second(s) Normal 9.7-11.8 [facility] Comment on above: Performed By: #### 1 [id number], 5328225, 3172270560, 9767623, 2302115, 2537942, 8733453731, 6307767072, 40795987 ####[facility] (DEFAULT)[address] [place] [address] TnI HSon 10-05-2024 Troponin I High Sensitivity 5.5 pg/mL Normal <=20.0 [facility] Comment on above: Performed By: #### 1 [id number], 3486693, 1017694497, 2235334, 9381442, 1860195, 1007513830, 7541513436, 21898570 ####[facility] (DEFAULT)[address] [place] [address] Urgent Care Note- Provideron 10-05-2024 Urgent Care Note- Provider Patient: DMITRI ARTHUR Age: 59 years Sex: MALE : 1965 Associated Diagnoses: None Author: CAMILLE ANTONIO Patient is a 59-year-old male presenting to urgent care with complaint of skipping heartbeat and shortness of breath. Patient indicates that over the last few days he is intermittently had shortness of breath finding it hard to catch his breath. He also states that his listened to his heart beat and was stating that it was skipping beats. He denies any feelings of palpitations or chest pain but states that he has been short of breath. Denies any fevers or cough, does admit to a previous history of hypertension, hyperlipidemia. Denies any other issues. I recommended further evaluation emergency department secondary to complaint of skipping heartbeats and shortness of breath. [Electronically Signed on: 10/05/2024 12:47 EST] CAMILLE ANTONIO [Verified on: 10/05/2024 12:47 EST] CAMILLE ANTONIO [facility] XR Chest 2 Viewson XR Chest 2 Views EXAMINATION: XR Ches t 2 Views HISTORY: Chest Pain COMPARISON: 01/29/2023 TECHNIQUE: PA and lateral FINDINGS: LUNGS: No significant pulmonary parenchymal abnormalities. VASCULATURE: No increased pulmonary vasculature. PLEURA: No pneumothorax, effusion, or pleural thickening. CARDIAC: No cardiomegaly or cardiac silhouette abnormality. MEDIASTINUM: No visible mass or adenopathy. BONES: No fracture or visible bone lesion. OTHER: Negative. IMPRESSION: No acute cardiopulmonary process. Final Dictated by: Chucho Grimm MD Dictated DT/TM: 10/05/24 2:53 Signed (Electronic Signature): Chucho Grimm MD 10/05/24 2:55 pm Technologist: Charnajit DESAI [facility] Consent Formson 07-14-2024 Consent Forms [id number] FF Normal [facility] CMP Standardon 06-28-2024 eGFR Non AA >60 Invalid Interpretation Code [facility] Comment on above: Performed By: #### 1 [id number], 2382486, 2549773, 4350721, 9903827, 8124674, 3090259, 4454498684 ####[facility] (DEFAULT)[address] [place] [address] 65755 eGFR AA >60 Invalid Interpretation Code [facility] Comment on above: Performed By: #### 1 [id number], 4705717, 4486279, 4814110, 1122079, 0346141, 9295874, 1409561230 ####[facility] (DEFAULT)[address] [place] [address] Albumin [Mass/Vol] 4.1 g/dL Normal 3.5-5.0 [facility] Comment on above: Performed By: #### 1 [id number], 0183942, 0008438, 6541072, 3423647, 2264877, 6636451, 6665480899 ####[facility] (DEFAULT)[address] [place] [address] Albumin/Globulin [Mass ratio] 1.1 {ratio} Low 1.4-2.6 [facility] Comment on above: Performed By: #### 1 336790154, 2895248, 5199218, 8153062, 4724307, 4627931, 4933680, 0560989235 ####[facility] (DEFAULT)[address] [place] [address] 40760 Alk Phos 61 IU/L Normal 32-91 [facility] Comment on above: Performed By: #### 1 [id number], 9238991, 7574690, 2186307, 6917606, 9220944, 8919627, 6728578063 ####[facility] (DEFAULT)[address] [place] [address] 85964 ALT [Catalytic activity/Vol] 46.0 U/L Normal 17.0-63.0 [facility] Comment on above: Performed By: #### 1 851250184, 5080968, 0450159, 5348021, 1097686, 1991800, 2707116, 2934551891 ####[facility] (DEFAULT)[address] [place] [address] 34457 Anion gap [Moles/Vol] 11.4 mmol/L Normal 5.0-19.0 [facility] Comment on above: Performed By: #### 1 [id number], 4583984, 7226976, 8316043, 3321615, 2647348, 0844527, [id number] ####[facility] (DEFAULT)[address] [place] [address] 50330 AST [Catalytic activity/Vol] 32 U/L Normal 15-41 [facility] Comment on above: Performed By: #### 1 [id number], 3806307, 3422385, 5467943, 8590352, 3069025, 4731147, 0610790250 ####[facility] (DEFAULT)[address] [place] [address] 10873 Bili Total 0.6 mg/dL Normal 0.3-1.2 [facility] Comment on above: Performed By: #### 1 667058978, 1140918, 0956215, 9792883, 4426479, 8998261, 8816496, 4225749420 ####[facility] (DEFAULT)[address] [place] [address] 85280 Calcium [Mass/Vol] 9.5 mg/dL Normal 8.9-10.3 [facility] Comment on above: Performed By: #### 1 [id number], 3410519, 0624020, 6269210, 0177404, 8051284, 0885857, 6045283801 ####[facility] (DEFAULT)[address] [place] [address] 67781 Chloride [Moles/Vol] 102 mmol/L Normal 101-111 [facility] Comment on above: Performed By: #### 1 [id number], 9445633, 9369669, 2117001, 1459920, 6747353, 2971367, 1802201535 ####[facility] (DEFAULT)[address] [place] [address] 36886 CO2 [Moles/Vol] 27 mmol/L Normal 21-32 [facility] Comment on above: Performed By: #### 1 [id number], 6393696, 1765068, 1119137, 4396998, 9171428, 3643745, 0490222269 ####[facility] (DEFAULT)[address] [place] [address] Creatinine [Mass/Vol] 0.76 mg/dL Low 0.90-1.30 [facility] Comment on above: Performed By: #### 1 925005024, 9735437, 6210316, 6770779, 4650122, 4818527, 6707098, 8430680807 ####[facility] (DEFAULT)[address] [place] [address] 34852 Globulin (S) [Mass/Vol] 3.5 g/dL Normal 1.5-4.3 [facility] Comment on above: Performed By: #### 1 [id number], 1813510, 9241752, 2546797, 6982050, 5330061, 4054970, 1831401207 ####[facility] (DEFAULT)[address] [place] [address] 95501 Glucose [Mass/Vol] 107.0 mg/dL Normal 74.0-118.0 [facility] Comment on above: Performed By: #### 1 [id number], 4341922, 5217932, 5672909, 9826402, 0770212, 1823510, 5282998153 ####[facility] (DEFAULT)[address] [place] [address] 06192 Osmolality 281 mOsm/L Invalid Interpretation Code [facility] Comment on above: Performed By: #### 1 [id number], 3124166, 7775872, 4765809, 4638979, 4983454, 9659220, 1703005343 ####[facility] (DEFAULT)[address] [place] [address] 29039 Potassium [Moles/Vol] 3.4 mmol/L Low 3.6-5.1 [facility] Comment on above: Performed By: #### 1 [id number], 0487970, 0332665, 6074042, 1810596, 6785595, 6450763, 6477876741 ####[facility] (DEFAULT)[address] [place] [address] 92892 Protein [Mass/Vol] 7.6 g/dL Normal 6.5-8.1 [facility] Comment on above: Performed By: #### 1 194692573, 4163096, 9474248, 2184643, 6812598, 0368904, 9868576, 0668984667 ####[facility] (DEFAULT)[address] [place] [address] 53974 Sodium [Moles/Vol] 137.0 mmol/L Normal 136.0-144.0 [facility] Comment on above: Performed By: #### 1 [id number], 6282160, 6808769, 3015933, 8987369, 4035923, 6389904, 4228719195 ####[facility] (DEFAULT)[address] [place] [address] 61327 Urea nitrogen [Mass/Vol] 31 mg/dL High 8-26 [facility] Comment on above: Performed By: #### 1 373115838, 0923014, 9272251, 2957109, 0767635, 0539906, 1276999, 6579637167 ####[facility] (DEFAULT)[address] [place] [address] 86480 Urea nitrogen/Creatinine [Mass ratio] 40.7 mg/mg High 4.6-16.2 [facility] Comment on above: Performed By: #### 1 289023444, 5421450, 7011629, 5282458, 6253030, 2264014, 6165164, 9076857879 ####[facility] (DEFAULT)[address] [place] [address] 51417 GGTon 06-28-2024 Gamma glutamyl transferase [Catalytic activity/Vol] 34.0 U/L Normal 7.0-50.0 [facility] Comment on above: Performed By: #### 1 [id number], 8871868, 9053886, 4639775, 8217187, 9154079, 0222100, 3189940853 ####[facility] (DEFAULT)[address] [place] [address] 06481 Iron Levelon 06-28-2024 Iron [Mass/Vol] 78.0 ug/dL Normal 45.0-182.0 [facility] Comment on above: Performed By: #### 1 [id number], 8931634, 4133177, 3760118, 5642675, 6525905, 6543225, 4161840889 ####[facility] (DEFAULT)[address] [place] [address] 44657 LDHon 06-28-2024 LDH 169.0 IU/L Normal 98.0-192.0 [facility] Comment on above: Performed By: #### 1 840107761, 8623563, 6581445, 2279561, 5548299, 7081066, 3873956, 3728350437 ####[facility] (DEFAULT)[address] [place] [address] 20583 Lipid Panel Standardon 06-28 Cholesterol [Mass/Vol] 254.0 mg/dL High 66.0-200.0 [facility] Comment on above: Performed By: #### 1 [id number], 5654058, 2691179, 8752714, 0734942, 2324443, 0481224, 0386835775 ####[facility] (DEFAULT)[address] [place] [address] 73865 Cholesterol in HDL [Mass/Vol] 57 mg/dL Normal 40-71 [facility] Comment on above: Performed By: #### 1 378149150, 8667491, 1643071, 8624217, 9563966, 6564700, 4542920, 7292698348 ####[facility] (DEFAULT)[address] [place] [address] 45623 Cholesterol in LDL [Mass/Vol] 170 mg/dL High 1-100 [facility] Comment on above: Performed By: #### 1 302397114, 4498941, 2687425, 1099644, 1909095, 5069384, 6639312, 2168810420 ####[facility] (DEFAULT)[address] [place] [address] 37066 Cholesterol.total/Cho lesterol in HDL [Mass ratio] 4.4 {ratio} Normal 0.0-4.5 [facility] Comment on above: Performed By: #### 1 143161621, 9458606, 8373894, 4173033, 9103388, 0498400, 9649511, 7679954722 ####[facility] (DEFAULT)[address] [place] [address] 19419 Triglyceride [Mass/Vol] 136.0 mg/dL Normal 0.0-150.0 [facility] Comment on above: Performed By: #### 1 [id number], 1268456, 8881879, 9982393, 4479320, 6499096, 2889589, 6386881782 ####[facility] (DEFAULT)[address] [place] [address] 91700 VLDL. 27 mg/dL Normal 5-40 [facility] Comment on above: Performed By: #### 1 740786101, 3865498, 0730024, 7855435, 7936944, 6717662, 6295302, 1393619284 ####[facility] (DEFAULT)[address] [place] [address] 22719 PSA Screenon 06-28-2024 PSA Screen 9.37 ng/mL High 0.00-4.00 [facility] Comment on above: Result Comment: [employer] Bswift Clinical System (Chemiluminescence) Values obtained with different assay methods or kits cannot be used interchangeably. Results cannot be interpreted as absolute evidence of the presence or absence of malignant disease. Performed By: #### 1 [id number], 2374773, 0461334, 8865834, 0598803, 8131407, 7787344, 5527077907 ####[facility] (DEFAULT)[address] [place] [address] Phoson 06-28-2024 Phosphate [Mass/Vol] 2.9 mg/dL Normal 2.5-4.6 [facility] Comment on above: Performed By: #### 1 [id number], 2279516, 1770347, 6058382, 5277541, 2940731, 5321752, 1187492103 ####[facility] (DEFAULT)[address] [place] [address] Uric Acidon 06-28-2024 Urate [Mass/Vol] 5.1 mg/dL Normal 4.8-8.7 [facility] Comment on above: Performed By: #### 1 [id number], 3612094, 7892364, 8147384, 0491883, 4833858, 9797601, 0102101083 ####[facility] (DEFAULT)[address] [place] [address] Ambulatory Visit Summaryon 0 06-06-2024 Ambulatory Visit Summary Ambulatory Visit Summary DMITRI ARTHUR :1965 Visit Date:06/06/2024 Ambulatory Visit Instructions Your Diagnosis Elevated PSA BPH with urinary obstruction Family history of prostate cancer in father Incomplete bladder emptying Your Care Team Attending Physician - Rishi [...] adenoidectomy (1975). Discharge Vitals Heart Rate (Peripheral) 90 Respiratory Rate 16 Blood Pressure 126/83 Height 178 cm Height 70 in Weight 91.9 kg Weight 202.18 lb BMI 29.01 What to do next Scheduled Follow-Up Appointments Wednesday 9:15 AM EST With: Rishi XIE MD Where: [facility] [address] [place] [address]- You Need to Schedule the Following Appointments Follow Up with Rishi XIE MD, [place] When: Where: [address] [place] [address]- Medications What How Much When Instructions Unchanged tamsulosin (tamsulosin 0.4 mg Cap) 1 Capsules By Mouth Every day Unchanged hydrochlorothiazide (hydrochlorothiazide 12.5 mg Cap) By Mouth Every day Contact prescribing physician if questions or concerns Unchanged losartan By Mouth Every day Contact prescribing physician if questions or concerns Unchanged multivitamin (Vitamin B Complex oral capsule) By Mouth Every day Contact prescribing physician if questions or concerns Unchanged niacin (niacin 250 mg oral tablet) 250 Unknown, Oral Contact prescribing physician if questions or concerns Unchanged verapamil 240 Milligram Contact prescribing physician if questions or concerns Allergies No Known Allergies Problems Ongoing - Any problem that you are currently receiving treatment for. Arthritis BMI 27.0-27.9,adult BPH with urinary obstruction Cerebral palsy Dysphagia, pharyngeal Dysuria Elevated PSA Family history of prostate cancer in father Hypertension Incomplete bladder emptying Urge incontinence Patient Survey You may receive a survey via text or e-mail asking about your office visit. Please share your experience with us by completing your survey. We appreciate your feedback and thank you for choosing us for your care. Education Materials Prostate Cancer Screening Prostate cancer screening is [...] enlarged prostate that is not caused by can (more content not included)... Normal [facility] Urology Office/Clinic Noteon 06-06-2024 Urology Office/Clinic Note Urology Office/Clinic Note Chief Complaint 2 month follow up with PSA HPI Staff 2 mos PSA. Previous Dx: elevated PSA, BPH with urinary obstruction, UUI, family hx of prostate ca in father. S/p MRI fusion bx 05/28/22. MRI of prostate 03/25/22. *Flomax 0.4 mg qd. PSA: 06/01/24- 6.0 & 7.5% IPSS: 16 PVR: 125 ml Dysuria: denies Incomplete bladder emptying: denies Hematuria: denies visible blood Frequency: once every 2-3 hours, depends on fluid intake Urgency: denies Nocturia: once a night Stream: sometimes some hesitancy, has a weak stream Leaking: sometimes Post void dripping: sometimes Wearing pads/ Depends: denies Urge incontinence: denies Stress incontinence: denies Incontinence without Sensory Awareness: denies Abdominal pain: denies Flank pain: denies Sexual complaints: _ History of Present Illness Tests reviewed: reviewed UA, PSA I have reviewed the previous health record information and history for this patient from Dr. Xie. I have reviewed and verified the staff HPI to be accurate for this encounter. Review of Systems PHQ Score Initial [...] HPI. Physical Exam Vitals & Measurements HR: 90(Peripheral) RR: 16 BP: 126/83 HT: 70 in HT: 178 cm WT: 91.9 kg WT: 202.18 lb BMI: 29.01 General Appearance: alert, no distress, well nourished, well developed male. Assessment/Plan 1. Elevated PSA (R97.20: Elevated prostate specific antigen [PSA]) PSA: 08/20/22 - 2.71 10/12/22 - 3.50 02/15/23 - 2.49 07/28/23 - 1.95 03/15/24 - 8.97 06/01/24 - 6.00 & 7.5% MRI of prostate 03/25/22 - A focal area involving the posterolateral aspect of the left peripheral zone at the level of the mid gland measuring 6 x 5 mm. PI-RADS 4. Prostate volume 28 cc. MRI fusion bx 05/28/22 - Path neg. Chronic inflammation and atrophy. MAGALY 02/23/23 ~40 gm, no nodules. PSA decreased from prior which is favorable, however still overall elevated from historical range. Pt is considered due to family hx. Will cont to monitor closely and would consider bx if pt were to cont to rise or rise exponentially. Follow up 4 mos with PSA F&T or sooner if needed. Pt understands and agrees with plan. 2. BPH with urinary obstruction (N40.1: Benign prostatic hyperplasia with lower urinary tract symptoms) UA today negative for blood and infection. IPSS 19 (21), 5 for intermittent stream. Taking Flomax qd. 3. Family history of prostate cancer in father (Z80.42: Family history of malignant neoplasm of prostate) Cont screening above. 4. Incomplete bladder emptying (R33.9: Retention of urine, unspecified) PVR (cc): 09/07/23 - 143 03/21/24 - 0 06/06/24 - 125 The patient is happy to hear that the PSA is decreased by 3.0 since last visit. It still remains elevated. Putting this altogether, he has the family history of prostate cancer which is certainly raise his risk. However he said the negative fusion biopsy and a fluctuating PSA, raising the likelihood of prostatitis causing much of the PSA elevation. His prostate is fairly small. He still carries a moderate residual urine. Continued follow-up every 4 months is indicated and he agrees with the plan. He will stay on his Flomax 0.4 mg with no changes in dosing at this point. Call for difficulties. Follow-up With When Contact Information Rishi XIE MD, URL [address] [place] [id number] Additional Instructions: 4 mos with PSA F&T Patient Education Prostate Cancer Screening I, Fanny Garcia, personally scribed for Dr. Xie on 06/06/2024 10:20:38. . Documentation recorded by the scribe, Fanny Garcia, accurately reflects the services(s) I performed and decisions made by me. Authenticated by Dr. Xie on 06/06/2024 10:21:23. Portions of this record may have been created with voice recognition artificial intelligence software, specifically [employer], [employer] and or [employer]. Substitutions may have occurred due to the inherent limitations of voice recognition and artificial intelligence software. Problem List/Past Medical History Ongoing Arthritis BMI 27.0-27.9,adult BPH with urinary obstruction Cerebral palsy Dysphagia, pharyngeal Dysuria Elevated PSA Family history of prostate cancer in father Hypertension Incomplete bladder emptying Urge incontinence Historical No qualifying data Procedure/Surgical H (more content not included)... Normal [facility] Comment on above: Result Comment: Elec tronically Signed By: Rishi XIE MD\.br\Date and Time Signed: 06/06/24 10:22 EDT\.br\Electronically Co-Signed By: Fanny Garcia\.br\Date and Time Co-Signed: 06/06/24 10:20 EDT PSA TOTAL+% FREEon 4 % FREE PSA 7.5 % . [facility] Comment on above: The table below list s the probability of prostate cancer for men with non-suspicious MAGALY results and total PSA between 4 and 10 ng/mL, by patient age (Yenni et al, AYDE 1998, 279:1542). % Free PSA 50-64 yr 65-75 yr 0.00-10.00% 56% 55% 10.01-15.00% 24% 35% 15.01-20.00% 17% 23% 20.01-25.00% 10% 20% >25.00% 5% 9% Please note: Yenni et al did not make specific recommendations regarding the use of percent free PSA for any other population of men. Performed at: - [address] [id number] School Commissioner: José Guerrier PhD, Phone: [phone] Interpretation and review of laboratory results Abnormal [facility] Prostate specific Ag [Mass/Vol] 6.0 ng/mL Abnormal 0.0 - 4.0 ng/mL [facility] Comment on above: Tameka ECLIA methodol ogy. According to the [place] [employer], Serum PSA should decrease and remain at undetectable levels after radical prostatectomy. The AUA defines biochemical recurrence as an initial PSA value 0.2 ng/mL or greater followed by a subsequent confirmatory PSA value 0.2 ng/mL or greater. Values obtained with different assay methods or kits cannot be used interchangeably. Results cannot be interpreted as absolute evidence of the presence or absence of malignant disease. PSA, FREE 0.45 ng/mL N/A [facility] Comment on above: Tameka ECLIA methodol ogy. [facility] Screenson 03-22-2024 Screens [id number] Normal [facility] Ambulatory Visit Summaryon 0 03-21-2024 Ambulatory Visit Summary DMITRI ARTHUR :1965 Visit Date:03/21/2024 Ambulatory Visit Instructions Your Diagnosis Elevated PSA BPH with urinary obstruction Urge incontinence Family history of prostate cancer in father Your Care Team Attending Physician - PACO [...] Follow-Up Appointments Wednesday 10:45 AM EDT With: PACO VARGAS, Rishi Herrera Where: [facility] Dean Patino [facility] Patient Educationon 03-21-20 Patient Education Oncology Prostate [...] Where to find more information ? The [place] [employer]: www.cancer.org ? [place] [employer] Association: www.auanet.org Contact a health care [...] adds flu (more content not included)... Normal [facility] Urology Office/Clinic Noteon 03-21-2024 Urology Office/Clinic Note [...] When Contact Information Rishi XIE MD, URL [address] [place] [phone] Additional Instructions: 2 mos with PSA F&T Patient Education Prostate Cancer Screening IFanny, personally scribed for Dr. Xie on 03/21/2024 08:26:53. . Documentation recorded by the scribe, Fanny Garcia, accurately reflects the services(s) I performed and decisions made by me. Authenticated by Dr. Xie on 03/21/2024 08:31:23. Portions of this record m (more content not included)... Normal [facility] Comment on above: Result Comment: Elec tronically Signed By: Rishi XIE MD\.br\Date and Time Signed: 03/21/24 08:32 EDT\.br\Electronically Co-Signed By: Fanny Garcia\.br\Date and Time Co-Signed: 03/21/24 08:27 EDT Lab Reportson 03-16-2024 Lab Reports [id number] Normal [facility] CBC AUTO DIFFon 02-15-2023 BASO # 0.1 103/ul Normal 0.0-0.1 [facility] Comment on above: Performed By: #### P SASC #### [facility] [address] [place] [address] Dr. Davon Gutierrez Basophils/100 WBC (Bld) 1.1 % Normal 0.2-2.0 [facility] Comment on above: Performed By: #### P SASC #### [facility] [address] [place] [address] Dr. Davon Gutierrez EO # 0.5 103/ul Normal 0.0-0.7 [facility] Comment on above: Performed By: #### P SASC #### [facility] [address] [place] [address] Dr. Davon Gutierrez Eosinophils/100 WBC (Bld) 6.4 % Normal 0.9-7.0 [facility] Comment on above: Performed By: #### P SASC #### [facility] [address] [place] [address] Dr. Davon Gutierrez Erythrocyte distribution width (RBC) [Ratio] 12.2 % Normal 11.0-15.0 [facility] Comment on above: Performed By: #### P SASC #### [facility] [address] [place] [address] Dr. Davon Gutierrez Hematocrit (Bld) [Volume fraction] 42.2 % Normal 42.0-54.0 [facility] Comment on above: Performed By: #### P SASC #### [facility] [address] [place] [address] Dr. Davon Gutierrez Hemoglobin (Bld) [Mass/Vol] 14.4 g/dL Normal 14.0-18.0 [facility] Comment on above: Performed By: #### P SASC #### [facility] [address] [place] [address] Dr. Davon Gutierrez IG # 0.02 10e3/ul Normal 0.00-0.03 [facility] Comment on above: Performed By: #### P SASC #### [facility] [address] [place] [address] Dr. Davon Gutierrez IG % 0.3 % Normal 0.0-0.5 [facility] Comment on above: Performed By: #### P SASC #### [facility] [address] [place] [address] Dr. Davon Gutierrez LYMPH # 2.7 103/ul Normal 1.2-3.8 [facility] Comment on above: Performed By: #### P SASC #### [facility] [address] [place] [address] Dr. Davon Gutierrez Lymphocytes/100 WBC (Bld) 35.6 % Normal 20.5-60.0 [facility] Comment on above: Performed By: #### P SASC #### [facility] [address] [place] [address] Dr. Davon Gutierrez MANUAL DIFF REQ NO Normal [facility] Comment on above: Performed By: #### P SASC #### [facility] [address] [place] [address] Dr. Davon Gutierrez MCH (RBC) [Entitic mass] 31.3 pg Normal 25.9-34.0 [facility] Comment on above: Performed By: #### P SASC #### [facility] [address] [place] [address] Dr. Davon Gutierrez MCHC (RBC) [Mass/Vol] 34.1 g/dL Normal 29.9-35.2 [facility] Comment on above: Performed By: #### P SASC #### [facility] [address] [place] [address] Dr. Davon Gutierrez MCV (RBC) [Entitic vol] 91.7 fL Normal 80.0-94.0 [facility] Comment on above: Performed By: #### P SASC #### [facility] [address] [place] [address] Dr. Davon Gutierrez MONO # 0.7 103/ul Normal 0.3-0.8 [facility] Comment on above: Performed By: #### P SASC #### [facility] [address] [place] [address] Dr. Davon Gutierrez Monocytes/100 WBC (Bld) 8.9 % Normal 1.7-12.0 [facility] Comment on above: Performed By: #### P SASC #### [facility] [address] [place] [address] Dr. Davon Gutierrez NEUT # 3.6 103/ul Normal 1.4-6.5 [facility] Comment on above: Performed By: #### P SASC #### [facility] [address] [place] [address] [address] Davon Gutierrez Neutrophils/100 WBC (Bld) 47.7 % Normal 43.0-75.0 [facility] Comment on above: Performed By: #### P SASC #### [facility] [address] [place] [address] Dr. Davon Gutierrez Platelet mean volume (Bld) [Entitic vol] 9.4 fL Critically low 9.5-13.5 [facility] Comment on above: Performed By: #### P SASC #### [facility] [address] [place] [address] Dr. Davon Gutierrez PLT 246 103/ul Normal 150-450 [facility] Comment on above: Performed By: #### P SASC #### [facility] [address] [place] [address] Dr. Davon Gutierrez RBC 4.60 106/ul Critically low 4.70-6.10 [facility] Comment on above: Performed By: #### P SASC #### [facility] [address] [place] [address] Dr. Davon Gutierrez WBC 7.5 103/ul Normal 4.0-11.0 [facility] Comment on above: Performed By: #### P SASC #### [facility] [address] [place] [address] Dr. Davon Gutierrez GLYCOHEMOGLOBIN A1Con 2022 ADA RECOMMENDATION SEE BELOW Normal [facility] Comment on above: Result Comment: ADA RECOMMENDED LIMIT 4.0 - 6.0 ADA THERAPEUTIC TARGET < 7.0 ACTION SUGGESTED > 7.0 Performed By: #### A 1C #### [facility] [address] [place] [address] Dr. Davon Gutierrez Glucose [Mass/Vol] 105 mg/dL Normal [facility] Comment on above: Performed By: #### A 1C #### [facility] [address] [place] [address] [address] Davon Gutierrez HbA1c (Bld) [Mass fraction] 5.3 % Normal 4.5-6.2 [facility] Comment on above: Performed By: #### A 1C #### [facility] [address] [place] [address] [address] Davon Gutierrez LIPID PROFILEon 02-15-2023 CHOL-HDL RATIO NORM SEE BELOW Normal [facility] Comment on above: Result Comment: 3.3 - 4.4 LOW RISK 4.4 - 7.1 AVERAGE RISK 7.1 - 11.0 MODERATE RISK >11.0 HIGH RISK Performed By: #### L IPID, LIVER, TSH, BMP #### [facility] [address] [place] [address] [address] Davon Gutierrez Cholesterol [Mass/Vol] 227 mg/dL Critically high <=200 [facility] Comment on above: Performed By: #### L IPID, LIVER, TSH, BMP #### [facility] [address] [place] [address] [address] Davon Gutierrez Cholesterol in HDL [Mass/Vol] 59 mg/dL Normal 40-60 [facility] Comment on above: Performed By: #### L IPID, LIVER, TSH, BMP #### [facility] [address] [place] [address] [address] Davon Gutierrez Cholesterol in LDL [Mass/Vol] 152.4 mg/dL Normal [facility] Comment on above: Performed By: #### L IPID, LIVER, TSH, BMP #### [facility] [address] [place] [address] [address] Davon Gutierrez Cholesterol.total/Cho lesterol in HDL [Mass ratio] 3.8 {ratio} Normal [facility] Comment on above: Performed By: #### L IPID, LIVER, TSH, BMP #### [facility] [address] [place] [address] [address] Davon Gutierrez HDL NORMAL > or = 60 mg/dl - LO W CARDIOVASCULAR RISK <40 mg/dl - HIGH CARDIOVASCULAR RISK Normal [facility] Comment on above: Performed By: #### L IPID, LIVER, TSH, BMP #### [facility] [address] [place] [address] [address] Davon Gutierrez LDL CALC NORMAL SEE BELOW Normal [facility] Comment on above: Result Comment: <100 mg/dl OPTIMAL 100 - 129 mg/dl NEAR OR ABOVE OPTIMAL 130 - 159 mg/dl BORDERLINE HIGH 160 - 189 mg/dl HIGH >190 mg/dl VERY HIGH Performed By: #### L IPID, LIVER, TSH, BMP #### [facility] [address] [place] [address] [address] Davon Gutierrez Triglyceride [Mass/Vol] 78 mg/dL Normal <=150 [facility] Comment on above: Performed By: #### L IPID, LIVER, TSH, BMP #### [facility] [address] [place] [address] Dr. Davon Gutierrez VLDL CALC 15.6 mg/dL Normal [facility] Comment on above: Performed By: #### L IPID, LIVER, TSH, BMP #### [facility] [address] [place] [address] Dr. Davon Gutierrez LIVER PROFILEon 02-15-2023 Albumin [Mass/Vol] 3.5 g/dL Normal 3.4-5.0 [facility] Comment on above: Performed By: #### L IPID, LIVER, TSH, BMP #### [facility] [address] [place] [address] [address] Davon Gutierrez Albumin/Globulin [Mass ratio] 0.9 {ratio} Normal [facility] Comment on above: Performed By: #### L IPID, LIVER, TSH, BMP #### [facility] [address] [place] [address] Dr. Davon Gutierrez ALP [Catalytic activity/Vol] 64 U/L Normal 46-116 [facility] Comment on above: Performed By: #### L IPID, LIVER, TSH, BMP #### [facility] [address] [place] [address] Dr. Davon Gutierrez ALT [Catalytic activity/Vol] 30 U/L Normal 16-63 [facility] Comment on above: Performed By: #### L IPID, LIVER, TSH, BMP #### [facility] [address] [place] [address] [address] Davon Gutierrez AST [Catalytic activity/Vol] 21 U/L Normal 15-37 [facility] Comment on above: Performed By: #### L IPID, LIVER, TSH, BMP #### [facility] [address] [place] [address] [address] Davon Gutierrez BILI, CONJUGATED 0.1 mg/dL Normal 0.0-0.2 [facility] Comment on above: Performed By: #### L IPID, LIVER, TSH, BMP #### [facility] [address] [place] [address] Dr. Davon Gutierrez Bilirubin [Mass/Vol] 0.4 mg/dL Normal 0.2-1.0 [facility] Comment on above: Performed By: #### L IPID, LIVER, TSH, BMP #### [facility] [address] [place] [address] Dr. Davon Gutierrez Globulin (S) [Mass/Vol] 3.7 g/dL Normal [facility] Comment on above: Performed By: #### L IPID, LIVER, TSH, BMP #### [facility] [address] [place] [address] Dr. Davno Gutierrez Protein [Mass/Vol] 7.2 g/dL Normal 6.4-8.2 [facility] Comment on above: Performed By: #### L IPID, LIVER, TSH, BMP #### [facility] [address] [place] [address] Dr. Davon Gutierrez PROF CHEM 8 (BAS METB)on Anion gap [Moles/Vol] 11.4 mmol/L Normal [facility] Comment on above: Performed By: #### L IPID, LIVER, TSH, BMP #### [facility] [address] [place] [address] Dr. Davon Gutierrez Calcium [Mass/Vol] 9.2 mg/dL Normal 8.5-10.1 [facility] Comment on above: Performed By: #### L IPID, LIVER, TSH, BMP #### [facility] [address] [place] [address] Dr. Davon Gutierrez Chloride [Moles/Vol] 102 mmol/L Normal 98-107 [facility] Comment on above: Performed By: #### L IPID, LIVER, TSH, BMP #### [facility] [address] [place] [address] Dr. Davon Gutierrez CO2 [Moles/Vol] 31.0 mmol/L Normal 21.0-32.0 [facility] Comment on above: Performed By: #### L IPID, LIVER, TSH, BMP #### [facility] [address] [place] [address] Dr. Davon Gutierrez Creatinine [Mass/Vol] 0.90 mg/dL Normal 0.70-1.30 [facility] Comment on above: Performed By: #### L IPID, LIVER, TSH, BMP #### [facility] [address] [place] [address] Dr. Davon Gutierrez EGFR-AF GUYANESE >60 Normal >=60 [facility] Comment on above: Performed By: #### L IPID, LIVER, TSH, BMP #### [facility] [address] [place] [address] Dr. Davon Gutierrez EGFR-NON AF GUYANESE >60 Normal >=60 [facility] Comment on above: Performed By: #### L IPID, LIVER, TSH, BMP #### [facility] [address] [place] [address] Dr. Davon Gutierrez Glucose [Mass/Vol] 104 mg/dL Normal 74-106 [facility] Comment on above: Performed By: #### L IPID, LIVER, TSH, BMP #### [facility] [address] [place] [address] Dr. Davon Gutierrez Potassium [Moles/Vol] 3.4 mmol/L Critically low 3.5-5.1 [facility] Comment on above: Performed By: #### L IPID, LIVER, TSH, BMP #### [facility] [address] [place] [address] [address] Davon Gutierrez Sodium [Moles/Vol] 141 mmol/L Normal 136-145 [facility] Comment on above: Performed By: #### L IPID, LIVER, TSH, BMP #### [facility] [address] [place] [address] [address] Davon Gutierrez Urea nitrogen [Mass/Vol] 23.0 mg/dL Critically high 7.0-18.0 [facility] Comment on above: Performed By: #### L IPID, LIVER, TSH, BMP #### [facility] [address] [place] [address] [address] Davon Gutierrez Urea nitrogen/Creatinine [Mass ratio] 25.6 mg/mg Normal [facility] Comment on above: Performed By: #### L IPID, LIVER, TSH, BMP #### [facility] [address] [place] [address] Dr. Davon Gutierrez TSHon 02-15-2023 TSH 1.208 uIU/mL Normal 0.358-3.740 [facility] Comment on above: Performed By: #### L IPID, LIVER, TSH, BMP #### [facility] [address] [place] [address] Dr. Davon Gutierrez CHEMISTRYOrdered By: SYSTEM SYSTEM on 10-12-2022 Free PSA [Mass/Vol] 0.6 ng/mL Invalid Interpretation Code FT Remisol Free PSA/Total PSA [Mass fraction] 16.0 % Low >=25.0% FT Remisol Prostate specific Ag [Mass/Vol] 3.5 ng/mL Normal 0.1 - 3.5 ng/mL FT Remisol HEP B SURFACE ANTIGEN SCREEN on 06-27-2022 HBsAg Screen Negative Normal Negative [facility] Comment on above: Performed By: #### H BSANS #### [facility] [address] [place] [address] Dr. Davon Gutierrez HEPATITIS C ANTIBODYon 06-27 Hep C Virus Ab <0.1 Normal 0.0-0.9 [facility] Comment on above: Result Comment: Nega tive: < 0.8 Indeterminate: 0.8 - 0.9 Positive: > 0.9 . HCV antibody alone does not differentiate between previous resolved infection and active infection. The CDC and current clinical guidelines recommend that a positive HCV antibody result be followed up with an HCV RNA test to support the diagnosis of acute HCV infection. [facility] offers Hepatitis C Virus (HCV) RNA, Diagnosis, JUAN CARLOS (199723) and Hepatitis C Virus (HCV) Antibody with reflex to Quantitative Real-time PCR ([id number]). Performed By: #### H CV #### [facility] [address] [place] [address] Dr. Davon Gutierrez RPR QUANTon 06-27-2022 Rapid Plasma Reagin, Quant Non-Reactive Normal NonRea<1:1 [facility] Comment on above: Result Comment: Plea se Note: This test does not meet current guidelines for screening and diagnosis of syphilis. This test is intended for following treatment response in patients being treated for syphilis infection. To screen for syphilis infection, a reflex cascade that includes both RPR and a treponema-specific assay should be utilized, such as Treponema pallidum (Syphilis) Screening Strong (929881) or Rapid Plasma Reagin (RPR) Test With Reflex to Quantitative RPR and Confirmatory Treponema pallidum Antibodies (599984). Performed By: #### R PRQ #### [facility] [address] [place] [address] Dr. Davon Gutierrez HIV 1/2 RAPID (EXPOSURE ONLY )on 06-25-2022 HIV AB Non-Reactive Normal NON-REACTIV E [facility] Comment on above: Performed By: #### R PDHIV #### [facility] [address] [place] [address] Dr. Davon Gutierrez HIV AG Non-Reactive Normal NON-REACTIV E [facility] Comment on above: Performed By: #### R PDHIV #### [facility] [address] [place] [address] Dr. Davon Gutierrez INTERNAL CONTROLS Within Normal Limits Normal Wi thin Normal Limits [facility] Comment on above: Performed By: #### R PDHIV #### [facility] [address] [place] [address] Dr. Davon Gutierrez RAPID HIV INFO SEE BELOW Normal [facility] Comment on above: Result Comment: This test is used for the initial screening of the exposure source. Confirmation of all reactive results will be obtained through reference lab testing. Performed By: #### R PDHIV #### [facility] [address] [address] [address] Davon Huggins 05-28-2022 L ----- Specimen: [id number] Received: 05/28/22 Status: RYANN Mathew Num: [id number] Spec Type: Surgical Subm Dr: Rishi Xie [...] ([facility]) Procedures: HE Stain/24, Gross/Micro L4/ Age/ Patient Sex Location Account Attending Physician Dmitri Arthur 57/M [place] [id number] Rishi Xie MD SPEC NUM: [id number] RECD: 05/28/22 STATUS: RYANN MATHEW NUM: [id number] GRACE: 05/28/22- SUBM DR: Rishi Xie MD ENTERED: 05/28/[address] [facility] [address]: SPEC TYPE: Surgical DEPT: S ORDERED: HE Stain/24, Gross/Micro L4/12 ORDERED: HE Stain/24, Gross/Micro L4/12, Unstained Slide/ Pathological Diagnosis A. [...] basal cell hyperplasia. - See Note. Specimen: [id number] Received: 05/28/22 Status: RYANN Mathew Num: [id number] Spec Type: Surgical Subm Dr: Rishi Xie [...] Needle Biopsy ([facility]) Procedures: HE Stain, Gross/Micro Patient: Dmitri Arthur [id number] (Continued) Specimen: [id number] Received: 05/28/22-1040 (Continued) Pathological Diagnosis (Continued) Signed (signature on file) Glenn Ovalles MD 06/01/22 1414 Specimen: [id number] Received: 05/28/22 Status: RYANN Mathew Num: [id number] Spec Type: Surgical Subm Dr: Rishi Xie [...] Needle Biopsy ([facility]) Procedures: HE , Gross/Micro Patient: Dmitri Arthur [id number] (Continued) Specimen: [id number] Received: 05/28/22 (Continued) Pathological Diagnosis (Continued) E. [...] mid la (more content not included)... Normal [facility] SARS-CoV-2 (COVID-19) RNA JUAN CARLOS+probe Ql (Unsp spec) Negative Normal Negative [facility] Comment on above: Order Comment: Healt hcare Worker?: N Result Comment: Testing for SARS-CoV-2 by RT-PCR This test was developed and its performance characteristics determined by [employer] ([employer]) and validated at the [facility]. This test has not been FDA cleared [...] is terminated or revoked sooner. PERFORMED BY: [place] [address] PATHOLOGIST INFORMATION ARCHITECT ANNIE MASCORRO M.D. Performed By: #### C OVID 19 [facility] [place] #### [address] COVID-19 Positive/NegativeOr dered By: Rishi Xie on 05-26-2022 SARS-CoV-2 (COVID-19) N gene JUAN CARLOS+probe Ql (Resp) Negative Negative [facility] Comment on above: Testing for SARS-CoV -2 by RT-PCR This test was developed and its performance characteristics determined by [employer] and validated at the [facility]. This test has not been FDA cleared [...] aPTT Coag (PPP) [Time] 32.0 s 25.1-36.5 [facility] Basic Metabolic Panelon 05-04 Calcium [Mass/Vol] 10.0 mg/dL Normal 8.2-10.2 [facility] Comment on above: Result Comment: PERF ORMED BY: [place] [address] PATHOLOGIST INFORMATION ARCHITECT ANNIE MASCORRO M.D. Performed By: #### C BC, PT, PTT, BMP #### [address] Chloride [Moles/Vol] 96 mmol/L Normal 95-114 [facility] Comment on above: Performed By: #### C BC, PT, PTT, BMP #### [facility] [address] [place] [address] CO2 [Moles/Vol] 29.4 mmol/L Normal 22.0-30.0 [facility] Comment on above: Performed By: #### C BC, PT, PTT, BMP #### [facility] [address] [place] [address] [place] Creatinine [Mass/Vol] 0.85 mg/dL Normal 0.64-1.27 [facility] Comment on above: Performed By: #### C BC, PT, PTT, BMP #### [facility] [address] [place] [address] [place] Estimated GFR ( Gita > 60 Normal [facility] Comment on above: Result Comment: GFR estimated reference range: According to KDOQI guidelines, <60 ml/min/1.73m2 is sufficient to diagnose a patient with chronic kidney disease. Performed By: #### C BC, PT, PTT, BMP #### [facility] [address] [place] [address] [place] Estimated GFR (Non- Am > 60 [facility] Comment on above: Performed By: #### C BC, PT, PTT, BMP #### [facility] [address] Glucose [Mass/Vol] 81 mg/dL Normal 70-100 [facility] Comment on above: Result Comment: [place] Glucose Reference Range is dependent on time and content of last meal. Glucose of more than 200 mg/dL in a nonstressed, ambulatory subject supports the diagnosis of Diabetes Mellitus. ADA recommended reference range Performed By: #### C BC, PT, PTT, BMP #### [facility] [address] Potassium [Moles/Vol] 3.7 mmol/L Normal 3.5-5.1 [facility] Comment on above: Performed By: #### C BC, PT, PTT, BMP #### [address] Sodium [Moles/Vol] 138 mmol/L Normal 136-146 [facility] Comment on above: Performed By: #### C BC, PT, PTT, BMP #### [place] [address] [place] Urea nitrogen [Mass/Vol] 21 mg/dL Normal 9-23 [facility] Comment on above: Performed By: #### C BC, PT, PTT, BMP #### [facility] [address] [place] [address] [place] Basophils Auto (Bld) [#/Vol] Ordered By: Rishi Xie on 05-14-2022 Basophils (Bld) [#/Vol] 0.1 10*3/uL 0.0-0.2 [facility] Basophils/100 WBC Auto (Bld) Ordered By: Rishi Xie on 05-14-2022 Basophils/100 WBC (Bld) 0.9 % . [facility] Blood hemoglobin measurement (mass/volume)Ordered By: Rishi Paco on 05-14-2022 Hemoglobin (Bld) [Mass/Vol] 14.3 g/dL 13.0-17.0 [facility] Blood leukocytes automated c ount (number/volume)Ordered By: Rishi Xie on 05-14-2022 WBC (Bld) [#/Vol] 6.8 10*3/uL 4.5-11.0 [facility] Complete Blood Count Auto Di ffon 05-14-2022 Basophils (Bld) [#/Vol] 0.1 10*3/uL Normal 0.0-0.2 [facility] Comment on above: Result Comment: PERF ORMED BY: [place] [address] PATHOLOGIST INFORMATION ARCHITECT ANNIE MASCORRO M.D. Performed By: #### C BC, PT, PTT, BMP #### [facility] [address] Basophils/100 WBC (Bld) 0.9 % Normal . [facility] Comment on above: Performed By: #### C BC, PT, PTT, BMP #### [facility] [address] [place] [address] [place] Eosinophils (Bld) [#/Vol] 0.1 10*3/uL Normal 0.0-0.45 [facility] Comment on above: Performed By: #### C BC, PT, PTT, BMP #### [facility] [address] [place] [address] [place] Eosinophils/100 WBC (Bld) 1.7 % Normal . [facility] Comment on above: Performed By: #### C BC, PT, PTT, BMP #### [facility] [address] [place] [address] [place] Erythrocyte distribution width (RBC) [Ratio] 13.0 % Normal 12.0-14.8 [facility] Comment on above: Performed By: #### C BC, PT, PTT, BMP #### [facility] [address] Hematocrit (Bld) [Volume fraction] 42.9 % Normal 38.8-50.0 [facility] Comment on above: Performed By: #### C BC, PT, PTT, BMP #### [facility] [address] Hemoglobin (Bld) [Mass/Vol] 14.3 g/dL Normal 13.0-17.0 [facility] Comment on above: Performed By: #### C BC, PT, PTT, BMP #### [address] Lymphocytes (Bld) [#/Vol] 2.1 10*3/uL Normal 1.00-4.8 [facility] Comment on above: Performed By: #### C BC, PT, PTT, BMP #### [address] Lymphocytes/100 WBC (Bld) 31.6 % Normal . [facility] Comment on above: Performed By: #### C BC, PT, PTT, BMP #### [address] MCH (RBC) [Entitic mass] 31.3 pg Normal 27.5-35.2 [facility] Comment on above: Performed By: #### C BC, PT, PTT, BMP #### [address] MCV (RBC) [Entitic vol] 94.0 fL Normal 83.5-101 [facility] Comment on above: Performed By: #### C BC, PT, PTT, BMP #### [address] Mean Corpuscular HGB Conc 33.3 g/dL Normal 32.5-35.6 [facility] Comment on above: Performed By: #### C BC, PT, PTT, BMP #### [address] Monocytes (Bld) [#/Vol] 0.5 10*3/uL Normal 0.0-0.8 [facility] Comment on above: Performed By: #### C BC, PT, PTT, BMP #### [address] Monocytes/100 WBC (Bld) 8.1 % Normal . [facility] Comment on above: Performed By: #### C BC, PT, PTT, BMP #### [address] Neutrophils (Bld) [#/Vol] 3.9 10*3/uL Normal 1.8-7.7 [facility] Comment on above: Performed By: #### C BC, PT, PTT, BMP #### [address] Neutrophils/100 WBC (Bld) 57.7 % Normal . [facility] Comment on above: Performed By: #### C BC, PT, PTT, BMP #### [address] Nucleated RBC/100 WBC (Bld) [Ratio] 0.1 % Normal 0-0.5 [facility] Comment on above: Performed By: #### C BC, PT, PTT, BMP #### [address] Platelet mean volume (Bld) [Entitic vol] 7.7 fL Normal 6.6-10.1 [facility] Comment on above: Performed By: #### C BC, PT, PTT, BMP #### [address] Platelets (Bld) [#/Vol] 303 10*3/uL Normal 150-450 [facility] Comment on above: Performed By: #### C BC, PT, PTT, BMP #### [address] RBC (Bld) [#/Vol] 4.56 10*6/uL Normal 3.90-5.60 [facility] Comment on above: Performed By: #### C BC, PT, PTT, BMP #### [address] [place] [address] [place] WBC (Bld) [#/Vol] 6.8 10*3/uL Normal 4.5-11.0 [facility] Comment on above: Performed By: #### C BC, PT, PTT, BMP #### [facility] [address] [place] [address] Creatinine and Glomerular fi ltration rate.predicted panel (S/P/Bld)Ordered By: Rishi Xie on 05-14-2022 Creatinine [Mass/Vol] 0.85 mg/dL 0.64-1.27 [facility] ECG 12 lead ECGon 05-14-2022 ECG 12 lead ECG [facility] [address] [place] [address] Electrocardiograph Report Signed Patient: Dmitri Arthur MR#: [id number] : 1965 Acct:[id number] Age/Sex: 57 / M ADM Date: 05/14/22 Loc: Room: Type: [facility] Attending Dr: Rishi Xie MD [...] previous ECGs available Confirmed by LYNDON VARGAS [facility], SURYA ([id number]) on 05/14/2022 4:47:03 PM Referred By: PACO Electronically Signed By:SURYA LUIS MD [facility] Transcribed By: MUS Signed By Surya Luis MD, FACC 05/14/22 0875 Normal [facility] Eosinophils Auto (Bld) [#/Vo l]Ordered By: Rishi Xie on 05-14-2022 Eosinophils (Bld) [#/Vol] 0.1 10*3/uL 0.0-0.45 [facility] Eosinophils/100 WBC Auto (Bl d)Ordered By: Rishi Xie on 05-14-2022 Eosinophils/100 WBC (Bld) 1.7 % . [facility] Erythrocyte distribution wid th Auto (RBC) [Ratio]Ordered By: Rishi Xie on 05-14-2022 Erythrocyte distribution width (RBC) [Ratio] 13.0 % 12.0-14.8 [facility] Estimated glomerular filtrat ion rate (GFR) non- AmericanOrdered By: Rishi Xie on 05-14-2022 GFR/1.73 sq M.predicted among non-blacks MDRD (S/P/Bld) [Vol rate/Area] > 60 mL/Min [facility] Hematocrit Auto (Bld) [Volum e fraction]Ordered By: Rishi Xie on 05-14-2022 Hematocrit (Bld) [Volume fraction] 42.9 % 38.8-50.0 [facility] Laboratory - CoagulationOrde red By: Rishi Xie on 05-14-2022 PT Coag (PPP) [Time] 12.2 s 9.0-12.9 [facility] - Hematology and Cell countsOrdered By: Rishi Xie on 05-14-2022 Nucleated RBC/100 WBC (Bld) [Ratio] 0.1 % 0-0.5 [facility] Lymphocytes Auto (Bld) [#/Vo l]Ordered By: Rishi Xie on 05-14-2022 Lymphocytes (Bld) [#/Vol] 2.1 10*3/uL 1.00-4.8 [facility] Lymphocytes/100 WBC Auto (Bl d)Ordered By: Rishi Xie on 05-14-2022 Lymphocytes/100 WBC (Bld) 31.6 % . [facility] MCH Auto (RBC) [Entitic mass ]Ordered By: Rishi Xie on 05-14-2022 MCH (RBC) [Entitic mass] 31.3 pg 27.5-35.2 [facility] MCHC Auto (RBC) [Mass/Vol]Or dered By: Rishi Xie on 05-14-2022 MCHC (RBC) [Mass/Vol] 33.3 g/dL 32.5-35.6 [facility] MCV Auto (RBC) [Entitic vol] Ordered By: Rishi Xie on 05-14-2022 MCV (RBC) [Entitic vol] 94.0 fL 83.5-101 [facility] Monocytes Auto (Bld) [#/Vol] Ordered By: Rishi Xie on 05-14-2022 Monocytes (Bld) [#/Vol] 0.5 10*3/uL 0.0-0.8 [facility] Monocytes/100 WBC Auto (Bld) Ordered By: Rishi Xie on 05-14-2022 Monocytes/100 WBC (Bld) 8.1 % . [facility] Neutrophils Auto (Bld) [#/Vo l]Ordered By: Rishi Xie on 05-14-2022 Neutrophils (Bld) [#/Vol] 3.9 10*3/uL 1.8-7.7 [facility] Neutrophils/100 WBC Auto (Bl d)Ordered By: Rishi Xie on 05-14-2022 Neutrophils/100 WBC (Bld) 57.7 % . [facility] No Panel InformationOrdered By: Rishi Xie on 05-14-2022 Estimated GFR () > 60 mL/Min [facility] Comment on above: GFR estimated refere nce range: According to KDOQI guidelines, <60 ml/min/1.73m2 is sufficient to diagnose a patient with chronic kidney disease. Pharmacy Creatinine Clearance (Chem N/A [facility] Partial Thromboplastin Timeo n 05-14-2022 aPTT Coag (Bld) [Time] 32.0 s Normal 25.1-36.5 [facility] Comment on above: Result Comment: PERF ORMED BY: [place] [address] PATHOLOGIST INFORMATION ARCHITECT ANNIE MASCORRO M.D. Performed By: #### C BC, PT, PTT, BMP #### [address] Platelet mean volume Auto (B ld) [Entitic vol]Ordered By: Rishi Xie on 05-14-2022 Platelet mean volume (Bld) [Entitic vol] 7.7 fL 6.6-10.1 [facility] Platelet poor plasma interna tional normalized ratio (INR) by coagulation assay (relatOrdered By: Rishi Xie on 05-14-2022 INR Coag (PPP) [Relative time] 1.1 {INR} [facility] Comment on above: INR Therapeutic Rang e [...] 05-14-2022 Platelets (Bld) [#/Vol] 303 10*3/uL 150-450 [facility] Prothrombin Time INRon 05-14 INR Coag (PPP) [Relative time] 1.1 {INR} Normal [facility] Comment on above: Result Comment: INR Therapeutic [...] BMP #### [facility] [address] PT Coag (PPP) [Time] 12.2 s Normal 9.0-12.9 [facility] Comment on above: Performed By: #### C BC, PT, PTT, BMP #### [facility] [address] RBC Auto (Bld) [#/Vol]Ordere d By: Rishi Xie on 05-14-2022 RBC (Bld) [#/Vol] 4.56 10*6/uL 3.90-5.60 [facility] Serum or plasma calcium neville urement (mass/volume)Ordered By: Rishi Xie on 05-14-2022 Calcium [Mass/Vol] 10.0 mg/dL 8.2-10.2 [facility] Serum or plasma chloride anand surement (moles/volume)Ordered By: Rishi Xie on 05-14-2022 Chloride [Moles/Vol] 96 mmol/L 95-114 [facility] Serum or plasma glucose neville urement (mass/volume)Ordered By: Rishi Xie on 05-14-2022 Glucose [Mass/Vol] 81 mg/dL 70-100 [facility] Comment on above: ADA recommended refe rence range Random Glucose Reference Range is dependent on time and content of last meal. Glucose of more than 200 mg/dL in a nonstressed, ambulatory subject supports the diagnosis of Diabetes Mellitus. Serum or plasma potassium me asurement (moles/volume)Ordered By: Rishi Xie on 05-14-2022 Potassium [Moles/Vol] 3.7 mmol/L 3.5-5.1 [facility] Serum or plasma sodium measu rement (moles/volume)Ordered By: Rishi Xie on 05-14-2022 Sodium [Moles/Vol] 138 mmol/L 136-146 [facility] Serum or plasma total carbon dioxide measurement (moles/volume)Ordered By: Rishi Xie on 05-14-2022 CO2 [Moles/Vol] 29.4 mmol/L 22.0-30.0 [facility] Serum or plasma urea nitroge n measurement (mass/volume)Ordered By: Rishi Xie on 05-14-2022 Urea nitrogen [Mass/Vol] 21 mg/dL 9-23 [facility] XR chest 2V*on 05-14-2022 XR chest 2V* [place] [address] XRay Report Signed Patient: Dmitri Arthur MR#: [id number] : 1965 Acct:[id number] Age/Sex: 57 / M ADM Date: 05/14/22 Loc: PS Room: Type: [facility] Attending Dr: Rishi Xie MD Copies to: [...] Donald Ordonez M.D.05/14/2022 4:42 PM Dictation Location: RADIO-PC-11 Transcribed By: JES 05/14/221641 Dictated By: Donald Ordonez II, MD 05/14/221640 Signed By: 05/14/221641 Normal [facility] MR prostate wo/w conon 03-26 MR prostate wo/w con [facility] [address] [place] [address] MRI Report Signed Patient: Dmitri Arthur MR#: [id number] : 1965 Acct:[id number] Age/Sex: 57 / M ADM Date: 03/25/22 Loc: MR Room: Type: [facility] Attending Dr: Rishi Xie MD [...] recommended. Impression dictated by: Josr Bobo Jr., D.O.03/26/2022 8:35 AM Dictation Location: [place] [address] Transcribed By: [facility] 03/26/22834 Dictated By: Josr Bobo Jr, DO 03/26/2226 Signed By: 03/26/22834 [facility] XR CHEST (2 VW)on 02-25-2018 XR CHEST [...] acute abnormality otherwiseInterpreted by:JADE Toscanoigned by:Josias Voss MD02/25/inal result Normal [facility] Progress Noteon 02-10-2018 HIM IP Note OR Disulfurizer Tender Normal [facility] CBCon 04-27-2017 Erythrocyte distribution width Auto Ratio (RBC) 13.5 % Normal 12.5-15.4 [facility] Comment on above: Performed By: #### C BC, CP, LIPR ####[place] [address] [place] [address] Erythrocytes (RBC) 5.03 10*6/uL Normal 4.5-5.9 [facility] Comment on above: Performed By: #### C BC, CP, LIPR ####[address] [address] Hematocrit (HCT) 46.5 % Normal 41-53 [facility] Comment on above: Performed By: #### C BC, CP, LIPR ####[address] [address] Hemoglobin mass conc (Bld) 15.7 g/dL Normal 13.5-17.5 [facility] Comment on above: Performed By: #### C BC, CP, LIPR ####[address] [address] MCH 31.1 pg Normal 26-34 [facility] Comment on above: Performed By: #### C BC, CP, LIPR ####[address] [address] MCHC mass conc (RBC) 33.7 g/dL Normal 31-37 [facility] Comment on above: Performed By: #### C BC, CP, LIPR ####[address] [address] MCV 92.4 fL Normal 80-100 [facility] Comment on above: Performed By: #### C BC, CP, LIPR ####[address] [address] Platelet mean volume (PMV) 8.5 fL Normal 6.0-12.0 [facility] Comment on above: Result Comment: [address] [address] Performed By: #### C BC, CP, LIPR ####[address] [address] Platelets 284 10*3/uL Normal 140-450 [facility] Comment on above: Performed By: #### C BC, CP, LIPR ####[facility] [address] [place] [address] WBC (Leukocytes) 8.5 10*3/uL Normal 3.5-11.[address] [facility] Comment on above: Performed By: #### C BC, CP, LIPR ####[address] [address] Comp Metabolic Profon 2016 (cont.) Normal [facility] Comment on above: Result Comment: Aver age GFR for 50-59 years old: 93 mL/min/1.73sq mChronic Kidney Disease: <60 mL/min/1.73sq mKidney failure: <15 mL/min/1.73sq meGFR calculated using average adult body mass. Additional eGFR calculator available at:http://[email or web address]/multiple_crcl_2012.htm[facility] [address] [place] [address] Performed By: #### Bogdan CHERRY CP, LIPR ####[address] [address] Alanine aminotransferase (ALT) 22 U/L Normal 5-41 [facility] Comment on above: Performed By: #### C BC, CP, LIPR ####[facility] [address] [place] [address] Albumin 4.4 g/dL Normal 3.5-5.2 [facility] Comment on above: Performed By: #### C BC, CP, LIPR ####[facility] [address] [place] [address] Albumin/Globulin Ratio 1.5 {ratio} Normal 1.0-2.5 [facility] Comment on above: Performed By: #### C BC, CP, LIPR ####[facility] [address] [place] [address] Alkaline Phos 70 U/L Normal 40-129 [facility] Comment on above: Performed By: #### C ALYCIA CHERRY, LIPR ####[facility] [place] [address] Anion gap 15 mmol/L Normal 9-17 [facility] Comment on above: Performed By: #### C JO ANN CP, LIPR ####[facility] [address] [place] [address] Aspartate aminotransferase (AST) 33 U/L Normal <40 [facility] Comment on above: Performed By: #### C ALYCIA CHERRY, LIPR ####[facility] [place] [address] Bilirubin Ql (U) 0.50 mg/dL Normal 0.3-1.2 [facility] Comment on above: Performed By: #### C JO ANN CP, LIPR ####[facility] [address] [place] [address] Calcium 9.5 mg/dL Normal 8.6-10.4 [facility] Comment on above: Performed By: #### C JO ANN CP, LIPR ####[facility] [place] [address] Chloride 97 mmol/L Low 98-107 [facility] Comment on above: Performed By: #### C JO ANN CP, LIPR ####[facility] [address] [place] [address] CO2 27 mmol/L Normal 20-31 [facility] Comment on above: Performed By: #### C JO ANN CP, LIPR ####[facility] [address] [place] [address] Creatinine 0.75 mg/dL Normal 0.70-1.20 [facility] Comment on above: Performed By: #### C JO ANN, CP, LIPR ####[facility] [address] [place] [address] eGFR (non-black) mL/min/{1.73_m2} Normal >60 [facility] Comment on above: Performed By: #### C BC, CP, LIPR ####[facility] [address] [place] [address] Glucose mass conc 89 mg/dL Normal 70-[address] [facility] Comment on above: Performed By: #### C BC, CP, LIPR ####[facility] [place] [address] Potassium molar conc 3.8 mmol/L Normal 3.7-5.3 [facility] Comment on above: Performed By: #### C BC, CP, LIPR ####[facility] [place] [address] Protein 7.4 g/dL Normal 6.4-8.3 [facility] Comment on above: Performed By: #### C BC, CP, LIPR ####[address] [address] Sodium 139 mmol/L Normal 135-144 [facility] Comment on above: Performed By: #### C BC, CP, LIPR ####[facility] [address] [place] [address] Urea nitrogen 21 mg/dL High 6-20 [facility] Comment on above: Performed By: #### C BC, CP, LIPR ####[facility] [address] [place] [address] BUN/CRE Ratio NOT REPORTED Normal 9-20 [facility] Comment on above: Performed By: #### C BC, CP, LIPR ####[facility] [address] [place] [address] Staging: NOT REPORTED Normal [facility] Comment on above: Performed By: #### C BC, CP, LIPR ####[facility] [address] [place] [address] Lipid Profileon 04-27-2017 Cholesterol 247 mg/dL High <200 [facility] Comment on above: Result Comment: Chol esterol Guidelines: <200 Desirable 200-240 Borderline >240 Undesirable Performed By: #### C BC, CP, LIPR ####[address] [address] Cholesterol to HDL Ratio 4.1 {ratio} Normal <5 [facility] Comment on above: Performed By: #### C BC, CP, LIPR ####[address] [address] HDL Cholesterol 60 mg/dL Normal >40 [facility] Comment on above: Result Comment: HDL Guidelines: <40 Undesirable 40-59 Borderline >59 Desirable Performed By: #### C BC, CP, LIPR ####[address] [address] LDL Cholesterol 158 mg/dL High 0-130 [facility] Comment on above: Result Comment: LDL Guidelines: <100 Desirable 100-129 Near to/above Desirable 130-159 Borderline >159 UndesirableDirect (measured) LDL and calculated LDL are not interchangeable tests. Performed By: #### C BC, CP, LIPR ####[address] [address] Triglyceride 145 mg/dL Normal <150 [facility] Comment on above: Result Comment: Trig lyceride Guidelines: <150 Desirable 150- 199 Borderline 200-499 High >499 Very high Based on AHA Guidelines for fasting triglyceride, July 2012.[place] [place] [address] Performed By: #### C BC, CP, LIPR ####[address] [address] Cholesterol in VLDL mass conc NOT REPORTED Normal 11-02 [facility] Comment on above: Performed By: #### C BC, CP, LIPR ####[place] [place], [place] [id number] Vital Signs Date Time Vital Sign Value Performing Clinician Facility 02-07-2025 07:12-0400 Body height 179.1 cm Johnathon Gallegos MD Work Phone: [facility] 02-07-2025 07:12-0400 Body mass index (BMI) [Ratio] 29 kg/m2 Johnathon Gallegos MD Work Phone: [facility] 02-07-2025 07:12-0400 Body temperature 97.5 [degF] Johnathon Gallegos MD Work Phone: [facility] 02-07-2025 07:12-0400 Body weight 92.99 kg Johnathon Gallegos MD Work Phone: [facility] 02-07-2025 07:12-0400 Diastolic blood pressure 88 mm[Hg] Johnathon Gallegos MD Work Phone: [facility] 02-07-2025 07:12-0400 Heart rate 82 /min Johnathon Gallegos MD Work Phone: [facility] 02-07-2025 07:12-0400 Respiratory rate 20 /min Johnathon Gallegos MD Work Phone: [facility] 02-07-2025 07:12-0400 SaO2% (BldA) [Mass fraction] 97 % Johnathon Gallegos MD Work Phone: [facility] 02-07-2025 07:12-0400 Systolic blood pressure 142 mm[Hg] Johnathon Gallegos MD Work Phone: [facility] 10-16-2024 09:31-0500 Blood Pressure Location Rishi XIE [facility] 10-16-2024 09:31-0500 Diastolic blood pressure 84 mm[Hg] Rishi XIE [facility] 10-16-2024 09:31-0500 Heart rate 86 /min Rishi XIE [facility] 10-16-2024 09:31-0500 Systolic blood pressure 124 mm[Hg] Rishi XIE [facility] 08-07-2024 14:38-0500 Body height 179.1 cm Johnathon Gallegos MD Work Phone: [facility] 08-07-2024 14:38-0500 Body mass index (BMI) [Ratio] 29.28 kg/m2 Johnathon Gallegos MD Work Phone: [facility] 08-07-2024 14:38-0500 Body temperature 97.11 [degF] Johnathon Gallegos MD Work Phone: [facility] 08-07-2024 14:38-0500 Body weight 93.89 kg Johnathon Gallegos MD Work Phone: [facility] 08-07-2024 14:38-0500 Diastolic blood pressure 62 mm[Hg] Johnathon Gallegos MD Work Phone: [facility] 08-07-2024 14:38-0500 Heart rate 108 /min Johnathon Gallegos MD Work Phone: [facility] 08-07-2024 14:38-0500 Respiratory rate 20 /min Johnathon Gallegos MD Work Phone: [facility] 08-07-2024 14:38-0500 SaO2% (BldA) [Mass fraction] 96 % Johnathon Gallegos MD Work Phone: [facility] 08-07-2024 14:38-0500 Systolic blood pressure 136 mm[Hg] Johnathon Gallegos MD Work Phone: [facility] 06-06-2024 10:04-0400 Diastolic blood pressure 83 mm[Hg] Rishi COOK [facility] 06-06-2024 10:04-0400 Heart rate 90 /min Rishi COOK [facility] 06-06-2024 10:04-0400 Respiratory rate 16 /min Rishi COOK [facility] 06-06-2024 10:04-0400 Systolic blood pressure 126 mm[Hg] Rishi COOK [facility] 03-21-2024 08:06-0400 Diastolic blood pressure 90 mm[Hg] Rishi COOK [facility] 03-21-2024 08:06-0400 Mean blood pressure 105 mm[Hg] Rishi COOK [facility] 03-21-2024 08:06-0400 Systolic blood pressure 134 mm[Hg] Rishi COOK [facility] 03-21-2024 08:01-0400 Blood Pressure Location Rishi COOK [facility] 03-21-2024 08:01-0400 Diastolic blood pressure 100 mm[Hg] Rishi COOK [facility] 03-21-2024 08:01-0400 Heart rate 78 /min Rishi COOK [facility] 03-21-2024 08:01-0400 Respiratory rate 16 /min Rishi COOK [facility] 03-21-2024 08:01-0400 Systolic blood pressure 150 mm[Hg] Rishi COOK [facility] 09-07-2023 09:11-0500 Blood Pressure Location Rishi COOK [facility] 09-07-2023 09:11-0500 Diastolic blood pressure 81 mm[Hg] Rishi COOK [facility] 09-07-2023 09:11-0500 Heart rate 100 /min Rishi COOK [facility] 09-07-2023 09:11-0500 Systolic blood pressure 138 mm[Hg] Rishi COOK [facility] 08-21-2022 08:18-0500 Blood Pressure Location Rishi COOK [facility] 08-21-2022 08:18-0500 Diastolic blood pressure 92 mm[Hg] Rishi COOK [facility] 08-21-2022 08:18-0500 Heart rate 75 /min Rishi COOK [facility] 08-21-2022 08:18-0500 Systolic blood pressure 139 mm[Hg] Rishi COOK [facility] 05-28-2022 09:25-0400 Diastolic blood pressure 62 mm[Hg] MD Rishi Xie Work Phone: [facility] 05-28-2022 09:25-0400 Heart rate 70 /min MD Rishi Xie Work Phone: [facility] 05-28-2022 09:25-0400 Respiratory rate 16 /min MD Rishi Xie Work Phone: [facility] 05-28-2022 09:25-0400 SaO2% (BldA) [Mass fraction] 95 % MD Rishi Xie Work Phone: [facility] 05-28-2022 09:25-0400 Systolic blood pressure 128 mm[Hg] MD Rishi Xie Work Phone: [facility] 05-28-2022 08:55-0400 Inhaled oxygen flow rate 6 L/min MD Rishi Xie Work Phone: [facility] 05-28-2022 07:59-0400 Body height 179.07 cm MD Rishi Xie Work Phone: [facility] 05-28-2022 07:59-0400 Body mass index (BMI) [Ratio] 27 kg/m2 MD Rishi Xie Work Phone: [facility] 05-28-2022 07:59-0400 Body weight 86.63 kg MD Rishi Xie Work Phone: [facility] 05-28-2022 06:23-0400 Body temperature 97.8 [degF] MD Rishi Xie Work Phone: [facility] 02-25-2022 10:08-0400 Blood Pressure Location Rishi XIE [facility] 02-25-2022 10:08-0400 Diastolic blood pressure 89 mm[Hg] Rishi XIE [facility] 02-25-2022 10:08-0400 Heart rate 84 /min Rishi XIE [facility] 02-25-2022 10:08-0400 Respiratory rate 16 /min Rishi XIE [facility] 02-25-2022 10:08-0400 Systolic blood pressure 149 mm[Hg] Rishi XIE [facility] 09-14-2019 11:05-0500 BP Diastolic 80 mm[Hg] [facility] 09-14-2019 11:05-0500 BP Systolic 114 mm[Hg] [facility] 09-14-2019 11:05-0500 Pulse (Heart Rate) 74 /min [facility] 09-14-2019 11:05-0500 Pulse Oximetry 99 % [facility] 09-14-2019 11:05-0500 Respiratory Rate 18 /min [facility] 09-14-2019 08:15-0500 BMI (Body Mass Index) 27.1 kg/m2 [facility] 09-14-2019 08:15-0500 Body Temperature 97.9 [degF] [facility] 09-14-2019 08:15-0500 Body weight 87.08 kg [facility] 09-14-2019 08:15-0500 Height 179.07 cm [facility] Encounters Encounter Date Encounter Type Care Provider Facility Start: 05-29-2025 ambulatory Rishi XIE Facility :[facility] Start: 02-07-2025 End: 02-07-2025 Bamboo flowsheet Johnathon Gallegos MD Work Phone: [facility] Start: 02-07-2025 End: 02-07-2025 Bamboo flowsheet Johnathon Gallegos MD Work Phone: [facility] Start: 02-07-2025 End: 02-07-2025 Office outpatient visit 15 minutes Johnathon Gallegos MD Work Phone: [facility] Comment on above: Essential hypertensi on, benign (CMS/HCC) (Primary Dx); Primary osteoarthritis, left shoulder; Elevated PSA Start: 02-07-2025 End: 02-07-2025 ambulatory JOHNATHON GALLEGOS Not Available Start: 10-16-2024 End: 10-16-2024 ambulatory Rishi XIE Facility:[facility] Start: 10-16-2024 End: 10-16-2024 Patient encounter procedure Rishi XIE [facility] Start: 10-12-2024 End: 10-13-2024 Clinisync Result Encounter Generic External Data Provider [facility] Unsolicited Start: 10-12-2024 End: 10-13-2024 Clinisync Result Encounter Generic External Data Provider [facility] Unsolicited Start: 10-05-2024 Emergency department patient visit JOHNATHON GALLEGOS Facility:[facility] Start: 10-05-2024 End: 10-05-2024 ambulatory CAMILLE BROOKS Facility:[facility] Start: 08-07-2024 End: 08-07-2024 Office outpatient visit 15 minutes Johnathon Gallegos MD Work Phone: [facility] Comment on above: Essential hypertensi on, benign (CMS/HCC) (Primary Dx); Primary osteoarthritis, left shoulder Start: 08-07-2024 End: 08-07-2024 ambulatory JOHNATHON GALLEGOS Not Available Start: 08-07-2024 End: 08-07-2024 Bamboo flowsheet Johnathon Gallegos MD Work Phone: [facility] Start: 08-07-2024 End: 08-07-2024 Bamboo flowsheet Johnathon Gallegos MD Work Phone: [facility] Start: 06-09-2024 End: 06-09-2024 ambulatory JOHNATHON GALLEGOS Facility:[facility] Start: 06-06-2024 End: 06-06-2024 ambulatory Rishi XIE Facility:[facility] Start: 06-06-2024 End: 06-06-2024 Patient encounter procedure Rishi XIE [facility] Start: 06-01-2024 End: 06-02-2024 Clinisync Result Encounter Generic External Data Provider [facility] Unsolicited Start: 06-01-2024 End: 06-02-2024 Clinisync Result Encounter Generic External Data Provider [facility] Unsolicited Start: 03-29-2024 Patient encounter procedure Generic Provider [facility] Start: 03-29-2024 End: 03-29-2024 ambulatory JOHNATHON GALLEGOS Not Available Start: 03-21-2024 End: 03-21-2024 ambulatory Rishi XIE Facility:[facility] Start: 03-21-2024 End: 03-21-2024 Patient encounter procedure Rishi XIE [facility] Start: 03-07-2024 End: 03-07-2024 ambulatory TRISTEN COLMENARES Not Available Start: 02-14-2024 End: 02-14-2024 ambulatory THADDEUS LINN Not Available Start: 09-07-2023 End: 09-07-2023 Patient encounter procedure Rishi XIE [facility] [employer] Start: 02-15-2023 End: 02-16-[address] JOHNATHON GALLEGOS Facility: Start: 10-12-2022 End: 10-12-2022 Patient encounter procedure Rishi XIE [facility] Start: 08-21-2022 End: 08-21-2022 Patient encounter procedure Rishi XIE [facility] Start: 06-24-2022 End: 06-25-[address] JOHNATHON GALLEGOS Facility: Start: 06-19-2022 End: 06-19-2022 Patient encounter procedure Rishi XIE [facility] Start: 05-28-2022 End: 05-28-2022 ambulatory Rishi Xie Facility:[facility] Start: 05-28-2022 End: 05-28-2022 Admission to same day surgery center MD Rishi Xie Work Phone: [facility] [place] Start: 05-26-2022 End: 05-26-2022 ambulatory Rishi Xie Facility:[facility] Start: 05-26-2022 End: 05-26-2022 Patient encounter procedure MD Rishi Xie Work Phone: [facility] Start: 05-14-2022 End: 05-14-2022 ambulatory Rishi Xie Facility:[facility] Start: 05-14-2022 End: 05-14-2022 Patient encounter procedure MD Rishi Xie Work Phone: [facility] Start: 03-25-2022 End: 03-25-2022 ambulatory Rishi Xie Facility:[facility] Start: 03-25-2022 End: 03-25-2022 Patient encounter procedure MD Rishi Xie Work Phone: [facility] [place] Start: 02-25-2022 End: 02-25-2022 Patient encounter procedure Rishi XIE [facility] Start: 09-14-2019 End: 09-14-2019 Admission to day surgery [facility] Start: 02-25-2018 End: 02-28-2018 Ambulatory ADORE FORTE [facility] Start: 04-27-2017 End: 04-28-2017 Ambulatory VIRY ORELLANA [facility] Procedures Date Procedure Procedure Detail Performing Clinician Start: 10-12-2024 PSA TOTAL+% FREE Generic External Data Provider Start: 06-01-2024 PSA TOTAL+% FREE Generic External Data Provider Start: 02-15-[address] JOHNATHON GALLEGOS Comment on above: Performed By: #### PSASC #### [facility] [address] [place] [address] Dr. Davon Gutierrez Start: 05-28-2022 US scan [...] Treatment Date Care Activity Detail Author Start: 02-07-2026 Screening for malign ant neoplasm of colon Colorectal Cancer Screening [facility] Comment on above: Postponed from 01/24 (Patient Refused) Start: 08-15-2025 End: 08-15-2025 Patient encounter procedure 08/15/2025 7:00 AM EST Office Visit [facility] [address] [place] [phone] Johnathon Gallegos MD [address] [place] [phone] [facility] Start: 06-04-2025 Influenza vaccination Influenz a Vaccine (Season Ended) [facility] Start: 02-07-2025 End: 02-07-2025 [facility] Comment on above: Arrived Start: 12-28-2024 Screening for malign ant neoplasm of colon Colorectal Cancer Screening [facility] Comment on above: Postponed from 01/24 (Patient Refused) Start: 09-20-2024 End: 09-20-2024 Patient encounter procedure 09/20/2024 8:00 AM EST Office Visit [facility] [address] [place] [phone] Johnathon Gallegos MD [address] [place] [phone] [facility] Start: 08-07-2024 End: 08-07-2024 Patient encounter procedure 08/07/2024 2:45 PM EST Office Visit [facility] [address] [place] [phone] Johnathon Gallegos MD [address] [place] [phone] Arrived [facility] Comment on above: Arrived Start: 06-04-2024 Influenza vaccination Influenza Vacc ine (#1) [facility] Start: 05-28-2022 US scan and biopsy o f prostate OR (TRUS) Prostate Biopsy w/Ultrasound (Not Applicable) [facility] Start: 05-28-2022 End: 05-28-2022 [facility] Work Phone: Start: 05-28-2022 End: 05-28-2022 Admission to same day surgery center Departed Surgical Day Care [facility] [place] Start: 05-26-2022 End: 05-26-2022 Patient encounter procedure Departed Clinical [facility] Start: 1965 Screening for malign ant neoplasm of colon [facility] Patient Education [facility] Patient referral [facility] Work Phone: Immunizations Immunization Date Immunization Notes Care Provider Braden valdez 12-18-2021 COVID-19 mRNA Comirnatsin (Pfizer) MD Rishi Xie Work Phone: [facility] 12-18-2021 SARS-CoV-2 mRNA (lshrjrqtuvq-smpv-noqxt se) vaccine Rishikarine XIE [facility] 03-19-2021 COVID-19 mRNALowell (Pfizer) MD Rishi Xie Work Phone: [facility] 12-02-2020 influenza virus vaccine, unspecified formulation Rishikarine XIE [facility] 10-07-2020 COVID-19 mRNALowell (Pfizer) MD Rishi Xie Work Phone: [facility] Comment on above: Result Comment: 2021: [id number] Payers Date Payer Category Payer Unknown [id number] 2023 Private Health Insurance [id number] 2023 Private Health Insurance [id number] 2022 Unknown [id number] 2017 Private Health Insurance [id number] 2016 Private Health Insurance [id number] 1966 Unknown [id number] 2.16.84 [id number] 1966 Unknown [id number] 2.16.8 [id number] 1966 Unknown [id number] 2.16.8 [id number] 1966 Unknown [id number] 2.16.84 [id number] 1966 Unknown [id number] 2.16.84 [id number] 1966 Unknown [id number] 2.16.84 [id number] 1966 Unknown [id number] 2.16.84 [id number] 1966 Unknown [id number] 2.16.84 0.1.207935.3.579.2.1259 1966 Unknown [id number] 2.16.8 40.1.595484.3.579.2.727 1966 Unknown [id number] 2.16.8 40.1.846114.3.579.2.727 1966 Unknown [id number] 2.16.8 [id number] 1966 Unknown [id number] 2.16.8 [id number] 1959 Private Health Insurance [id number] Self-pay [id number] Unknown [id number] Unknown [id number] 2.16.8 [id number] Unknown [id number] 2.16.8 [id number] Unknown [id number] 2.16.8 [id number] Unknown [id number] 2.16.8 [id number] Unknown [id number] 2.16.84 [id number] Social History Date Type Detail Facility [facility] ever smoked [facility] Start: 1965 Sex Assigned At Male [facility] Start: 02-25-2022 End: 12-29-2023 Tobacco smoking status Never smoked tobacco (finding) [facility] Start: 03-29-2024 End: 02-07-2025 Sex Assigned At Male [facility] Tobacco smoking status Never [facility] Start: 12-29-2023 Tobacco use and exposure Smoke less tobacco non-user [facility] Start: 03-29-2024 End: 02-07-2025 Alcoholic beverage intake Ex-drinker (finding) [facility] Start: 03-29-2024 End: 02-07-2025 History of Social function [facility] Do you belong to any clubs or organizations such as hinduism groups, unions, fraternal or athletic groups, or school groups? Yes [facility] Are you now , , , , never or living with a partner? [facility] How often to you hav e a drink containing alcohol? Never [facility] Do you feel stress - tense, restless, nervous, or anxious, or unable to sleep at night because your mind is troubled all the time - these days [OSQ] Only a little [facility] (I/We) worried wheth er (my/our) food would run out before (I/we) got money to buy more. Never true [facility] In the past 12 month s, was there a time when you were not able to pay the mortgage or rent on time? No [facility] Start: 1965 Sex assigned at Not on file [facility] Goals Date Patient Goal Desired Activity /State Functional Status Date Assessment Result Facility 10-16-2024 Functional Status N/A [facility] 06-06-2024 Functional Status N/A [facility] 03-21-2024 Functional Status N/A [facility] 09-07-2023 Functional Status N/A [facility] 08-21-2022 Functional Status N/A [facility] 06-19-2022 Functional Status N/A [facility] Clinical Notes 02-25-2022 to 02-07-2025 Johnathon Gallegos MD - 02/07/2025 7:36 AM Pedro Gallegos MD - 02/07/2025 7:36 AM Pedro Gallegos MD - 02/07/2025 7:36 AM Pedro Gallegos MD - 02/07/2025 7:00 AM EDT Note Date & Type Note Facility 02-07-2025 History of Present illness Narrative Associated Problem(s): Primary osteoarthritis, left shoulder Doing well after surgery and continue home PT exercises. Use OTC PRN. Associated Problem(s): Essential hypertension, benign (CMS/HCC) BP controlled and monitor PRN. Associated Problem(s): Elevated PSA Following with urology. Images from the original note were not included. Subjective Patient ID: Dmitri Arthur is a 60 y.o. male who presents for Follow-up (6 m). Follow up HTN and OA shoulder. Checking BP PRN and typically controlled. BP slightly elevated today. Taking medication daily and tolerating without side effects. Left shoulder pain doing well after replacement. Completed PT and full ROM. Minimal pain and using OTC PRN. Following with urology for BPH and elevated PSA. Review of Systems Constitutional: Negative for fatigue. Respiratory: Negative for cough, shortness of breath and wheezing. Cardiovascular: Negative for chest pain and palpitations. Gastrointestinal: Negative for abdominal pain, diarrhea, nausea and vomiting. Genitourinary: Negative for dysuria. Objective Physical Exam Constitutional: General: He is not in acute distress. Appearance: Normal appearance. HENT: Head: Normocephalic. Right Ear: Tympanic membrane and ear canal normal. Left Ear: Tympanic membrane and ear canal normal. Eyes: Extraocular Movements: Extraocular movements intact. Pupils: Pupils are equal, round, and reactive to light. Cardiovascular: Rate and Rhythm: Normal rate and regular rhythm. Heart sounds: No murmur heard. No friction rub. No gallop. Pulmonary: Breath sounds: Normal breath sounds. No wheezing, rhonchi or rales. Abdominal: General: Bowel sounds are normal. There is no distension. Palpations: Abdomen is soft. Tenderness: There is no abdominal tenderness. There is no guarding or rebound. Musculoskeletal: Left lower leg: No edema. Neurological: Mental Status: He is alert. Assessment/Plan Problem List Items Addressed This Visit Elevated PSA Following with urology. Essential hypertension, benign (CMS/HCC) - Primary BP controlled and monitor PRN. Primary osteoarthritis, left shoulder Doing well after surgery and continue home PT exercises. Use OTC PRN. documented in this encounter [facility] 10-16-2024 Hospital Discharge instructions Patient Education 10/16/2024 09:56:13 Prostate Cancer Screening Prostate Cancer Screening Prostate [...] treatment? Where to find more information [employer] [place] [employer]: www.cancer.org [place] [employer]: www.auanet.org Contact a health care [...] provider. Document Revised: 03/16/2022 Document Reviewed: 03/16/2022 [employer] Patient Education 2023 [employer]. Follow Up Care 06/06/2024 10:23:47 With:PACO VARGAS, Rishi Herrera, URL Address: [address] [address]- When: Unknown [facility] 10-16-2024 Note Patient Education Oncology Prostate Cancer Screening Prostate [...] recommendations. In general, screening is recommended if: ??? You are age 50 to 70 and [...] have a 10- to 15-year life expectancy. ??? You are younger than age 50, and [...] In general, screening is not recommended if: ??? You are younger than age 40. ??? You are between the ages of 40 and 49 and you have no risk factors. ??? You are 70 years of age or [...] high PSA levels may be caused by: ??? Prostate cancer. ??? An enlarged prostate that is not caused by cancer (benign prostatic hyperplasia, or BPH). This condition is very common in older men. ??? A prostate gland infection (prostatitis) or urinary tract infection. ??? Certain medicines such as male hormones (like [...] you may need more tests, such as: ??? A physical exam to check the size of your prostate gland, if not done as part of screening. ??? Blood and imaging tests. ??? A procedure to remove tissue samples from your prostate gland for testing (biopsy). This is the only way to know for certain if you have prostate cancer. What are the benefits of prostate cancer screening? Screening can help to identify cancer at an early stage, before symptoms start and when the cancer can be treated more easily. ??? There is a small chance that screening [...] Questions to ask your health care provider ??? When should I start prostate cancer screening? What is my risk for prostate cancer? How often do I need screening? What type of screening tests do I need? How do I get my test results? What do my results mean? Do I need treatment? Where to find more information ??? The [place] [employer]: www.cancer.org ??? [place] [employer]: www.auanet.org Contact a health care provider if: ??? You have difficulty urinating. ??? You have pain when you urinate or ejaculate. ??? You have blood in your urine or semen. ??? You have pain in your back or in the area of your prostate. Summary ??? Prostate cancer is a common type of cancer in men. The prostate gland (more content not included)... [facility] 10-05-2024 Note Education Materials Pulmonary Medicine Shortness of Breath, Adult Follow-up with your primary care physician to review this emergency department visit. Return to the emerged part for any worsening symptoms. Shortness of breath means you have trouble breathing. Shortness of breath could be a sign of a medical problem. Follow these instructions at home: Pollution ? Do not smoke or use any products that contain nicotine or tobacco. If you need help quitting, ask your doctor. ? Avoid things that can make it harder to breathe, such as: ? Smoke of all kinds. This includes smoke from campfires or forest fires. Do not smoke or allow others to smoke in your home. ? Mold. ? Dust. ? Air pollution. ? Chemical smells. ? Things that can give you an allergic reaction (allergens) if you have allergies. ? Keep your living space clean. Use products that help remove mold and dust. General instructions ? Watch for any changes in your symptoms. ? Take tuii-khd-uvewlwx and prescription medicines only as told by your doctor. This includes oxygen therapy and inhaled medicines. ? Rest as needed. ? Return to your normal activities when your doctor says that it is safe. ? Keep all follow-up visits. Contact a doctor if: ? Your condition does not get better as soon as expected. ? You have a hard time doing your normal activities, even after you rest. ? You have new symptoms. ? You cannot walk up stairs. ? You cannot exercise the way you normally do. Get help right away if: ? Your shortness of breath gets worse. ? You have trouble breathing when you are resting. ? You feel light-headed or you faint. ? You have a cough that is not helped by medicines. ? You cough up blood. ? You have pain with breathing. ? You have pain in your chest, arms, shoulders, or belly (abdomen). ? You have a fever. These symptoms may be an emergency. Get help right away. Call 911. ? Do not wait to see if the symptoms will go away. ? Do not drive yourself to the hospital. Summary ? Shortness of breath is when you have trouble breathing enough air. It can be a sign of a medical problem. ? Avoid things that make it hard for you to breathe, such as smoking, pollution, mold, and dust. ? Watch for any changes in your symptoms. Contact your doctor if you do not get better or you get worse. This information is not intended to replace advice given to you by your health care provider. Make sure you discuss any questions you have with your health care provider. Document Revised: 05/09/2022 Document Reviewed: 05/09/2022 Elsevier Patient Education ? 2023 [employer]. [facility] 10-05-2024 Note Patient Education Ma terials Follows: [facility] 08-07-2024 History of Present illness Narrative Associated Problem(s): Primary osteoarthritis, left shoulder Doing well after surgery and continue PT. Follow up with ortho. Associated Problem(s): Essential hypertension, benign (CMS/HCC) BP controlled and monitor PRN. Images from the original note were not included. Subjective Patient ID: Dmitri Arthur is a 59 y.o. male who presents for Annual Exam (wellness). Follow up HTN and shoulder pain. Needs form complete for work and had annual PE 03/29. Patient feels well today. Checking BP PRN and typically controlled. BP normal today. Taking medication daily and tolerating without side effects. Patient had left shoulder replacement 06/12 and doing well. In PT and ROM improved. Overall pain much improved. Review of Systems Constitutional: Negative for fatigue. Respiratory: Negative for cough, shortness of breath and wheezing. Cardiovascular: Negative for chest pain and palpitations. Gastrointestinal: Negative for abdominal pain, diarrhea, nausea and vomiting. Genitourinary: Negative for dysuria. Objective Physical Exam Constitutional: General: He is not in acute distress. Appearance: Normal appearance. HENT: Head: Normocephalic. Right Ear: Tympanic membrane and ear canal normal. Left Ear: Tympanic membrane and ear canal normal. Eyes: Extraocular Movements: Extraocular movements intact. Pupils: Pupils are equal, round, and reactive to light. Cardiovascular: Rate and Rhythm: Normal rate and regular rhythm. Heart sounds: No murmur heard. No friction rub. No gallop. Pulmonary: Breath sounds: Normal breath sounds. No wheezing, rhonchi or rales. Abdominal: General: Bowel sounds are normal. There is no distension. Palpations: Abdomen is soft. Tenderness: There is no abdominal tenderness. There is no guarding or rebound. Musculoskeletal: Left lower leg: No edema. Neurological: Mental Status: He is alert. Assessment/Plan Problem List Items Addressed This Visit Essential hypertension, benign (CMS/HCC) - Primary BP controlled and monitor PRN. Primary osteoarthritis, left shoulder Doing well after surgery and continue PT. Follow up with ortho. documented in this encounter [facility] 06-06-2024 Hospital Discharge instructions Patient Education 06/06/2024 10:20:21 Prostate Cancer Screening Prostate Cancer Screening Prostate [...] treatment? Where to find more information [employer] [place] [employer]: www.cancer.org [place] [employer]: www.auanet.org Contact a health care [...] provider. Document Revised: 03/16/2022 Document Reviewed: 03/16/2022 Band Digital Patient Education 2023 [employer]. Follow Up Care 03/21/2024 08:30:22 With:PACO VARGAS, Rishi Herrera, URL Address: [address] [place], [place] [address] [facility] [address] [place] [id number]- When: Unknown [facility] 06-06-2024 Note Patient Education Oncology Prostate Cancer Screening Prostate [...] Where to find more information ? The [place] [employer]: www.cancer.org ? [place] [employer]: www.auanet.org Contact a health care [...] bladder and in front of the rectum. (more content not included)... [facility] 03-21-2024 Hospital Discharge instructions Patient Education 03/21/2024 [...] treatment? Where to find more information The [place] [employer]: www.cancer.org [place] [employer]: www.auanet.org Contact a health care [...] provider. Document Revised: 03/16/2022 Document Reviewed: 03/16/2022 [employer] Patient Education 2022 [employer]. Follow Up Care 09/07/2023 09:45:21 With:PACO VARGAS, Rishi Herrera, URL Address: [facility] [employer] [address] [place] [id number]- When: Unknown [facility] 09-07-2023 Hospital Discharge instructions Patient Education 09/07/2023 [...] urethra. Follow these instructions at home: Take vtyx-inm-yzghlth and prescription medicines only as told by [...] provider. Document Revised: 04/08/2022 Document Reviewed: 04/08/2022 [employer] Patient Education 2022 [employer]. Follow Up Care 02/23/2023 08:58:30 With:PACO VARGAS, Rishi Herrera, URL Address: [address] [place], [place] [id number]- When:Within 6 Month(s) Comments:w/PSA [facility] 08-21-2022 Hospital Discharge instructions Patient Education 08/21/2022 [...] one of these risk factors: ?Being of -[place] descent. ?Having a family history of prostate [...] you: Are older than age 55. Are -[place]. Have a father, brother, or uncle who [...] 07/01/2018 Document Revised: 09/02/2018 Document Reviewed: 07/01/2018 Band [employer] Patient Education 2020 [employer]. Follow Up Care 06/19/2022 11:23:29 With:Rishi XIE MD, URL Address: [address] [employer] [address] [place] [id number]- When: Unknown [facility] 05-28-2022 Hospital Discharge instructions Follow Up Care 05/28/2022 13:08:39 With:Rishi XIE MD, URL Address: [address] [place] [id number]- When:1 month [facility] 02-25-2022 Hospital Discharge instructions Patient Education [...] including vitamins, herbs, eye drops, creams, and xlgq-gfe-fjfiupe medicines. This also includes: ?Medicines to assist [...] 10/23/2005 Document Revised: 09/02/2018 Document Reviewed: 06/27/2018 [employer] Patient Education 2020 [employer]. 02/25/2022 10:56:19 Calorie Counting for Weight Loss [...] 09/20/2006 Document Revised: 06/09/2019 Document Reviewed: 08/20/2017 Band [employer] Patient Education 2020 [employer]. Follow Up Care 01/15/2022 09:35:57 With:Rishi XIE MD, URL Address: When: Unknown [facility] Evaluation + Plan note No data available for this section [facility] Evaluation + Plan note Future Appointments Appointment Date:08/21/2022 08:15:00 AM Scheduled Provider:Rishi XIE MD Location:[facility] Appointment Type:URO Office Visit Appointment Date:10/20/2022 08:30:00 AM Scheduled Provider:Rishi XIE MD Location:[facility] Appointment Type:URO Office Visit Diagnostic Tests PendingPSA Free & Total 06/19/22 [facility] Evaluation + Plan note Future Appointments Appointment Date:10/20/2022 08:30:00 AM Scheduled Provider:Rishi XIE MD Location:[facility] Appointment Type:URO Office Visit Diagnostic Tests PendingPSA Free & Total 08/21/22 [facility] Evaluation + Plan note Future Appointments Appointment Date:10/20/2022 08:30:00 AM Scheduled Provider:Rishi XIE MD Location:[facility] Appointment Type:URO Office Visit [facility] Evaluation + Plan note Future Appointments Appointment Date:03/21/2024 08:00:00 AM Scheduled Provider:Rishi XIE MD Location:[facility] Appointment Type:URO Office Visit Diagnostic Tests PendingPSA Total 09/07/23 [facility] Evaluation + Plan note Future Appointments Appointment Date:06/12/2024 10:45:00 AM Scheduled Provider:Rishi XIE MD Location:[facility] Appointment Type:URO Office Visit Diagnostic Tests PendingPSA Free & Total 03/21/24 [facility] Evaluation + Plan note Future Appointments Appointment Date:10/16/2024 09:15:00 AM Scheduled Provider:Rishi XIE MD Location:[facility] Appointment Type:URO Office Visit Diagnostic Tests PendingPSA Free & Total 06/06/24 [facility] Evaluation + Plan note Future Appointments Appointment Date:03/20/2025 03:00:00 PM Scheduled Provider:Rishi XIE MD Location:[facility] Appointment Type:URO Office Visit Diagnostic Tests PendingPSA Free & Total 10/16/24 [facility] Evaluation note No assessment inform ation available [facility] Work Phone: Evaluation note Diagnosis Primary osteoarthritis, left shoulder- Primary Internal derangement of left shoulder Annual physical exam- Primary Routine general medical examination at a health care facility Essential hypertension, benign (CMS/HCC) Essential hypertension, benign Cerebral palsy, unspecified type (CMS/HCC) Essential hypertension, benign (CMS/HCC)- Primary Essential hypertension, benign Primary osteoarthritis, left shoulder documented in this encounter [facility] HealthcareEvaluation note* Diagnosis Primary osteoarthritis, left shoulder- Primary Internal derangement of left shoulder Annual physical exam- Primary Routine general medical examination at a health care facility Essential hypertension, benign (CMS/HCC) Essential hypertension, benign Cerebral palsy, unspecified type (CMS/HCC) Essential hypertension, benign (CMS/HCC)- Primary Essential hypertension, benign Primary osteoarthritis, left shoulder Essential hypertension, benign (CMS/HCC)- Primary Essential hypertension, benign Primary osteoarthritis, left shoulder Elevated PSA Elevated prostate specific antigen (PSA) documented in this encounter [facility] HealthcareHospital Discharge instructions No data available for this section [facility] No data available for this section [facility] Summary Purpose Family History [...] if you have any problems. -Office number [phone] Additional Source Comments (unrecognized sect ion and content) No Status Records FoundNo Status Records FoundNo Status Records FoundNo Status Records FoundNo Status Records FoundNo Status Records FoundNo Status Records Found INFORMATION SOURCE (unrecogn ized section and content) DATE CREATED AUTHOR 03/23/2018 [facility] DATE CREATED AUTHOR AUTHOR'S ORGANIZ ATION 03/23/2018 [facility] DATE CREATED AUTHOR AUTHOR'S ORGANIZ ATION 11/07/2022 [facility] DATE CREATED AUTHOR AUTHOR'S ORGANIZ ATION 02/16/2023 [facility] DATE CREATED AUTHOR AUTHOR'S ORGANIZ ATION 10/21/2024 [facility] DATE CREATED AUTHOR AUTHOR'S ORGANIZ ATION 02/09/2025 [facility] EPIC DATE CREATED AUTHOR AUTHOR'S ORGANIZ ATION 02/17/2025 [facility] Care Teams (unrecognized sec tion and content) Team Status: Inactive Member Role Status Dates Johnathon Gallegos MD Primary Care Provider Active Rishi Xie MD Attending Provider Active Team Status: Inactive Member Role Status Dates Rishi Xie MD Attending Provider Active Johnathon Gallegos MD Primary Care Provider Active Team Status: Active Member Role Status Dates Johnathon Gallegos MD Primary Care Provider Active Client Solutions Director Relationship Specialty Start Date End Date Johnathon Gallegos MD [address] [place] [phone] PCP - General Family Medicine 12/29/23 Client Solutions Director Relationship Specialty Start Date End Date Johnathon Gallegos MD [address] [place] [phone] PCP - General Family Medicine 12/29/23 Client Solutions Director Relationship Specialty Start Date End Date Johnathon Gallegos MD [address] [place] [phone] PCP - General Family Medicine 12/29/23 Client Solutions Director Relationship Specialty Start Date End Date Johnathon Gallegos MD [address] [place] [phone] PCP - General Family Medicine 12/29/23 Client Solutions Director Relationship Specialty Start Date End Date Johnathon Gallegos MD [address] [place] [phone] PCP - General Family Medicine 12/29/23 Reason for Visit (unrecogniz ed section and content) Reason Comments Annual Exam wellness Reason Comments Follow-up 6 m FOR RECORDS PERTAINING TO PATIENTS WHO ARE [...] BE BASED ON THE PRIMARY CLINICAL RECORDS. [facility] [employer] website [facility]. provides no warranty or guarantee of the accuracy or completeness of information in this document.
[2025-05-05 04:07] LABS: PSA, Free 0.49 ng/mL
== END 2025-05-04 07:25 | disposition home or self-care (01) ==
LOC: LAB 07:25
PROVIDERS: PCP Family Medicine; Visit Provider Urology
DX: N40.1 Benign prostatic hyperplasia with lower urinary tract symptoms (principal); R97.20 Elevated prostate specific antigen [PSA]; Z80.42 Family history of malignant neoplasm of prostate
CPT/HCPCS: 36415; 84153; 84154